=== PATIENT | female | born 1985 | race Caucasian/White ===

== ENCOUNTER 2017-12-03 18:58 | Emergency (ER) | payer OTHER, MEDICAID, SELFPAY ==
[2017-12-03 19:18] VITALS: BP 177/106; PULSE 113; RESP 22; TEMP 37.4; O2SAT 98
[2017-12-03] MEDS: SODIUM CHLORIDE 0.9% 1,000 ML 1000 ML IV (20:10)
--- NOTE | 2017-12-03 20:37 | ED.FEMALEGU ---
HPI - Female Genitourinary General Chief complaint: Urogenital-Female Stated complaint: SAYS SEVERE UTI Time Seen by Provider: 12/03/17 20:10 Source: patient Mode of arrival: ambulatory Limitations: no limitations History of Present Illness HPI Narrative: Patient is a 32-year-old female here for evaluation of which she thinks is a urinary tract infection with lower back pain. Patient states that it started over the past several days. This morning she developed some nausea vomiting. She states this feels like prior urinary tract infection. She states she has been on Bactrim in the past which has helped her symptoms. She states that her infections get bad quick that is why she came to the emergency department. Has not tried anything at home for this. Related Data Home Medications Medication Instructions Recorded Confirmed gabapentin [Neurontin] 600 mg PO TID #0 07/19/17 hydromorphone [Dilaudid] 2 mg PO Q4HP PRN #0 07/19/17 methocarbamol 500 mg PO QIDP PRN #0 07/19/17 ondansetron 4 mg PO TID #0 07/19/17 Previous Rx's Medication Instructions Recorded methylprednisolone [Medrol (Vishal)] 4 mg PO SEE INSTRUCTIONS #21 07/19/17 docusate sodium 100 mg PO BID #60 cap 07/21/17 hydroxyzine pamoate 25 mg PO Q6HP PRN #30 cap 07/21/17 methylprednisolone [Medrol (Vishal)] 4 mg PO DIRECTED #1 packet 07/21/17 ondansetron 4 mg PO Q4HP PRN #20 tab 07/21/17 ondansetron 4 mg PO BID-TID PRN #10 tab 12/03/17 sulfamethoxazole-trimethoprim 1 tab PO BID 3 Days #6 tab 12/03/17 Allergies Allergy/AdvReac Type Severity Reaction Status Date / Time EDD Inhibitors AdvReac Mild PERSISTANT Unverified 08/21/17 11:52 [EDD INHIBITORS] COUGH oxycodone [OXYCODONE] AdvReac Mild NAUSEA, Unverified 08/21/17 11:52 DIZZYNESS Review of Systems Constitutional Denies fatigue and Reports fever(s) Cardiovascular Denies chest pain and Denies dyspnea Respiratory Denies dyspnea Gastrointestinal Gastrointestinal: Denies abdominal pain, Denies diarrhea, Reports nausea and Reports vomiting Genitourinary Denies abnormal vaginal bleeding, Reports dysuria and Reports urinary urgency Musculoskeletal Denies myalgias and Denies arthralgias Integumentary/Breasts Denies lesions and Denies rash Endocrine Denies fatigue Hematologic/Lymphatic Denies easy bleeding and Denies easy bruising [facility] Surgical History History of tonsillectomy Status post delivery (04/03/11) Status post delivery (01/01/14) Exam Initial Vital Signs Initial Vital Signs: Vital Signs Temperature 99.3 F 12/03/17 19:18 Pulse Rate 113 H 12/03/17 19:18 Respiratory Rate 22 12/03/17 19:18 Blood Pressure 177/106 H 12/03/17 19:18 Pulse Oximetry 98 12/03/17 19:18 Const General: cooperative, healthy appearing, comfortable, well developed, well groomed and No acute distress Orientation: alert, awake and oriented x3 Resp Effort & Inspection: normal respiratory effort Auscultation: clear to auscultation bilaterally Cardio Rate: tachycardic Rhythm: regular rhythm Pulses: radial pulses present GI Inspection: non-distended Palpation: soft, No firm, No guarding and No tender Back/Spine/Pelvis Back: No CVA tenderness Skin Lesions: no lesions Rashes: no rashes Neuro General: alert, awake and oriented x3 Cognition: normal cognition Speech: speech normal Gait: normal gait Motor: muscle tone normal throughout Sensory Exam: no sensory deficits noted Extrem General: normal to inspection and capillary refill normal Psych Appearance: grossly normal, well kempt and disheveled Course Orders Ordered: ED Orders 12/03/17 20:05 Test Serum,Qual Stat 12/03/17 20:10 Urine Culture Stat Urine Microscopic Stat Discontinued Medications Acetaminophen (Tylenol) 650 mg PO NOW ONE Stop: 12/03/17 22:42 Last Admin: 12/03/17 22:50 Dose: 650 mg Sodium Chloride (Normal Saline 0.9%) 1,000 mls @ 1,000 mls/hr IV BOLUS ONE Stop: 12/03/17 21:09 Last Infusion: 12/03/17 22:50 Dose: 0 mls/hr Admin: 12/03/17 20:10 Dose: 1,000 mls/hr Ondansetron HCl (Zofran) 4 mg IV NOW ONE Stop: 12/03/17 20:11 Last Admin: 12/03/17 21:34 Dose: 4 mg Trimethoprim/Sulfamethoxazole (Bactrim Ds) 1 tab PO NOW ONE Stop: 12/03/17 20:39 Last Admin: 12/03/17 22:00 Dose: 1 tab Vital Signs - 8 hr 12/03/17 20:41 12/03/17 22:16 12/03/17 22:50 Temperature 101.8 F H Pulse Rate 98 H 100 H Respiratory Rate 22 18 Blood Pressure Blood Pressure [Left Wrist] 152/88 H 148/76 H Pulse Oximetry 98 100 12/03/17 22:52 Temperature 101.8 F H Pulse Rate 97 H Respiratory Rate 15 Blood Pressure 167/109 H Blood Pressure [Left Wrist] Pulse Oximetry 97 MDM - Female Genitourinary Lab Data Attestation: I reviewed the patient's lab results. Lab Results 12/03/17 12/03/17 Range/Units 20:05 20:10 Serum , Qual Negative (Negative) Urine RBC 0-1/hpf (0-5/HPF) Urine WBC 5-10/hpf H (0-5/HPF) Ur Squamous Epith Cells 1-5 /hpf Urine Bacteria Moderate (10-30) H (None) Ur Culture Indicated? Specimen cultured Micro UA Comment Not Reportable MDM Narrative Medical decision making narrative: Patient with a history that is consistent with the urinary tract infection. Her urinalysis does have white blood cells and a few bacteria which support this history. Physical exam is relatively benign she does not have any CVA tenderness. Was tachycardic upon arrival but this did improve with fluids. She was given oral antibiotics here in the emergency department which she tolerated without vomiting. Her test was negative. Will send home with a prescription for antibiotics. She states that Bactrim has which she has taken in the past and it has helped her symptoms so that is what I will start her on today and is what she was given here in the emergency department. She was given return precautions with regard to pyelonephritis. Patient expressed understanding and agreement with plan. Discharge Plan Departure Patient Disposition: Home, Self-Care Clinical Impression: Urinary tract infection Discharge Date/Time: 12/03/17 22:35 Interventions: ED Discharge Assessment Last Done: 12/03/17 22:52 Instructions: DI for Urinary Tract Infection (UTI) Activity Restrictions/Additional Instructions: recommend you take all of the medications as directed starting tomorrow. You did receive Your 1st dose of antibiotics here in the emergency department. you can take Tylenol/ acetaminophen and/or Motrin /ibuprofen for any body aches. Return to the emergency department for any new symptoms, worsening symptoms, inability to take her antibiotics or any other concerning symptoms. Prescriptions: New sulfamethoxazole-trimethoprim 800-160 mg tablet 1 tab PO BID 3 Days Qty: 6 RF: 0 ondansetron 4 mg tablet,disintegrating 4 mg PO BID-TID PRN (Reason: nausea and vomiting) Qty: 10 RF: 0 No Action hydromorphone [Dilaudid] 2 MG tablet 2 mg PO Q4HP PRNQty: 0 RF: 0 gabapentin [Neurontin] 300 MG capsule 600 mg PO TID Qty: 0 RF: 0 methocarbamol 500 MG tablet 500 mg PO QIDP PRNQty: 0 RF: 0 ondansetron 4 MG tablet,disintegrating 4 mg PO TID Qty: 0 RF: 0 methylprednisolone [Medrol (Vishal)] 4 MG tablets,dose pack 4 mg PO SEE INSTRUCTIONS Qty: 21 RF: 0 docusate sodium 100 MG capsule 100 mg PO BID Qty: 60 RF: 1 hydroxyzine pamoate 25 MG capsule 25 mg PO Q6HP PRNQty: 30 RF: 1 ondansetron 4 MG tablet,disintegrating 4 mg PO Q4HP PRNQty: 20 RF: 1 methylprednisolone [Medrol (Vishal)] 4 MG tablets,dose pack 4 mg PO DIRECTED Qty: 1 RF: 0
[2017-12-03 20:39] LABS: Bacteria Urine Moderate (10-30); Culture Indicated Urine Specimen Cultured; RBC Urine 0-1/HPF (0-5/HPF); Squamous Epithelial Cell Urine 1-5 /HPF; WBC Urine 5-10/HPF (0-5/HPF)
[2017-12-03 20:41] VITALS: BP 152/88; PULSE 98; RESP 22; O2SAT 98
[2017-12-03] MEDS: ONDANSETRON 4 MG/2 ML INJ IV (21:34)
[2017-12-03 21:52] LABS: Pregnancy Test Serum,Qual Negative (Negative)
[2017-12-03] MEDS: SULFA/TRIMETH 800/160 (DS) TABLET 1 TAB PO (22:00)
[2017-12-03 22:16] VITALS: BP 148/76; PULSE 100; RESP 18; O2SAT 100
[2017-12-03 22:50] VITALS: TEMP 38.8
[2017-12-03] MEDS: ACETAMINOPHEN 325 MG TABLET 650 MG PO (22:50)
[2017-12-03 22:52] VITALS: BP 167/109; PULSE 97; RESP 15; TEMP 38.8; O2SAT 97
== END 2017-12-03 22:35 | disposition home or self-care (01) ==
PROVIDERS: Emergency Provider Emergency Medicine; PCP Family Medicine
DX: N39.0 Urinary tract infection, site not specified (principal)
CPT/HCPCS: 36591; 81003; 81015; 81025; 84703; 87077; 87086; 87186; 96361; 96374; 99283; 99284; J2405

== ENCOUNTER → 2018-01-19 11:10 | Outpatient (CLI) | payer OTHER, MEDICAID, SELFPAY ==
--- NOTE | 2018-01-19 11:12 | DI.RAD.S_ITS ---
PROCEDURE: XR LUMBAR SPINE 2-3V INDICATIONS: low back strain TECHNIQUE: 3 views of the lumbar spine were acquired. COMPARISON: [facility], CR, L-SPINE 2-3 VIEWS, 03/17/2012, 14:54. [facility], CR, L-SPINE 2-3 VIEWS, 05/31/2008, 11:00. FINDINGS: Bones: 5 [id number] vertebrae are present. There is normal bony alignment. No vertebral body compression fractures. No suspicious bony lesions. Soft tissues: Overlying bowel gas pattern is normal. No suspicious soft tissue calcifications. IMPRESSION: Mild degenerative disc disease again noted along the lower third of the lumbosacral spine but no fracture or traumatic subluxation is associated. Dictated by: Nabil Daniel M.D. on 01/19/2018 at 11:23 Approved by: Nabil Daniel M.D. on 01/19/2018 at 11:50
== END ==
PROVIDERS: PCP Family Medicine; Visit Provider Physician Assistant
DX: S39.012A Strain of muscle, fascia and tendon of lower back, initial encounter (principal); M51.37 Other intervertebral disc degeneration, lumbosacral region
CPT/HCPCS: 72100

== ENCOUNTER 2018-07-04 10:46 | Emergency (ER) | payer OTHER, MEDICAID, SELFPAY ==
[2018-07-04 10:50] VITALS: BP 163/99; PULSE 89; RESP 20; TEMP 36.7; O2SAT 100
--- NOTE | 2018-07-04 11:07 | DI.RAD.S_ITS ---
PROCEDURE: XR SACRUM COCCYX MIN 2V INDICATIONS: fall TECHNIQUE: 3 views of the sacrum and coccyx acquired. COMPARISON: [facility], CR, XR LUMBAR SPINE 2-3V, 07/04/2018, 11:20. [facility], CR, XR LUMBAR SPINE 2-3V, 01/19/2018, 10:48. FINDINGS: Bones: No fractures or dislocations. No suspicious bony lesions. Soft tissues: Visualized bowel gas pattern is normal. No suspicious soft tissue densities. IMPRESSION: No fracture. No osseous lesion. If symptoms and/or clinical suspicion for pathology persists, further assessment with repeat radiographs (7-10 days) or advanced imaging (e.g. CT, MRI or bone scan) may be helpful. Dictated by: Ciara Katz MD, PhD on 07/04/2018 at 11:39 Approved by: Ciara Katz MD, PhD on 07/04/2018 at 11:39
--- NOTE | 2018-07-04 11:07 | DI.RAD.S_ITS ---
PROCEDURE: XR LUMBAR SPINE 2-3V INDICATIONS: fall TECHNIQUE: 3 views of the lumbar spine were acquired. COMPARISON: [facility], CR, XR LUMBAR SPINE 2-3V, 01/19/2018, 10:48. FINDINGS: Bones: 5 [id number] vertebrae are present. There is normal bony alignment. No vertebral body compression fractures. No suspicious bony lesions. Mild multilevel degenerative changes. Soft tissues: Overlying bowel gas pattern is normal. No suspicious soft tissue calcifications. IMPRESSION: No fracture. No acute osseous lesion. If symptoms and/or clinical suspicion for pathology persists, evaluation with MRI may be helpful for further assessment. Dictated by: Ciara Katz MD, PhD on 07/04/2018 at 11:38 Approved by: Ciara Katz MD, PhD on 07/04/2018 at 11:39
--- NOTE | 2018-07-04 12:05 | ED.BACK ---
HPI - Back Pain/Injury <Erma Costello PA-C - Last Filed: 07/04/18 15:33> General Chief Complaint: Back Pain/Injury Stated Complaint: SLIPPED ON ICE,BACK SURG 10 MO AGO Time Seen by Provider: 07/04/18 12:05 Source: patient Mode of arrival: ambulatory Limitations: no limitations History of Present Illness HPI Narrative: this 32-year-old female have who has a history of spinal stenosis and lumbar laminectomy comes in due to low back and tailbone pain after slip and fall a couple of hours ago. She states that she slipped on a large Tupperware lid under the snow and both feet went out from under her. She fell onto her bottom and low back. She denies any other contusions or injury, no head contusion or LOC, no neck pain. She states that she was able to get up with help and slowly walk to the car but very painful. She states pain is localized most in the very low back and tailbone area, increases with any movement, bending, twisting, walking. Better lying on her side. She thinks that she bumped the right side of her back more than the left. She denies any new weakness or paresthesia in the extremities, no numbness in the groin, no bowel or bladder changes since she fell. Related Data Home Medications Medication Instructions Recorded Confirmed losartan-hydrochlorothiazide 1 tab PO DAILY 07/04/18 07/04/18 norethindrone (contraceptive) 1 tab PO DAILY 07/04/18 07/04/18 [Sharobel] Previous Rx's Medication Instructions Recorded hydrocodone-acetaminophen 1 tab PO Q6H PRN #8 tab 07/04/18 meloxicam 15 mg PO DAILY #14 tab 07/04/18 methocarbamol 750 mg PO Q6H PRN #20 tab 07/04/18 Allergies Allergy/AdvReac Type Severity Reaction Status Date / Time EDD Inhibitors AdvReac Mild PERSISTANT Verified 03/02/18 11:35 [EDD INHIBITORS] COUGH oxycodone [OXYCODONE] AdvReac Mild NAUSEA, Verified 03/02/18 11:35 DIZZYNESS Review of Systems <Erma Costello PA-C - Last Filed: 07/04/18 15:33> Review of Systems ROS Unobtainable: All systems reviewed & are unremarkable except as noted in HPI and below PFSH <Erma Costello PA-C - Last Filed: 07/04/18 15:33> Medical History Status post laminectomy (Chronic) Essential hypertension (02/23/14) Morbid obesity (04/20/14) Spinal stenosis (Chronic) Surgical History History of tonsillectomy Status post delivery (04/03/11) Status post delivery (01/01/14) Social History Smoking Status: Former smoker substance use type: marijuana (Daily for back pain) Social History Smoking Status: Former smoker substance use type: marijuana (Daily for back pain) Exam <Erma Costello PA-C - Last Filed: 07/04/18 15:33> Narrative Exam Narrative: GENERAL APPEARANCE: Patient Resting on her right side, in NAD PULMONARY: Lungs clear to auscultation bilaterally CV: Regular rhythm regular without murmur, normal S1 and S2, no S3 or S4 MUSCULOSKELETAL: No point tenderness over the lumbar spine. tender over the distal sacrum and coccyx as well as moderate tenderness over the right SI joint. No tenderness over the right hip. Lower extremity strength 5/5 bilateral hip flexors, knee extensors, foot plantar flexion. Negative modified straight leg raise NEUROLOGIC: sensation is grossly intact over the lower extremities VASCULAR: Extremities are warm and pink Initial Vital Signs Initial Vital Signs: Vital Signs Temperature 98.0 F 07/04/18 10:50 Pulse Rate 89 07/04/18 10:50 Respiratory Rate 20 07/04/18 10:50 Blood Pressure 163/99 H 07/04/18 10:50 Pulse Oximetry 100 07/04/18 10:50 <Aelthea Govea DO - Last Filed: 07/05/18 07:47> Initial Vital Signs Initial Vital Signs: Vital Signs Temperature 98.0 F 07/04/18 10:50 Pulse Rate 89 07/04/18 10:50 Respiratory Rate 20 07/04/18 10:50 Blood Pressure 163/99 H 07/04/18 10:50 Pulse Oximetry 100 07/04/18 10:50 Course <Erma Costello PA-C - Last Filed: 07/04/18 15:33> Orders Ordered: Discontinued Medications Methocarbamol (Robaxin) 750 mg PO NOW ONE Stop: 07/04/18 12:19 Last Admin: 07/04/18 12:38 Dose: 750 mg Vital Signs - 8 hr 07/04/18 10:50 07/04/18 13:04 Temperature 98.0 F Pulse Rate 89 86 Respiratory Rate 20 20 Blood Pressure 163/99 H 171/99 H Pulse Oximetry 100 100 <Alethea Govea DO - Last Filed: 07/05/18 07:47> Orders Ordered: Discontinued Medications Methocarbamol (Robaxin) 750 mg PO NOW ONE Stop: 07/04/18 12:19 Last Admin: 07/04/18 12:38 Dose: 750 mg Vital Signs - 8 hr 07/04/18 10:50 07/04/18 13:04 Temperature 98.0 F Pulse Rate 89 86 Respiratory Rate 20 20 Blood Pressure 163/99 H 171/99 H Pulse Oximetry 100 100 MDM - Back Pain/Injury <Erma Costello PA-C - Last Filed: 07/04/18 15:33> Imaging Data L/S, coccyx: Radiologist's impression: María Castaneda 32 F 1985 [place] [address] XRay Report Signed Patient: María Castaneda [facility]#: [id number] : 1985Acct:[id number] Age/Sex: 32 / FDate of Service: 07/04/18 Loc: ED Accession Number: [id number] Procedure: XR sacrum coccyx min 2V Ordering Provider: Alethea Govea D.O. PROCEDURE: XR SACRUM COCCYX MIN 2V INDICATIONS: fall TECHNIQUE: 3 views of the sacrum and coccyx acquired. COMPARISON: [facility], CR, XR LUMBAR SPINE 2-3V, 07/04/2018, 11:20. [facility], CR, XR LUMBAR SPINE 2-3V, 01/19/2018, 10:48. FINDINGS: Bones: No fractures or dislocations. No suspicious bony lesions. Soft tissues: Visualized bowel gas pattern is normal. No suspicious soft tissue densities. IMPRESSION: No fracture. No osseous lesion. If symptoms and/or clinical suspicion for pathology persists, further assessment with repeat radiographs (7-10 days) or advanced imaging (e.g. CT, MRI or bone scan) may be helpful. Dictated by: Ciara Katz MD, PhD on 07/04/2018 at 11:39 Approved by: Ciara Katz MD, PhD on 07/04/2018 at 11:39 Chart Viewer Diagnostics DATE TYPE STATUS AUTHOR Hx 07/04/18 11:07 Ciara Katz 07/04/18 11:07 Ciara Katz 01/19/18 11:12 Nabil Daniel 09/18/17 00:00 FredyNabil María Castaneda 32, F0 1985 [facility], ED.LOC - Main ED: R11 122.47kg Back Pain/Injury Search Chart PERSISTANT COUGH NAUSEA, DIZZYNESS ONSET 02/23/14 04/20/14 Today 10:50 María Castaneda 32 F [address] [address] XRay Report Signed Patient: María Castaneda [facility]#: [id number] : 1985Acct:[id number] Age/Sex: 32 / FDate of Service: 07/04/18 Loc: ED Accession Number: [id number] Procedure: XR lumbar spine 2-3V Ordering Provider: Alethea Govea D.O. PROCEDURE: XR LUMBAR SPINE 2-3V INDICATIONS: fall TECHNIQUE: 3 views of the lumbar spine were acquired. COMPARISON: [facility], CR, XR LUMBAR SPINE 2-3V, 01/19/2018, 10:48. FINDINGS: Bones: 5 [id number] vertebrae are present. There is normal bony alignment. No vertebral body compression fractures. No suspicious bony lesions. Mild multilevel degenerative changes. Soft tissues: Overlying bowel gas pattern is normal. No suspicious soft tissue calcifications. IMPRESSION: No fracture. No acute osseous lesion. If symptoms and/or clinical suspicion for pathology persists, evaluation with MRI may be helpful for further assessment. Dictated by: Ciara Katz MD, PhD on 07/04/2018 at 11:38 Approved by: Ciara Katz MD, PhD on 07/04/2018 at 11:39 Discharge Plan Departure Patient Disposition: Home Clinical Impression: Lumbar back pain Contusion of coccyx Qualifiers: Encounter type: initial encounter Qualified Code(s): S30.0XXA - Contusion of lower back and pelvis, initial encounter Discharge Date/Time: 07/04/18 13:06 Interventions: ED Discharge Assessment Last Done: 07/04/18 13:04 Instructions: DI for Low Back Pain, Coccydynia Activity Restrictions/Additional Instructions: I think you have contused the tailbone area and strain your low back when you fell. there was no visible broken bone on your x-rays. Please treat this much as you have your low back pain in the past. Rest at home but gentle walking on even surfaces is okay (avoid sitting, twisting, and bending ). Apply ice today and then ice and heat as needed. You can use [id number] topical medicines or lidocaine patches as needed. I have sent prescriptions for meloxicam and methocarbamol into your pharmacy for you to restart at least for the next few days. I have also printed a prescription for a few hydrocodone /acetaminophen if you need them over the weekend in addition to those. Please follow-up with your PCP 1st thing next week to assess your progress and determine whether you might need more treatment. Return as we talked about if you have any acutely worsening symptoms or new symptoms such as difficulty urinating or numbness in Your groin or extremities or weakness in your extremities. Prescriptions: New hydrocodone-acetaminophen 5-325 mg tablet 1 tab PO Q6H PRN (Reason: acute back injury) Qty: 8 RF: 0 meloxicam 15 mg tablet 15 mg PO DAILY Qty: 14 RF: 0 methocarbamol 750 mg tablet 750 mg PO Q6H PRN (Reason: back/muscle pain) Qty: 20 RF: 0 No Action losartan-hydrochlorothiazide 100-25 mg tablet 1 tab PO DAILY RF: 0 norethindrone (contraceptive) [Sharobel] 0.35 mg tablet 1 tab PO DAILY RF: 0 Referrals: Silvano Sandoval MD [Primary Care Provider] - Stand Alone Forms: Work Release Note <Alethea Govea DO - Last Filed: 07/05/18 07:47> Cosign ED Attending Aurora[place] Attestation: I was immediately available in the department for consultation. Documentation has been reviewed. I agree with assessment and plan.
--- NOTE | 2018-07-04 12:08 | ED_ITS ---
HPI - Back Pain/Injury <Erma Costello PA-C - Last Filed: 07/04/18 15:33> General Chief Complaint: Back Pain/Injury Stated Complaint: SLIPPED ON ICE,BACK SURG 10 MO AGO Time Seen by Provider: 07/04/18 12:05 Source: patient Mode of arrival: ambulatory Limitations: no limitations History of Present Illness HPI Narrative: this 32-year-old female have who has a history of spinal stenosis and lumbar laminectomy comes in due to low back and tailbone pain after slip and fall a couple of hours ago. She states that she slipped on a large Tupperware lid under the snow and both feet went out from under her. She fell onto her bottom and low back. She denies any other contusions or injury, no head contusion or LOC, no neck pain. She states that she was able to get up with help and slowly walk to the car but very painful. She states pain is localized most in the very low back and tailbone area, increases with any movement, bending, twisting, walking. Better lying on her side. She thinks that she bumped the right side of her back more than the left. She denies any new weakness or paresthesia in the extremities, no numbness in the groin, no bowel or bladder changes since she fell. Related Data Home Medications Medication Instructions Recorded Confirmed losartan-hydrochlorothiazide 1 tab PO DAILY 07/04/18 07/04/18 norethindrone (contraceptive) 1 tab PO DAILY 07/04/18 07/04/18 [Sharobel] Previous Rx's Medication Instructions Recorded hydrocodone-acetaminophen 1 tab PO Q6H PRN #8 tab 07/04/18 meloxicam 15 mg PO DAILY #14 tab 07/04/18 methocarbamol 750 mg PO Q6H PRN #20 tab 07/04/18 Allergies Allergy/AdvReac Type Severity Reaction Status Date / Time EDD Inhibitors AdvReac Mild PERSISTANT Verified 03/02/18 11:35 [EDD INHIBITORS] COUGH oxycodone [OXYCODONE] AdvReac Mild NAUSEA, Verified 03/02/18 11:35 DIZZYNESS Review of Systems <Erma Costello PA-C - Last Filed: 07/04/18 15:33> Review of Systems ROS Unobtainable: All systems reviewed & are unremarkable except as noted in HPI and below PFSH <Erma Costello PA-C - Last Filed: 07/04/18 15:33> Medical History Status post laminectomy (Chronic) Essential hypertension (02/23/14) Morbid obesity (04/20/14) Spinal stenosis (Chronic) Surgical History History of tonsillectomy Status post delivery (04/03/11) Status post delivery (01/01/14) Social History Smoking Status: Former smoker substance use type: marijuana (Daily for back pain) Social History Smoking Status: Former smoker substance use type: marijuana (Daily for back pain) Exam <Erma Costello PA-C - Last Filed: 07/04/18 15:33> Narrative Exam Narrative: GENERAL APPEARANCE: Patient Resting on her right side, in NAD PULMONARY: Lungs clear to auscultation bilaterally CV: Regular rhythm regular without murmur, normal S1 and S2, no S3 or S4 MUSCULOSKELETAL: No point tenderness over the lumbar spine. tender over the distal sacrum and coccyx as well as moderate tenderness over the right SI joint. No tenderness over the right hip. Lower extremity strength 5/5 bilateral hip flexors, knee extensors, foot plantar flexion. Negative modified straight leg r aise NEUROLOGIC: sensation is grossly intact over the lower extremities VASCULAR: Extremities are warm and pink Initial Vital Signs Initial Vital Signs: Vital Signs Temperature 98.0 F 07/04/18 10:50 Pulse Rate 89 07/04/18 10:50 Respiratory Rate 20 07/04/18 10:50 Blood Pressure 163/99 H 07/04/18 10:50 Pulse Oximetry 100 07/04/18 10:50 <Alethea Govea DO - Last Filed: 07/05/18 07:47> Initial Vital Signs Initial Vital Signs: Vital Signs Temperature 98.0 F 07/04/18 10:50 Pulse Rate 89 07/04/18 10:50 Respiratory Rate 20 07/04/18 10:50 Blood Pressure 163/99 H 07/04/18 10:50 Pulse Oximetry 100 07/04/18 10:50 Course <Erma Costello PA-C - Last Filed: 07/04/18 15:33> Orders Ordered: Discontinued Medications Methocarbamol (Robaxin) 750 mg PO NOW ONE Stop: 07/04/18 12:19 Last Admin: 07/04/18 12:38 Dose: 750 mg Vital Signs - 8 hr 07/04/18 10:50 07/04/18 13:04 Temperature 98.0 F Pulse Rate 89 86 Respiratory Rate 20 20 Blood Pressure 163/99 H 171/99 H Pulse Oximetry 100 100 <Alethea Govea DO - Last Filed: 07/05/18 07:47> Orders Ordered: Discontinued Medications Methocarbamol (Robaxin) 750 mg PO NOW ONE Stop: 07/04/18 12:19 Last Admin: 07/04/18 12:38 Dose: 750 mg Vital Signs - 8 hr 07/04/18 10:50 07/04/18 13:04 Temperature 98.0 F Pulse Rate 89 86 Respiratory Rate 20 20 Blood Pressure 163/99 H 171/99 H Pulse Oximetry 100 100 MDM - Back Pain/Injury <Erma Costello PA-C - Last Filed: 07/04/18 15:33> Imaging Data L/S, coccyx: Radiologist's impression: María Castaneda 32 F 1985 [place] [address] XRay Report Signed Patient: María Castaneda [facility]#: [id number] : 1985Acct:[id number] Age/Sex: 32 / FDate of Service: 07/04/18 Loc: ED Accession Number: [id number] Procedure: XR sacrum coccyx min 2V Ordering Provider: Alethea Govea D.O. PROCEDURE: XR SACRUM COCCYX MIN 2V INDICATIONS: fall TECHNIQUE: 3 views of the sacrum and coccyx acquired. COMPARISON: [facility], CAT, XR LUMBAR SPINE 2-3V, 07/04/2018, 11:20. [facility], CR, XR LUMBAR SPINE 2-3V, 01/19/2018, 10:48. FINDINGS: Bones: No fractures or dislocations. No suspicious bony lesions. Soft tissues: Visualized bowel gas pattern is normal. No suspicious soft tissue densities. IMPRESSION: No fracture. No osseous lesion. If symptoms and/or clinical suspicion for pathology persists, further assessment with repeat radiographs (7-10 days) or advanced imaging (e.g. CT, MRI or bone scan) may be helpful. Dictated by: Ciara Katz MD, PhD on 07/04/2018 at 11:39 Approved by: Ciara Katz MD, PhD on 07/04/2018 at 11:39 Chart [facility]er Diagn[facility] DATE TYPE STATUS AUTHOR Hx 07/04/18 11:07 Ciara Katz 07/04/18 11:07 Ciara Katz 01/19/18 11:12 Nabil Daniel 09/18/17 00:00 FredyNabil María Castaneda, F0 1985 [facility], ED.LOC - Main ED: R11 122.47kg Back Pain/Injury Search Chart PERSISTANT COUGH NAUSEA, DIZZYNESS ONSET 02/23/14 04/20/14 Today 10:50 María Castaneda F [address] [address] XRay Report Signed Patient: María Castaneda [facility]#: [id number] : 1985Acct:[id number] Age/Sex: 32 / FDate of Service: 07/04/18 Loc: ED Accession Number: [id number] Procedure: XR lumbar spine 2-3V Ordering Provider: Alethea Govea D.O. PROCEDURE: XR LUMBAR SPINE 2-3V INDICATIONS: fall TECHNIQUE: 3 views of the lumbar spine were acquired. COMPARISON: [facility], , XR LUMBAR SPINE 2-3V, 01/19/2018, 10:48. FINDINGS: Bones: 5 [id number] vertebrae are present. There is normal bony alignment. No vertebral body compression fractures. No suspicious bony lesions. Mild multilevel degenerative changes. Soft tissues: Overlying bowel gas pattern is normal. No suspicious soft tissue calcifications. IMPRESSION: No fracture. No acute osseous lesion. If symptoms and/or clinical suspicion for pathology persists, evaluation with MRI may be helpful for further assessment. Dictated by: Ciara Katz MD, PhD on 07/04/2018 at 11:38 Approved by: Ciara Katz MD, PhD on 07/04/2018 at 11:39 Discharge Plan Departure Patient Disposition: Home Clinical Impression: Lumbar back pain Contusion of coccyx Qualifiers: Encounter type: initial encounter Qualified Code(s): S30.0XXA - Contusion of lower back and pelvis, initial encounter Discharge Date/Time: 07/04/18 13:06 Interventions: ED Discharge Assessment Last Done: 07/04/18 13:04 Instructions: DI for Low Back Pain, Coccydynia Activity Restrictions/Additional Instructions: I think you have contused the tailbone area and strain your low back when you fell. there was no visible broken bone on your x-rays. Please treat this much as you have your low back pain in the past. Rest at home but gentle walking on even surfaces is okay (avoid sitting, twisting, and bending ). Apply ice today and then ice and heat as needed. You can use [id number] topical medicines or lidocaine patches as needed. I have sent prescriptions for meloxicam and methocarbamol into your pharmacy for you to restart at least for the next few days. I have also printed a prescription for a few hydrocodone /acetaminophen if you need them over the weekend in addition to those. Please follow-up with your PCP 1st thing next week to assess your progress and determine whether you might need more treatment. Return as we talked about if you have any acutely worsening symptoms or new symptoms such as difficulty urinating or numbness in Your groin or extremities or weakness in your extremities. Prescriptions: New hydrocodone-acetaminophen 5-325 mg tablet 1 tab PO Q6H PRN (Reason: acute back injury) Qty: 8 RF: 0 meloxicam 15 mg tablet 15 mg PO DAILY Qty: 14 RF: 0 methocarbamol 750 mg tablet 750 mg PO Q6H PRN (Reason: back/muscle pain) Qty: 20 RF: 0 No Action losartan-hydrochlorothiazide 100-25 mg tablet 1 tab PO DAILY RF: 0 norethindrone (contraceptive) [Sharobel] 0.35 mg tablet 1 tab PO DAILY RF: 0 Referrals: Silvano Sandoval MD [Primary Care Provider] - Stand Alone Forms: Work Release Note <Alethea Govea DO - Last Filed: 07/05/18 07:47> Cosign ED Attending Aurora[facility] Attestation: I was immediately available in the department for consultation. Documentation has been reviewed. I agree with assessment and plan.
[2018-07-04] MEDS: METHOCARBAMOL 500 MG TABLET 750 MG PO (12:38)
[2018-07-04 13:04] VITALS: BP 171/99; PULSE 86; RESP 20; O2SAT 100
== END 2018-07-04 13:06 | disposition home or self-care (01) ==
PROVIDERS: Emergency Provider Internal Medicine; PCP Family Medicine
DX: S30.0XXA Contusion of lower back and pelvis, initial encounter (principal); W01.0XXA Fall on same level from slipping, tripping and stumbling without subsequent striking against object, initial encounter
CPT/HCPCS: 72100; 72220; 99282; 99283

== ENCOUNTER 2018-11-05 22:31 | Emergency (ER) | payer OTHER, MEDICAID, SELFPAY ==
[2018-11-05 22:36] VITALS: BP 188/114; PULSE 77; RESP 18; TEMP 36.6; O2SAT 100; BMI 49.8
--- NOTE | 2018-11-05 22:52 | DI.RAD.S_ITS ---
PROCEDURE: XR CHEST 1V INDICATIONS: headache, nauseated, shortness of breath TECHNIQUE: One view of the chest was acquired. COMPARISON: None. FINDINGS: Surgical changes and devices: None. Lungs and pleura: Lungs are clear. No pleural effusions or pneumothorax. Mediastinum: Mediastinal contours appear normal. Heart size is normal. Bones and chest wall: No suspicious bony lesions. Overlying soft tissues appear unremarkable. IMPRESSION: No acute cardiopulmonary disease process. Dictated by: Ciara Katz MD, PhD on 11/06/2018 at 7:42 Approved by: Ciara Katz MD, PhD on 11/06/2018 at 7:43
[2018-11-05] MEDS: ACETAMINOPHEN 325 MG TABLET 975 MG PO (22:54)
[2018-11-05] MEDS: ONDANSETRON 4 MG/2 ML INJ IV (22:54)
[2018-11-05] MEDS: SODIUM CHLORIDE 0.9% 1,000 ML 1000 ML IV (22:56)
--- NOTE | 2018-11-05 22:58 | ED_ITS ---
HPI - Headache General Chief Complaint: Headache Stated Complaint: N/V, thinks she has heat stroke. Time Seen by Provider: 11/05/18 22:32 Source: patient and family Mode of arrival: ambulatory Limitations: no limitations History of Present Illness HPI Narrative: 33-year-old female comes in with concern for heat stroke. Patient states she was out working in the [employer] earlier today. She thinks she did drink enough fluids. She states she has headache, she feels nauseated. She vomited once just prior to coming into the ER. She states she has not had any chest pain or pressure, she felt a little short of breath earlier. She denies any abdominal pain, she denies any back pain. She denies any diarrhea, constipa tion or urinary symptoms she has not noted that her urine was darker that she has had decreased output. She states she does have a history of migraines she has not had 1 for several years but this feels similar. She states she has had heat stroke once before she was seen in the emergency department and discharged home from the ER. She does take combination medication for her blood pressure, losartan/hydrochlorothiazide daily. She states she missed a couple doses earlier in the week but did take it this morning. She states she has had back as well . She states she does smoke marijuana. Former smoker denies tobacco currently. Denies any cardiac, pulmonary or folic history with family. Related Data Home Medications Medication Instructions Recorded Confirmed losartan-hydrochlorothiazide 1 tab PO DAILY 07/04/18 11/05/18 norethindrone (contraceptive) 1 tab PO DAILY 07/04/18 11/05/18 [Sharobel] Previous Rx's Medication Instructions Recorded meloxicam 15 mg PO DAILY #14 tab 07/04/18 Allergies Allergy/AdvReac Type Severity Reaction Status Date / Time EDD Inhibitors AdvReac Mild PERSISTANT Verified 07/16/18 12:09 [EDD INHIBITORS] COUGH oxycodone [OXYCODONE] AdvReac Mild NAUSEA, Verified 07/16/18 12:09 DIZZYNESS Review of Systems Review of Systems ROS Unobtainable: All systems reviewed & are unremarkable except as noted in HPI and below Constitutional Denies chills, Denies fatigue, Denies fever(s), Reports headache(s), Denies lethargy and Denies weakness Eyes Reports blurry vision (mildly per patient) ENT Ears, Nose, Mouth, and Throat: Denies dizziness and Reports headache(s) Cardiovascular Denies chest pain, Denies diaphoresis, Denies syncope, Denies rapid heart rate, Denies irregular heart rhythm, Denies leg edema, Denies lightheadedness, Denies palpitations, Denies dyspnea (now, felt a little earlier) and Denies orthopnea Respiratory Denies chest congestion, Denies cough, Denies dyspnea (now, felt a little earlier) and Denies wheezing Gastrointestinal Gastrointestinal: Denies abdominal pain, Denies change in bowel habits, Denies diarrhea, Reports nausea and Reports vomiting (x1) Genitourinary Denies hematuria, Denies urinary frequency, Denies dysuria, Denies flank pain, Denies urinary incontinence and Denies urinary urgency Musculoskeletal Denies back pain Integumentary/Breasts Reports erythema (face is red, states it often gets red when bp high) and Denies rash Neurologic Denies confusion, Denies dizziness, Denies syncope, Reports headache(s), Denies focal weakness, Denies sensory deficit and Denies weakness Psychiatric Denies confusion Endocrine Denies fatigue and Denies palpitations Allergic/Immunologic Denies wheezing [facility] Medical History Status post laminectomy (Chronic) Essential hypertension (02/23/14) Morbid obesity (04/20/14) Spinal stenosis (Chronic) Surgical History History of tonsillectomy Status post delivery (04/03/11) Status post delivery (01/01/14) Social History Smoking Status: Former smoker substance use type: marijuana (Daily for back pain) Social History Smoking Status: Former smoker substance use type: marijuana (Daily for back pain) Exam Narrative Exam Narrative: GEN: obese, well appearing, female alert and oriented x 3, patient appears to be in mild distress. Patient's face and chest are little bit erythematous, they are not warm to touch. HEENT: Atraumatic, pupils are equal round reactive to light, extraocular movements are intact, nares are clear, TMs are clear with no fluid, there is no conjunctival pallor. Throat is clear without any exudates, erythema, tonsillar enlargement or uvular deviation HEART: Regular rate and rhythm without murmur, clicks, rubs. LUNGS:Lungs clear to auscultation, no wheezes, rales, crackles, chest moves symmetrically. No tachypnea, no accessory muscle use. ABD:bowel sounds normal, soft, non-tender, no guarding, rebound, rigidity, no masses noted, no hepatosplenomegaly :No CVA tenderness MSCL: Non-tender, no muscle atrophy, full range of motion NEURO:CN 2-12 intact, sensation normal Initial Vital Signs Initial Vital Signs: Vital Signs Temperature 97.9 F 11/05/18 22:36 Pulse Rate 77 11/05/18 22:36 Respiratory Rate 18 11/05/18 22:36 Blood Pressure 188/114 H 11/05/18 22:36 Pulse Oximetry 100 11/05/18 22:36 Scores GCS Sundeep coma scale eye opening: Spontaneous Freedom coma scale verbal response: Orientated Sundeep coma scale motor response: Obey commands Freedom coma scale total score: 15 HEART Score Heart Score history: Slightly Suspicious Heart Score EKG: Non-Specific repolarization disturbance Heart Score Age: < 45 years old Heart Score risk factors: 1-2 risk factors Heart Score troponin: < or = to normal limit Heart Score Total: 2 Course Orders Ordered: ED Orders 11/05/18 22:52 XR chest 1V Stat 11/05/18 23:08 Complete Blood Count AUTO DIFF Stat Comprehensive Metabolic Panel Stat Lipase Stat Troponin & CK Cardiac Panel Stat 11/05/18 23:11 EKG-12 Lead Stat 11/06/18 01:12 Troponin & CK Cardiac Panel Stat Discontinued Medications Acetaminophen (Tylenol) 975 mg PO NOW ONE Stop: 11/05/18 22:52 Last Admin: 11/05/18 22:54 Dose: 975 mg Sodium Chloride (Normal Saline 0.9%) 1,000 mls @ 1,000 mls/hr IV BOLUS ONE Stop: 11/05/18 23:50 Last Infusion: 11/05/18 23:55 Dose: 0 mls/hr Admin: 11/05/18 22:56 Dose: 1,000 mls/hr Sodium Chloride (Normal Saline 0.9%) 1,000 mls @ 1,000 mls/hr IV BOLUS ONE Stop: 11/06/18 01:09 Last Infusion: 11/06/18 01:15 Dose: 1,000 mls/hr Admin: 11/06/18 00:10 Dose: 1,000 mls/hr Ondansetron HCl (Zofran) 4 mg IV NOW ONE Stop: 11/05/18 22:54 Last Admin: 11/05/18 22:54 Dose: 4 mg Vital Signs - 8 hr 11/05/18 22:36 11/05/18 23:09 11/05/18 23:44 Temperature 97.9 F Pulse Rate 77 71 71 Respiratory Rate 18 11 L 14 Blood Pressure 188/114 H Blood Pressure [Left Arm] 165/103 H 149/81 H Pulse Oximetry 100 93 92 11/06/18 01:16 Temperature Pulse Rate 85 Respiratory Rate Blood Pressure Blood Pressure [Left Arm] 138/97 H Pulse Oximetry 99 MDM - Headache Lab Data Attestation: I reviewed the patient's lab results. Result diagrams: 11/05/18 23:08 11/05/18 23:08 Lab Results 11/05/18 11/05/18 11/05/18 Range/Units 23:08 23:08 23:08 WBC 12.5 H (4.5-11.0) X10^3/uL RBC 5.62 H (4.0-5.2) X10^6/uL Hgb 12.8 (12.0-16.0) g/dL Hct 39.4 (36-46) % MCV 70.1 L (80-100) fL MCH 22.7 L (26-34) PG MCHC 32.4 (30-36) % RDW 17.1 H (11.6-14.8) % Plt Count 368 (150-400) X10^3/uL Neut % (Auto) 72.8 (50-75) % Lymph % (Auto) 20.1 L (25-40) % [place] % (Auto) 5.1 (3-14) % Eos % (Auto) 1.2 L (2-4) % Baso % (Auto) 0.8 (0-2) % Neut # (Auto) 9100 H (0904-4280) /uL Lymph # (Auto) 2500 (0946-3974) /uL [place] # (Auto) 600 (0-900) /uL Eos # (Auto) 100 (0-450) /uL Baso # (Auto) 100 (0-100) /uL Sodium 141 (137-145) mmol/L Potassium 3.6 (3.4-5.1) mmol/L Chloride 106 (98-107) mmol/L Carbon Dioxide 27 (22-32) mmol/L BUN 15 (7-17) mg/dL Creatinine 0.80 (0.52-1.04) mg/dL Estimated GFR > 60.0 (>60) mL/min BUN/Creatinine Ratio 18.8 (6-22) Glucose 102 H (70-100) mg/dL Calcium 8.8 (8.4-10.2) mg/dL Total Bilirubin 0.4 (0.2-1.3) mg/dL AST 26 (14-36) IU/L ALT 31 (9-52) IU/L Alkaline Phosphatase 91 (38-126) U/L Total Creatine Kinase 384 H (30-135) U/L CK-MB (CK-2) 6.00 H (<2.37) ng/mL CK-MB (CK-2) Rel Index 1.6 (1.5-5.0) % Troponin I < 0.012 (0.01-0.034) ng/mL Total Protein 7.4 (6.3-8.2) g/dL Albumin 4.0 (3.5-5.0) g/dL Globulin 3.4 (1.7-4.1) g/dL Albumin/Globulin Ratio 1.2 (1.0-2.8) Lipase 47 (23-300) U/L 11/06/18 Range/Units 01:12 WBC (4.5-11.0) X10^3/uL RBC (4.0-5.2) X10^6/uL Hgb (12.0-16.0) g/dL Hct (36-46) % MCV (80-100) fL MCH (26-34) PG MCHC (30-36) % RDW (11.6-14.8) % Plt Count (150-400) X10^3/uL Neut % (Auto) (50-75) % Lymph % (Auto) (25-40) % [place] % (Auto) (3-14) % Eos % (Auto) (2-4) % Baso % (Auto) (0-2) % Neut # (Auto) (6794-4953) /uL Lymph # (Auto) (8055-1543) /uL [place] # (Auto) (0-900) /uL Eos # (Auto) (0-450) /uL Baso # (Auto) (0-100) /uL Sodium (137-145) mmol/L Potassium (3.4-5.1) mmol/L Chloride (98-107) mmol/L Carbon Dioxide (22-32) mmol/L BUN (7-17) mg/dL Creatinine (0.52-1.04) mg/dL Estimated GFR (>60) mL/min BUN/Creatinine Ratio (6-22) Glucose (70-100) mg/dL Calcium (8.4-10.2) mg/dL Total Bilirubin (0.2-1.3) mg/dL AST (14-36) IU/L ALT (9-52) IU/L Alkaline Phosphatase (38-126) U/L Total Creatine Kinase 330 H (30-135) U/L CK-MB (CK-2) 5.16 H (<2.37) ng/mL CK-MB (CK-2) Rel Index 1.6 (1.5-5.0) % Troponin I < 0.012 (0.01-0.034) ng/mL Total Protein (6.3-8.2) g/dL Albumin (3.5-5.0) g/dL Globulin (1.7-4.1) g/dL Albumin/Globulin Ratio (1.0-2.8) Lipase (23-300) U/L Imaging Data Chest x-ray: Attestation: I personally reviewed and interpreted this imaging study as follows: My impression: nap, no pneumothorax, no free air, no pna. ECG Data Attestation: I personally reviewed and interpreted this ECG as follows: Prior ECG tracings: available for review Interpretation: Sinus rhythm rate of 72 P are 199 QRS of 102 and QTC of 442. No ST elevation or depression. Some criteria for LVH. Patient has prior EKG from 11/02/2013 which appears similar. MDM Narrative Medical decision making narrative: Lab work shows a slightly elevated white count, patient has what appears to be a chronic microcytosis, she is not anemic today she is a little bit of left shift. Labs show an elevated total CK with a CK-MB of 6 and a troponin that is negative. Patient has not given a urine. Chest x-ray does not show any acute processes and EKG today appears similar to prior. Patient states she felt sort of overheated like maybe she was little bit dehydrated. Labs do not show dehydration but does show her total CK and CK-MB are elevated she described a little bit of shortness of breath earlier but no chest pain or pressure. As well as a migraine and nausea with 1 episode of vomiting. Patient came in quite hypertensive but has been improving over time. Patient received Tylenol Zofran and fluids. On recheck, she is feeling better. We discussed her findings and I would like to repeat 2 hour troponin and CK to make sure that her numbers are improving. Patient is comfortable with this plan. Patient I did discuss that she did take Imitrex earlier today was not very helpful. She was in the she could not figure out how get the car unlocked and herself out and she panicked and that is when she felt short of breath. Patient was doing quite a bit of strenuous exercise and work on their home as they now have 4 acres recently. Repeat labs show slightly decreased CK, CK-MB and negative troponin x 2. Discussed findings with patient and plan for d/c home. She is feeling better, states headaches is improving. BP has also been improving while in the department. Patient encouraged to continue hydration. Discharge Plan Departure Patient Disposition: Home Clinical Impression: Migraine, Elevated creatine kinase Discharge Date/Time: 11/06/18 01:55 Interventions: ED Discharge Assessment Last Done: 11/06/18 01:55 Instructions: Creatine Kinase Activity Restrictions/Additional Instructions: Follow-up with your primary care physician in the next 2-3 days for recheck. Call for an appointment. Continue medications as prescribed. Return to the emergency department for fevers greater than 100.4 F, new chest pain, shortness of breath, lightheadedness or passing-out, persistent vomiting, altered mental status, weakness, numbness or other new or concerning symptoms. Prescriptions: No Action losartan-hydrochlorothiazide 100-25 mg tablet 1 tab PO DAILY RF: 0 norethindrone (contraceptive) [Sharobel] 0.35 mg tablet 1 tab PO DAILY RF: 0 meloxicam 15 mg tablet 15 mg PO DAILY Qty: 14 RF: 0 Referrals: Silvano Sandoval MD [Primary Care Provider] -
[2018-11-05 23:09] VITALS: BP 165/103; PULSE 71; RESP 11; O2SAT 93
[2018-11-05 23:24] LABS: Add Manual Diff / Slide Review NO; Basophils Absolute Auto 100 /uL (0-100); Basophils Percent Auto 0.8 % (0-2); Eosinophils Absolute Auto 100 /uL (0-450); Eosinophils Percent Auto 1.2 % (2-4); Hematocrit 39.4 % (36-46); Hemoglobin 12.8 g/dL (12.0-16.0); Lymphocytes Absolute Auto 2500 /uL (1100-4500); Lymphocytes Percent Auto 20.1 % (25-40); Mean Corpuscular HGB Conc 32.4 % (30-36); Mean Corpuscular Hemoglobin 22.7 PG (26-34); Mean Corpuscular Volume 70.1 fL (80-100); Monocytes Absolute Auto 600 /uL (0-900); Monocytes Percent Auto 5.1 % (3-14); Neutrophils Absolute Auto 9100 /uL (1500-7000); Neutrophils Percent Auto 72.8 % (50-75); Platelet Count 368 X10^3/uL (150-400); Red Blood Cell Count 5.62 X10^6/uL (4.0-5.2); Red Cell Distribution Width 17.1 % (11.6-14.8); White Blood Cell Count 12.5 X10^3/uL (4.5-11.0)
[2018-11-05 23:29] LABS: Alanine Aminotransferase 31 IU/L (9-52); Albumin Globulin Ratio 1.2 (1.0-2.8); Alkaline Phosphatase 91 U/L (38-126); Aspartate Aminotransferase 26 IU/L (14-36); BUN Creatinine Ratio 18.8 (6-22); Bilirubin Total 0.4 mg/dL (0.2-1.3); Blood Urea Nitrogen 15 mg/dL (7-17); Calcium 8.8 mg/dL (8.4-10.2); Carbon Dioxide 27 mmol/L (22-32); Chloride 106 mmol/L (98-107); Creatine Kinase 384 U/L (30-135); Estimated Glomerular Filt Rate > 60.0 mL/min (>60); Globulin 3.4 g/dL (1.7-4.1); Glucose 102 mg/dL (70-100); HEMOLYSIS < 15 (0-50); Lipase 47 U/L (23-300); Potassium 3.6 mmol/L (3.4-5.1); Sodium 141 mmol/L (137-145); Total Protein 7.4 g/dL (6.3-8.2)
[2018-11-05 23:40] LABS: Troponin I < 0.012 ng/mL (0.01-0.034)
[2018-11-05 23:44] VITALS: BP 149/81; PULSE 71; RESP 14; O2SAT 92
[2018-11-05 23:44] LABS: CKMB % Relative Index 1.6 % (1.5-5.0)
[2018-11-06] MEDS: SODIUM CHLORIDE 0.9% 1,000 ML 1000 ML IV (00:10)
[2018-11-06 01:16] VITALS: BP 138/97; PULSE 85; O2SAT 99
[2018-11-06 01:29] LABS: Creatine Kinase 330 U/L (30-135)
[2018-11-06 01:42] LABS: Troponin I < 0.012 ng/mL (0.01-0.034)
[2018-11-06 01:45] LABS: CKMB % Relative Index 1.6 % (1.5-5.0); Creatine Kinase MB 5.16 ng/mL (<2.37)
== END 2018-11-06 01:55 | disposition home or self-care (01) ==
PROVIDERS: Emergency Provider Emergency Medicine; Family Provider Family Medicine; PCP Family Medicine
DX: G43.909 Migraine, unspecified, not intractable, without status migrainosus (principal); R74.8 Abnormal levels of other serum enzymes; R06.02 Shortness of breath; R11.2 Nausea with vomiting, unspecified
CPT/HCPCS: 36415; 71045; 80053; 82550; 82553; 83690; 84484; 85025; 93005; 93010; 96361; 96374; 99284; 99285; J2405

== ENCOUNTER → 2019-02-25 13:20 | Outpatient (CLI) | payer OTHER, MEDICAID, SELFPAY ==
--- NOTE | 2019-02-25 | DI.US.S_ITS ---
LIMITED ULTRASOUND OF RIGHT BREAST: 02/25/2019 CLINICAL: Bilateral milky nipple discharge x 5 years, without recent change. Comparison is made to exams dated: 02/25/2019 mammogram and 02/25/2019 [facility]. Color flow and real-time ultrasound of the right breast nipple and retroareolar region were performed. Gomez scale images of the real-time examination were reviewed. Targeted ultrasound of the right nipple and retroareolar region demonstrates no abnormality or mass. There is no focal duct dilitation. There is no ultrasound correlate for the grouped round calcifications in the right breast retroareolar depth central to the nipple seen on comparison diagnostic mammogram of 02/25/19 performed immediately prior to this ultrasound exam. IMPRESSION: PROBABLY BENIGN 1) No sonographic abnormality of the right nipple/retroareolar region to explain patient's reported nipple discharge. Recommend clinical follow-up with the patient's referring provider for further evaluation and management. A breast MRI can be considered if there is continued clinical concern. 2) There is no ultrasound correlate for the grouped round calcifications in the right breast retroareolar depth central to the nipple seen on comparison diagnostic mammogram of 02/25/19 performed immediately prior to this ultrasound exam. A followup diagnostic mammogram in 6 months is recommended to demonstrate stability. The patient is advised to monitor her breasts and to return sooner for re-evaluation should anything grow or change. This exam was interpreted at Station ID: [id number]. Electronically Signed By: Fabio Simon M.D. ecl/:02/25/2019 15:34:43 letter sent: Followup Recommended Ultrasound BI-RADS: 3 Probably benign
--- NOTE | 2019-02-25 | DI.US.S_ITS ---
LIMITED ULTRASOUND OF LEFT BREAST: 02/25/2019 CLINICAL: Left breast pain described by patient as being deep in the breast under the nipple region. Bilateral milky nipple discharge x 5 years, without recent change. Comparison is made to exams dated: 02/25/2019 mammogram and 02/25/2019 [facility]. Color flow and real-time ultrasound of the left breast 12 o'clock, and nipple/retroareolar regions were performed. Gomez scale images of the real-time examination were reviewed. Targeted ultrasound of the left nipple and retroareolar region demonstrates no abnormality or mass. There is no focal duct dilitation. There is no ultrasound correlate for the grouped round calcifications in the superior left breast retroareolar depth near 12 o'clock position seen on comparison diagnostic mammogram of 02/25/19 performed immediately prior to this ultrasound exam. Targeted ultrasound was performed in the region of the patient's reported focal pain in the left breast under the nipple region/central to the nipple. No underlying breast mass or abnormality is identified. IMPRESSION: PROBABLY BENIGN 1) No sonographic abnormality of the left nipple/retroareolar region to explain patient's reported nipple discharge. Recommend clinical follow-up with the patient's referring provider for further evaluation and management. A breast MRI can be considered if there is continued clinical concern. 2) There is no ultrasound correlate for the grouped round calcifications in the superior left breast retroareolar depth near 12 o'clock position seen on comparison diagnostic mammogram of 02/25/19 performed immediately prior to this ultrasound exam. A followup diagnostic mammogram in 6 months is recommended to demonstrate stability. The patient is advised to monitor her breasts and to return sooner for re-evaluation should anything grow or change. 3) No ultrasound findings to explain patient's reported focal pain in the left breast under the nipple region/central to the nipple. Recommend clinical follow-up for further evaluation and management of the patient's reported symptoms. This exam was interpreted at Station ID: [id number]. Electronically Signed By: Fabio Simon M.D. ecl/:02/25/2019 15:39:39 letter sent: Followup Recommended Ultrasound BI-RADS: 3 Probably benign
--- NOTE | 2019-02-25 | DI.MG.S_ITS ---
BILATERAL DIGITAL DIAGNOSTIC MAMMOGRAM 3D/2D: 02/25/2019 CLINICAL: Baseline exam. Left breast pain described by patient as being deep in the breast under the nipple region. Bilateral milky nipple discharge x 5 years, without recent change. No prior exams were available for comparison. The tissue of both breasts is predominantly fatty. There are grouped round calcifications in the superior left breast retroareolar depth near 12 o'clock position. There is no other underlying mammographic abnormality to correlate with the patient's reported deep left breast pain under the nipple region or left nipple discharge. There are grouped round calcifications in the right breast retroareolar depth central to the nipple. There is no other underlying mammographic abnormality to correlate with the patient's reported right nipple discharge. No other significant masses, calcifications, or other findings are seen in either breast. IMPRESSION: INCOMPLETE: NEEDS ADDITIONAL IMAGING EVALUATION 1) There are grouped round calcifications in the superior left breast retroareolar depth near 12 o'clock position. There is no other underlying mammographic abnormality in the left breast to correlate with the patient's reported deep left breast pain under the nipple region or left nipple discharge. Targeted diagnostic ultrasound recommended for further evaluation, which will be performed immediately following this exam. 2) There are grouped round calcifications in the right breast retroareolar depth central to the nipple. There is no other underlying mammographic abnormality to correlate with the patient's reported right nipple discharge. Targeted diagnostic ultrasound recommended for further evaluation, which will be performed immediately following this exam. This exam was interpreted at Station ID: [id number]. NOTE: For mammograms, a report in lay terms will be sent to the patient. Approximately 15% of breast malignancies will not be visualized mammographically. In the management of a palpable breast mass, a negative mammogram must not discourage biopsy of a clinically suspicious lesion. Electronically Signed By: Fabio Simon M.D. ecl/:02/25/2019 14:49:02 ACR BI-RADS Category 0: Incomplete [id number]
== END ==
PROVIDERS: PCP Student in an Organized Health Care Education/Training Program; Visit Provider Student in an Organized Health Care Education/Training Program
DX: R92.8 Other abnormal and inconclusive findings on diagnostic imaging of breast (principal); R92.1 Mammographic calcification found on diagnostic imaging of breast; N64.4 Mastodynia; N64.52 Nipple discharge
CPT/HCPCS: 76642; 77066; G0279

== ENCOUNTER 2019-03-04 12:17 | Emergency (ER) | payer OTHER, MEDICAID, SELFPAY ==
[2019-03-04] VITALS (8 sets, daily range): BP systolic 139–190; BP diastolic 83–127; PULSE 80–115; RESP 24; TEMP 36.9; O2SAT 98–100
--- NOTE | 2019-03-04 12:35 | DI.RAD.S_ITS ---
PROCEDURE: XR CHEST 1V INDICATIONS: chest pain TECHNIQUE: One view of the chest was acquired. COMPARISON: [facility], CR, XR CHEST 1V, 11/05/2018, 23:00. FINDINGS: Surgical changes and devices: None. Lungs and pleura: Lungs are clear. No pleural effusions or pneumothorax. Mediastinum: Mediastinal contours appear normal. Heart size is normal. Bones and chest wall: No suspicious bony lesions. Overlying soft tissues appear unremarkable. IMPRESSION: Stable cardiopulmonary examination. No acute process identified. Dictated by: Oscar Suarez M.D. on 03/04/2019 at 12:57 Approved by: Oscar Suarez M.D. on 03/04/2019 at 12:58
--- NOTE | 2019-03-04 13:22 | ED_ITS ---
HPI - Chest Pain General Chief Complaint: Chest Pain Stated Complaint: Chest pains Time Seen by Provider: 03/04/19 12:20 Source: family Mode of arrival: Wheelchair Limitations: no limitations History of Present Illness HPI narrative: 33-year-old female former smoker with history of hypertension presents with a chief complaint of a sudden onset anterior chest pain. She denies any provocation or palliation. She states it has been there off and on for many weeks and she has been in the process of seeing her primary care provider about it. She has had a mammogram as well as medication changes to attempt to evaluate. It came on very suddenly today and made her quite anxious. She denies any injury, recent travel. She denies any cough nor fever or chills. MD complaint: chest pain Onset (ago): minute(s) Duration: constant Onset: during rest Pain location: substernal Severity: severe Quality: sharp Pain radiation: none Relieving factors: nothing Exacerbating factors: nothing Context: recent illness Treatments prior to arrival chest pain: none Related Data On Oral Contraceptives: Yes Home Medications Medication Instructions Recorded Confirmed norethindrone (contraceptive) 1 tab PO DAILY 07/04/18 03/04/19 [Sharobel] carvedilol 6.25 mg PO BID 03/04/19 03/04/19 losartan 100 mg PO DAILY 03/04/19 03/04/19 meloxicam 15 mg PO DAILY PRN 03/04/19 03/04/19 Allergies Allergy/AdvReac Type Severity Reaction Status Date / Time EDD Inhibitors AdvReac Mild PERSISTANT Verified 03/04/19 12:27 [EDD INHIBITORS] COUGH oxycodone [OXYCODONE] AdvReac Mild NAUSEA, Verified 03/04/19 12:27 DIZZYNESS Review of Systems Constitutional Constitutional: Denies chills, Denies fatigue, Denies fever(s), Denies frequent falls, Denies lethargy and Denies weakness Eyes Eyes: Denies change in vision, Denies eye discharge, Denies irritation and Denies loss of vision ENT Ears, Nose, Mouth, and Throat: Denies change in voice, Denies dizziness, Denies neck pain, Denies sore throat and Denies throat swelling Cardiovascular Cardiovascular: Reports chest pain, Denies irregular heart rhythm, Denies lightheadedness, Denies palpitations, Denies dyspnea, Denies dyspnea on exertion and Denies orthopnea Respiratory Respiratory: Denies cough, Denies dyspnea, Denies dyspnea on exertion and Denies wheezing Gastrointestinal Gastrointestinal: Denies abdominal pain, Denies change in bowel habits, Denies diarrhea, Denies nausea and Denies vomiting Genitourinary Genitourinary: Denies hematuria, Denies flank pain, Denies urinary incontinence and Denies urinary urgency Musculoskeletal Musculoskeletal: Denies back pain, Denies muscle weakness, Denies neck pain, Denies numbness and Denies tingling Integumentary/Breasts Skin/Breast: Denies pruritus, Denies erythema, Denies rash and Denies wounds Neurologic Neurologic: Denies behavioral changes, Denies confusion, Denies dizziness, Denies frequent falls, Denies loss of vision, Denies numbness, Denies tingling and Denies weakness Psychiatric Psychiatric: Denies anxiety, Denies behavioral changes, Denies confusion, Denies depression, Denies homicidal ideation and Denies suicidal ideation Endocrine Endocrine: Denies fatigue, Denies flushing and Denies palpitations Hematologic/Lymphatic Hematologic/Lymphatic: Denies easy bruising Allergic/Immunologic Allergic/Immunologic: Denies urticaria, Denies throat swelling and Denies wheezing Patient History Medical History Essential hypertension (02/23/14) Morbid obesity (04/20/14) Spinal stenosis (Chronic) Status post laminectomy (Chronic) Surgical History History of tonsillectomy Status post delivery (04/03/11) Status post delivery (01/01/14) Social History Smoking Status: Former smoker substance use type: marijuana (Daily for back pain) alcohol intake frequency: other Substance Use Type: marijuana Exam Narrative Exam Narrative: GENERAL: [33] year old patient appears stated age. Morbid obesity, quite anxious, tearful, refusing to answer questions or participating questioning. HEAD: Atraumatic. Normocephalic. EYES: Pupils equal round and reactive. Extraocular motions intact. No scleral ic terus. No injection or drainage. ENT: Nose without bleeding, purulent drainage. Throat without erythema, tonsillar hypertrophy or exudate. Airway patent. NECK: Trachea midline. Non tender CARDIOVASCULAR: Tachycardic but regular rhythm without murmurs, gallops, or rubs. RESPIRATORY: Clear to auscultation. Breath sounds equal bilaterally. No wheezes, rales, or rhonchi. GASTROINTESTINAL: Abdomen soft, non-tender, nondistended. EXTREMITIES: No edema or joint tenderness. BACK: Nontender without deformity or crepitance. No flank tenderness. NEURO: AOx3. SKIN: No rash or erythema of visible areas Initial Vital Signs Initial Vital Signs: Vital Signs Temperature 98.4 F 03/04/19 12:27 Pulse Rate 115 H 03/04/19 12:27 Respiratory Rate 24 03/04/19 12:27 Blood Pressure 190/127 H 03/04/19 12:27 Pulse Oximetry 100 03/04/19 12:27 Course Orders Ordered: ED Orders 03/04/19 12:27 EKG-12 Lead Routine 03/04/19 12:35 XR chest 1V Stat 03/04/19 14:39 Complete Blood Count AUTO DIFF Stat Comprehensive Metabolic Panel Stat D Dimer Stat Lipase Stat Troponin & CK Cardiac Panel Stat 03/04/19 15:58 CT angio chest PE protocol Stat 03/04/19 16:10 Urine Microscopic Stat Discontinued Medications Sodium Chloride (Normal Saline 0.9%) 1,000 mls @ 150 mls/hr IV CONT BENITO Last Infusion: 03/04/19 17:01 Dose: 0 mls/hr Documented by: Admin: 03/04/19 16:24 Dose: 150 mls/hr Documented by: AUGIE Reevaluation(s) Reevaluation #1: Patient calm, relaxed, breathing control. Time: 13:24 Vital Signs Vital signs: Vital Signs - 8 hr 03/04/19 12:27 03/04/19 13:00 03/04/19 13:30 Temperature 98.4 F Pulse Rate 115 H 84 81 Respiratory Rate 24 Blood Pressure 190/127 H Blood Pressure [Right Arm] 160/104 H 157/108 H Pulse Oximetry 100 99 98 03/04/19 14:00 03/04/19 14:30 03/04/19 15:00 Temperature Pulse Rate 80 84 89 Respiratory Rate Blood Pressure Blood Pressure [Right Arm] 171/106 H 139/87 149/83 H Pulse Oximetry 100 03/04/19 15:30 03/04/19 16:30 Temperature Pulse Rate 92 H 87 Respiratory Rate Blood Pressure Blood Pressure [Right Arm] 151/91 H 171/92 H Pulse Oximetry MDM - Chest Pain Lab Data Result diagrams: 03/04/19 14:39 03/04/19 14:39 Labs: Lab Results 03/04/19 03/04/19 03/04/19 Range/Units 14:39 14:39 14:39 WBC 12.9 H (4.5-11.0) X10^3/uL RBC 5.77 H (4.0-5.2) X10^6/uL Hgb 13.1 (12.0-16.0) g/dL Hct 41.0 (36-46) % MCV 71.1 L (80-100) fL MCH 22.7 L (26-34) PG MCHC 31.9 (30-36) % RDW 17.4 H (11.6-14.8) % Plt Count 331 (150-400) X10^3/uL Neut % (Auto) 67.3 (50-75) % Lymph % (Auto) 25.7 (25-40) % [place] % (Auto) 4.7 (3-14) % Eos % (Auto) 1.7 L (2-4) % Baso % (Auto) 0.6 (0-2) % Neut # (Auto) 8700 H (3307-5718) /uL Lymph # (Auto) 3300 (4004-0442) /uL [place] # (Auto) 600 (0-900) /uL Eos # (Auto) 200 (0-450) /uL Baso # (Auto) 100 (0-100) /uL D-Dimer 292 H (<230) ng/mL Sodium 140 (137-145) mmol/L Potassium 3.8 (3.4-5.1) mmol/L Chloride 103 (98-107) mmol/L Carbon Dioxide 26 (22-32) mmol/L BUN 17 (7-17) mg/dL Creatinine 0.80 (0.52-1.04) mg/dL Estimated GFR > 60.0 (>60) mL/min BUN/Creatinine Ratio 21.3 (6-22) Glucose 88 (70-100) mg/dL Calcium 8.5 (8.4-10.2) mg/dL Total Bilirubin 0.5 (0.2-1.3) mg/dL AST 32 (14-36) IU/L ALT 42 (9-52) IU/L Alkaline Phosphatase 102 (38-126) U/L Total Creatine Kinase 482 H (30-135) U/L CK-MB (CK-2) 5.91 H (<2.37) ng/mL CK-MB (CK-2) Rel Index 1.2 L (1.5-5.0) % Troponin I < 0.012 (0.01-0.034) ng/mL Total Protein 7.9 (6.3-8.2) g/dL Albumin 4.2 (3.5-5.0) g/dL Globulin 3.7 (1.7-4.1) g/dL Albumin/Globulin Ratio 1.1 (1.0-2.8) Lipase 54 (23-300) U/L Urine RBC (0-5/HPF) Urine WBC (0-5/HPF) Urine Bacteria (None) Ur Culture Indicated? Micro UA Comment 03/04/19 Range/Units 16:10 WBC (4.5-11.0) X10^3/uL RBC (4.0-5.2) X10^6/uL Hgb (12.0-16.0) g/dL Hct (36-46) % MCV (80-100) fL MCH (26-34) PG MCHC (30-36) % RDW (11.6-14.8) % Plt Count (150-400) X10^3/uL Neut % (Auto) (50-75) % Lymph % (Auto) (25-40) % [place] % (Auto) (3-14) % Eos % (Auto) (2-4) % Baso % (Auto) (0-2) % Neut # (Auto) (8741-2124) /uL Lymph # (Auto) (9441-9484) /uL [place] # (Auto) (0-900) /uL Eos # (Auto) (0-450) /uL Baso # (Auto) (0-100) /uL D-Dimer (<230) ng/mL Sodium (137-145) mmol/L Potassium (3.4-5.1) mmol/L Chloride (98-107) mmol/L Carbon Dioxide (22-32) mmol/L BUN (7-17) mg/dL Creatinine (0.52-1.04) mg/dL Estimated GFR (>60) mL/min BUN/Creatinine Ratio (6-22) Glucose (70-100) mg/dL Calcium (8.4-10.2) mg/dL Total Bilirubin (0.2-1.3) mg/dL AST (14-36) IU/L ALT (9-52) IU/L Alkaline Phosphatase (38-126) U/L Total Creatine Kinase (30-135) U/L CK-MB (CK-2) (<2.37) ng/mL CK-MB (CK-2) Rel Index (1.5-5.0) % Troponin I (0.01-0.034) ng/mL Total Protein (6.3-8.2) g/dL Albumin (3.5-5.0) g/dL Globulin (1.7-4.1) g/dL Albumin/Globulin Ratio (1.0-2.8) Lipase (23-300) U/L Urine RBC None seen (0-5/HPF) Urine WBC None seen (0-5/HPF) Urine Bacteria None seen (None) Ur Culture Indicated? Cult not indicated Micro UA Comment Microscopic normal Urine Dip Bedside Urine Glucose Negative Bedside Urine Bilirubin - Negative Bedside Urine Ketone + 15 Urine Specific Peetz 1.015 Bedside Urine Occult Blood - Negative Bedside Urine pH 6.0 Bedside Urine Protein +/- 15 Bedside Urine Urobilinogen - Negative Bedside Urine Nitrite - Negative Bedside Urine Leukocytes - Negative Esterase Imaging Data CT scan - chest: Radiologist's impression: [address] [id number] [address] Scan Report Signed Patient: María Castaneda [facility]#: [id number] : 1985Acct:[id number] Age/Sex: 33 / FDate of Service: 03/04/19 Loc: ED Accession Number: [id number] Procedure: CT angio chest PE protocol Ordering Provider: Casey Macias D.O. PROCEDURE: CT ANGIO CHEST PE PROTOCOL INDICATIONS: CP, SOB, elevated DDimer TECHNIQUE: After the administration of intravenous contrast, 2 mm thick sections acquired from the pulmonary apices to the posterior costophrenic angles. 3-dimensional maximum intensity projection (MIP) coronal and sagittal reformats were then acquired through the thorax. For radiation dose reduction, the following was used: automated exposure control, adjustment of mA and/or kV according to patient size. COMPARISON: None. FINDINGS: Image quality: Excellent. Pulmonary arteries: Pulmonary arteries are normal in size, and demonstrate no intraluminal filling defects to suggest central pulmonary embolism. Lungs and pleura: Patchy areas of ground glass attenuation is identified throughout the lungs bilaterally without a large area of pulmonary consolidation. No effusion or pneumothorax is appreciated. There is no definite lung mass or pulmonary nodule. No significant bronchial wall thickening is appreciated. Mediastinum: Heart size is normal, without pericardial effusion. No me diastinal or hilar adenopathy. Thoracic aorta is normal in caliber and enhancement. Esophagus is normal in caliber, without hiatal hernia. Bones and chest wall: No suspicious bony lesions. Ribs and thoracic spine appear intact throughout. Irregularity involving one of the posterior lateral right ribs probably is related to previous injury. Thyroid gland is not enlarged for adequately evaluated. No axillary or supraclavicular adenopathy. Abdomen: The included portions of the upper abdomen demonstrate the liver to be hypodense when compared to the spleen. The liver and spleen are borderline prominent in size, but not completely included on this exam. Splenules within the splenic hilum are present. IMPRESSION: 1. No evidence of pulmonary embolic. 2. Patchy groundglass attenuation within the lungs probably is related to expiratory technique. However, pulmonary edema, atypical infection, or hypersensitivity pneumonitis could potentially have this appearance. There is no definable pneumonia. 3. Hepatic steatosis. There may be hepatosplenomegaly. Dictated by: Felipe Varghese M.D. on 03/04/2019 at 15:38 Approved by: Felipe Varghese M.D. on 03/04/2019 at 15:46 Discharge Plan Departure Patient Disposition: Home Clinical Impression: Atypical chest pain Discharge Date/Time: 03/04/19 17:07 Instructions: DI for Atypical Chest Pain Activity Restrictions/Additional Instructions: *You have been diagnosed with [atypical chest pain] *What to do: *Take medications as directed *Follow up with your primary care provider in 2-3 days, call for an appointment. Let them know you were seen in the Emergency Department and that we ask that you be seen in follow up *Return to ER if you should have any new, worsening or concerning symptoms Prescriptions: No Action norethindrone (contraceptive) [Sharobel] 0.35 mg tablet 1 tab PO DAILY RF: 0 carvedilol 12.5 mg tablet 6.25 mg PO BID RF: 0 losartan 100 mg tablet 100 mg PO DAILY RF: 0 meloxicam 15 mg tablet 15 mg PO DAILY PRN (Reason: Back Pain) RF: 0 Referrals: Alisa Nicholas MD [Primary Care Provider] -
[2019-03-04 14:57] LABS: Add Manual Diff / Slide Review NO; Basophils Absolute Auto 100 /uL (0-100); Basophils Percent Auto 0.6 % (0-2); Eosinophils Absolute Auto 200 /uL (0-450); Eosinophils Percent Auto 1.7 % (2-4); Hemoglobin 13.1 g/dL (12.0-16.0); Lymphocytes Absolute Auto 3300 /uL (1100-4500); Lymphocytes Percent Auto 25.7 % (25-40); Mean Corpuscular HGB Conc 31.9 % (30-36); Mean Corpuscular Hemoglobin 22.7 PG (26-34); Mean Corpuscular Volume 71.1 fL (80-100); Monocytes Absolute Auto 600 /uL (0-900); Monocytes Percent Auto 4.7 % (3-14); Neutrophils Absolute Auto 8700 /uL (1500-7000); Neutrophils Percent Auto 67.3 % (50-75); Platelet Count 331 X10^3/uL (150-400); Red Blood Cell Count 5.77 X10^6/uL (4.0-5.2); Red Cell Distribution Width 17.4 % (11.6-14.8); White Blood Cell Count 12.9 X10^3/uL (4.5-11.0)
[2019-03-04 15:24] LABS: Alanine Aminotransferase 42 IU/L (9-52); Albumin 4.2 g/dL (3.5-5.0); Albumin Globulin Ratio 1.1 (1.0-2.8); Alkaline Phosphatase 102 U/L (38-126); Aspartate Aminotransferase 32 IU/L (14-36); BUN Creatinine Ratio 21.3 (6-22); Bilirubin Total 0.5 mg/dL (0.2-1.3); Blood Urea Nitrogen 17 mg/dL (7-17); Calcium 8.5 mg/dL (8.4-10.2); Carbon Dioxide 26 mmol/L (22-32); Chloride 103 mmol/L (98-107); Creatine Kinase 482 U/L (30-135); D Dimer 292 ng/mL (<230); Estimated Glomerular Filt Rate > 60.0 mL/min (>60); Globulin 3.7 g/dL (1.7-4.1); Glucose 88 mg/dL (70-100); HEMOLYSIS < 15 (0-50); Lipase 54 U/L (23-300); Potassium 3.8 mmol/L (3.4-5.1); Sodium 140 mmol/L (137-145); Total Protein 7.9 g/dL (6.3-8.2)
[2019-03-04 15:36] LABS: Troponin I < 0.012 ng/mL (0.01-0.034)
[2019-03-04 15:40] LABS: CKMB % Relative Index 1.2 % (1.5-5.0); Creatine Kinase MB 5.91 ng/mL (<2.37)
--- NOTE | 2019-03-04 15:58 | DI.CT.S_ITS ---
PROCEDURE: CT ANGIO CHEST PE PROTOCOL INDICATIONS: CP, SOB, elevated DDimer TECHNIQUE: After the administration of intravenous contrast, 2 mm thick sections acquired from the pulmonary apices to the posterior costophrenic angles. 3-dimensional maximum intensity projection (MIP) coronal and sagittal reformats were then acquired through the thorax. For radiation dose reduction, the following was used: automated exposure control, adjustment of mA and/or kV according to patient size. COMPARISON: None. FINDINGS: Image quality: Excellent. Pulmonary arteries: Pulmonary arteries are normal in size, and demonstrate no intraluminal filling defects to suggest central pulmonary embolism. Lungs and pleura: Patchy areas of ground glass attenuation is identified throughout the lungs bilaterally without a large area of pulmonary consolidation. No effusion or pneumothorax is appreciated. There is no definite lung mass or pulmonary nodule. No significant bronchial wall thickening is appreciated. Mediastinum: Heart size is normal, without pericardial effusion. No mediastinal or hilar adenopathy. Thoracic aorta is normal in caliber and enhancement. Esophagus is normal in caliber, without hiatal hernia. Bones and chest wall: No suspicious bony lesions. Ribs and thoracic spine appear intact throughout. Irregularity involving one of the posterior lateral right ribs probably is related to previous injury. Thyroid gland is not enlarged for adequately evaluated. No axillary or supraclavicular adenopathy. Abdomen: The included portions of the upper abdomen demonstrate the liver to be hypodense when compared to the spleen. The liver and spleen are borderline prominent in size, but not completely included on this exam. Splenules within the splenic hilum are present. IMPRESSION: 1. No evidence of pulmonary embolic. 2. Patchy groundglass attenuation within the lungs probably is related to expiratory technique. However, pulmonary edema, atypical infection, or hypersensitivity pneumonitis could potentially have this appearance. There is no definable pneumonia. 3. Hepatic steatosis. There may be hepatosplenomegaly. Dictated by: Felipe Varghese M.D. on 03/04/2019 at 15:38 Approved by: Felipe Varghese M.D. on 03/04/2019 at 15:46
[2019-03-04] MEDS: SODIUM CHLORIDE 0.9% 1,000 ML 150 ML IV (16:24)
[2019-03-04 16:25] LABS: Bacteria Urine None Seen; RBC Urine None Seen (0-5/HPF); WBC Urine None Seen (0-5/HPF)
[2019-03-04 16:34] LABS: Culture Indicated Urine Cult Not Indicated; Urine Comments Microscopic Normal
== END 2019-03-04 17:07 | disposition home or self-care (01) ==
PROVIDERS: Emergency Provider Emergency Medicine; PCP Student in an Organized Health Care Education/Training Program
DX: R07.89 Other chest pain (principal); R06.02 Shortness of breath; R79.89 Other specified abnormal findings of blood chemistry
CPT/HCPCS: 36415; 71045; 71275; 80053; 81003; 81015; 82550; 82553; 83690; 84484; 85025; 85379; 93005; 96360; 99284; 99285

== ENCOUNTER 2019-04-27 09:55 | Emergency (ER) | payer OTHER, MEDICAID, SELFPAY ==
[2019-04-27 10:09] VITALS: BP 210/115; PULSE 80; RESP 20; TEMP 36.4; O2SAT 100; BMI 50.8
[2019-04-27 10:45] LABS: Hemoglobin 13.3 g/dL (12.0-16.0)
[2019-04-27 11:00] VITALS: BP 179/119; PULSE 90; RESP 18; O2SAT 100
[2019-04-27] MEDS: carvediloL 12.5 MG TABLET PO (11:04)
[2019-04-27] MEDS: LOSARTAN 50 MG TABLET 100 MG PO (11:04)
--- NOTE | 2019-04-27 11:08 | ED_ITS ---
HPI - Female Genitourinary General Chief complaint: Vaginal Bleeding Stated complaint: Bleeding terribly t-1 Time Seen by Provider: 04/27/19 10:27 Source: patient Mode of arrival: Ambulatory History of Present Illness HPI Narrative: 33-year-old woman with a history of polycystic ovarian disease and heavy vaginal bleeding presents with severe bleeding. She had been on controls for a number of months and was bleeding through these. Two months ago all hormonal therapy stopped. Last month was very heavy period. She began bleeding again on the , was noting moderate to heavy bleeding. Yesterday, at approximately 3 in the afternoon, she developed heavier bleeding to the point where she was over bleeding pads had to sleep with a Chux pad under her this is last night and continues to bleed heavily. She is not hypotensive nor tachycardic. She is hypertensive and has not taken her usual morning medications. No fevers no chills, she is not , no chest pain no shortness of breath no significant abdominal pain or cramping, no flank pain, no rashes. Related Data Home Medications Medication Instructions Recorded Confirmed carvedilol 6.25 mg PO BID 03/04/19 04/27/19 losartan 100 mg PO DAILY 03/04/19 04/27/19 Previous Rx's Medication Instructions Recorded medroxyprogesterone 10 mg PO DAILY #10 tab 04/27/19 Allergies Allergy/AdvReac Type Severity Reaction Status Date / Time EDD Inhibitors AdvReac Mild PERSISTANT Verified 04/27/19 10:13 [EDD INHIBITORS] COUGH oxycodone [OXYCODONE] AdvReac Mild NAUSEA, Verified 04/27/19 10:13 DIZZYNESS Review of Systems Review of Systems ROS Unobtainable: All systems reviewed & are unremarkable except as noted in HPI and below Patient History Medical History Essential hypertension (02/23/14) Morbid obesity (04/20/14) Spinal stenosis (Chronic) Status post laminectomy (Chronic) Surgical History History of tonsillectomy Status post delivery (04/03/11) Status post delivery (01/01/14) alcohol intake frequency: other Substance Use Type: marijuana Exam Narrative Exam Narrative: General: Healthy appearing, in no acute distress. Able to give a complete and coherent history. Well-nourished well-developed HEENT: Moist mucous membranes, normal sclera with reactive pupils, Neck: No JVD, supple Respiratory: Lungs are clear to auscultation, no wheezing no rales no rhonchi. Full and symmetrical air movement Cardiac: Regular rate and rhythm no murmurs no bruits Abdomen: Soft, obese, nontender good bowel tones, no flank pain Skin: Warm and dry, no rashes Neurologic: Grossly neurologically intact with no obvious asymmetries or abnormalities Extremities: No trauma, well perfused Psych: Cooperative, appropriate insight and affect : Heavy vaginal bleeding with moderate clots. Pelvic exam is deferred today Initial Vital Signs Initial Vital Signs: Vital Signs Temperature 97.6 F 04/27/19 10:09 Pulse Rate 80 04/27/19 10:09 Respiratory Rate 20 04/27/19 10:09 Blood Pressure 210/115 H 04/27/19 10:09 Pulse Oximetry 100 04/27/19 10:09 Course Orders Ordered: ED Orders 04/27/19 10:28 Hemoglobin and Hematocrit Stat 04/27/19 11:35 Urine Culture Stat Urine Microscopic Stat Discontinued Medications Carvedilol (Coreg) 12.5 mg PO NOW ONE Stop: 04/27/19 10:28 Last Admin: 04/27/19 11:04 Dose: 12.5 mg Documented by: GURINDER Losartan Potassium (Cozaar) 100 mg PO NOW ONE Stop: 04/27/19 10:28 Last Admin: 04/27/19 11:04 Dose: 100 mg Documented by: GURINDER Medroxyprogesterone Acetate (Medroxyprogesterone) 10 mg PO NOW ONE Stop: 04/27/19 12:06 Last Admin: 04/27/19 12:59 Dose: 10 mg Documented by: GURINDER Vital Signs Vital signs: Vital Signs - 8 hr 04/27/19 10:09 04/27/19 11:00 04/27/19 11:15 Temperature 97.6 F Pulse Rate 80 90 101 H Respiratory Rate 20 18 19 Blood Pressure 210/115 H Blood Pressure [Right Wrist] 179/119 H 174/110 H Pulse Oximetry 100 100 97 04/27/19 11:35 04/27/19 12:00 04/27/19 13:03 Temperature Pulse Rate 84 85 88 Respiratory Rate 18 18 18 Blood Pressure 152/94 H Blood Pressure [Right Wrist] 167/101 H 161/96 H Pulse Oximetry 100 99 100 MDM - Female Genitourinary Medical Records Attestation: I reviewed the patient's medical records. Lab Data Attestation: I reviewed the patient's lab results. Result diagrams: 04/27/19 10:28 Labs: Lab Results 04/27/19 04/27/19 Range/Units 10:28 11:35 Hgb 13.3 (12.0-16.0) g/dL Hct 41.0 (36-46) % Urine RBC >100/hpf H (0-5/HPF) Urine WBC 5-10/hpf H (0-5/HPF) Urine Bacteria Many (>30) H (None) Ur Culture Indicated? Specimen cultured Point of Care Testing Test Results Negative Urine Dip Bedside Urine Glucose Negative Bedside Urine Bilirubin - Negative Bedside Urine Ketone - Negative Urine Specific [place] 1.015 Bedside Urine Occult Blood +++ Bedside Urine pH 7.0 Bedside Urine Protein + 30 Bedside Urine Urobilinogen - Negative Bedside Urine Nitrite - Negative Bedside Urine Leukocytes + 70 Esterase MDM Narrative Medical decision making narrative: Have reviewed patient's presentation and findings with her primary care physician. Dr. Nicholas has suggested 10 mg of progesterone daily for the next 2 weeks with a follow-up appointment scheduled at that time. Despite the heavy bleeding the patient's H&H is stable and she is hemodynamically stable as well. This safe for her to be discharged home. Discharge Plan Departure Patient Disposition: Home Clinical Impression: Menometrorrhagia Discharge Date/Time: 04/27/19 13:03 Instructions: DI for Menorrhagia Activity Restrictions/Additional Instructions: I've spoken with Dr. Nicholas. Her recommendation was to begin 10 mg of progesterone daily to try to stabilize the endometrial lining and decrease her bleeding. Her recommendation was to continue this for 10 days. She would like to see you at the end of 10 days so please call to schedule an appointment. The prescription for medroxyprogesterone was electronically sent to [facility] today I'm happy to let you know that despite the heavy bleeding that you are having your blood count is reassuringly normal. Prescriptions: New medroxyprogesterone 10 mg tablet 10 mg PO DAILY Qty: 10 RF: 0 No Action carvedilol 12.5 mg tablet 6.25 mg PO BID RF: 0 losartan 100 mg tablet 100 mg PO DAILY RF: 0 Referrals: Alisa Nicholas MD [Primary Care Provider] - Stand Alone Forms: Work Release Note
[2019-04-27 11:15] VITALS: BP 174/110; PULSE 101; RESP 19; O2SAT 97
[2019-04-27 11:35] VITALS: BP 167/101; PULSE 84; RESP 18; O2SAT 100
[2019-04-27 12:00] VITALS: BP 161/96; PULSE 85; RESP 18; O2SAT 99
[2019-04-27 12:14] LABS: Bacteria Urine Many (>30); Culture Indicated Urine Specimen Cultured; RBC Urine >100/HPF (0-5/HPF); WBC Urine 5-10/HPF (0-5/HPF)
[2019-04-27] MEDS: MEDROXYPROGESTERONE ACETATE 10 MG TABLET PO (12:59)
[2019-04-27 13:03] VITALS: BP 152/94; PULSE 88; RESP 18; O2SAT 100
== END 2019-04-27 13:03 | disposition home or self-care (01) ==
PROVIDERS: Emergency Provider Emergency Medicine; PCP Student in an Organized Health Care Education/Training Program
DX: N92.1 Excessive and frequent menstruation with irregular cycle (principal)
CPT/HCPCS: 36415; 81003; 81015; 81025; 85014; 85018; 87077; 87086; 87186; 99282; 99283

== ENCOUNTER → 2019-05-07 13:05 | Outpatient (CLI) | payer OTHER, MEDICAID, SELFPAY ==
--- NOTE | 2019-05-07 | DI.US.S_ITS ---
PROCEDURE: US PELVIC COMPLETE INDICATIONS: EXCESSIVE AND FREQUENT MENSES W/ REGULAR CYCLES TECHNIQUE: Real-time scanning was performed of the pelvic organs, with image documentation. Additional endovaginal scanning was necessary due to incomplete visualization of the adnexal and endometrial structures by transabdominal scanning. COMPARISON: [facility], , US PELVIC COMPLETE, 09/18/2017, 16:01. FINDINGS: Transabdominal scanning: Limited scanning through the kidneys shows no hydronephrosis. No pathologic free abdominal or pelvic fluid. Endovaginal scanning: Uterus: Uterus is normal in size at 8.9 x 3.6 x 4.6 cm. The endometrium measures 4.6 mm in combined thickness. Small nabothian cysts are present at the cervix. Ovaries: The right ovary measures 3.8 x 2.6 x 2.1 cm and has a normal echotexture. The left ovary measures 3.1 x 2.5 x 3.1 cm and has a normal echotexture. IMPRESSION: 1. Unremarkable pelvic ultrasound. Dictated by: Jacqueline Hancock M.D. on 05/07/2019 at 13:06 Approved by: Jacqueline Hancock M.D. on 05/07/2019 at 13:08
== END ==
PROVIDERS: PCP Student in an Organized Health Care Education/Training Program; Visit Provider Student in an Organized Health Care Education/Training Program
DX: N92.0 Excessive and frequent menstruation with regular cycle (principal)
CPT/HCPCS: 76830; 76856

== ENCOUNTER 2019-07-28 15:25 | Emergency (ER) | payer OTHER, MEDICAID, SELFPAY ==
[2019-07-28 15:32] VITALS: BP 155/81; PULSE 90; RESP 22; TEMP 36.4; O2SAT 99
--- NOTE | 2019-07-28 15:36 | ED_ITS ---
HPI - Chest Pain General Chief Complaint: Chest Pain Stated Complaint: chest pain Time Seen by Provider: 07/28/19 15:29 Source: patient Mode of arrival: Ambulatory Limitations: no limitations History of Present Illness HPI narrative: 33F former smoker with history of morbid obesity and ovarian cysts presents with her significant other the and chief complaint of fever, cough, and increasing shortness of breath. 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 Additionally over the past few days she has developed some left anterior chest pain which is worse with a deep breath and motion. She is not dizzy nor weak or lightheaded. Her symptoms have been present, and worsening for 2 weeks. She's had no N/V/D MD complaint: chest pain Onset (ago): week(s) Duration: intermittent Severity: mild Relieving factors: nothing Treatments prior to arrival chest pain: none Related Data Home Medications Medication Instructions Recorded Confirmed carvedilol 6.25 mg PO BID 03/04/19 06/17/19 losartan 100 mg PO DAILY 03/04/19 06/17/19 Previous Rx's Medication Instructions Recorded CMP Boric Acid Vaginal 1 each VAGINAL .weekly #24 each 06/26/19 Suppositories 600mg medroxyprogesterone 10 mg tablet 20 mg PO .COMPLEX #100 tab 06/26/19 Allergies Allergy/AdvReac Type Severity Reaction Status Date / Time EDD Inhibitors AdvReac Mild PERSISTANT Verified 06/17/19 09:10 [EDD INHIBITORS] COUGH oxycodone [OXYCODONE] AdvReac Mild NAUSEA, Verified 06/17/19 09:10 DIZZYNESS Review of Systems Constitutional Constitutional: Reports chills, Denies fatigue, Reports fever(s), Denies frequent falls, Denies lethargy and Denies weakness Eyes Eyes: Denies change in vision, Denies eye discharge, Denies irritation and Denies loss of vision ENT Ears, Nose, Mouth, and Throat: Denies change in voice, Denies dizziness, Denies neck pain, Denies sore throat and Denies throat swelling Cardiovascular Cardiovascular: Reports chest pain, Denies irregular heart rhythm, Denies lightheadedness, Denies palpitations, Reports dyspnea, Denies dyspnea on exertion and Denies orthopnea Respiratory Respiratory: Reports cough, Reports dyspnea, Denies dyspnea on exertion and Denies wheezing Gastrointestinal Gastrointestinal: Denies abdominal pain, Denies change in bowel habits, Denies diarrhea, Denies nausea and Denies vomiting Genitourinary Genitourinary: Denies hematuria, Denies flank pain, Denies urinary incontinence and Denies urinary urgency Musculoskeletal Musculoskeletal: Denies back pain, Denies muscle weakness, Denies neck pain, Denies numbness and Denies tingling Integumentary/Breasts Skin/Breast: Denies pruritus, Denies erythema, Denies rash and Denies wounds Neurologic Neurologic: Denies behavioral changes, Denies confusion, Denies dizziness, Denies frequent falls, Denies loss of vision, Denies numbness, Denies tingling and Denies weakness Psychiatric Psychiatric: Denies anxiety, Denies behavioral changes, Denies confusion, Denies depression, Denies homicidal ideation and Denies suicidal ideation Endocrine Endocrine: Denies fatigue, Denies flushing and Denies palpitations Hematologic/Lymphatic Hematologic/Lymphatic: Denies easy bruising Allergic/Immunologic Allergic/Immunologic: Denies urticaria, Denies throat swelling and Denies wheezing Patient History Medical History Anxiety (Chronic) Depression (Chronic) Essential hypertension (02/23/14) Heavy menstrual period (Chronic) Irregular menstrual cycle (Chronic) Morbid obesity (04/20/14) Painful menstrual periods (Chronic) Psoriasis (Chronic) Sleep apnea (Chronic) Spinal stenosis (Chronic) Vitiligo (Chronic) Surgical History Anesthesia (Resolved) History of tonsillectomy (~2007) Status post delivery (04/03/11) Status post delivery (01/01/14) Status post laminectomy (Resolved ~07/22/16) Family History Father Hyperlipidemia Hypoglycemia Mother Diabetes mellitus Sister Spina bifida Grandfather Cancer History of heart disease Grandmother Diabetes mellitus Grandfather Cancer Grandmother Diabetes mellitus History of heart disease Hyperlipidemia Hypertension Mental health problem Stroke Social History Smoking Status: Former smoker substance use type: marijuana (Daily for back pain) Smoking Status: Former smoker alcohol intake frequency: other Substance Use Type: marijuana Exam Narrative Exam Narrative: GENERAL: [33] year old patient appears stated age. Well-nour ished, well-developed patient, in mild distress. HEAD: Atraumatic. Normocephalic. EYES: Pupils equal round and reactive. Extraocular motions intact. No scleral icterus. No injection or drainage. ENT: Nose without bleeding, purulent drainage. Throat without erythema, tonsillar hypertrophy or exudate. Airway patent. NECK: Trachea midline. Non tender CARDIOVASCULAR: Regular rate and rhythm without murmurs, gallops, or rubs. RESPIRATORY: Clear to auscultation. Breath sounds equal bilaterally. No wheezes, rales, or rhonchi. Dry cough noted GASTROINTESTINAL: Abdomen soft, non-tender, nondistended. EXTREMITIES: No edema or joint tenderness. BACK: Nontender without deformity or crepitance. No flank tenderness. NEURO: AOx3. SKIN: No rash or erythema of visible areas Initial Vital Signs Initial Vital Signs: Vital Signs Temperature 97.5 F L 07/28/19 15:32 Pulse Rate 90 07/28/19 15:32 Respiratory Rate 22 07/28/19 15:32 Blood Pressure 155/81 H 07/28/19 15:32 Pulse Oximetry 99 07/28/19 15:32 Course Orders Ordered: ED Orders 07/28/19 15:37 XR chest 2V Stat 07/28/19 15:40 Influenza A & B (PCR) Stat 07/28/19 15:58 Basic Metabolic Panel Stat C-Reactive Protein Quant Stat Complete Blood Count AUTO DIFF Stat Procalcitonin Stat Troponin & CK Cardiac Panel Stat Vital Signs Vital signs: Vital Signs - 8 hr 07/28/19 15:32 07/28/19 16:08 Temperature 97.5 F L Pulse Rate 90 85 Respiratory Rate 22 14 Blood Pressure 155/81 H Blood Pressure [Right Arm] 129/65 Pulse Oximetry 99 98 MDM - Chest Pain Lab Data Result diagrams: 07/28/19 15:58 07/28/19 15:58 Labs: Lab Results 07/28/19 07/28/19 07/28/19 Range/Units 15:40 15:58 15:58 WBC 12.9 H (4.5-11.0) X10^3/uL RBC 5.32 H (4.0-5.2) X10^6/uL Hgb 12.3 (12.0-16.0) g/dL Hct 38.6 (36-46) % MCV 72.6 L (80-100) fL MCH 23.1 L (26-34) PG MCHC 31.9 (30-36) % RDW 17.4 H (11.6-14.8) % Plt Count 342 (150-400) X10^3/uL Neut % (Auto) 71.5 (50-75) % Lymph % (Auto) 20.6 L (25-40) % Cache % (Auto) 4.6 (3-14) % Eos % (Auto) 2.6 (2-4) % Baso % (Auto) 0.7 (0-2) % Neut # (Auto) 9300 H (1035-5849) /uL Lymph # (Auto) 2700 (4126-9865) /uL Cache # (Auto) 600 (0-900) /uL Eos # (Auto) 300 (0-450) /uL Baso # (Auto) 100 (0-100) /uL Sodium (137-145) mmol/L Potassium (3.4-5.1) mmol/L Chloride (98-107) mmol/L Carbon Dioxide (22-32) mmol/L BUN (7-17) mg/dL Creatinine (0.52-1.04) mg/dL Estimated GFR (>60) mL/min BUN/Creatinine Ratio (6-22) Glucose (70-100) mg/dL Calcium (8.4-10.2) mg/dL Total Creatine Kinase (30-135) U/L CK-MB (CK-2) (<2.37) ng/mL CK-MB (CK-2) Rel Index (1.5-5.0) % Troponin I (0.01-0.034) ng/mL C-Reactive Protein (<1.0) mg/dL Procalcitonin < 0.05 (<0.5) ng/mL Influenza A (RT-PCR) Flu a negative (NEGATIVE) Influenza B (RT-PCR) Flu b negative (NEGATIVE) 07/28/19 07/28/19 Range/Units 15:58 15:58 WBC (4.5-11.0) X10^3/uL RBC (4.0-5.2) X10^6/uL Hgb (12.0-16.0) g/dL Hct (36-46) % MCV (80-100) fL MCH (26-34) PG MCHC (30-36) % RDW (11.6-14.8) % Plt Count (150-400) X10^3/uL Neut % (Auto) (50-75) % Lymph % (Auto) (25-40) % Cache % (Auto) (3-14) % Eos % (Auto) (2-4) % Baso % (Auto) (0-2) % Neut # (Auto) (6753-3214) /uL Lymph # (Auto) (8233-9260) /uL Cache # (Auto) (0-900) /uL Eos # (Auto) (0-450) /uL Baso # (Auto) (0-100) /uL Sodium 140 (137-145) mmol/L Potassium 4.4 (3.4-5.1) mmol/L Chloride 106 (98-107) mmol/L Carbon Dioxide 29 (22-32) mmol/L BUN 17 (7-17) mg/dL Creatinine 0.97 (0.52-1.04) mg/dL Estimated GFR > 60.0 (>60) mL/min BUN/Creatinine Ratio 17.5 (6-22) Glucose 131 H (70-100) mg/dL Calcium 8.8 (8.4-10.2) mg/dL Total Creatine Kinase 315 H (30-135) U/L CK-MB (CK-2) 7.02 H (<2.37) ng/mL CK-MB (CK-2) Rel Index 2.2 (1.5-5.0) % Troponin I < 0.012 (0.01-0.034) ng/mL C-Reactive Protein 4.0 H (<1.0) mg/dL Procalcitonin (<0.5) ng/mL Influenza A (RT-PCR) (NEGATIVE) Influenza B (RT-PCR) (NEGATIVE) Imaging Data Chest x-ray: Radiologist's Impression: Chart Viewer Diagnostics DATE TYPE STATUS AUTHOR Hx 07/28/19 15:37 Pino Diggs 05/07/19 00:00 Jacqueline Hancock 03/04/19 15:58 Felipe Varghese 03/04/19 12:35 Oscar Suarez 02/25/19 00:00 Simon,Edward 02/25/19 00:00 Simon,Edward 02/25/19 00:00 Simon,Edward 11/05/18 22:52 Gianna,Ciara 07/04/18 11:07 Gianna,Ciara 07/04/18 11:07 Gianna,Ciara 01/19/18 11:12 Nabil Daniel 09/18/17 00:00 Nabil Daniel María Castaneda 33, F0 1985 [facility] R08 147.418kg Chest Pain Search Chart Patient Discharged from Clinic NF - Not included in interaction checking PERSISTANT COUGH NAUSEA, DIZZYNESS ONSET ~07/22/16 02/23/14 04/20/14 Today 16:08 María Castaneda F [address] [address] XRay Report Signed Patient: María Castaneda [facility]#: [id number] : 1985Acct:[id number] Age/Sex: te of Service: 07/28/19 Loc: ED Accession Number: [id number] Procedure: XR chest 2V Ordering Provider: Casey Macias D.O. PROCEDURE: XR CHEST 2V INDICATIONS: SOB, cough, fever TECHNIQUE: 2 views of the chest were acquired. COMPARISON: [facility], CT, CT ANGIO CHEST PE PROTOCOL, 03/04/2019, 16:17. [facility], CR, XR CHEST 1V, 03/04/2019, 12:43. FINDINGS: Surgical changes and devices: None. Lungs and pleura: Lungs are clear. No pleural effusions or pneumothorax. Mediastinum: Mediastinal contours are normal. Heart size is normal. Bones and chest wall: No suspicious bony abnormalities. Soft tissues appear unremarkable. IMPRESSION: No acute cardiopulmonary disease. Dictated by: Felipe Diggs M.D. on 07/28/2019 at 16:35 Approved by: Felipe Diggs M.D. 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 Her respiratory symptoms have been worsening over the per past 2 weeks. Her flu was negative, chest x- ray was clear, CRP is elevated and CBC notes lymphopenia. 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 She has been given return precautions and understands and agrees with the plan. She has had questions answered to her apparent satisfaction Discharge Plan Departure Patient Disposition: Home Clinical Impression: Viral URI with cough, Acute chest wall pain Instructions: DI for Viral Upper Respiratory Infection -- Adult, DI for Atypical Chest Pain Activity Restrictions/Additional Instructions: *You have been diagnosed with [ viral upper respiratory infection. Due to worsening symptoms over the past two weeks, your work as a healthcare employee, and no other obvious source we are testing you for Novel Coronavirus (COVID-19). There is no specific treatment at this time. You need to stay home and avoid contact with others while we wait for test results which are currently taking 4 days. We will call with your result when we receive it. *What to do: *Take medications as directed: Tylenol or Motrin for fever. *Return to ER if you should have any new, worsening or concerning symptoms Prescriptions: No Action CMP Boric Acid Vaginal Suppositories 600mg 1 each vaginal .weekly Qty: 24 RF: 3 medroxyprogesterone 10 mg tablet 20 mg PO .COMPLEX Qty: 100 RF: 0 carvedilol 12.5 mg tablet 6.25 mg PO BID RF: 0 losartan 100 mg tablet 100 mg PO DAILY RF: 0 Referrals: Alisa Nicholas MD [Primary Care Provider] -
[2019-07-28 16:07] LABS: Add Manual Diff / Slide Review NO; Basophils Absolute Auto 100 /uL (0-100); Basophils Percent Auto 0.7 % (0-2); Eosinophils Absolute Auto 300 /uL (0-450); Eosinophils Percent Auto 2.6 % (2-4); Hematocrit 38.6 % (36-46); Hemoglobin 12.3 g/dL (12.0-16.0); Lymphocytes Absolute Auto 2700 /uL (1100-4500); Lymphocytes Percent Auto 20.6 % (25-40); Mean Corpuscular HGB Conc 31.9 % (30-36); Mean Corpuscular Hemoglobin 23.1 PG (26-34); Mean Corpuscular Volume 72.6 fL (80-100); Monocytes Absolute Auto 600 /uL (0-900); Monocytes Percent Auto 4.6 % (3-14); Neutrophils Absolute Auto 9300 /uL (1500-7000); Neutrophils Percent Auto 71.5 % (50-75); Platelet Count 342 X10^3/uL (150-400); Red Blood Cell Count 5.32 X10^6/uL (4.0-5.2); Red Cell Distribution Width 17.4 % (11.6-14.8); White Blood Cell Count 12.9 X10^3/uL (4.5-11.0)
[2019-07-28 16:08] VITALS: BP 129/65; PULSE 85; RESP 14; O2SAT 98
[2019-07-28 16:18] LABS: BUN Creatinine Ratio 17.5 (6-22); Blood Urea Nitrogen 17 mg/dL (7-17); Calcium 8.8 mg/dL (8.4-10.2); Carbon Dioxide 29 mmol/L (22-32); Chloride 106 mmol/L (98-107); Creatine Kinase 315 U/L (30-135); Estimated Glomerular Filt Rate > 60.0 mL/min (>60); Glucose 131 mg/dL (70-100); Potassium 4.4 mmol/L (3.4-5.1); Sodium 140 mmol/L (137-145)
[2019-07-28 16:20] LABS: Influenza A - CEPHEID Flu A NEGATIVE (NEGATIVE); Influenza B - CEPHEID Flu B NEGATIVE (NEGATIVE)
[2019-07-28 16:30] LABS: Troponin I < 0.012 ng/mL (0.01-0.034)
[2019-07-28 16:31] LABS: HEMOLYSIS 17 (0-50)
[2019-07-28 16:34] LABS: CKMB % Relative Index 2.2 % (1.5-5.0); Creatine Kinase MB 7.02 ng/mL (<2.37)
[2019-07-28 16:41] LABS: Procalcitonin < 0.05 ng/mL (<0.5)
[2019-07-28 18:33] VITALS: BP 150/83; PULSE 86; RESP 20; TEMP 36.7; O2SAT 98
[2019-08-04 12:11] LABS: COVID19 Sendout Not Detected (Not Detected)
== END 2019-07-28 18:34 | disposition home or self-care (01) ==
PROVIDERS: Emergency Provider Emergency Medicine; PCP Student in an Organized Health Care Education/Training Program
DX: J06.9 Acute upper respiratory infection, unspecified (principal); R05 Cough; R07.89 Other chest pain; E66.01 Morbid (severe) obesity due to excess calories; N83.209 Unspecified ovarian cyst, unspecified side
CPT/HCPCS: 36415; 71046; 80048; 82550; 82553; 84145; 84484; 85025; 86140; 87502; 87635; 93005; 99283; 99284

== ENCOUNTER → 2019-08-21 06:49 | Outpatient (CLI) | payer OTHER, SELFPAY ==
--- NOTE | 2019-08-21 | DI.RAD.S_ITS ---
PROCEDURE: XR LUMBAR SPINE 2-3V INDICATIONS: Lumbar pain, history of discectomy 2 years ago TECHNIQUE: 3 views of the lumbar spine were acquired. COMPARISON: [facility], CR, XR LUMBAR SPINE 2-3V, 01/19/2018, 10:48. [facility], CR, XR LUMBAR SPINE 2-3V, 07/04/2018, 11:20. FINDINGS: Bones: 5 [id number] vertebrae are present. There is normal bony alignment. No vertebral body compression fractures. No suspicious bony lesions. There is mild-to moderate degenerative disc disease. Soft tissues: Overlying bowel gas pattern is normal. No suspicious soft tissue calcifications. IMPRESSION: [id number] degenerative disc disease. Dictated by: Felipe Diggs M.D. on 08/21/2019 at 9:35 Approved by: Felipe Diggs M.D. on 08/21/2019 at 9:43
== END ==
PROVIDERS: PCP Student in an Organized Health Care Education/Training Program; Referring Provider Student in an Organized Health Care Education/Training Program; Visit Provider Student in an Organized Health Care Education/Training Program
DX: M54.5 Low back pain (principal); M47.816 Spondylosis without myelopathy or radiculopathy, lumbar region
CPT/HCPCS: 72100

== ENCOUNTER → 2019-12-01 07:47 | Outpatient (CLI) | payer OTHER, SELFPAY ==
--- NOTE | 2019-12-01 | DI.MRI.S_ITS ---
PROCEDURE: MR LUMBAR SPINE WO CON INDICATIONS: Sprain of ligaments of lumbar spine TECHNIQUE: Noncontrast sagittal T1 spin echo and T2 fast echo, sagittal STIR, axial T1 and T2 fast spin echo through the lumbar spine. In cases with scoliosis, additional coronal T2 fast spin echo may be performed. COMPARISON: [facility], MR, L-SPINE W&WO CONTRAST, 07/19/2017, 14:09. [facility], MR, L-SPINE WITHOUT CONTRAST, 06/04/2016, 8:05. [facility], CR, XR LUMBAR SPINE 2-3V, 08/21/2019, 6:53. FINDINGS: Image quality: Partially degraded by motion artifact. Alignment and Curvature: 5 lumbar type vertebral bodies are present by plain film. There is mild, grade 1 retrolisthesis of L2 on L3, L3 on L4, and L4 on L5, as before. Bone Marrow: Marrow is of normal overall signal. No acute vertebral body compression fractures. Mild reactive signal within the endplates adjacent to the L2-L3, L3-L4, L4-L5, and L5-S1 intervertebral discs. Right L4-L5 hemilaminotomy. Spinal Cord: Conus medullaris terminates at the lower L1 level. Visualized cord demonstrates normal signal and size. Paraspinous Soft Tissues: No paravertebral masses. T12-L1: Mild disc height loss and desiccation. Mild diffuse disc bulge with superimposed central and left paracentral protrusion. Mild facet and ligamentum flavum hypertrophy. Mild epidural lipomatosis. There is increased, moderate canal stenosis. No foraminal stenosis, as before. L1-L2: Mild facet and ligamentum flavum hypertrophy. No significant canal, or foraminal stenosis. No change. L2-L3: Moderate disc desiccation. Mild diffuse disc bulge with superimposed broad-based central protrusion. Mild facet and ligamentum flavum hypertrophy. Mild epidural lipomatosis. Severe canal stenosis. No foraminal stenosis. No change. L3-L4: Mild disc height loss and desiccation. Mild diffuse disc bulge with superimposed small central protrusion. Mild facet and ligamentum flavum hypertrophy. Mild epidural lipomatosis. Severe canal stenosis. Mild bilateral foraminal stenosis. No change. L4-L5: Mild disc height loss and desiccation. Moderate diffuse disc bulge. Mild bilateral facet hypertrophy. There is decreased, moderate canal stenosis. There is no change in moderate right greater than left subarticular foraminal stenosis. L5-S1: Moderate disc height loss and desiccation. Moderate diffuse disc bulge. Moderate facet hypertrophy bilaterally. Mild canal stenosis. Moderate subarticular foraminal stenosis bilaterally. No change. IMPRESSION: 1. Multilevel degenerative disc and facet disease, as well as ligamentum flavum hypertrophy and epidural lipomatosis. 2. Postsurgical sequelae at L4-L5. 3. Decreased, moderate canal stenosis at L4-L5. 4. No significant change in severe canal stenosis at L2-L3 and L3-L4. 4. No change in multilevel foraminal stenosis, worst at L4-L5 and L5-S1 where there are moderate foraminal stenoses as described above. Dictated by: Wong Carr M.D. on 12/01/2019 at 9:03 Approved by: Wong Carr M.D. on 12/01/2019 at 9:10
== END ==
PROVIDERS: PCP Student in an Organized Health Care Education/Training Program; Referring Provider Student in an Organized Health Care Education/Training Program; Visit Provider Student in an Organized Health Care Education/Training Program
DX: S33.5XXA Sprain of ligaments of lumbar spine, initial encounter (principal); M48.061 Spinal stenosis, lumbar region without neurogenic claudication; M48.07 Spinal stenosis, lumbosacral region; E88.2 Lipomatosis, not elsewhere classified
CPT/HCPCS: 72148

== ENCOUNTER 2019-12-25 06:48 | Emergency (ER) | payer OTHER, MEDICAID, SELFPAY ==
[2019-12-25] VITALS (15 sets, daily range): BP systolic 162–247; BP diastolic 92–115; PULSE 80–103; RESP 14–16; TEMP 36.7–37.2; O2SAT 95–99; BMI 51.5
[2019-12-25 07:13] LABS: Add Manual Diff / Slide Review NO; Basophils Absolute Auto 100 /uL (0-100); Basophils Percent Auto 0.6 % (0-2); Eosinophils Absolute Auto 200 /uL (0-450); Eosinophils Percent Auto 1.3 % (2-4); Hematocrit 39.7 % (36-46); Hemoglobin 12.9 g/dL (12.0-16.0); Lymphocytes Absolute Auto 2600 /uL (1100-4500); Lymphocytes Percent Auto 14.7 % (25-40); Mean Corpuscular HGB Conc 32.6 % (30-36); Mean Corpuscular Hemoglobin 23.1 PG (26-34); Monocytes Absolute Auto 700 /uL (0-900); Monocytes Percent Auto 4.1 % (3-14); Neutrophils Absolute Auto 13900 /uL (1500-7000); Neutrophils Percent Auto 79.3 % (50-75); Platelet Count 380 X10^3/uL (150-400); Red Blood Cell Count 5.59 X10^6/uL (4.0-5.2); Red Cell Distribution Width 17.9 % (11.6-14.8); White Blood Cell Count 17.5 X10^3/uL (4.5-11.0)
[2019-12-25 07:24] LABS: Alanine Aminotransferase 37 IU/L (<35); Albumin 4.3 g/dL (3.5-5.0); Alkaline Phosphatase 108 U/L (38-126); Aspartate Aminotransferase 28 IU/L (14-36); BUN Creatinine Ratio 13.9 (6-22); Blood Urea Nitrogen 14 mg/dL (7-17); Calcium 8.8 mg/dL (8.4-10.2); Carbon Dioxide 26 mmol/L (22-32); Chloride 102 mmol/L (98-107); Estimated Glomerular Filt Rate > 60.0 mL/min (>60); Globulin 4.5 g/dL (1.7-4.1); Glucose 128 mg/dL (70-100); HEMOLYSIS < 15 (0-50); Potassium 3.7 mmol/L (3.4-5.1); Sodium 137 mmol/L (137-145); Total Protein 8.8 g/dL (6.3-8.2)
--- NOTE | 2019-12-25 07:24 | ED.ABDPAIN ---
HPI - Abdominal Pain General Chief Complaint: Abdominal Pain Stated Complaint: abdominal cramping Time Seen by Provider: 12/25/19 06:50 Source: patient Mode of arrival: Ambulatory Limitations: no limitations History of Present Illness HPI narrative: The patient complains of abdominal pain that started yesterday morning. She complains of generalized pain, perhaps more intense on lower abdomen. She ate a small amount of food yesterday, she has decreased appetite with nausea. She has no vomiting. She had 1 normal bowel movement yesterday, no BM today. She has chronic GI problems. She is status post x2, no other abdominal or pelvis surgeries. She does have back pain, but describes chronic back pain. There is no acute back pain associated with her current discomfort. She denies URI symptoms, no cough or dyspnea. She has no fever chills. She has no history of kidney stones. She has no dysuria or hematuria. Related Data Home Medications Medication Instructions Recorded Confirmed carvedilol 6.25 mg PO BID 03/04/19 08/14/19 losartan 100 mg PO DAILY 03/04/19 08/14/19 Previous Rx's Medication Instructions Recorded CMP Boric Acid Vaginal 1 each VAGINAL .weekly #24 each 06/26/19 Suppositories 600mg cyclobenzaprine 10 mg tablet 10 mg PO BEDTIME #30 tab 08/14/19 medroxyprogesterone 10 mg tablet 20 mg PO .COMPLEX #100 tab 10/30/19 ondansetron 4 mg PO Q4H PRN #14 tab 12/25/19 Allergies Allergy/AdvReac Type Severity Reaction Status Date / Time EDD Inhibitors AdvReac Mild PERSISTANT Verified 12/25/19 12:26 [EDD INHIBITORS] COUGH oxycodone [OXYCODONE] AdvReac Mild NAUSEA, Verified 12/25/19 12:26 DIZZYNESS Review of Systems Constitutional Constitutional: Denies chills, Denies fever(s), Denies lethargy and Denies weakness Eyes Comments: No complaints ENT Comments: No ENT complaints. Cardiovascular Cardiovascular: Denies chest pain, Denies irregular heart rhythm, Denies lightheadedness, Denies palpitations, Denies dyspnea and Denies orthopnea Respiratory Respiratory: Denies cough, Denies dyspnea and Denies wheezing Gastrointestinal Gastrointestinal: Reports nausea and Denies vomiting Comments: Abdominal pain. See HPI. Neurologic Neurologic: Denies weakness Endocrine Endocrine: Denies palpitations Allergic/Immunologic Allergic/Immunologic: Denies wheezing Patient History Medical History (Updated 12/25/19 @ 12:46 by Osman Alicia MD) Anxiety (Chronic) Depression (Chronic) Essential hypertension (02/23/14) Heavy menstrual period (Chronic) Irregular menstrual cycle (Chronic) Morbid obesity (04/20/14) Painful menstrual periods (Chronic) Psoriasis (Chronic) Sleep apnea (Chronic) Spinal stenosis (Chronic) Vitiligo (Chronic) Surgical History Anesthesia (Resolved) History of tonsillectomy (~2007) Status post delivery (04/03/11) Status post delivery (01/01/14) Status post laminectomy (Resolved ~07/22/16) Family History Father Hyperlipidemia Hypoglycemia Mother Diabetes mellitus Sister Spina bifida Grandfather Cancer History of heart disease Grandmother Diabetes mellitus Grandfather Cancer Grandmother Diabetes mellitus History of heart disease Hyperlipidemia Hypertension Mental health problem Stroke Social History Smoking Status: Former smoker substance use type: marijuana (Daily for back pain) Smoking Status: Former smoker alcohol intake frequency: other Substance Use Type: marijuana Exam Initial Vital Signs Initial Vital Signs: Vital Signs Temperature 99 F 12/25/19 06:50 Pulse Rate 103 H 12/25/19 06:50 Respiratory Rate 16 12/25/19 06:50 Blood Pressure 247/113 H 12/25/19 06:50 Pulse Oximetry 99 12/25/19 06:50 Course Course Course Narrative: The patient's evaluation for abdominal pain turned out well. She has an elevated to the BC count, but no fever. Lab evaluation CT were otherwise benign. Of note she was hypertensive on arrival, she had missed her morning meds. Coreg and losartan given as well as losartan 10 mg IV . Her blood pressure still remained in the 170-180 range. I discussed the situation with her PCM, Dr. Nicholas. We agreed to increase the Coreg to 12.5 mg b.i.d., I gave an additional 6.25 prior to departure. She should remain on losartan [address] Nicholas's office will contact her for a follow-up. Orders Ordered: ED Orders 12/25/19 07:03 Complete Blood Count AUTO DIFF Stat Comprehensive Metabolic Panel Stat 12/25/19 07:43 CT abdomen pelvis w con Stat 12/25/19 08:40 Urine Culture Stat Urine Microscopic Stat Discontinued Medications Carvedilol (Coreg) 6.25 mg PO NOW ONE Stop: 12/25/19 10:00 Last Admin: 12/25/19 10:25 Dose: 6.25 mg Documented by: BENNIE Hydromorphone HCl (Dilaudid) 1 mg IV NOW ONE Stop: 12/25/19 07:58 Last Admin: 12/25/19 09:09 Dose: 1 mg Documented by: ELMIRA Sodium Chloride (Normal Saline 0.9%) 1,000 mls @ 1,000 mls/hr IV BOLUS ONE Stop: 12/25/19 07:59 Last Infusion: 12/25/19 11:16 Dose: 0 mls/hr Documented by: Admin: 12/25/19 09:09 Dose: 1,000 mls/hr Documented by: ELMIRA Sodium Chloride (Normal Saline 0.9%) 1,000 mls @ 1,000 mls/hr IV BOLUS ONE Stop: 12/25/19 08:56 Last Infusion: 12/25/19 11:17 Dose: 0 mls/hr Documented by: Admin: 12/25/19 09:10 Dose: 1,000 mls/hr Documented by: ELMIRA Ketorolac Tromethamine (Toradol) 30 mg IV NOW ONE Stop: 12/25/19 09:28 Last Admin: 12/25/19 09:41 Dose: 30 mg Documented by: ELMIRA Labetalol HCl (Trandate) 10 mg IV NOW ONE Stop: 12/25/19 11:57 Last Admin: 12/25/19 12:08 Dose: 10 mg Documented by: ELIZABETH Losartan Potassium (Cozaar) 100 mg PO NOW ONE Stop: 12/25/19 10:00 Last Admin: 12/25/19 10:25 Dose: 100 mg Documented by: BENNIE Ondansetron HCl (Zofran) 4 mg IV NOW ONE Stop: 12/25/19 07:58 Last Admin: 12/25/19 09:09 Dose: 4 mg Documented by: ELMIRA Vital Signs Vital signs: Vital Signs - 8 hr 12/25/19 06:50 12/25/19 08:54 12/25/19 09:00 Temperature 99 F Pulse Rate 103 H 100 H 98 H Respiratory Rate 16 Blood Pressure 247/113 H 176/94 H Pulse Oximetry 99 98 98 12/25/19 09:30 12/25/19 10:25 12/25/19 11:00 Temperature Pulse Rate 96 H 90 88 Respiratory Rate Blood Pressure 177/92 H 178/99 H 171/97 H Pulse Oximetry 95 97 12/25/19 11:30 12/25/19 11:49 12/25/19 12:00 Temperature Pulse Rate 91 H 89 80 Respiratory Rate Blood Pressure 176/100 H 191/113 H 167/96 H Pulse Oximetry 99 99 98 12/25/19 12:08 12/25/19 12:20 12/25/19 12:32 Temperature Pulse Rate 85 81 85 Respiratory Rate Blood Pressure 162/97 H 175/115 H 176/101 H Pulse Oximetry 98 MDM - Abdominal Pain Lab Data Result diagrams: 12/25/19 07:03 12/25/19 07:03 Labs: Lab Results 12/25/19 12/25/19 12/25/19 Range/Units 07:03 07:03 08:40 WBC 17.5 H (4.5-11.0) X10^3/uL RBC 5.59 H (4.0-5.2) X10^6/uL Hgb 12.9 (12.0-16.0) g/dL Hct 39.7 (36-46) % MCV 71.0 L (80-100) fL MCH 23.1 L (26-34) PG MCHC 32.6 (30-36) % RDW 17.9 H (11.6-14.8) % Plt Count 380 (150-400) X10^3/uL Neut % (Auto) 79.3 H (50-75) % Lymph % (Auto) 14.7 L (25-40) % Humphreys % (Auto) 4.1 (3-14) % Eos % (Auto) 1.3 L (2-4) % Baso % (Auto) 0.6 (0-2) % Neut # (Auto) 32552 H (8034-3124) /uL Lymph # (Auto) 2600 (8714-5851) /uL Humphreys # (Auto) 700 (0-900) /uL Eos # (Auto) 200 (0-450) /uL Baso # (Auto) 100 (0-100) /uL Sodium 137 (137-145) mmol/L Potassium 3.7 (3.4-5.1) mmol/L Chloride 102 (98-107) mmol/L Carbon Dioxide 26 (22-32) mmol/L BUN 14 (7-17) mg/dL Creatinine 1.01 (0.52-1.04) mg/dL Estimated GFR > 60.0 (>60) mL/min BUN/Creatinine Ratio 13.9 (6-22) Glucose 128 H (70-100) mg/dL Calcium 8.8 (8.4-10.2) mg/dL Total Bilirubin 1.0 (0.2-1.3) mg/dL AST 28 (14-36) IU/L ALT 37 H (<35) IU/L Alkaline Phosphatase 108 (38-126) U/L Total Protein 8.8 H (6.3-8.2) g/dL Albumin 4.3 (3.5-5.0) g/dL Globulin 4.5 H (1.7-4.1) g/dL Albumin/Globulin Ratio 1.0 (1.0-2.8) Urine RBC >100/hpf H (0-5/HPF) Urine WBC 5-10/hpf H (0-5/HPF) Ur Squamous Epith Cells 1-5 /hpf (0-5/HPF) Urine Bacteria Moderate (10-30) H (None) Ur Culture Indicated? Specimen cultured Point of care testing: Point of Care Testing Test Results Negative Urine Dip Bedside Urine Glucose Negative Bedside Urine Bilirubin - Negative Bedside Urine Ketone ++ 40 Urine Specific [place] 1.015 Bedside Urine Occult Blood +++ Bedside Urine pH 6.0 Bedside Urine Protein + 30 Bedside Urine Urobilinogen - Negative Bedside Urine Nitrite - Negative Bedside Urine Leukocytes +/- [address] scan - abdomen/pelvis: Radiologist's Impression: 25 Osman Alicia MD Find Patient Imaging - María Castaneda 34 F 1985 ACTIVITY DATE EXAM STATUS AUTHOR 12/25/19 07:[address] [address] [address] Scan Report Signed Patient: María Castaneda [facility]#: [id number] : 1985Acct:[id number] Age/Sex: 34 / FDate of Service: 12/25/19 Loc: ED Accession Number: [id number] Procedure: CT abdomen pelvis w con Ordering Provider: Osman Alicia MD PROCEDURE: CT ABDOMEN PELVIS W CON INDICATIONS: left lower quad pain TECHNIQUE: After the administration of intravenous contrast, 5 mm thick sections acquired from the diaphragm to the symphysis. 5 mm coronal and sagittal reformats were acquired. For radiation dose reduction, the following was used: automated exposure control, adjustment of mA and/or kV according to patient size. COMPARISON: [facility], , PELVIC COMPLETE, 01/23/2016, 11:08. [facility], , LUMBAR SPINE WO CON, 12/01/2019, 8:16. [facility], , PELVIC COMPLETE, 09/18/2017, 16:01. FINDINGS: Image quality: Excellent. ABDOMEN: Lung bases: Lung bases are clear. Heart size is normal. Solid organs: Moderate to severe hepatic steatosis. No focal hepatic mass lesion demonstrated. Gallbladder unremarkable. Spleen normal in size. No adrenal gland mass. Pancreas within normal limits. No hydronephrosis or perinephric fat stranding. Kidneys otherwise unremarkable. Normal course and caliber of the ureters. Peritoneum and bowel: No abnormally dilated or thickened loop of bowel. No pericolonic or mesenteric fat stranding. Nodes and vessels: No retroperitoneal or mesenteric adenopathy by size criteria. Aorta and inferior vena cava are normal in size. Miscellaneous: Small umbilical hernia. PELVIS: Genitourinary: Bladder wall thickness is normal. The ovaries and uterus are unremarkable. Miscellaneous: No threshold enlarged pelvic or inguinal lymph node. Bones: No suspicious bony lesions. No vertebral body compression fractures. IMPRESSION: No acute finding to explain symptoms. Dictated by: Jong William M.D. on 12/25/2019 at 8:59 Approved by: Jong William M.D. on 12/25/2019 at 9:05 ECG Data Attestation: I personally reviewed and interpreted this ECG as follows: (Normal sinus rhythm rate 97 beats per minute. LVH. QTC 382, QTC 485. No acute ST-T wave changes. ) Discharge Plan Departure Patient Disposition: Home Clinical Impression: Left lower quadrant abdominal pain Hypertension Qualifiers: Hypertension type: essential hypertension Qualified Code(s): I10 - Essential (primary) hypertension Instructions: Essential Hypertension, DI for Abdominal Pain-Adult Activity Restrictions/Additional Instructions: For abdominal pain, Tylenol 2 tablets every 4 hours for pain. Zofran every 4 hours as needed for nausea. Be sure you are drinking plenty of fluids. The Zofran prescription has been forwarded to [facility] in [place]. For your high blood pressure, increase carvedilol to 12.5 mg 2 times daily. Continue taking losartan 100 mg daily. If you have increasing abdominal pain or fever return the ER. Regarding the blood pressure, if you develop chest pain, problems breathing, headache or vision changes you should return the ER. I contacted her doctor about her blood pressure. Expect a call for follow-up with her physician in the next few days. Prescriptions: New ondansetron 4 mg tablet,disintegrating 4 mg PO Q4H PRN (Reason: nausea and vomiting) Qty: 14 RF: 0 No Action cyclobenzaprine 10 mg tablet 10 mg PO BEDTIME Qty: 30 RF: 1 CMP Boric Acid Vaginal Suppositories 600mg 1 each vaginal .weekly Qty: 24 RF: 3 medroxyprogesterone 10 mg tablet 20 mg PO .COMPLEX Qty: 100 RF: 0 carvedilol 12.5 mg tablet 6.25 mg PO BID RF: 0 losartan 100 mg tablet 100 mg PO DAILY RF: 0 Referrals: Alisa Nicholas MD [Primary Care Provider] -
--- NOTE | 2019-12-25 07:43 | DI.CT.S_ITS ---
PROCEDURE: CT ABDOMEN PELVIS W CON INDICATIONS: left lower quad pain TECHNIQUE: After the administration of intravenous contrast, 5 mm thick sections acquired from the diaphragm to the symphysis. 5 mm coronal and sagittal reformats were acquired. For radiation dose reduction, the following was used: automated exposure control, adjustment of mA and/or kV according to patient size. COMPARISON: [facility], [place], PELVIC COMPLETE, 01/23/2016, 11:08. [facility], [place], MR LUMBAR SPINE WO CON, 12/01/2019, 8:16. [facility], [place], [place] PELVIC COMPLETE, 09/18/2017, 16:01. FINDINGS: Image quality: Excellent. ABDOMEN: Lung bases: Lung bases are clear. Heart size is normal. Solid organs: Moderate to severe hepatic steatosis. No focal hepatic mass lesion demonstrated. Gallbladder unremarkable. Spleen normal in size. No adrenal gland mass. Pancreas within normal limits. No hydronephrosis or perinephric fat stranding. Kidneys otherwise unremarkable. Normal course and caliber of the ureters. Peritoneum and bowel: No abnormally dilated or thickened loop of bowel. No pericolonic or mesenteric fat stranding. Nodes and vessels: No retroperitoneal or mesenteric adenopathy by size criteria. Aorta and inferior vena cava are normal in size. Miscellaneous: Small umbilical hernia. PELVIS: Genitourinary: Bladder wall thickness is normal. The ovaries and uterus are unremarkable. Miscellaneous: No threshold enlarged pelvic or inguinal lymph node. Bones: No suspicious bony lesions. No vertebral body compression fractures. IMPRESSION: No acute finding to explain symptoms. Dictated by: Jong William M.D. on 12/25/2019 at 8:59 Approved by: Jong William M.D. on 12/25/2019 at 9:05
[2019-12-25] MEDS: SODIUM CHLORIDE 0.9% 1,000 ML 1000 ML IV ×2 (09:09→09:10)
[2019-12-25] MEDS: HYDROMORPHONE 1 MG INJ IV (09:09)
[2019-12-25] MEDS: ONDANSETRON 4 MG/2 ML INJ IV (09:09)
[2019-12-25] MEDS: KETOROLAC 60 MG/2 ML VIAL 30 MG IV (09:41)
[2019-12-25 09:57] LABS: RBC Urine >100/HPF (0-5/HPF)
[2019-12-25 09:58] LABS: Bacteria Urine Moderate (10-30); Culture Indicated Urine Specimen Cultured; Squamous Epithelial Cell Urine 1-5 /HPF (0-5/HPF); WBC Urine 5-10/HPF (0-5/HPF)
[2019-12-25] MEDS: LOSARTAN 50 MG TABLET 100 MG PO (10:25)
[2019-12-25] MEDS: carvediloL 6.25 MG TABLET PO ×2 (10:25→12:54)
[2019-12-25] MEDS: LABETALOL 20 MG/4 ML SYRINGE 10 MG IV (12:08)
== END 2019-12-25 13:09 | disposition home or self-care (01) ==
PROVIDERS: Emergency Medicine; Emergency Provider Emergency Medicine; PCP Student in an Organized Health Care Education/Training Program
DX: R10.32 Left lower quadrant pain (principal); I10 Essential (primary) hypertension; E66.01 Morbid (severe) obesity due to excess calories; R00.0 Tachycardia, unspecified; R11.0 Nausea
CPT/HCPCS: 36415; 74177; 80053; 81003; 81015; 81025; 85025; 87077; 87086; 87186; 93005; 96361; 96374; 96375; 99284; J1170; J1885; J2405; Q9967

== ENCOUNTER → 2020-01-19 10:08 | Outpatient (CLI) | payer OTHER, MEDICAID, SELFPAY ==
--- NOTE | 2020-01-19 10:13 | DIET.PN ---
Dietary Progress Note Assessment: 34y F initiating care for pre-bariatric counseling for RYGB surgery planned in July 2020 at . Mom has had RYGB surgery 3y ago, has DM2 in both sides of family, has HTN, spinal stenosis c a few back surgeries (6 and 8) is going to be homeschooling because of coronavirus. Feels like she gained weight for covid, has [address] [place] goal: 298# (-15# to qualify for surgery) Started binge eating as teen when alone, continues pattern now, usually once per week when alone. Pt no longer has sweets in house so has been overeating things like pb and carrots. Was always overweight and cried in appt because it affected her emotionally as a kid. 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 @ [employer] sip water c pills, upsets stomach if eating right when waking break 9am tries to eat yogurt (new habit change)- Steffi raspberry but likes comanche too, with water lunch 1230: sometimes eats but usually doesn't, usually sits in car and relaxes 2:30 leaves work and has protein shake (premier protein and slim fast) goes home, working on school with them and making dinner, eats as family, one daughter is picky eater Dinner: steak (round tip or leaner cuts), pasta or rice dish c vegetable (green beans, broccoli) sometimes has small sweet thing but depending on mood sometimes can continue eating in binging pattern is a sweets eater but is being kind about keeping out of home. EBT $450: some barriers for shopping because of pandemic- tries to get to but most often [employer] in [place]. HT: 5'4 WT: 313# BMI: 53.7 Interventions: 1. Got general food hx, explained process, and scheduled out 12 biweekly nutrition visits. Monitoring/Evaluations: f/u in 2w to start diet diary. Recc pt see psychologist concurrently during this process to help c healthy coping secondary to binge eating patters.
== END ==
PROVIDERS: PCP Student in an Organized Health Care Education/Training Program; Referring Provider Student in an Organized Health Care Education/Training Program; Visit Provider Student in an Organized Health Care Education/Training Program
DX: E66.9 Obesity, unspecified (principal); I10 Essential (primary) hypertension; M48.00 Spinal stenosis, site unspecified; Z71.3 Dietary counseling and surveillance; Z68.43 Body mass index [BMI] 50.0-59.9, adult
CPT/HCPCS: 97802

== ENCOUNTER → 2020-02-02 10:07 | Outpatient (CLI) | payer OTHER, MEDICAID, SELFPAY ==
--- NOTE | 2020-02-02 10:11 | DIET.PN ---
Dietary Progress Note 34y F here for pre-bariatric 06/24. Pt has been diligent on no sweets, cut back on carbs, using 1 slice bread instead of 2. Pt talked to mom about healthy eating during holidays, both agree to prepare good, healthy foods rather than indulging. Pts mom seems to be good ally in this process as she is s/p RYGB and has kept the weight off. Pt has been experiencing stress because of online school c kids and tends to stress eat. 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 WT: 309# (-4#) UBW: 313# Interventions: 1. Educated pt on Healthy Plate Model for eating. Used food models to show typical eating pattern and problem solved several meals to find balance. Goal is for pt to work on balancing family meals for next 2w and to follow this pattern 80% of the time. 2. Introduced pt to logging diet diary including time, food/beverage content, and emotion associated c the meal. Goal is to do detailed food log for next 2 weeks and bring to next appointment. Pt has great insight and is motivated to make lasting changes and to qualify for her surgery. Monitoring/Evaluations: f/u in 2w for pre-bariatric 07/22, look at food log and discuss soluble fiber foods.
== END ==
PROVIDERS: PCP Student in an Organized Health Care Education/Training Program; Referring Provider Student in an Organized Health Care Education/Training Program; Visit Provider Student in an Organized Health Care Education/Training Program
DX: E66.9 Obesity, unspecified (principal); Z71.3 Dietary counseling and surveillance
CPT/HCPCS: 97803

== ENCOUNTER → 2020-03-29 09:53 | Outpatient (CLI) | payer OTHER, MEDICAID, SELFPAY ==
--- NOTE | 2020-03-29 09:56 | DIET.PN ---
Dietary Progress Note Assessment: 34y F here for third pre-bariatric surgery nutrition visit. Pt reports while she ate a lot of candy on [place], she got rid of it after the so there was nothing to tempt her. Pt has been planning small Thanksgiving c her immediate family and mom (who is post bypass herself) and they are working on high protein, low carb menu items. Pt has been enjoying substituting a Premier Protein caramel drink for breakfast every day. Pt lost 4# over past month with total weight loss of 8#. WT: 305# (-4# c total -8#) Discussed transitioning to telehealth visits if necessary during coronavirus. Monitoring/Evaluations: f/u in 2w to weight in and problem solve barriers.
== END ==
PROVIDERS: PCP Student in an Organized Health Care Education/Training Program; Referring Provider Student in an Organized Health Care Education/Training Program; Visit Provider Student in an Organized Health Care Education/Training Program
DX: E66.9 Obesity, unspecified (principal); Z71.3 Dietary counseling and surveillance
CPT/HCPCS: 97803

== ENCOUNTER → 2020-04-12 10:02 | Outpatient (CLI) | payer OTHER, MEDICAID, SELFPAY ==
--- NOTE | 2020-04-12 10:06 | DIET.PN ---
Dietary Progress Note Assessment: 34y F here for 4th of 12 nutrition visits prior to bariatric surgery. Pt reports getting more stressed as her surgery date is getting closer. She is worried she won't meet her goal, covid will affect her surgery date, or her stress will cause her to binge eat. Pt reported doing well over , she did take home some leftovers, but only had one small piece of pumpkin pie and cheese cake. Pt checked in c insurance and can do nutrition appts after 06/09 but needs to meet weight goal by that date. WT: 305# pt is holding steady from the holidays weight goal is 298# to qualify for surgery (total -8#) Usual Day: B: Does Premier Protein shake in morning for breakfast Sn: string cheese and fruit Lunch: salad c ham and chicken or turkey or hard boiled egg- light ranch Dinner: chicken or beef, uses 1/2c instant potatoes for lower carb/calories, large portion Interventions: 1. Pt goal is to lose one pound per week for the next four weeks. Monitoring/Evaluations: f/u in 2w to assess progress
== END ==
PROVIDERS: PCP Student in an Organized Health Care Education/Training Program; Referring Provider Student in an Organized Health Care Education/Training Program; Visit Provider Student in an Organized Health Care Education/Training Program
DX: E66.9 Obesity, unspecified (principal); Z71.3 Dietary counseling and surveillance
CPT/HCPCS: 97803

== ENCOUNTER 2020-09-07 13:08 | Emergency (ER) | payer OTHER, MEDICAID, SELFPAY ==
[2020-09-07 13:13] VITALS: BP 223/105; PULSE 102; RESP 24; TEMP 37.1; O2SAT 100
[2020-09-07] MEDS: KETOROLAC 60 MG/2 ML VIAL 30 MG IM (13:41)
--- NOTE | 2020-09-07 13:50 | ED.BACK ---
HPI - Back Pain/Injury General Chief Complaint: Back Pain/Injury Stated Complaint: lower back pain Time Seen by Provider: 09/07/20 13:38 Source: patient Mode of arrival: Ambulatory Limitations: no limitations History of Present Illness HPI Narrative: Patient is a 34-year-old female. She states she is on L and I for lower back pain. Reports that she was trying to get out of her vehicle when she had a sudden onset of left-sided lower back discomfort. She states she is unable to stand without assistance. No fevers. She did not fall. Has not tried anything for symptoms prior to arrive Related Data Home Medications Medication Instructions Recorded Confirmed carvedilol 6.25 mg PO BID 03/04/19 08/14/19 losartan 100 mg PO DAILY 03/04/19 08/14/19 Previous Rx's Medication Instructions Recorded CMP Boric Acid Vaginal 1 each VAGINAL .weekly #24 each 06/26/19 Suppositories 600mg cyclobenzaprine 10 mg tablet 10 mg PO BEDTIME #30 tab 08/14/19 medroxyprogesterone 10 mg tablet 20 mg PO .COMPLEX #100 tab 10/30/19 ondansetron 4 mg PO Q4H PRN #14 tab 12/25/19 Allergies Allergy/AdvReac Type Severity Reaction Status Date / Time EDD Inhibitors AdvReac Mild PERSISTANT Verified 09/07/20 13:11 [EDD INHIBITORS] COUGH oxycodone [OXYCODONE] AdvReac Mild NAUSEA, Verified 09/07/20 13:11 DIZZYNESS Review of Systems Constitutional Constitutional: Denies fever(s) and Denies headache(s) Eyes Eyes: Denies change in vision ENT Ears, Nose, Mouth, and Throat: Denies headache(s) Cardiovascular Cardiovascular: Denies chest pain and Denies dyspnea Respiratory Respiratory: Denies dyspnea Gastrointestinal Gastrointestinal: Denies abdominal pain Genitourinary Genitourinary: Denies urinary incontinence Genitourinary: Denies urinary incontinence Musculoskeletal Musculoskeletal: Reports back pain Integumentary/Breasts Skin/Breast: Denies rash Neurologic Neurologic: Denies behavioral changes and Denies headache(s) Psychiatric Psychiatric: Denies behavioral changes Hematologic/Lymphatic On Anticoagulants: No Allergic/Immunologic Allergic/Immunologic: Denies urticaria Patient History Medical History Anxiety Depression Essential hypertension (02/23/14) Heavy menstrual period Irregular menstrual cycle Morbid obesity (04/20/14) Painful menstrual periods Psoriasis Sleep apnea Spinal stenosis Vitiligo Surgical History Anesthesia History of tonsillectomy (~2007) Status post delivery (04/03/11) Status post delivery (01/01/14) Status post laminectomy (~07/22/16) Family History Father Hyperlipidemia Hypoglycemia Mother Diabetes mellitus Sister Spina bifida Grandfather Cancer History of heart disease Grandmother Diabetes mellitus Grandfather Cancer Grandmother Diabetes mellitus History of heart disease Hyperlipidemia Hypertension Mental health problem Stroke Social History Smoking Status: Former smoker substance use type: marijuana (Daily for back pain) Smoking Status: Former smoker alcohol intake frequency: other Substance Use Type: marijuana Exam Initial Vital Signs Initial Vital Signs: Vital Signs Temperature 98.8 F 09/07/20 13:13 Pulse Rate 102 H 09/07/20 13:13 Respiratory Rate 24 09/07/20 13:13 Blood Pressure 223/105 H 09/07/20 13:13 Pulse Oximetry 100 09/07/20 13:13 Const General: cooperative Limitations: mental status not altered HENMT Head: normal to inspection and normocephalic Resp Effort & Inspection: normal respiratory effort Cardio Rate: regular rate Back/Spine/Pelvis Cervical Spine: No cervical spinal tenderness Thoracic/Lumbar Spine: paraspinal tenderness (Left lumbar) and No thoracic spinal tenderness Skin Lesions: no lesions Rashes: no rashes Neuro General: patient alert and patient awake Cognition: normal cognition Speech: speech normal Extrem General: normal to inspection and capillary refill normal Psych Appearance: grossly normal and well kempt Course Orders Ordered: Discontinued Medications Hydromorphone HCl (Hydromorphone 1 Mg Inj) 1 mg IM NOW ONE Stop: 09/07/20 13:59 Last Admin: 09/07/20 14:15 Dose: 1 mg Documented by: NAIN Ketorolac Tromethamine (Ketorolac 60 Mg/2 Ml Vial) 30 mg IM NOW ONE Stop: 09/07/20 13:37 Last Admin: 09/07/20 13:41 Dose: 30 mg Documented by: BTONER Vital Signs Vital signs: Vital Signs - 8 hr 09/07/20 13:13 09/07/20 14:29 Temperature 98.8 F Pulse Rate 102 H 84 Respiratory Rate 24 Blood Pressure 223/105 H 182/99 H Pulse Oximetry 100 99 MDM - Back Pain/Injury MDM Narrative Medical decision making narrative: Patient has chronic low back pain. The aggravation of her chronic symptoms after trying to get out of her car earlier today. Low suspicion for cauda equina. No trauma. Feel we can hold on radiologic studies. She has medications at home to include muscle relaxers and pain medication. She is given return precautions follow up instructions. She expressed understanding agreement. Discharge Plan Departure Patient Disposition: Home Clinical Impression: Lumbar back pain Instructions: DI for Low Back Pain Activity Restrictions/Additional Instructions: Recommend you continue all of your medications as directed. Keep all of your scheduled medical appointments. Contact your primary provider for follow-up. Prescriptions: No Action cyclobenzaprine 10 mg tablet 10 mg PO BEDTIME Qty: 30 RF: 1 CMP Boric Acid Vaginal Suppositories 600mg 1 each vaginal .weekly Qty: 24 RF: 3 medroxyprogesterone 10 mg tablet 20 mg PO .COMPLEX Qty: 100 RF: 0 carvedilol 12.5 mg tablet 6.25 mg PO BID RF: 0 losartan 100 mg tablet 100 mg PO DAILY RF: 0 ondansetron 4 mg tablet,disintegrating 4 mg PO Q4H PRN (Reason: nausea and vomiting) Qty: 14 RF: 0 Referrals: Alisa Nicholas MD [Primary Care Provider] -
[2020-09-07] MEDS: HYDROMORPHONE 1 MG INJ IM (14:15)
[2020-09-07 14:29] VITALS: BP 182/99; PULSE 84; O2SAT 99
== END 2020-09-07 14:34 | disposition home or self-care (01) ==
PROVIDERS: Emergency Provider Emergency Medicine; PCP Student in an Organized Health Care Education/Training Program
DX: M54.5 Low back pain (principal); Y99.0 Civilian activity done for income or pay
CPT/HCPCS: 96372; 99283; J1170; J1885

== ENCOUNTER → 2020-11-18 08:32 | Outpatient (CLI) | payer OTHER, MEDICAID, SELFPAY ==
[2020-11-18 09:45] LABS: Hemoglobin A1C% w Est Avg Glu 5.5 % (4.0-6.0)
[2020-11-18 09:47] LABS: Add Manual Diff / Slide Review NO; Basophils Absolute Auto 100 /uL (0-100); Basophils Percent Auto 0.5 % (0-2); Eosinophils Absolute Auto 300 /uL (0-450); Eosinophils Percent Auto 2.5 % (2-4); Hematocrit 41.1 % (36-46); Hemoglobin 13.2 g/dL (12.0-16.0); Lymphocytes Absolute Auto 2800 /uL (1100-4500); Mean Corpuscular HGB Conc 32.1 % (30-36); Mean Corpuscular Hemoglobin 22.5 PG (26-34); Mean Corpuscular Volume 70.1 fL (80-100); Monocytes Absolute Auto 600 /uL (0-900); Monocytes Percent Auto 4.6 % (3-14); Neutrophils Absolute Auto 9100 /uL (1500-7000); Neutrophils Percent Auto 70.4 % (50-75); Platelet Count 349 X10^3/uL (150-400); Red Blood Cell Count 5.87 X10^6/uL (4.0-5.2); Red Cell Distribution Width 17.9 % (11.6-14.8); White Blood Cell Count 12.9 X10^3/uL (4.5-11.0)
[2020-11-18 09:50] LABS: Alanine Aminotransferase 47 IU/L (<35); Albumin 3.9 g/dL (3.5-5.0); Alkaline Phosphatase 108 U/L (38-126); Aspartate Aminotransferase 42 IU/L (14-36); BUN Creatinine Ratio 17.8 (6-22); Bilirubin Total 0.4 mg/dL (0.2-1.3); Blood Urea Nitrogen 18 mg/dL (7-17); Calcium 8.9 mg/dL (8.4-10.2); Carbon Dioxide 30 mmol/L (22-32); Chloride 104 mmol/L (98-107); Cholesterol 175 mg/dL (140-199); Estimated Glomerular Filt Rate > 60.0 mL/min (>60); Globulin 3.8 g/dL (1.7-4.1); Glucose 112 mg/dL (70-100); HDL Cholesterol 34 mg/dL (40-60); HEMOLYSIS < 15 (0-50); LDL Cholesterol Calculated 101 mg/dL (<100); Potassium 4.5 mmol/L (3.4-5.1); Sodium 140 mmol/L (137-145); Total Protein 7.7 g/dL (6.3-8.2); Triglycerides 199 mg/dL (35-150)
[2020-11-18 11:05] LABS: TSH w/ Reflex to FT4 2.44 uIU/mL (0.47-4.68)
== END ==
PROVIDERS: PCP Student in an Organized Health Care Education/Training Program; Referring Provider Registered Nurse Diabetes Educator; Visit Provider Registered Nurse Diabetes Educator
DX: E78.5 Hyperlipidemia, unspecified (principal); I10 Essential (primary) hypertension; R73.9 Hyperglycemia, unspecified
CPT/HCPCS: 36415; 80053; 80061; 83036; 84443; 85025

== ENCOUNTER → 2020-11-28 14:48 | Outpatient (CLI) | payer OTHER, MEDICAID, SELFPAY ==
[2020-11-28 16:25] LABS: COVID19 -Nasal RAPID Negative (Negative)
== END ==
PROVIDERS: PCP Student in an Organized Health Care Education/Training Program; Visit Provider Student in an Organized Health Care Education/Training Program
DX: Z01.812 Encounter for preprocedural laboratory examination (principal); Z20.822 Contact with and (suspected) exposure to COVID-19
CPT/HCPCS: 87635

== ENCOUNTER 2020-12-05 20:40 | Emergency (ER) | payer OTHER, MEDICAID, SELFPAY ==
[2020-12-05] VITALS (10 sets, daily range): BP systolic 154–228; BP diastolic 88–111; PULSE 86–104; RESP 17–33; TEMP 37.2; O2SAT 96–100; BMI 55.0
--- NOTE | 2020-12-05 21:06 | DI.RAD.S_ITS ---
PROCEDURE: XR CHEST 1V INDICATIONS: chest pain TECHNIQUE: One view of the chest was acquired. COMPARISON: [facility], CT, CT ANGIO CHEST PE PROTOCOL, 03/04/2019, 16:17. [facility], CR, XR CHEST 2V, 07/28/2019, 16:02. FINDINGS: Surgical changes and devices: None. Lungs and pleura: Lungs are clear. No pleural effusions or pneumothorax. Mediastinum: Mediastinal contours appear normal. Heart size is accentuated by portable AP technique. Bones and chest wall: No suspicious bony lesions. Overlying soft tissues appear unremarkable. IMPRESSION: No acute cardiopulmonary abnormality. Dictated by: Moustapha Martines M.D. on 12/05/2020 at 21:34 Approved by: Moustapha Martines M.D. on 12/05/2020 at 21:35
[2020-12-05 21:11] LABS: Add Manual Diff / Slide Review NO; Basophils Absolute Auto 100 /uL (0-100); Basophils Percent Auto 0.9 % (0-2); Eosinophils Absolute Auto 300 /uL (0-450); Eosinophils Percent Auto 2.7 % (2-4); Hemoglobin 12.4 g/dL (12.0-16.0); Lymphocytes Absolute Auto 3500 /uL (1100-4500); Lymphocytes Percent Auto 29.4 % (25-40); Mean Corpuscular HGB Conc 31.9 % (30-36); Mean Corpuscular Hemoglobin 22.2 PG (26-34); Mean Corpuscular Volume 69.7 fL (80-100); Monocytes Absolute Auto 600 /uL (0-900); Monocytes Percent Auto 4.7 % (3-14); Neutrophils Absolute Auto 7400 /uL (1500-7000); Neutrophils Percent Auto 62.3 % (50-75); Platelet Count 327 X10^3/uL (150-400); Red Cell Distribution Width 18.6 % (11.6-14.8); White Blood Cell Count 11.8 X10^3/uL (4.5-11.0)
--- NOTE | 2020-12-05 21:11 | ED.GENADULT ---
HPI - General Adult General Chief complaint: Hypertension Stated complaint: EVERYTHING HURTS RIGHT ARM PAIN HIGH BLOOD PRESSUR Time Seen by Provider: 12/05/20 20:53 Source: patient Mode of arrival: Family Vehicle Limitations: no limitations History of Present Illness HPI narrative: Patient is a 35-year-old female with a history of hypertension who is here for evaluation of high blood pressure, feeling like everything is hurting, chest discomfort, right arm pain, she states that she woke up from a nap feeling this way. Her took her blood pressure at home and it was elevated. She stated that she does wanted to go back to sleep but her made her come in to the emergency department. Has not tried anything for symptoms prior to arrival. Has taken all of her blood pressure medications as directed. Related Data Home Medications Medication Instructions Recorded Confirmed medroxyprogesterone 10 mg tablet 20 mg PO .COMPLEX PRN tab 09/13/20 09/13/20 pregabalin 75 mg capsule (Lyrica) 75 mg PO BID 09/13/20 09/13/20 Previous Rx's Medication Instructions Recorded carvedilol 12.5 mg tablet 6.25 mg PO BID #60 tab 09/13/20 losartan 100 1 tab PO DAILY #30 tab 09/13/20 mg-hydrochlorothiazide 25 mg tablet Allergies Allergy/AdvReac Type Severity Reaction Status Date / Time EDD Inhibitors AdvReac Mild PERSISTANT Verified 12/05/20 20:58 [EDD INHIBITORS] COUGH oxycodone [OXYCODONE] AdvReac Mild NAUSEA, Verified 12/05/20 20:58 DIZZYNESS Review of Systems Constitutional Constitutional: Reports system reviewed and no additional complaints, except as documented Cardiovascular Cardiovascular: Reports as per HPI Respiratory Respiratory: Reports as per HPI Gastrointestinal Gastrointestinal: Reports system reviewed and no additional complaints, except as documented Musculoskeletal Comments: ?everything hurts ? Integumentary/Breasts Skin/Breast: Reports system reviewed and no additional complaints, except as documented Neurologic Neurologic: Reports system reviewed and no additional complaints, except as documented Psychiatric Psychiatric: Reports system reviewed and no additional complaints, except as documented Hematologic/Lymphatic On Anticoagulants: No Allergic/Immunologic Allergic/Immunologic: Reports system reviewed and no additional complaints, except as documented Patient History Medical History Anxiety Body mass index (BMI) greater than 50 Depression Dyslipidemia Essential hypertension (02/23/14) Heavy menstrual period Hyperglycemia Irregular menstrual cycle Morbid obesity (04/20/14) Painful menstrual periods Psoriasis Sleep apnea Spinal stenosis Vitiligo Surgical History Anesthesia History of tonsillectomy (~2007) Status post delivery (04/03/11) Status post delivery (01/01/14) Status post laminectomy (~07/22/16) Family History Father Hyperlipidemia Hypoglycemia Mother Diabetes mellitus Sister Spina bifida Grandfather Cancer History of heart disease Grandmother Diabetes mellitus Grandfather Cancer Grandmother Diabetes mellitus History of heart disease Hyperlipidemia Hypertension Mental health problem Stroke Social History Smoking Status: Former smoker substance use type: marijuana (Daily for back pain) Smoking Status: Former smoker tobacco type: cigarettes alcohol intake frequency: holidays/special occasions only Substance Use Type: marijuana Exam Initial Vital Signs Initial Vital Signs: Vital Signs Blood Pressure 228/110 H 12/05/20 20:51 Const General: cooperative HENMT Head: normal to inspection and normocephalic Eyes General: appearance normal, both eyes and all related structures Resp Effort & Inspection: normal respiratory effort Auscultation: clear to auscultation bilaterally Cardio Rate: regular rate Rhythm: regular rhythm GI Palpation: soft Skin General: no rashes or lesions noted Neuro General: patient alert, patient awake and moves all extremities Extrem General: normal to inspection and capillary refill normal Psych Appearance: grossly normal and well kempt Scores HEART Score Heart Score history: Slightly Suspicious Heart Score EKG: Normal Heart Score Age: < 45 years old Heart Score risk factors: 1-2 risk factors Heart Score troponin: < or = to normal limit Heart Score Total: 1 Course Orders Ordered: ED Orders 12/05/20 20:55 Complete Blood Count AUTO DIFF Stat Comprehensive Metabolic Panel Stat Lipase Stat Troponin & CK Cardiac Panel Stat 12/05/20 21:06 XR chest 1V Stat 12/05/20 22:59 Troponin & CK Cardiac Panel Stat Vital Signs Vital signs: Vital Signs - 8 hr 12/05/20 20:51 12/05/20 20:52 12/05/20 20:54 Temperature 98.9 F Pulse Rate 97 H 104 H Respiratory Rate 28 H 20 Blood Pressure 228/110 H 228/110 H Pulse Oximetry 100 99 12/05/20 21:00 12/05/20 21:30 12/05/20 21:31 Temperature Pulse Rate 94 H 93 H 95 H Respiratory Rate 33 H 19 20 Blood Pressure 210/111 H 154/110 H Pulse Oximetry 97 99 99 12/05/20 22:00 12/05/20 22:30 12/05/20 23:00 Temperature Pulse Rate 89 86 92 H Respiratory Rate 24 18 17 Blood Pressure 166/93 H 174/100 H 176/88 H Pulse Oximetry 97 97 97 12/05/20 23:30 Temperature Pulse Rate 88 Respiratory Rate 17 Blood Pressure 167/108 H Pulse Oximetry 96 Medical Decision Making Lab Data Lab results reviewed: Yes I reviewed the patient's lab results. Result diagrams: 12/05/20 20:55 12/05/20 20:55 Labs: Lab Results 12/05/20 12/05/20 12/05/20 Range/Units 20:55 20:55 22:59 WBC 11.8 H (4.5-11.0) X10^3/uL RBC 5.60 H (4.0-5.2) X10^6/uL Hgb 12.4 (12.0-16.0) g/dL Hct 39.0 (36-46) % MCV 69.7 L (80-100) fL MCH 22.2 L (26-34) PG MCHC 31.9 (30-36) % RDW 18.6 H (11.6-14.8) % Plt Count 327 (150-400) X10^3/uL Neut % (Auto) 62.3 (50-75) % Lymph % (Auto) 29.4 (25-40) % [place] % (Auto) 4.7 (3-14) % Eos % (Auto) 2.7 (2-4) % Baso % (Auto) 0.9 (0-2) % Neut # (Auto) 7400 H (0454-3983) /uL Lymph # (Auto) 3500 (8819-0745) /uL [place] # (Auto) 600 (0-900) /uL Eos # (Auto) 300 (0-450) /uL Baso # (Auto) 100 (0-100) /uL RBC Morphology See below Anisocytosis 1+ H Microcytosis 1+ H Sodium 141 (137-145) mmol/L Potassium 3.7 (3.4-5.1) mmol/L Chloride 104 (98-107) mmol/L Carbon Dioxide 30 (22-32) mmol/L BUN 15 (7-17) mg/dL Creatinine 0.94 (0.52-1.04) mg/dL Estimated GFR > 60.0 (>60) mL/min BUN/Creatinine Ratio 16.0 (6-22) Glucose 115 H (70-100) mg/dL Calcium 9.0 (8.4-10.2) mg/dL Total Bilirubin 0.2 (0.2-1.3) mg/dL AST 44 H (14-36) IU/L ALT 52 H (<35) IU/L Alkaline Phosphatase 109 (38-126) U/L Total Creatine Kinase 582 H 475 H (30-135) U/L CK-MB (CK-2) 8.31 H 6.90 H (<2.37) ng/mL CK-MB (CK-2) Rel Index 1.4 L 1.5 (1.5-5.0) % Troponin I < 0.012 < 0.012 (0.01-0.034) ng/mL Total Protein 7.0 (6.3-8.2) g/dL Albumin 3.6 (3.5-5.0) g/dL Globulin 3.4 (1.7-4.1) g/dL Albumin/Globulin Ratio 1.1 (1.0-2.8) Lipase 104 (23-300) U/L Imaging Data Chest x-ray: Radiologist's Impression: [address] [id number] ReportSigned Patient: María Castaneda AMR#: [id number]: 1985Acct:[id number]/Sex: 35 / FDate of Service: 12/05/20Loc: EDAccession Number: [id number] Procedure: XR chest 1V Ordering Provider: Aljeo Pratt D.O. PROCEDURE: XR CHEST 1V INDICATIONS: chest pain TECHNIQUE: One view of the chest was acquired. COMPARISON: [facility], CT, CT ANGIO CHEST PE PROTOCOL, 03/04/2019, 16:17. [facility], CR, XR CHEST 2V, 07/28/2019, 16:02. FINDINGS: Surgical changes and devices: None. Lungs and pleura: Lungs are clear. No pleural effusions or pneumothorax. Mediastinum: Mediastinal contours appear normal. Heart size is accentuated by portable AP technique. Bones and chest wall: No suspicious bony lesions. Overlying soft tissues appear unremarkable. IMPRESSION: No acute cardiopulmonary abnormality. Dictated by: Moustapha Martines M.D. on 12/05/2020 at 21:34 Approved by: Moustapha Martines M.D. on 12/05/2020 at 21:35 ECG Data Attestation: I personally reviewed and interpreted this ECG as follows: Interpretation: Sinus rhythm Ventricular rate 95 First degree AV block care of to 1 6 milliseconds LVH Normal axis Normal QRS Normal QTC No ST T wave changes MDM Narrative Medical decision making narrative: Blood pressure improved with time, EKG is unremarkable, as a low risk heart score, has 2- troponins, low suspicion for ACS. I do suspect that the elevation in her blood pressure is related to the discomfort that she was having in the anxiety that she was having upon arrival. Feel that we can hold on further workup for now. She was given return precautions and follow-up instructions. She expressed understanding and agreement. Discharge Plan Departure Patient Disposition: Home Clinical Impression: High blood pressure Instructions: DI for High Blood Pressure Activity Restrictions/Additional Instructions: Recommend that you continue to take all of your medications as directed and keep your scheduled medical appointment with your primary doctor at the beginning of next month. Return to the emergency department for any new or worsening symptoms Prescriptions: No Action medroxyprogesterone 10 mg tablet 20 mg PO .COMPLEX PRNRF: 0 pregabalin [Lyrica] 75 mg capsule 75 mg PO BID RF: 0 losartan-hydrochlorothiazide 100-25 mg tablet 1 tab PO DAILY Qty: 30 RF: 2 carvedilol 12.5 mg tablet 6.25 mg PO BID Qty: 60 RF: 2 Referrals: Alisa Nicholas MD [Primary Care Provider] -
[2020-12-05 21:23] LABS: Alanine Aminotransferase 52 IU/L (<35); Albumin 3.6 g/dL (3.5-5.0); Albumin Globulin Ratio 1.1 (1.0-2.8); Alkaline Phosphatase 109 U/L (38-126); Aspartate Aminotransferase 44 IU/L (14-36); Bilirubin Total 0.2 mg/dL (0.2-1.3); Blood Urea Nitrogen 15 mg/dL (7-17); Carbon Dioxide 30 mmol/L (22-32); Chloride 104 mmol/L (98-107); Creatine Kinase 582 U/L (30-135); Estimated Glomerular Filt Rate > 60.0 mL/min (>60); Globulin 3.4 g/dL (1.7-4.1); Glucose 115 mg/dL (70-100); HEMOLYSIS < 15 (0-50); Lipase 104 U/L (23-300); Potassium 3.7 mmol/L (3.4-5.1); Sodium 141 mmol/L (137-145)
[2020-12-05 21:34] LABS: Troponin I < 0.012 ng/mL (0.01-0.034)
[2020-12-05 21:38] LABS: CKMB % Relative Index 1.4 % (1.5-5.0); Creatine Kinase MB 8.31 ng/mL (<2.37)
[2020-12-05 21:45] LABS: Anisocytosis 1+; Microcytosis 1+
[2020-12-05 23:12] LABS: Creatine Kinase 475 U/L (30-135)
[2020-12-05 23:25] LABS: Troponin I < 0.012 ng/mL (0.01-0.034)
[2020-12-05 23:28] LABS: CKMB % Relative Index 1.5 % (1.5-5.0)
== END 2020-12-05 23:50 | disposition home or self-care (01) ==
PROVIDERS: Emergency Provider Emergency Medicine; PCP Student in an Organized Health Care Education/Training Program
DX: I10 Essential (primary) hypertension (principal); R07.9 Chest pain, unspecified
CPT/HCPCS: 36415; 71045; 80053; 82550; 82553; 83690; 84484; 85025; 93005; 99284

== ENCOUNTER 2020-12-09 08:49 | Emergency (ER) | payer OTHER, MEDICAID, SELFPAY ==
[2020-12-09] VITALS (11 sets, daily range): BP systolic 181–270; BP diastolic 105–141; PULSE 84–100; RESP 15–25; TEMP 37; O2SAT 98–99; BMI 38.3
--- NOTE | 2020-12-09 09:09 | ED_ITS ---
HPI - Chest Pain General Chief Complaint: Hypertension Stated Complaint: blood pressure elevated/meds not working Time Seen by Provider: 12/09/20 08:56 History of Present Illness HPI narrative: 35F former smoker with history of HTN presents with the chief complaint of elevated blood pressure in the absence of symptoms. She states that she has been taking her meds as directed and despite this her pressures have been in the 230s. She denies headache or blurred vision. She has no chest pain or shortness breath. She denies N/V/D. Related Data Home Medications Medication Instructions Recorded Confirmed medroxyprogesterone 10 mg tablet 20 mg PO .COMPLEX PRN tab 09/13/20 09/13/20 pregabalin 75 mg capsule (Lyrica) 75 mg PO BID 09/13/20 09/13/20 Previous Rx's Medication Instructions Recorded carvedilol 12.5 mg tablet 6.25 mg PO BID #60 tab 09/13/20 losartan 100 1 tab PO DAILY #30 tab 09/13/20 mg-hydrochlorothiazide 25 mg tablet Allergies Allergy/AdvReac Type Severity Reaction Status Date / Time EDD Inhibitors AdvReac Mild PERSISTANT Verified 12/05/20 20:58 [EDD INHIBITORS] COUGH oxycodone [OXYCODONE] AdvReac Mild NAUSEA, Verified 12/05/20 20:58 DIZZYNESS Review of Systems Review of Systems Narrative: GENERAL: Denies chills, fatigue, malaise, fever, sweats. HEENT: Denies sinus pain, ear pain, sore throat, difficulty swallowing, dizziness. RESPIRATORY: Denies dyspnea, cough, wheezing, hemoptysis, sputum. CARDIOVASCULAR: Denies chest pain, palpitations, orthopnea, edema, GASTROINTESTINAL: Denies nausea, vomiting, abdominal pain, diarrhea, constipation, melena. : Denies dysuria, frequency, incontinence, hematuria, urinary retention. MUSCULOSKELETAL: denies weakness, joint pain, or bony pain SKIN: Denies rash, skin lesions, or other NEUROLOGIC: Denies weakness, headache, numbness, change in speech, confusion, seizures, incoordination. PSYCHIATRIC: No concerning psychosocial issues. 12 point review of systems is negative except for those stated above Patient History Medical History Anxiety Body mass index (BMI) greater than 50 Depression Dyslipidemia Essential hypertension (02/23/14) Heavy menstrual period Hyperglycemia Irregular menstrual cycle Morbid obesity (04/20/14) Painful menstrual periods Psoriasis Sleep apnea Spinal stenosis Vitiligo Surgical History Anesthesia History of tonsillectomy (~2007) Status post delivery (04/03/11) Status post delivery (01/01/14) Status post laminectomy (~07/22/16) Family History Father Hyperlipidemia Hypoglycemia Mother Diabetes mellitus Sister Spina bifida Grandfather Cancer History of heart disease Grandmother Diabetes mellitus Grandfather Cancer Grandmother Diabetes mellitus History of heart disease Hyperlipidemia Hypertension Mental health problem Stroke Social History Smoking Status: Former smoker substance use type: marijuana (Daily for back pain) Smoking Status: Former smoker tobacco type: cigarettes alcohol intake frequency: holidays/special occasions only Substance Use Type: marijuana Exam Narrative Exam Narrative: GENERAL: [35] year old patient appears stated age. Well- developed patient, in mild distress. HEAD: Atraumatic. Normocephalic. EYES: Pupils equal round and reactive. Extraocular motions intact. No scleral icterus. No injection or drainage. ENT: Nose without bleeding, purulent drainage. Throat without erythema, tonsillar hypertrophy or exudate. Airway patent. NECK: Trachea midline. Non tender CARDIOVASCULAR: Regular rate and rhythm without murmurs, gallops, or rubs. RESPIRATORY: Clear to auscultation. Breath sounds equal bilaterally. No wheezes, rales, or rhonchi. GASTROINTESTINAL: Abdomen soft, non-tender, nondistended. EXTREMITIES: No edema or joint tenderness. BACK: Nontender without deformity or crepitance. No flank tenderness. NEURO: AOx3. SKIN: No rash or erythema of visible areas Initial Vital Signs Initial Vital Signs: Vital Signs Temperature 98.6 F 12/09/20 09:08 Pulse Rate 100 H 12/09/20 09:08 Respiratory Rate 20 12/09/20 09:08 Blood Pressure 270/141 H 12/09/20 09:08 Pulse Oximetry 99 12/09/20 09:08 Course Orders Ordered: Discontinued Medications Carvedilol (Carvedilol 12.5 Mg Tablet) 25 mg PO NOW ONE Stop: 12/09/20 10:38 Last Admin: 12/09/20 12:02 Dose: 25 mg Documented by: SHERLEY Sodium Chloride (Normal Saline 0.9%) 1,000 mls @ 150 mls/hr IV CONT BENITO Last Infusion: 12/09/20 12:02 Dose: 0 mls/hr Documented by: Admin: 12/09/20 09:36 Dose: 150 mls/hr Documented by: NEEMA Labetalol HCl (Labetalol 20 Mg/4 Ml Syringe) 20 mg IV NOW ONE Stop: 12/09/20 09:10 Last Admin: 12/09/20 09:28 Dose: 20 mg Documented by: NEEMA Vital Signs Vital signs: Vital Signs - 8 hr 12/09/20 09:08 12/09/20 09:28 12/09/20 09:30 Temperature 98.6 F Pulse Rate 90 89 88 Respiratory Rate 18 Blood Pressure 245/112 H 224/136 H 224/136 H Pulse Oximetry 99 12/09/20 09:46 12/09/20 10:03 12/09/20 10:19 Temperature Pulse Rate 84 85 84 Respiratory Rate 18 24 Blood Pressure 188/105 H 214/138 H Pulse Oximetry 99 98 99 12/09/20 10:20 12/09/20 10:30 Temperature Pulse Rate 84 87 Respiratory Rate 20 Blood Pressure 188/105 H 214/138 H Pulse Oximetry 98 MDM - Chest Pain Lab Data Attestation: I reviewed the patient's lab results. Result diagrams: 12/09/20 09:25 12/09/20 09:25 Labs: Lab Results 12/09/20 12/09/20 12/09/20 Range/Units 09:25 09:25 09:25 WBC 11.9 H (4.5-11.0) X10^3/uL RBC 5.92 H (4.0-5.2) X10^6/uL Hgb 13.4 (12.0-16.0) g/dL Hct 41.4 (36-46) % MCV 70.0 L (80-100) fL MCH 22.6 L (26-34) PG MCHC 32.3 (30-36) % RDW 18.5 H (11.6-14.8) % Plt Count 314 (150-400) X10^3/uL Neut % (Auto) 72.6 (50-75) % Lymph % (Auto) 20.1 L (25-40) % Billings % (Auto) 3.9 (3-14) % Eos % (Auto) 3.0 (2-4) % Baso % (Auto) 0.4 (0-2) % Neut # (Auto) 8600 H (8722-9672) /uL Lymph # (Auto) 2400 (9344-9152) /uL Billings # (Auto) 500 (0-900) /uL Eos # (Auto) 400 (0-450) /uL Baso # (Auto) 0 (0-100) /uL Sodium 139 (137-145) mmol/L Potassium 3.8 (3.4-5.1) mmol/L Chloride 104 (98-107) mmol/L Carbon Dioxide 28 (22-32) mmol/L BUN 16 (7-17) mg/dL Creatinine 0.98 (0.52-1.04) mg/dL Estimated GFR > 60.0 (>60) mL/min BUN/Creatinine Ratio 16.3 (6-22) Glucose 123 H (70-100) mg/dL Calcium 9.1 (8.4-10.2) mg/dL Total Bilirubin 0.5 (0.2-1.3) mg/dL AST 65 H (14-36) IU/L ALT 69 H (<35) IU/L Alkaline Phosphatase 98 (38-126) U/L Total Creatine Kinase 519 H (30-135) U/L CK-MB (CK-2) 6.95 H (<2.37) ng/mL CK-MB (CK-2) Rel Index 1.3 L (1.5-5.0) % Troponin I < 0.012 (0.01-0.034) ng/mL NT-Pro-B Natriuret Pep 107 (<125) pg/mL Total Protein 7.8 (6.3-8.2) g/dL Albumin 4.0 (3.5-5.0) g/dL Globulin 3.8 (1.7-4.1) g/dL Albumin/Globulin Ratio 1.1 (1.0-2.8) Lipase 71 (23-300) U/L MDM Narrative Medical decision making narrative: Patient resting comfortably with elevated blood pressure in the absence of any symptoms. Labs are reassuring. Patient had Coreg dosing double than blood pressure down to the 180s. Patient given return precautions and encouraged to follow up Discharge Plan Departure Patient Disposition: Home Clinical Impression: HTN (hypertension) Qualifiers: Hypertension type: unspecified Qualified Code(s): I10 - Essential (primary) hypertension Instructions: DI for High Blood Pressure Activity Restrictions/Additional Instructions: *You have been diagnosed with [asymptomatic hypertension] *What to do: * as we discussed please increase your dosing of carvedilol from 6.25 mg twice daily to 12.5 mg twice daily. Otherwise, Please continue to take your regular medications as directed. *Please follow up with your primary care provider in 2-3 days, call for an appointment. Let them know you were seen in the Emergency Department and that we ask that you be seen in follow up. We will electronically transmit a record of today's note if your PCP is in our system *If you do not have a primary care provider please contact the [facility] Resource line at [phone]. They will ask some questions about your medical history and help get you set up with a doctor in the community. *Return to Emergency Department if you should have any new, worsening or concerning symptoms, such as [fever greater than 101 F, shaking chills, worsening pain, persistent vomiting or other bothersome symptoms] Prescriptions: No Action medroxyprogesterone 10 mg tablet 20 mg PO .COMPLEX PRNRF: 0 pregabalin [Lyrica] 75 mg capsule 75 mg PO BID RF: 0 losartan-hydrochlorothiazide 100-25 mg tablet 1 tab PO DAILY Qty: 30 RF: 2 carvedilol 12.5 mg tablet 6.25 mg PO BID Qty: 60 RF: 2 Referrals: Ronnie Hull ARNP [Primary Care Provider] -
--- NOTE | 2020-12-09 09:10 | DI.RAD.S_ITS ---
PROCEDURE: XR CHEST 1V INDICATIONS: chest pressure TECHNIQUE: One view of the chest was acquired. COMPARISON: [facility], CT, CT ANGIO CHEST PE PROTOCOL, 03/04/2019, 16:17. [facility], CR, XR CHEST 2V, 07/28/2019, 16:02. [facility], CR, XR CHEST 1V, 12/05/2020, 21:08. FINDINGS: Surgical changes and devices: None. Lungs and pleura: Lungs are clear. No pleural effusions or pneumothorax. Mediastinum: Mediastinal contours appear normal. Heart size is borderline. Bones and chest wall: No suspicious bony lesions. Overlying soft tissues appear unremarkable. IMPRESSION: No acute cardiopulmonary abnormality. Borderline cardiomegaly. Dictated by: Moustapha Martines M.D. on 12/09/2020 at 9:50 Approved by: Moustapha Martines M.D. on 12/09/2020 at 9:52
[2020-12-09] MEDS: LABETALOL 20 MG/4 ML SYRINGE IV (09:28)
[2020-12-09] MEDS: SODIUM CHLORIDE 0.9% 1,000 ML 150 ML IV (09:36)
[2020-12-09 09:59] LABS: Add Manual Diff / Slide Review NO; Basophils Absolute Auto 0 /uL (0-100); Basophils Percent Auto 0.4 % (0-2); Eosinophils Absolute Auto 400 /uL (0-450); Hematocrit 41.4 % (36-46); Hemoglobin 13.4 g/dL (12.0-16.0); Lymphocytes Absolute Auto 2400 /uL (1100-4500); Lymphocytes Percent Auto 20.1 % (25-40); Mean Corpuscular HGB Conc 32.3 % (30-36); Mean Corpuscular Hemoglobin 22.6 PG (26-34); Monocytes Absolute Auto 500 /uL (0-900); Monocytes Percent Auto 3.9 % (3-14); Neutrophils Absolute Auto 8600 /uL (1500-7000); Neutrophils Percent Auto 72.6 % (50-75); Platelet Count 314 X10^3/uL (150-400); Red Blood Cell Count 5.92 X10^6/uL (4.0-5.2); Red Cell Distribution Width 18.5 % (11.6-14.8); White Blood Cell Count 11.9 X10^3/uL (4.5-11.0)
[2020-12-09 10:10] LABS: Alanine Aminotransferase 69 IU/L (<35); Albumin Globulin Ratio 1.1 (1.0-2.8); Alkaline Phosphatase 98 U/L (38-126); Aspartate Aminotransferase 65 IU/L (14-36); BUN Creatinine Ratio 16.3 (6-22); Bilirubin Total 0.5 mg/dL (0.2-1.3); Blood Urea Nitrogen 16 mg/dL (7-17); Calcium 9.1 mg/dL (8.4-10.2); Carbon Dioxide 28 mmol/L (22-32); Chloride 104 mmol/L (98-107); Creatine Kinase 519 U/L (30-135); Estimated Glomerular Filt Rate > 60.0 mL/min (>60); Globulin 3.8 g/dL (1.7-4.1); Glucose 123 mg/dL (70-100); HEMOLYSIS < 15 (0-50); Lipase 71 U/L (23-300); Potassium 3.8 mmol/L (3.4-5.1); Sodium 139 mmol/L (137-145); Total Protein 7.8 g/dL (6.3-8.2)
[2020-12-09 10:19] LABS: NT-proBNP (BNP-Adult 18+) 107 pg/mL (<125)
[2020-12-09 10:21] LABS: Troponin I < 0.012 ng/mL (0.01-0.034)
[2020-12-09 10:26] LABS: CKMB % Relative Index 1.3 % (1.5-5.0); Creatine Kinase MB 6.95 ng/mL (<2.37)
[2020-12-09] MEDS: carvediloL 12.5 MG TABLET 25 MG PO (12:02)
== END 2020-12-09 12:10 | disposition home or self-care (01) ==
PROVIDERS: Emergency Provider Emergency Medicine; PCP Registered Nurse Diabetes Educator
DX: I10 Essential (primary) hypertension (principal); R07.9 Chest pain, unspecified
CPT/HCPCS: 36415; 71045; 80053; 82550; 82553; 83690; 83880; 84484; 85025; 93005; 96361; 96374; 99284

== ENCOUNTER → 2020-12-21 08:02 | Outpatient (CLI) | payer OTHER, MEDICAID, SELFPAY ==
--- NOTE | 2020-12-21 08:02 | DI.US.S_ITS ---
PROCEDURE: US ABDOMEN LIMITED INDICATIONS: ELEVATED LIVER ENZYMES TECHNIQUE: Real-time focused scanning was performed of the abdomen, with image documentation. COMPARISON: None. FINDINGS: Moderately diffusely increased hepatic parenchymal echogenicity. The liver is mildly enlarged measuring 19.5 cm in length. The portal vein is normal caliber at 13.9 cm and is patent. No visible hepatic masses, though imaging of the deep portions of the liver is suboptimal due to parenchymal echogenicity. The gallbladder is normal without stones, sludge, wall thickening, or pericholecystic fluid. The common duct is normal caliber. No intrahepatic biliary dilatation. The pancreas was not well seen. No perihepatic fluid. IMPRESSION: 1. Echogenic hepatic parenchyma suggestive of fatty infiltration or other intrinsic liver disease. 2. Normal gallbladder and no visible biliary dilatation. Dictated by: Lorna Robert M.D. on 12/21/2020 at 11:47 Approved by: Lorna Robert M.D. on 12/21/2020 at 12:37
[2020-12-21 13:36] LABS: HEMOLYSIS < 15 (0-50); Iron 35 ug/dL (37-170)
[2020-12-21 13:46] LABS: Percent Iron Saturation 9 % (15-50); Total Iron Binding Capacity 371 ug/dL (265-497); Transferrin 307 mg/dL (206-381)
[2020-12-21 14:08] LABS: Ferritin 38 ng/mL (6-137)
[2020-12-22 05:29] LABS: Hepatitis B Core AB w/Reflex Negative (Negative)
[2020-12-22 12:10] LABS: Hepatitis B Surface Antigen NEGATIVE s/c (NEGATIVE)
[2020-12-22 13:12] LABS: Hep C Virus Ab w/Reflex Quant NEGATIVE s/c (NEGATIVE)
== END ==
PROVIDERS: PCP Registered Nurse Diabetes Educator; Referring Provider Registered Nurse Diabetes Educator; Visit Provider Registered Nurse Diabetes Educator
DX: R74.8 Abnormal levels of other serum enzymes (principal)
CPT/HCPCS: 36415; 76705; 82728; 83540; 83550; 86704; 86803; 87340

== ENCOUNTER → 2020-12-31 11:56 | Outpatient (CLI) | payer OTHER, MEDICAID, SELFPAY ==
[2020-12-31 14:01] LABS: HCG Quantitative /Beta subunit < 2.4 mIU/mL; Prolactin 10.1 ng/mL (3.0-18.6)
[2020-12-31 14:14] LABS: Thyroid Stimulating Hormone 1.76 uIU/mL (0.47-4.68)
[2021-01-03 13:46] LABS: Testosterone, Free 4.2 pg/mL (0.0-4.2)
[2021-01-08 15:17] LABS: Percent Free Testosterone 3.35 % (0.50-2.80); Testosterone Free 1.45 ng/dL (0.10-0.85); Testosterone Total 43.3 ng/dL (10.0-55.0)
== END ==
PROVIDERS: PCP Registered Nurse Diabetes Educator; Referring Provider Obstetrics & Gynecology; Visit Provider Obstetrics & Gynecology
DX: N93.9 Abnormal uterine and vaginal bleeding, unspecified (principal); L68.0 Hirsutism; Z87.42 Personal history of other diseases of the female genital tract
CPT/HCPCS: 36415; 82627; 83498; 84146; 84402; 84403; 84443; 84702

== ENCOUNTER → 2021-01-02 13:13 | Outpatient (ROUT) | payer OTHER, MEDICAID, SELFPAY ==
[2021-01-08 10:24] LABS: Cortisol Fr ug/24hr urine 46 ug/24 hr (6-42); Cortisol, Free, Urine 29 ug/L (Undefined)
== END ==
PROVIDERS: Visit Provider Obstetrics & Gynecology
DX: Z13.9 Encounter for screening, unspecified (principal)
CPT/HCPCS: 82530

== ENCOUNTER → 2021-01-29 12:22 | Outpatient (CLI) | payer OTHER, MEDICAID, SELFPAY | PROVIDERS: PCP Registered Nurse Diabetes Educator; Visit Provider Nurse Practitioner Family | DX: R30.9 Painful micturition, unspecified (principal) | CPT/HCPCS: 81002; 87086 ==

== ENCOUNTER → 2021-02-01 11:22 | Outpatient (CLI) | payer OTHER, MEDICAID, SELFPAY ==
[2021-02-01 12:25] LABS: Appearance Urine UA CLEAR; Bilirubin Urine UA NEGATIVE (NEGATIVE); Color Urine UA YELLOW; Glucose Urine UA TRACE g/dL (Negative); Ketones Urine UA NEGATIVE (NEGATIVE); Leukocyte Esterase Urine UA NEGATIVE (NEGATIVE); Nitrite Urine UA NEGATIVE (Negative); Occult Blood Urine UA NEGATIVE (Negative); Protein Urine UA NEGATIVE (Negative); Specific Gravity Urine UA 1.015 (1.000-1.035); Urobilinogen Urine UA 0.2 E.U./dL (0.2)
[2021-02-01 12:30] LABS: pH Urine UA 6.5 (4.5-8.0)
[2021-02-01 12:39] LABS: RBC Urine None Seen (0-5/HPF); Squamous Epithelial Cell Urine 5-10 /HPF (0-5/HPF); WBC Urine 5-10/HPF (0-5/HPF)
[2021-02-01 12:40] LABS: Bacteria Urine None Seen; Culture Indicated Urine Cult Not Indicated
[2021-02-01 18:15] LABS: Creatinine Urine Random 153.3 mg/dL
[2021-02-01 18:19] LABS: Microalbumi Creatinin Ratio Ur 26.7 ug/mg CR (<30); Microalbumin Urine Random 4.1 mg/dL (0-1.6)
[2021-02-02 08:12] LABS: Calcium 9.1 mg/dL (8.7-10.2); Parathyroid Hormone, Intact 18 pg/mL (15-65)
[2021-02-04 15:46] LABS: Metanephrine,Plasma 13.1 pg/mL (0.0-88.0)
[2021-02-07 21:32] LABS: Aldosterone/Renin Activity Rat 1.6 (0.0-30.0); Plama Renin, LC/MS/MS 3.652 ng/mL/hr (0.167-5.380)
== END ==
PROVIDERS: PCP Registered Nurse Diabetes Educator; Referring Provider Registered Nurse Diabetes Educator; Visit Provider Registered Nurse Diabetes Educator
DX: I10 Essential (primary) hypertension (principal)
CPT/HCPCS: 36415; 81001; 82043; 82088; 82310; 82570; 83835; 83970; 84244

== ENCOUNTER → 2021-02-03 11:17 | Outpatient (CLI) | payer OTHER, MEDICAID, SELFPAY ==
[2021-02-03 14:07] LABS: COVID19 -Nasal RAPID Negative (Negative)
== END ==
PROVIDERS: PCP Registered Nurse Diabetes Educator; Visit Provider Nurse Practitioner
DX: Z20.822 Contact with and (suspected) exposure to COVID-19 (principal)
CPT/HCPCS: 87635; C9803

== ENCOUNTER → 2021-02-04 11:35 | Outpatient (CLI) | payer OTHER, MEDICAID, SELFPAY ==
[2021-02-04 12:12] LABS: Collection Time Urine 24 Hours; Sodium 24 Hour Urine 196 mmol/day (40-220); Sodium Urine Random 87 mmol/L (30-90); Total Volume Urine 2250 mL
[2021-02-09 17:15] LABS: Creatinine, 24 Urine 2367 mg/24 hr (800-1800); Creatinine,Urine 105.2 mg/dL (Not Estab.)
== END ==
PROVIDERS: PCP Registered Nurse Diabetes Educator; Referring Provider Registered Nurse Diabetes Educator; Visit Provider Registered Nurse Diabetes Educator
DX: I10 Essential (primary) hypertension (principal)
CPT/HCPCS: 82088; 82570; 84300

== ENCOUNTER → 2021-05-10 13:34 | Outpatient (CLI) | payer OTHER, SELFPAY ==
--- NOTE | 2021-05-10 13:36 | DI.CT.S_ITS ---
PROCEDURE: CT LUMBAR SPINE WO CON INDICATIONS: Spinal stenosis, lumbar region with neurogenic cla TECHNIQUE: Noncontrast 3 mm thick sections acquired from the T12 level to the sacrum. Sagittal and coronal reformats were constructed. For radiation dose reduction, the following was used: automated exposure control. COMPARISON: [facility], CT, CT ABDOMEN PELVIS W CON, 12/25/2019, 8:40. [facility], MR, MR LUMBAR SPINE WO CON, 12/01/2019, 8:16. [facility], CR, XR LUMBAR SPINE 2-3V, 08/21/2019, 6:53. FINDINGS: Image quality: This examination is somewhat limited by quantum mottle artifact. Bones: There is normal bony alignment. No acute vertebral body compression fractures. No suspicious lytic or blastic bony lesions. No pars defects. T12-L1: Mild loss of disc height is seen. Mild endplate irregularity and sclerosis can be seen. Mild posteriorly projected endplate osteophytes are seen. Mild disc bulge is seen, with a central disc protrusion. There is moderate left-sided and mild right-sided neural foraminal narrowing seen. Moderate central canal narrowing is seen. L1-L2: The disc height is relatively well preserved. Mild to moderate disc bulge is seen. Mild to moderate facet hypertrophy is seen. Mild to moderate bilateral neural foraminal narrowing can be seen. Mild central canal narrowing is seen. L2-L3: Moderate loss of disc height is seen. Moderate disc bulge is seen, with a central disc protrusion, with associated posteriorly projected endplate osteophytes. This is best seen on series 3, image 46 and on series 5, image 37. There is associated severe central canal narrowing. There is [id number] left-sided and moderate right-sided neural foraminal narrowing seen. L3-L4: The disc height is well preserved. Moderate disc bulge is seen, with a central disc protrusion. There is moderate to severe left-sided and at least moderate right-sided neural foraminal narrowing seen. Moderate central canal narrowing is seen. L4-L5: Mild loss of disc height is seen. Moderate disc bulge is seen, with a relatively prominent central disc protrusion, as seen on series 3, image 69. Moderate facet joint hypertrophy is seen. There is moderate to severe bilateral neural foraminal narrowing seen. At least moderate central canal narrowing can be seen at this level. Prior right left hemilaminotomy change can be seen. L5-S1: At least moderate loss of disc height can be seen. Vacuum disc phenomenon is seen at this level. Mild to moderate facet hypertrophy is seen at this level. There is mild disc bulge seen, with a mild central disc protrusion. Moderate to severe bilateral neural foraminal narrowing is seen. Minimal central canal narrowing is seen. Soft tissues: No retroperitoneal masses or hematomas. Visualized aorta is normal in caliber. IMPRESSION: Multiple levels of lumbar spine degenerative change are seen, including severe central canal narrowing at L2-L3, with at least moderate central canal narrowing at L4-L5. Several sites of significant neural foraminal narrowing can be seen. Prior right hemilaminotomy change at L4-L5. Dictated by: Sudheer Mendez M.D. on 05/10/2021 at 12:56 Approved by: Sudheer Mendez M.D. on 05/10/2021 at 13:03
== END ==
PROVIDERS: PCP Registered Nurse Diabetes Educator; Referring Provider Physician Assistant; Visit Provider Physician Assistant
DX: M48.062 Spinal stenosis, lumbar region with neurogenic claudication (principal); M48.07 Spinal stenosis, lumbosacral region; M47.816 Spondylosis without myelopathy or radiculopathy, lumbar region; M47.817 Spondylosis without myelopathy or radiculopathy, lumbosacral region
CPT/HCPCS: 72131

== ENCOUNTER 2021-09-02 12:42 | Observation (INO) | payer OTHER, MEDICAID, SELFPAY ==
[2021-09-02] VITALS (85 sets, daily range): BP systolic 119–258; BP diastolic 58–135; PULSE 78–120; RESP 10–33; TEMP 36.5–36.8; O2SAT 92–100; BMI 56.6; BMI 55.4
--- NOTE | 2021-09-02 12:52 | DI.RAD.S_ITS ---
PROCEDURE: XR CHEST 1V INDICATIONS: chest pain TECHNIQUE: One view of the chest was acquired. COMPARISON: [facility], CR, XR CHEST 1V, 12/09/2020, 9:21. FINDINGS: Surgical changes and devices: None. Lungs and pleura: Lungs are clear. No pleural effusions or pneumothorax. Mediastinum: Mediastinal contours appear normal. Heart size is normal. Bones and chest wall: No suspicious bony lesions. Overlying soft tissues appear unremarkable. IMPRESSION: No acute cardiopulmonary findings Approved by: Barry Ching M.D. on 09/02/2021 at 12:45
--- NOTE | 2021-09-02 13:00 | DI.CT.S_ITS ---
PROCEDURE: CT ANGIO CHEST ABDOMEN PELVIS, with and without contrast INDICATIONS: chest pain, severe HTN, ? dissection TECHNIQUE: Helical axial CT of the chest abdomen and pelvis was obtained before and after intravenous contrast injection utilizing an angiographic technique and reformatted in multiple planes. Radiation dose reduction was achieved utilizing automated exposure control and/or parameter adjustment according to patient's size. COMPARISON: None. FINDINGS: Chest: Cardiovascular: Heart size is normal. No evidence of pulmonary embolism, aortic aneurysm or dissection. Lungs and pleural spaces: The lung mcnamara are clear without nodule, infiltrate or interstitial prominence. Pleural spaces show no effusion or pneumothorax. Lymph nodes: No mediastinal, hilar or axillary adenopathy. Mediastinum: Unremarkable. No hiatal hernia. Thyroid within normal limits. Chest Wall and Bones: Unremarkable. No acute fracture. Abdomen and Pelvis: Liver: The liver is diffusely decreased in attenuation without focal mass lesion. Liver is enlarged at 27 cm Biliary system: No calcified cholelithiasis or pericholecystic inflammation. No intra or extrahepatic bile duct dilatation. Pancreas: Unremarkable without mass or inflammation evident. Spleen: The spleen is enlarged at 15.7 cm . No intrinsic mass lesion. Adrenals: Normal morphology and density. Reproductive system: Intrauterine device is partially extruded through the cervix Urinary system: Normal renal size and attenuation. No renal calculi, hydronephrosis, or solid mass present. Urinary bladder unremarkable. Gastrointestinal system: The bowel is unremarkable with no evidence of bowel obstruction or inflammation. The stomach appears unremarkable. No findings to suggest acute appendicitis. Lymph nodes: No mesenteric or retroperitoneal adenopathy. Peritoneal spaces: No free air. No free fluid. Vasculature: The IVC, aorta and iliac vasculature are unremarkable. Abdominal wall: Small periumbilical hernia contains fat without bowel involvement Musculoskeletal: Normal bone mineralization. Degenerative disc disease and arthropathy noted in lower lumbar spine. Severe central stenosis at L2-3 No acute fractures. IMPRESSION: 1. Unremarkable CT angiogram without pulmonary embolism, aortic dissection or aneurysm in the chest abdomen and pelvis. 2. Hepatosplenomegaly associated with hepatic steatosis. 3. Multilevel degenerative disc disease and arthropathy results in severe central stenosis at L2-3 Approved by: Barry Ching M.D. on 09/02/2021 at 13:18
[2021-09-02] MEDS: NITROGLYCERIN 0.4 MG SL TAB SL ×3 (13:03→13:20)
[2021-09-02] MEDS: ASPIRIN 81 MG CHEW TAB 324 MG PO (13:03)
[2021-09-02] MEDS: NITROGLYCERIN 50 MG/250 ML INFUS..BTL IV (13:27)
[2021-09-02 13:31] LABS: Add Manual Diff / Slide Review NO; Basophils Absolute Auto 100 /uL (0-100); Basophils Percent Auto 0.6 % (0-2); Eosinophils Absolute Auto 300 /uL (0-450); Eosinophils Percent Auto 2.2 % (2-4); Hematocrit 38.5 % (36-46); Hemoglobin 12.9 g/dL (12.0-16.0); Lymphocytes Absolute Auto 2900 /uL (1100-4500); Lymphocytes Percent Auto 21.5 % (25-40); Mean Corpuscular HGB Conc 33.5 % (30-36); Mean Corpuscular Hemoglobin 23.5 PG (26-34); Mean Corpuscular Volume 70.1 fL (80-100); Monocytes Absolute Auto 600 /uL (0-900); Monocytes Percent Auto 4.5 % (3-14); Neutrophils Absolute Auto 9700 /uL (1500-7000); Neutrophils Percent Auto 71.2 % (50-75); Platelet Count 311 X10^3/uL (150-400); Red Blood Cell Count 5.49 X10^6/uL (4.0-5.2); Red Cell Distribution Width 18.3 % (11.6-14.8); White Blood Cell Count 13.6 X10^3/uL (4.5-11.0)
[2021-09-02] MEDS: METOPROLOL TARTRATE 5 MG/5 ML INJ IV ×3 (13:45→14:17)
[2021-09-02 13:48] LABS: INR 1.2 (0.9-1.3); Prothrombin Time 13.4 SECONDS (10.1-12.7)
[2021-09-02 13:51] LABS: PTT Partial Thromboplastin Tim 33 SECONDS (26.4-36.2)
[2021-09-02 13:55] LABS: NT-proBNP (BNP-Adult 18+) 156 pg/mL (<125)
--- NOTE | 2021-09-02 13:55 | PC.NURSE ---
18 ga placed by another nurse
[2021-09-02 13:56] LABS: Pregnancy Test Serum,Qual Negative (Negative)
[2021-09-02 13:57] LABS: Alanine Aminotransferase 47 IU/L (<35); Albumin 3.7 g/dL (3.5-5.0); Albumin Globulin Ratio 1.2 (1.0-2.8); Alkaline Phosphatase 96 U/L (38-126); Aspartate Aminotransferase 44 IU/L (14-36); BUN Creatinine Ratio 17.2 (6-22); Bilirubin Total 0.5 mg/dL (0.2-1.3); Blood Urea Nitrogen 16 mg/dL (7-17); Calcium 8.4 mg/dL (8.4-10.2); Carbon Dioxide 28 mmol/L (22-32); Chloride 105 mmol/L (98-107); Creatine Kinase 664 U/L (30-135); Estimated Glomerular Filt Rate > 60 mL/min (>60); Globulin 3.2 g/dL (1.7-4.1); Glucose 103 mg/dL (70-100); HEMOLYSIS < 15 (0-50); Lipase 102 U/L (23-300); Magnesium 1.9 mg/dL (1.6-2.3); Sodium 139 mmol/L (137-145); Total Protein 6.9 g/dL (6.3-8.2)
[2021-09-02 13:57] LABS: COVID19 -Nasal RAPID Negative (Negative)
--- NOTE | 2021-09-02 13:57 | PC.NURSE ---
patient woke up this morning at 7 am with no pain. went back to bed and 6/10 chest pain woke her up at 9:30am She wanted to wait until her came home to take the girls but pain did not change so she came in.
[2021-09-02 14:00] LABS: D Dimer < 200 ng/mL (<230)
[2021-09-02 14:09] LABS: Troponin I < 0.012 ng/mL (0.01-0.034)
--- NOTE | 2021-09-02 14:14 | ED_ITS ---
HPI - Chest Pain General Chief Complaint: Chest Pain Stated Complaint: Chest pain, SOB Time Seen by Provider: 09/02/21 12:45 Source: patient Mode of arrival: Ambulatory Limitations: no limitations History of Present Illness HPI narrative: 35-year-old woman with morbid obesity, iron deficiency anemia, hypertension p resents with acute onset severe central chest pain associated with diaphoresis and tachypnea describes as a significant pressure radiating through to her back starting at 9:30 a.m. this morning when she awoke. She describes no recent fevers, cough, chills, palpitations, chest pain, exertional dyspnea, orthopnea, lower extremity edema, neurologic complaints or headache Related Data Home Medications Medication Instructions Recorded Confirmed pregabalin 75 mg capsule (Lyrica) 75 mg PO BID 09/13/20 03/13/21 Previous Rx's Medication Instructions Recorded losartan 100 1 tab PO DAILY #90 tab 12/15/20 mg-hydrochlorothiazide 25 mg tablet amlodipine 10 mg tablet 10 mg PO DAILY #90 tab 01/11/21 ferrous sulfate 325 mg (65 mg 325 mg PO DAILY #90 tab 01/11/21 iron) tablet metoprolol succinate 100 mg 100 mg PO DAILY #90 tab 03/01/21 tablet,extended release 24 hr Allergies Allergy/AdvReac Type Severity Reaction Status Date / Time EDD Inhibitors AdvReac Mild PERSISTANT Verified 09/02/21 12:51 [EDD INHIBITORS] COUGH oxycodone [OXYCODONE] AdvReac Mild NAUSEA, Verified 09/02/21 12:51 DIZZYNESS Review of Systems Review of Systems Narrative: Remainder of complete review of systems is otherwise unremarkable except for that included in the HPI. Patient History Medical History Anxiety Body mass index (BMI) greater than 50 Depression Dyslipidemia Essential hypertension (02/23/14) Facial skin lesion Heavy menstrual period Hyperglycemia Impaired fasting blood sugar Irregular menstrual cycle Metabolic syndrome Morbid obesity (04/20/14) Painful menstrual periods Psoriasis Resistant hypertension Sleep apnea Spinal stenosis Vitiligo Surgical History Anesthesia History of tonsillectomy (~2007) Status post delivery (04/03/11) Status post delivery (01/01/14) Status post laminectomy (~07/22/16) Family History Father Hyperlipidemia Hypoglycemia Mother Diabetes mellitus Sister Spina bifida Grandfather Cancer History of heart disease Grandmother Diabetes mellitus Grandfather Cancer Grandmother Diabetes mellitus History of heart disease Hyperlipidemia Hypertension Mental health problem Stroke Social History Smoking Status: Former smoker substance use type: marijuana Smoking Status: Former smoker tobacco type: cigarettes alcohol intake frequency: holidays/special occasions only Substance Use Type: marijuana Exam Initial Vital Signs Initial Vital Signs: Vital Signs Temperature 98.3 F 09/02/21 12:48 Pulse Rate 110 H 09/02/21 12:48 Respiratory Rate 26 H 09/02/21 12:48 Blood Pressure 257/135 H 09/02/21 12:48 Pulse Oximetry 100 09/02/21 12:48 General: Obese, flushed in obvious distress clutching her chest but Able to give a complete and coherent history. Tachypneic but she is able to speak in full sentences HEENT: Moist mucous membranes, normal sclera with reactive pupils, Neck: No JVD, supple Respiratory: Lungs are clear to auscultation, no wheezing no rales no rhonchi. Full and symmetrical air movement Cardiac: Regular rate and rhythm no murmurs no bruits Abdomen: Soft, nontender, good bowel tones, no flank pain Skin: Flushed, Warm and dry, no rashes Neurologic: Grossly neurologically intact with no obvious asymmetries or abnormalities Extremities: No trauma, well perfused, no significant edema Psych: Cooperative, appropriate insight and affect Course Orders Ordered: ED Orders 09/02/21 12:52 XR chest 1V Stat EKG-12 Lead Stat 09/02/21 13:00 CT angio chest abdomen pelvis Stat 09/02/21 13:05 COVID19 -Nasal RAPID/Pre-Proc Stat 09/02/21 13:20 BNP [NT-proBNP (BNP-Adult 18+)] Stat Complete Blood Count AUTO DIFF Stat Comprehensive Metabolic Panel Stat D Dimer Stat Lipase Stat Magnesium Stat Partial Thromboplastin Time Stat Test Serum,Qual Stat Prothrombin Time INR Stat Troponin & CK Cardiac Panel Stat 09/02/21 14:18 EKG-12 Lead Stat 09/02/21 15:41 Trop I [Troponin I] Stat 09/02/21 20:45 Partial Thromboplastin Time Q6H 09/03/21 02:45 Partial Thromboplastin Time Q6H 09/03/21 08:45 Partial Thromboplastin Time Q6H Nitroglycerin (Nitroglycerin) 50 mg in 250 mls @ 1.5 mls/hr IV TITRATE BENITO; Protocol Last Titration: 09/02/21 16:03 Dose: 10 mcg/min, 3 mls/hr Documented by: Titration: 09/02/21 14:11 Dose: 15 mcg/min, 4.5 mls/hr Documented by: Titration: 09/02/21 14:07 Dose: 10 mcg/min, 3 mls/hr Documented by: Admin: 09/02/21 13:27 Dose: 5 mcg/min, 1.5 mls/hr Documented by: HEVER Nicardipine HCl 25 mg/ Sodium (Chloride) 250 mls @ 50 mls/hr IV TITRATE BENITO; Protocol Last Titration: 09/02/21 16:04 Dose: 2 mg/hr, 20 mls/hr Documented by: Admin: 09/02/21 15:36 Dose: 5 mg/hr, 50 mls/hr Documented by: HEVER Heparin Sodium/Dextrose (Heparin Drip) 25,000 unit in 500 mls @ 20 mls/hr IV CONT BENITO; Protocol Last Admin: 09/02/21 15:11 Dose: 1,000 units/hr, 20 mls/hr Documented by: HEVER Morphine Sulfate (Morphine 2 Mg/Ml Inj) 2 mg IV Q15MIN PRN PRN Reason: Pain, Moderate (4-6) Last Admin: 09/02/21 14:17 Dose: 2 mg Documented by: HEVER Discontinued Medications Aspirin (Aspirin 81 Mg Chew Tab) 324 mg PO NOW ONE Stop: 09/02/21 12:53 Last Admin: 09/02/21 13:03 Dose: 324 mg Documented by: MIMI Heparin Sodium (Porcine) (Heparin 5,000 Unit/Ml Vial) 5,000 unit IV NOW ONE Stop: 09/02/21 14:38 Last Admin: 09/02/21 15:12 Dose: 5,000 unit Documented by: ZGELEYN Metoprolol Tartrate (Metoprolol Tartrate 5 Mg/5 Ml Inj) 5 mg IV Q5M BENITO Stop: 09/02/21 13:11 Last Admin: 09/02/21 14:17 Dose: 5 mg Documented by: Admin: 09/02/21 14:00 Dose: 5 mg Documented by: Admin: 09/02/21 13:45 Dose: 5 mg Documented by: HEVER Nitroglycerin (Nitroglycerin 0.4 Mg Sl Tab) 0.4 mg SL [id number] PRN PRN Reason: Chest Pain Last Admin: 09/02/21 13:20 Dose: 0.4 mg Documented by: Admin: 09/02/21 13:16 Dose: 0.4 mg Documented by: Admin: 09/02/21 13:03 Dose: 0.4 mg Documented by: MIMI Vital Signs Vital signs: Vital Signs - 8 hr 09/02/21 12:48 09/02/21 12:56 09/02/21 12:57 Temperature 98.3 F Pulse Rate 110 H 118 H 116 H Respiratory Rate 26 H 25 H 20 Blood Pressure 257/135 H 243/125 H Pulse Oximetry 100 99 98 09/02/21 13:00 09/02/21 13:03 09/02/21 13:11 Temperature Pulse Rate 110 H 120 H 111 H Respiratory Rate 23 29 H Blood Pressure 247/119 H 258/110 H 183/114 H Pulse Oximetry 99 98 09/02/21 13:14 09/02/21 13:15 09/02/21 13:16 Temperature Pulse Rate 107 H 107 H 107 H Respiratory Rate 30 H 26 H 23 Blood Pressure 171/103 H 183/107 H 204/108 H Pulse Oximetry 99 99 98 09/02/21 13:20 09/02/21 13:21 09/02/21 13:27 Temperature Pulse Rate 109 H 109 H 110 H Respiratory Rate 25 H Blood Pressure 207/98 H 207/98 H 208/106 H Pulse Oximetry 99 09/02/21 13:30 09/02/21 13:35 09/02/21 13:40 Temperature Pulse Rate 110 H 120 H 104 H Respiratory Rate 29 H 33 H 30 H Blood Pressure 180/106 H 238/133 H 184/88 H Pulse Oximetry 98 98 99 09/02/21 13:44 09/02/21 13:45 09/02/21 13:50 Temperature Pulse Rate 102 H 104 H 93 H Respiratory Rate 29 H 28 H 21 Blood Pressure 183/93 H 190/91 H 168/96 H Pulse Oximetry 99 99 100 09/02/21 13:55 09/02/21 14:00 09/02/21 14:04 Temperature Pulse Rate 90 90 88 Respiratory Rate 24 22 27 H Blood Pressure 186/106 H 194/103 H 207/119 H Pulse Oximetry 99 99 100 09/02/21 14:15 09/02/21 14:16 09/02/21 14:21 Temperature Pulse Rate 88 87 88 Respiratory Rate 28 H 22 22 Blood Pressure 141/83 H 167/95 H Pulse Oximetry 97 98 98 09/02/21 14:25 09/02/21 14:30 09/02/21 14:31 Temperature Pulse Rate 84 85 85 Respiratory Rate 19 17 18 Blood Pressure 181/96 H 164/78 H Pulse Oximetry 98 97 98 09/02/21 14:35 09/02/21 14:40 09/02/21 14:45 Temperature Pulse Rate 84 83 85 Respiratory Rate 17 23 13 Blood Pressure 150/75 H 150/87 H 148/82 H Pulse Oximetry 98 99 98 09/02/21 14:50 09/02/21 14:55 09/02/21 15:00 Temperature Pulse Rate 86 86 91 H Respiratory Rate 15 17 19 Blood Pressure 159/85 H 163/87 H 165/88 H Pulse Oximetry 97 98 98 09/02/21 15:05 09/02/21 15:10 09/02/21 15:15 Temperature Pulse Rate 90 90 89 Respiratory Rate 13 14 16 Blood Pressure 175/89 H 161/77 H 154/70 H Pulse Oximetry 97 97 97 09/02/21 15:20 09/02/21 15:25 09/02/21 15:30 Temperature Pulse Rate 92 H 88 89 Respiratory Rate 16 13 16 Blood Pressure 153/71 H 163/96 H 167/94 H Pulse Oximetry 96 98 96 09/02/21 15:34 09/02/21 15:35 09/02/21 15:40 Temperature Pulse Rate 88 87 89 Respiratory Rate 16 14 17 Blood Pressure 162/85 H 160/83 H 168/83 H Pulse Oximetry 98 98 97 09/02/21 15:45 09/02/21 15:50 09/02/21 15:55 Temperature Pulse Rate 91 H 91 H 92 H Respiratory Rate 15 16 18 Blood Pressure 135/64 164/87 H 161/77 H Pulse Oximetry 99 99 99 09/02/21 16:00 09/02/21 16:05 09/02/21 16:10 Temperature Pulse Rate 92 H 92 H 95 H Respiratory Rate 16 16 15 Blood Pressure 122/59 L 119/58 L 159/90 H Pulse Oximetry 98 99 98 09/02/21 16:15 09/02/21 16:20 09/02/21 16:25 Temperature Pulse Rate 93 H 93 H 93 H Respiratory Rate 13 18 10 L Blood Pressure 151/81 H 146/79 H 158/78 H Pulse Oximetry 97 97 97 09/02/21 16:30 09/02/21 16:35 09/02/21 16:39 Temperature Pulse Rate 92 H 92 H 92 H Respiratory Rate 13 22 25 H Blood Pressure 158/80 H 155/76 H Pulse Oximetry 98 99 99 09/02/21 16:40 Temperature Pulse Rate Respiratory Rate Blood Pressure 151/73 H Pulse Oximetry MDM - Chest Pain Lab Data Result diagrams: 09/02/21 13:20 09/02/21 13:20 Labs: Lab Results 09/02/21 09/02/21 09/02/21 Range/Units 13:05 13:20 13:20 WBC 13.6 H (4.5-11.0) X10^3/uL RBC 5.49 H (4.0-5.2) X10^6/uL Hgb 12.9 (12.0-16.0) g/dL Hct 38.5 (36-46) % MCV 70.1 L (80-100) fL MCH 23.5 L (26-34) PG MCHC 33.5 (30-36) % RDW 18.3 H (11.6-14.8) % Plt Count 311 (150-400) X10^3/uL Neut % (Auto) 71.2 (50-75) % Lymph % (Auto) 21.5 L (25-40) % [place] % (Auto) 4.5 (3-14) % Eos % (Auto) 2.2 (2-4) % Baso % (Auto) 0.6 (0-2) % Neut # (Auto) 9700 H (0653-2386) /uL Lymph # (Auto) 2900 (7319-3606) /uL [place] # (Auto) 600 (0-900) /uL Eos # (Auto) 300 (0-450) /uL Baso # (Auto) 100 (0-100) /uL PT 13.4 H (10.1-12.7) SECONDS INR 1.2 (0.9-1.3) APTT 33 (26.4-36.2) SECONDS D-Dimer (<230) ng/mL Sodium (137-145) mmol/L Potassium (3.4-5.1) mmol/L Chloride (98-107) mmol/L Carbon Dioxide (22-32) mmol/L BUN (7-17) mg/dL Creatinine (0.52-1.04) mg/dL Estimated GFR (>60) mL/min BUN/Creatinine Ratio (6-22) Glucose (70-100) mg/dL Calcium (8.4-10.2) mg/dL Magnesium (1.6-2.3) mg/dL Total Bilirubin (0.2-1.3) mg/dL AST (14-36) IU/L ALT (<35) IU/L Alkaline Phosphatase (38-126) U/L Total Creatine Kinase (30-135) U/L CK-MB (CK-2) (<2.37) ng/mL CK-MB (CK-2) Rel Index (1.5-5.0) % Troponin I (0.01-0.034) ng/mL NT-Pro-B Natriuret Pep (<125) pg/mL Total Protein (6.3-8.2) g/dL Albumin (3.5-5.0) g/dL Globulin (1.7-4.1) g/dL Albumin/Globulin Ratio (1.0-2.8) Lipase (23-300) U/L Serum , Qual (Negative) SARS-CoV-2 (PCR) Negative (Negative) 09/02/21 09/02/21 09/02/21 Range/Units 13:20 13:20 13:20 WBC (4.5-11.0) X10^3/uL RBC (4.0-5.2) X10^6/uL Hgb (12.0-16.0) g/dL Hct (36-46) % MCV (80-100) fL MCH (26-34) PG MCHC (30-36) % RDW (11.6-14.8) % Plt Count (150-400) X10^3/uL Neut % (Auto) (50-75) % Lymph % (Auto) (25-40) % [place] % (Auto) (3-14) % Eos % (Auto) (2-4) % Baso % (Auto) (0-2) % Neut # (Auto) (6026-6754) /uL Lymph # (Auto) (7474-8215) /uL [place] # (Auto) (0-900) /uL Eos # (Auto) (0-450) /uL Baso # (Auto) (0-100) /uL PT (10.1-12.7) SECONDS INR (0.9-1.3) APTT (26.4-36.2) SECONDS D-Dimer < 200 (<230) ng/mL Sodium 139 (137-145) mmol/L Potassium 4.0 (3.4-5.1) mmol/L Chloride 105 (98-107) mmol/L Carbon Dioxide 28 (22-32) mmol/L BUN 16 (7-17) mg/dL Creatinine 0.93 (0.52-1.04) mg/dL Estimated GFR > 60 (>60) mL/min BUN/Creatinine Ratio 17.2 (6-22) Glucose 103 H (70-100) mg/dL Calcium 8.4 (8.4-10.2) mg/dL Magnesium 1.9 (1.6-2.3) mg/dL Total Bilirubin 0.5 (0.2-1.3) mg/dL AST 44 H (14-36) IU/L ALT 47 H (<35) IU/L Alkaline Phosphatase 96 (38-126) U/L Total Creatine Kinase 664 H (30-135) U/L CK-MB (CK-2) 11.30 H (<2.37) ng/mL CK-MB (CK-2) Rel Index 1.7 (1.5-5.0) % Troponin I < 0.012 (0.01-0.034) ng/mL NT-Pro-B Natriuret Pep 156 H (<125) pg/mL Total Protein 6.9 (6.3-8.2) g/dL Albumin 3.7 (3.5-5.0) g/dL Globulin 3.2 (1.7-4.1) g/dL Albumin/Globulin Ratio 1.2 (1.0-2.8) Lipase 102 (23-300) U/L Serum , Qual (Negative) SARS-CoV-2 (PCR) (Negative) 09/02/21 09/02/21 Range/Units 13:20 15:41 WBC (4.5-11.0) X10^3/uL RBC (4.0-5.2) X10^6/uL Hgb (12.0-16.0) g/dL Hct (36-46) % MCV (80-100) fL MCH (26-34) PG MCHC (30-36) % RDW (11.6-14.8) % Plt Count (150-400) X10^3/uL Neut % (Auto) (50-75) % Lymph % (Auto) (25-40) % [place] % (Auto) (3-14) % Eos % (Auto) (2-4) % Baso % (Auto) (0-2) % Neut # (Auto) (3380-1343) /uL Lymph # (Auto) (4468-9350) /uL [place] # (Auto) (0-900) /uL Eos # (Auto) (0-450) /uL Baso # (Auto) (0-100) /uL PT (10.1-12.7) SECONDS INR (0.9-1.3) APTT (26.4-36.2) SECONDS D-Dimer (<230) ng/mL Sodium (137-145) mmol/L Potassium (3.4-5.1) mmol/L Chloride (98-107) mmol/L Carbon Dioxide (22-32) mmol/L BUN (7-17) mg/dL Creatinine (0.52-1.04) mg/dL Estimated GFR (>60) mL/min BUN/Creatinine Ratio (6-22) Glucose (70-100) mg/dL Calcium (8.4-10.2) mg/dL Magnesium (1.6-2.3) mg/dL Total Bilirubin (0.2-1.3) mg/dL AST (14-36) IU/L ALT (<35) IU/L Alkaline Phosphatase (38-126) U/L Total Creatine Kinase (30-135) U/L CK-MB (CK-2) (<2.37) ng/mL CK-MB (CK-2) Rel Index (1.5-5.0) % Troponin I < 0.012 (0.01-0.034) ng/mL NT-Pro-B Natriuret Pep (<125) pg/mL Total Protein (6.3-8.2) g/dL Albumin (3.5-5.0) g/dL Globulin (1.7-4.1) g/dL Albumin/Globulin Ratio (1.0-2.8) Lipase (23-300) U/L Serum , Qual Negative (Negative) SARS-CoV-2 (PCR) (Negative) Point of Care Testing Glucose POC 104 Imaging Data Chest x-ray: Radiologist's Impression: FINDINGS:? ? Surgical changes and devices:? None.? ? Lungs and pleura:? Lungs are clear.? No pleural effusions or pneumothorax.? ? Mediastinum:? Mediastinal contours appear normal.? Heart size is normal.? ? Bones and chest wall:? No suspicious bony lesions.? Overlying soft tissues appear unremarkable.? ? IMPRESSION:? No acute cardiopulmonary findings ? ? ? Approved by: Barry Ching M.D. on 09/02/2021 at 12:45? CTA chest abd pelvis: Radiologist's Impression: FINDINGS: ? Chest: ? Cardiovascular:? Heart size is normal.? No evidence of pulmonary embolism, aor tic aneurysm or dissection. ? Lungs and pleural spaces:? The lung mcnamara are clear without nodule, infiltrate or interstitial prominence.? Pleural spaces show no effusion or pneumothorax. ? Lymph nodes:? No mediastinal, hilar or axillary adenopathy. ? Mediastinum:? Unremarkable.? No hiatal hernia.? Thyroid within normal limits. ? Chest Wall and Bones:? Unremarkable.? No acute fracture. ? Abdomen and Pelvis: ? Liver: The liver is diffusely decreased in attenuation without focal mass lesion.? Liver is enlarged at 27 cm Biliary system:? No calcified cholelithiasis or pericholecystic inflammation.? No intra or extrahepatic bile duct dilatation. ? Pancreas:? Unremarkable without mass or inflammation evident. ? Spleen:? The spleen is enlarged at 15.7 cm .? No intrinsic mass lesion. ? Adrenals:? Normal morphology and density. ? Reproductive system:? Intrauterine device is partially extruded through the cervix ? Urinary system:? Normal renal size and attenuation. No renal calculi, hydronephrosis, or solid mass present.? Urinary bladder unremarkable. ? Gastrointestinal system:? The bowel is unremarkable with no evidence of bowel obstruction or inflammation. The stomach appears unremarkable.? No findings to suggest acute appendicitis. ? Lymph nodes:? No mesenteric or retroperitoneal adenopathy. ? Peritoneal spaces: ? No free air. No free fluid.? ? Vasculature:? The IVC, aorta and iliac vasculature are unremarkable. ? Abdominal wall:? Small periumbilical hernia contains fat without bowel involvement ? Musculoskeletal:? Normal bone mineralization.? Degenerative disc disease and arthropathy noted in lower lumbar spine.? Severe central stenosis at L2-3? No acute fractures.? ? IMPRESSION: ? 1. Unremarkable CT angiogram without pulmonary embolism, aortic dissection or aneurysm in the chest abdomen and pelvis. ? 2. Hepatosplenomegaly associated with hepatic steatosis. ? 3. Multilevel degenerative disc disease and arthropathy results in severe central stenosis at L2-3? ? ? Approved by: Barry Ching M.D. on 09/02/2021 at 13:18? ECG Data Interpretation: Sinus tach at a rate of [address] changes or acute ST-elevation (pain 7/10 at time ) #2 MDM Narrative Medical decision making narrative: On arrival in acute distress with significant tachypnea, flushed, clutching her chest complaining of 7/10 pain with pressure, diaphoretic and dramatically hypertensive. Initial EKG does not show a STEMI. After 1st nitro her pain is down to a 4 and after the 2nd is down to 2. She is given aspirin, nitro drip this started initial workup including CTA with concern for dissection Is ordered. 215pm labs are reviewed beginning to return. At rest, patient complains that her pain is now back up to a 7. Nitro is increased to 15 mics, the 3rd dose of IV metoprolol is added, morphine will be given will reassess and if blood pressure continues to be elevated will add in nicardipine. EKG number to is concerning for dynamic changes with ST J-point elevation anteriorly concurrent with increasing chest pain despite nitroglycerin drip. 230 pm Call to Cardiology, Dr Bear 235 CT returns, no dissection, pulmonary embolism, pericardial effusion, enlarged cardiac silhouette, or pneumothorax. Labs are returning with a CK elevated at 660 for and a CK-MB elevated at 11.3 with a normal relative index. Troponin is normal at 0.012. No evidence of congestive heart failure, significant bacterial infection or renal failure. [address] Bear. Agrees with continued treatment for blood pressure, need for admit, unless trop turns positve, can stay at [place] with echo anticipated tomorrow. 5pm chest pain is resolved, blood pressure sound 151/73. Care is reviewed with hospitalist, Dr. Mcgee. Patient will be admitted to the ICU with continued nicardipine and nitroglycerin drips. Because this does not appear to be in acute coronary syndrome or STEMI the heparin will be discontinued. Critical Care Time Critical Care Time Critical Care Time: Yes Total Critical Care Time: 36 Attestation: Critical care time is separate from other billable procedures. There is a high probability of a significant, sudden or life-threatening deterioration that requires my full and direct attention, intervention and personal management. This critical care time includes consultation with family and other consulting doctors, review of records, and interpretation of data from labs, EKGs and imaging as well as managements of acute hypertensive crisis, chest pain with IV medications for blood pressure and pain control Discharge Plan Departure Patient Disposition: [facility] Clinical Impression: Hypertensive emergency without congestive heart failure Admit Provider: Alpesh Jacinto
[2021-09-02] MEDS: MORPHINE 2 MG/ML INJ IV ×2 (14:17→18:19)
[2021-09-02 14:34] LABS: CKMB % Relative Index 1.7 % (1.5-5.0)
[2021-09-02] MEDS: HEPARIN DRIP 25,000 UNIT/500 ML IV.SOLN 20 UNIT IV (15:11)
[2021-09-02] MEDS: HEPARIN 5,000 UNIT/ML VIAL 5000 UNIT IV (15:12)
[2021-09-02] MEDS: NICARDIPINE 25 MG in SODIUM CHLORIDE 0.9% 240 ML 50 ML IV (15:36)
[2021-09-02 16:17] LABS: Troponin I < 0.012 ng/mL (0.01-0.034)
--- NOTE | 2021-09-02 18:13 | PC.NURSE ---
1810: Pt admitted to room 228 from ED via stretcher. Alert/oriented and pleasantly conversive. Explained ICU unit procedures and oriented to room. Pt had sudden onset vomiting clear liquid. Nitro drip on standby for SBP <160 and pt complaints of severe headache and nausea/vomiting. Cardene continues to infuse at 2 mg/hr, will attempt to wean as BP allows. Dr Jacinto updated, orders being entered. Call light in reach and bed in low/locked position.
--- NOTE | 2021-09-02 18:38 | PM.HP.1 ---
History of Present Illness History of Present Illness Date Patient Seen: 09/02/21 Time Patient Seen: 18:38 Chief complaint: Chest pain, SOB Narrative: This is a 35-year-old female with a past medical history of anxiety, depression, hypertension (on for classes of antihypertensives), obesity, and spinal stenosis who presented to the emergency room with chest pain starting at 9:30 a.m. this morning. The patient states that she initially woke up at 7:00 a.m. this morning with no symptoms, and went back to sleep as her kids remained asleep at that time as well. When she woke up again at 9:30 a.m., she had a severe pressure-like chest pain. This worsened even further with inspiration and felt like a stabbing sensation. She denies any radiation of the pain, including into her neck or arm. The pain did seem to worsen when she would stand up, and tyesha with rest. She initially got up out of bed and laid down on the couch, but whenever she stood up again the chest pain would intensify again. She denies any numbness or tingling. She denies any nausea or vomiting at the time and denies chest pain or palpitations. She felt like she could take a big breath and did feel short of breath. She denies any vision changes, recent rashes, abdominal pain, fever, chills. She has chronic lower extremity edema which is unchanged. She drove herself to the emergency room. In the emergency room, the patient was markedly hypertensive with a systolic blood pressure noted to be greater than 250. She was also tachycardic in the 120s. She was given nitroglycerin with some improvement in her symptoms from a 10 out of 10 down to a 4. It is currently at a 1 but the patient is on a Cardene infusion as well as a nitroglycerin infusion. CT angiogram was also performed in the emergency room without evidence of dissection or focal abnormality. Patient complained of a severe headache and nitroglycerin infusion was stopped upon arrival to the ICU. She now has blood pressures with a systolic near 160. Patient History Medical History Anxiety Body mass index (BMI) greater than 50 Depression Dyslipidemia Essential hypertension (02/23/14) Facial skin lesion Heavy menstrual period Hyperglycemia Impaired fasting blood sugar Irregular menstrual cycle Metabolic syndrome Morbid obesity (04/20/14) Painful menstrual periods Psoriasis Resistant hypertension Sleep apnea Spinal stenosis Vitiligo Surgical History Anesthesia History of tonsillectomy (~2007) Status post delivery (04/03/11) Status post delivery (01/01/14) Status post laminectomy (~07/22/16) Family & Social History Family History Father Hyperlipidemia Hypoglycemia Mother Diabetes mellitus Sister Spina bifida Grandfather Cancer History of heart disease Grandmother Diabetes mellitus Grandfather Cancer Grandmother Diabetes mellitus History of heart disease Hyperlipidemia Hypertension Mental health problem Stroke Safety & Behavioral: Feels Safe in Current Yes Environment Been Physically Hurt or No Threatened By a Person Tobacco & Substance use: Smoking Status Former smoker alcohol intake frequency holiday/special occasion Substance Use Type marijuana Meds Home Medications and Allergies Home Medications Medication Instructions Recorded Confirmed Type losartan 100 1 tab PO DAILY #90 tab 12/15/20 09/02/21 Rx mg-hydrochlorothiazide 25 mg tablet metoprolol succinate 100 mg 100 mg PO DAILY #90 tab 03/01/21 09/02/21 Rx tablet,extended release 24 hr amlodipine 10 mg tablet 10 mg PO QAM 09/02/21 09/02/21 History Allergies Allergy/AdvReac Type Severity Reaction Status Date / Time EDD Inhibitors AdvReac Mild PERSISTANT Verified 09/02/21 12:51 [EDD INHIBITORS] COUGH oxycodone [OXYCODONE] AdvReac Mild NAUSEA, Verified 09/02/21 12:51 DIZZYNESS Review of Systems Review of Systems Narrative: All other systems reviewed with the patient and are negative unless otherwise stated. Exam Vital Signs (past 8 hours): - 09/02/21 12:48 09/02/21 12:56 09/02/21 12:57 Temperature 98.3 F Pulse Rate 110 H 118 H 116 H Respiratory Rate 26 H 25 H 20 Blood Pressure 257/135 H 243/125 H Pulse Oximetry 100 99 98 09/02/21 13:00 09/02/21 13:03 09/02/21 13:11 Temperature Pulse Rate 110 H 120 H 111 H Respiratory Rate 23 29 H Blood Pressure 247/119 H 258/110 H 183/114 H Pulse Oximetry 99 98 09/02/21 13:14 09/02/21 13:15 09/02/21 13:16 Temperature Pulse Rate 107 H 107 H 107 H Respiratory Rate 30 H 26 H 23 Blood Pressure 171/103 H 183/107 H 204/108 H Pulse Oximetry 99 99 98 09/02/21 13:20 09/02/21 13:21 09/02/21 13:27 Temperature Pulse Rate 109 H 109 H 110 H Respiratory Rate 25 H Blood Pressure 207/98 H 207/98 H 208/106 H Pulse Oximetry 99 09/02/21 13:30 09/02/21 13:35 09/02/21 13:40 Temperature Pulse Rate 110 H 120 H 104 H Respiratory Rate 29 H 33 H 30 H Blood Pressure 180/106 H 238/133 H 184/88 H Pulse Oximetry 98 98 99 09/02/21 13:44 09/02/21 13:45 09/02/21 13:50 Temperature Pulse Rate 102 H 104 H 93 H Respiratory Rate 29 H 28 H 21 Blood Pressure 183/93 H 190/91 H 168/96 H Pulse Oximetry 99 99 100 09/02/21 13:55 09/02/21 14:00 09/02/21 14:04 Temperature Pulse Rate 90 90 88 Respiratory Rate 24 22 27 H Blood Pressure 186/106 H 194/103 H 207/119 H Pulse Oximetry 99 99 100 09/02/21 14:15 09/02/21 14:16 09/02/21 14:21 Temperature Pulse Rate 88 87 88 Respiratory Rate 28 H 22 22 Blood Pressure 141/83 H 167/95 H Pulse Oximetry 97 98 98 09/02/21 14:25 09/02/21 14:30 09/02/21 14:31 Temperature Pulse Rate 84 85 85 Respiratory Rate 19 17 18 Blood Pressure 181/96 H 164/78 H Pulse Oximetry 98 97 98 09/02/21 14:35 09/02/21 14:40 09/02/21 14:45 Temperature Pulse Rate 84 83 85 Respiratory Rate 17 23 13 Blood Pressure 150/75 H 150/87 H 148/82 H Pulse Oximetry 98 99 98 09/02/21 14:50 09/02/21 14:55 09/02/21 15:00 Temperature Pulse Rate 86 86 91 H Respiratory Rate 15 17 19 Blood Pressure 159/85 H 163/87 H 165/88 H Pulse Oximetry 97 98 98 09/02/21 15:05 09/02/21 15:10 09/02/21 15:15 Temperature Pulse Rate 90 90 89 Respiratory Rate 13 14 16 Blood Pressure 175/89 H 161/77 H 154/70 H Pulse Oximetry 97 97 97 09/02/21 15:20 09/02/21 15:25 09/02/21 15:30 Temperature Pulse Rate 92 H 88 89 Respiratory Rate 16 13 16 Blood Pressure 153/71 H 163/96 H 167/94 H Pulse Oximetry 96 98 96 09/02/21 15:34 09/02/21 15:35 09/02/21 15:40 Temperature Pulse Rate 88 87 89 Respiratory Rate 16 14 17 Blood Pressure 162/85 H 160/83 H 168/83 H Pulse Oximetry 98 98 97 09/02/21 15:45 09/02/21 15:50 09/02/21 15:55 Temperature Pulse Rate 91 H 91 H 92 H Respiratory Rate 15 16 18 Blood Pressure 135/64 164/87 H 161/77 H Pulse Oximetry 99 99 99 09/02/21 16:00 09/02/21 16:05 09/02/21 16:10 Temperature Pulse Rate 92 H 92 H 95 H Respiratory Rate 16 16 15 Blood Pressure 122/59 L 119/58 L 159/90 H Pulse Oximetry 98 99 98 09/02/21 16:15 09/02/21 16:20 09/02/21 16:25 Temperature Pulse Rate 93 H 93 H 93 H Respiratory Rate 13 18 10 L Blood Pressure 151/81 H 146/79 H 158/78 H Pulse Oximetry 97 97 97 09/02/21 16:30 09/02/21 16:35 09/02/21 16:39 Temperature Pulse Rate 92 H 92 H 92 H Respiratory Rate 13 22 25 H Blood Pressure 158/80 H 155/76 H Pulse Oximetry 98 99 99 09/02/21 16:40 09/02/21 16:45 09/02/21 16:50 Temperature Pulse Rate 93 H 91 H 96 H Respiratory Rate 15 13 19 Blood Pressure 151/73 H 138/71 137/71 Pulse Oximetry 99 100 98 09/02/21 16:55 09/02/21 17:00 09/02/21 17:05 Temperature Pulse Rate 92 H 91 H 91 H Respiratory Rate 22 17 24 Blood Pressure 124/66 141/73 H 138/74 Pulse Oximetry 98 99 99 09/02/21 17:10 09/02/21 17:15 09/02/21 17:20 Temperature Pulse Rate 90 90 89 Respiratory Rate 15 15 17 Blood Pressure 139/70 147/73 H 168/91 H Pulse Oximetry 98 97 95 09/02/21 17:24 09/02/21 17:25 09/02/21 17:50 Temperature 97.7 F Pulse Rate 94 H 85 Respiratory Rate 25 H 24 Blood Pressure 153/79 H 160/96 H Pulse Oximetry 98 98 Oxygen Delivery Method Room Air Oxygen Flow Rate 0 Narrative Exam Narrative: General:? Patient is well developed and well nourished, morbidly obese female with BMI 55, in no distress at this time. HEENT:? Normocephalic, atraumatic, extraocular muscles intact, oral pharynx is clear and mucous membranes are moist. Neck: supple and symmetric, trachea is midline, no cervical adenopathy. Negative for JVD Chest:? Normal AP diameter and contour without kyphoscoliosis, no tachypnea, equal chest rise bilaterally. Lungs:? CTA b/l no wheezing rhonchi or rales. Cardio:?RRR no m/r/g. Abdomen: S NT ND. No CVA tenderness. Musculoskeletal:? Muscle strength and tone are equal within normal limits, no deformity. Extremities: No edema or joint effusions. No cyanosis or clubbing. Skin:? Pale,? Warm to touch,dry and intact without rashes, ulcerations or petechiae.? Neuro:? Alert and orientated x3,? sensation to touch intact in all extremities, no gross deficits noted of cranial nerves. Psych:? Patient has a well-kept appearance, appropriate affect, mental status attitude thought context and judgment are appropriate for age. Objective Labs Result Diagrams: 09/02/21 13:20 09/02/21 13:20 Labs: Laboratory Results - last 24 hr 09/02/21 09/02/21 09/02/21 13:05 13:20 13:20 WBC 13.6 H RBC 5.49 H Hgb 12.9 Hct 38.5 MCV 70.1 L MCH 23.5 L MCHC 33.5 RDW 18.3 H Plt Count 311 Neut % (Auto) 71.2 Lymph % (Auto) 21.5 L [place] % (Auto) 4.5 Eos % (Auto) 2.2 Baso % (Auto) 0.6 Neut # (Auto) 9700 H Lymph # (Auto) 2900 [place] # (Auto) 600 Eos # (Auto) 300 Baso # (Auto) 100 PT 13.4 H INR 1.2 APTT 33 D-Dimer Sodium Potassium Chloride Carbon Dioxide BUN Creatinine Estimated GFR BUN/Creatinine Ratio Glucose Calcium Magnesium Total Bilirubin AST ALT Alkaline Phosphatase Total Creatine Kinase CK-MB (CK-2) CK-MB (CK-2) Rel Index Troponin I NT-Pro-B Natriuret Pep Total Protein Albumin Globulin Albumin/Globulin Ratio Lipase Serum , Qual SARS-CoV-2 (PCR) Negative 09/02/21 09/02/21 09/02/21 13:20 13:20 13:20 WBC RBC Hgb Hct MCV MCH MCHC RDW Plt Count Neut % (Auto) Lymph % (Auto) [place] % (Auto) Eos % (Auto) Baso % (Auto) Neut # (Auto) Lymph # (Auto) [place] # (Auto) Eos # (Auto) Baso # (Auto) PT INR APTT D-Dimer < 200 Sodium 139 Potassium 4.0 Chloride 105 Carbon Dioxide 28 BUN 16 Creatinine 0.93 Estimated GFR > 60 BUN/Creatinine Ratio 17.2 Glucose 103 H Calcium 8.4 Magnesium 1.9 Total Bilirubin 0.5 AST 44 H ALT 47 H Alkaline Phosphatase 96 Total Creatine Kinase 664 H CK-MB (CK-2) 11.30 H CK-MB (CK-2) Rel Index 1.7 Troponin I < 0.012 NT-Pro-B Natriuret Pep 156 H Total Protein 6.9 Albumin 3.7 Globulin 3.2 Albumin/Globulin Ratio 1.2 Lipase 102 Serum , Qual SARS-CoV-2 (PCR) 09/02/21 09/02/21 13:20 15:41 WBC RBC Hgb Hct MCV MCH MCHC RDW Plt Count Neut % (Auto) Lymph % (Auto) [place] % (Auto) Eos % (Auto) Baso % (Auto) Neut # (Auto) Lymph # (Auto) [place] # (Auto) Eos # (Auto) Baso # (Auto) PT INR APTT D-Dimer Sodium Potassium Chloride Carbon Dioxide BUN Creatinine Estimated GFR BUN/Creatinine Ratio Glucose Calcium Magnesium Total Bilirubin AST ALT Alkaline Phosphatase Total Creatine Kinase CK-MB (CK-2) CK-MB (CK-2) Rel Index Troponin I < 0.012 NT-Pro-B Natriuret Pep Total Protein Albumin Globulin Albumin/Globulin Ratio Lipase Serum , Qual Negative SARS-CoV-2 (PCR) Assessment & Plan Assessment & Plan narrative: This is a 35-year-old female who presented with chest pain and is admitted for hypertensive emergency. 1. Hypertensive emergency - continue cardene infusion at this time, SBP <180 at this time. Continue to try and wean from infusion - consider secondary causes after improvements in BP. - Goal SBP around 180 initially. - head CT recommended by tele-sheet metal supervisor for headache, will obtain given presentation and headache with nausea. - repeat troponin. EKG without evidence of acute ischemia. Initially sinus tachycardia and then NSR without acute ST changes or abnormalities. - TTE ordered - consider stress testing. - heparin initially ordered by ER, however given negative troponin this was discontinued. If troponin rises low threshold to start heparin infusion again. - patient took her home medications this AM, will not order further antihypertensives at this time to avoid precipitous drop. 2. Obesity - contributes to patient's underlying hypertension. - consider dietary consultation. I spent 35 minutes providing critical care management this patient. This excludes time spent in performing separately billed procedures. Dispo: Admit to ICU DVT: Loveandriax Time Spent With Patient Critical Care time: I spent a total of [] minutes of critical care time on this patient's care today; this time is exclusive of procedural time.
--- NOTE | 2021-09-02 19:37 | DI.ECHO.S_ITS ---
[facility]---------+ [facility] +---------+ : : [address] : [place] : : : : [id number] : : : : Phone: [phone]---------+ Echocardiogram Report + + :Name: SANG ALVAREZ Study Date: 09/03/2021 Height: 64 in : :[facility] ReadingLocation: Weight: 322 lb : : Gender: Female BSA: 2.4 m2 : :: 1985 Age: 35 yrs BP: 190/122 mmHg: :Reason For Study: CHEST PAIN : :Ordering Physician: PEGGY, : :IAN BADILLO Performed By: Ramona Jane : :Referring: IAN WOODS : + + Interpretation Summary 1) Mildly increased left ventricular thickness (concentric) with normal size, normal wall motion, and normal systolic function (EF 60-65%). 2) Normal right ventricular size and function. 3) No significant valvular stenosis or regurgitation on doppler assessment. Valves not well visualized due to large body habitus. 4) Hypertension present during the study (BP 190/122mm Hg). 5) No prior Echo available for comparison. Procedure: A two-dimensional transthoracic echocardiogram with color flow and Doppler was performed. The study quality was technically difficult. There is no prior echocardiogram noted for this patient. The patient was in sinus rhythm with heart rates between 82-90 bpm during the exam. Left Ventricle: The left ventricle is normal in size. There is mild concentric left ventricular hypertrophy. The ejection fraction is estimated to be 60-65%. Left ventricular systolic function appears normal without focal wall motion abnormalities. Right Ventricle: The right ventricle is normal in size and function. Atria: The left atrial size is normal. Right atrial size is normal. There is no Doppler evidence for an interatrial shunt. Mitral Valve: The mitral valve is normal in structure and function. There is no mitral regurgitation noted. Aortic Valve: The aortic valve is not well visualized. There is no aortic valve stenosis. No aortic regurgitation is present. Tricuspid Valve: The tricuspid valve is not well visualized, but is grossly normal. There is a trace or physiologic amount of tricuspid regurgitation. Pulmonic Valve: The pulmonic valve is not well visualized. There is no pulmonic valvular regurgitation. Great Vessels: The aortic root is normal size. The ascending aorta is at the upper limits of normal in size. The IVC is of normal diameter and collapses greater than 50% with a sniff. This suggests a low right atrial pressure of 3 mm Hg. Pericardium/ Pleura There is no pericardial effusion. There is no pleural effusion. MMode/2D Measurements & Calculations LVIDd: 5.4 cm LVOT diam: 2.3 cm LVIDs: 3.7 cm Ao root diam: 3.1 cm FS: 32.4 % asc Aorta Diam: 3.8 cm IVSd: 1.2 cm Ao Arch Diam (Prox Trans): 3.4 cm LVPWd: 1.1 cm LV dominguez. diameter/BSA (cm/m^2): 2.3 LV sys. diameter/BSA (cm/m^2): 1.5 LA A2 area: 18.4 cm2 RA long axis: 4.7 cm LA A4 area: 18.6 cm2 RA area: 13.7 cm2 LA length (vol): 5.4 cm RA vol: 34.3 ml LA vol: 53.3 ml RA : 14.3 ml/m2 LA vol index: 22.2 ml/m2 IVC diam: 1.1 cm RVD1 (basal): 3.7 cm RVD2 (mid): 3.1 cm TAPSE: 2.8 cm Doppler Measurements & Calculations Ao V2 max: 170.1 cm/sec LVOT Max Vito: 113.4 cm/sec Ao V2 mean: 117.2 cm/sec LV V1 max P.1 mmHg Ao max P.6 mmHg LV V1 VTI: 21.2 cm Ao mean P.3 mmHg WILLIAM(I,D): 2.7 cm2 Ao V2 VTI: 32.3 cm WILLIAM(V,D): 2.7 cm2 sev ratio: 0.66 WILLIAM indexed to BSA (cm^2/m^2): 1.1 MV E max vito: 85.3 cm/sec PA V2 max: 114.4 cm/sec MV A max vito: 72.0 cm/sec PA V2 mean: 83.4 cm/sec MV E/A: 1.2 PA mean P.0 mmHg Med Peak E' Vito: 5.6 cm/sec PA pr(Accel): 34.5 mmHg E/E' med: 15.2 Lat Peak E' Vito: 6.8 cm/sec E/E' lat: 12.5 E/e' average: 13.8 MV dec time: 0.23 sec SV(LVOT): 87.3 ml Reading Physician:01:16 PM
[2021-09-02] MEDS: ACETAMINOPHEN 325 MG TABLET 650 MG PO (19:51)
[2021-09-02] MEDS: ONDANSETRON 4 MG/2 ML INJ IV (19:51)
--- NOTE | 2021-09-02 20:19 | DI.CT.S_ITS ---
PROCEDURE: CT HEAD/BRAIN WO CON INDICATIONS: hypertensive emergency, headache and nausea TECHNIQUE: Noncontrast 4.5 mm thick angled axial sections acquired from the foramen magnum to the vertex, with coronal and sagittal reformats. For radiation dose reduction, the following was used: automated exposure control, adjustment of mA and/or kV according to patient size. COMPARISON: None. FINDINGS: Image quality: Excellent. CSF spaces: Basal cisterns are patent. No extra-axial fluid collections. Ventricles are normal in size and shape. Brain: No midline shift. No intracranial masses or hemorrhage. Gomez-white matter interface is normal. Skull and face: Calvarium and visualized facial bones are intact, without suspicious lesions. Sinuses: Visualized sinuses and mastoids are clear. IMPRESSION: Normal for age, no evidence of intracranial hemorrhage, stroke or aneurysm. Dictated by: Nabil Daniel M.D. on 09/02/2021 at 21:47 Approved by: Nabil Daniel M.D. on 09/02/2021 at 21:47
[2021-09-02 21:07] LABS: PTT Partial Thromboplastin Tim 34 SECONDS (26.4-36.2)
--- NOTE | 2021-09-02 21:16 | PM.CN.EICU ---
History of Present Illness Consult details Chief complaint: Chest pain, SOB :: This patient was seen via real time interactive two-way audiovisual telecommunication. Narrative: 35 y.o. morbidly obese female (BMI of 53) who presented with chest discomfort that radiated to the back. Pressure was pleuritic in nature. She was found to have an initial BP of 257/135. She was initially treated with IV nitroglycerin but developed a STRANGE; this was chaanged to nicardipine. After ICU arrival, nicardipine infusion was turned off; BP was 158/91 @ this time. [facility] Medical History Anxiety Body mass index (BMI) greater than 50 Depression Dyslipidemia Essential hypertension (02/23/14) Facial skin lesion Heavy menstrual period Hyperglycemia Impaired fasting blood sugar Irregular menstrual cycle Metabolic syndrome Morbid obesity (04/20/14) Painful menstrual periods Psoriasis Resistant hypertension Sleep apnea Spinal stenosis Vitiligo Surgical History Anesthesia History of tonsillectomy (~2007) Status post delivery (04/03/11) Status post delivery (01/01/14) Status post laminectomy (~07/22/16) Family History Father Hyperlipidemia Hypoglycemia Mother Diabetes mellitus Sister Spina bifida Grandfather Cancer History of heart disease Grandmother Diabetes mellitus Grandfather Cancer Grandmother Diabetes mellitus History of heart disease Hyperlipidemia Hypertension Mental health problem Stroke Social History household members: spouse and children Smoking Status: Former smoker alcohol intake: never substance use type: marijuana Current Medications Current Medications Medications: Home Medications losartan 100 mg-hydrochlorothiazide 25 mg tablet 1 tab PO DAILY #90 tab 12/15/20 [Rx Confirmed 09/02/21] metoprolol succinate 100 mg tablet,extended release 24 hr 100 mg PO DAILY #90 tab 03/01/21 [Rx Confirmed 09/02/21] amlodipine 10 mg tablet 10 mg PO QAM 09/02/21 [History Confirmed 09/02/21] Visit Medications (administered) Generic Name Dose Route Start Last Admin Trade Name Freq PRN Reason Stop Dose Admin Acetaminophen 650 mg 09/02/21 18:12 09/02/21 19:51 Acetaminophen 325 Mg Tablet PO 650 mg Q6HR PRN Administration Pain, Mild (1-3) Nitroglycerin 50 mg in 250 mls @ 1.5 mls/hr 09/02/21 13:00 09/02/21 18:19 Nitroglycerin IV 0 mcg/min TITRATE BENITO 0 mls/hr Titration Protocol 5 MCG/MIN Nicardipine HCl 25 mg/ Sodium 250 mls @ 50 mls/hr 09/02/21 14:15 09/02/21 19:09 Chloride IV 0 mg/hr TITRATE BENITO 0 mls/hr Titration Protocol 5 MG/HR Morphine Sulfate 2 mg 09/02/21 13:00 09/02/21 18:19 Morphine 2 Mg/Ml Inj IV 2 mg Q15MIN PRN Administration Pain, Moderate (4-6) Ondansetron HCl 4 mg 09/02/21 18:17 09/02/21 19:51 Ondansetron 4 Mg/2 Ml Inj IV 4 mg Q4HR PRN Administration Nausea And Vomiting Review of Systems Neurologic Comments: +STRANGE Exam Vital Signs (past 8 hours): - 09/02/21 13:20 09/02/21 13:21 09/02/21 13:27 Temperature Pulse Rate 109 H 109 H 110 H Respiratory Rate 25 H Blood Pressure 207/98 H 207/98 H 208/106 H Pulse Oximetry 99 09/02/21 13:30 09/02/21 13:35 09/02/21 13:40 Temperature Pulse Rate 110 H 120 H 104 H Respiratory Rate 29 H 33 H 30 H Blood Pressure 180/106 H 238/133 H 184/88 H Pulse Oximetry 98 98 99 09/02/21 13:44 09/02/21 13:45 09/02/21 13:50 Temperature Pulse Rate 102 H 104 H 93 H Respiratory Rate 29 H 28 H 21 Blood Pressure 183/93 H 190/91 H 168/96 H Pulse Oximetry 99 99 100 09/02/21 13:55 09/02/21 14:00 09/02/21 14:04 Temperature Pulse Rate 90 90 88 Respiratory Rate 24 22 27 H Blood Pressure 186/106 H 194/103 H 207/119 H Pulse Oximetry 99 99 100 09/02/21 14:15 09/02/21 14:16 09/02/21 14:21 Temperature Pulse Rate 88 87 88 Respiratory Rate 28 H 22 22 Blood Pressure 141/83 H 167/95 H Pulse Oximetry 97 98 98 09/02/21 14:25 09/02/21 14:30 09/02/21 14:31 Temperature Pulse Rate 84 85 85 Respiratory Rate 19 17 18 Blood Pressure 181/96 H 164/78 H Pulse Oximetry 98 97 98 09/02/21 14:35 09/02/21 14:40 09/02/21 14:45 Temperature Pulse Rate 84 83 85 Respiratory Rate 17 23 13 Blood Pressure 150/75 H 150/87 H 148/82 H Pulse Oximetry 98 99 98 09/02/21 14:50 09/02/21 14:55 09/02/21 15:00 Temperature Pulse Rate 86 86 91 H Respiratory Rate 15 17 19 Blood Pressure 159/85 H 163/87 H 165/88 H Pulse Oximetry 97 98 98 09/02/21 15:05 09/02/21 15:10 09/02/21 15:15 Temperature Pulse Rate 90 90 89 Respiratory Rate 13 14 16 Blood Pressure 175/89 H 161/77 H 154/70 H Pulse Oximetry 97 97 97 09/02/21 15:20 09/02/21 15:25 09/02/21 15:30 Temperature Pulse Rate 92 H 88 89 Respiratory Rate 16 13 16 Blood Pressure 153/71 H 163/96 H 167/94 H Pulse Oximetry 96 98 96 09/02/21 15:34 09/02/21 15:35 09/02/21 15:40 Temperature Pulse Rate 88 87 89 Respiratory Rate 16 14 17 Blood Pressure 162/85 H 160/83 H 168/83 H Pulse Oximetry 98 98 97 09/02/21 15:45 09/02/21 15:50 09/02/21 15:55 Temperature Pulse Rate 91 H 91 H 92 H Respiratory Rate 15 16 18 Blood Pressure 135/64 164/87 H 161/77 H Pulse Oximetry 99 99 99 09/02/21 16:00 09/02/21 16:05 09/02/21 16:10 Temperature Pulse Rate 92 H 92 H 95 H Respiratory Rate 16 16 15 Blood Pressure 122/59 L 119/58 L 159/90 H Pulse Oximetry 98 99 98 09/02/21 16:15 09/02/21 16:20 09/02/21 16:25 Temperature Pulse Rate 93 H 93 H 93 H Respiratory Rate 13 18 10 L Blood Pressure 151/81 H 146/79 H 158/78 H Pulse Oximetry 97 97 97 09/02/21 16:30 09/02/21 16:35 09/02/21 16:39 Temperature Pulse Rate 92 H 92 H 92 H Respiratory Rate 13 22 25 H Blood Pressure 158/80 H 155/76 H Pulse Oximetry 98 99 99 09/02/21 16:40 09/02/21 16:45 09/02/21 16:50 Temperature Pulse Rate 93 H 91 H 96 H Respiratory Rate 15 13 19 Blood Pressure 151/73 H 138/71 137/71 Pulse Oximetry 99 100 98 09/02/21 16:55 09/02/21 17:00 09/02/21 17:05 Temperature Pulse Rate 92 H 91 H 91 H Respiratory Rate 22 17 24 Blood Pressure 124/66 141/73 H 138/74 Pulse Oximetry 98 99 99 09/02/21 17:10 09/02/21 17:15 09/02/21 17:20 Temperature Pulse Rate 90 90 89 Respiratory Rate 15 15 17 Blood Pressure 139/70 147/73 H 168/91 H Pulse Oximetry 98 97 95 09/02/21 17:24 09/02/21 17:25 09/02/21 17:30 Temperature Pulse Rate 94 H 92 H 91 H Respiratory Rate 25 H 14 15 Blood Pressure 153/79 H 150/78 H Pulse Oximetry 98 98 96 09/02/21 17:35 09/02/21 17:41 09/02/21 17:45 Temperature Pulse Rate 91 H 91 H 90 Respiratory Rate 11 L 12 18 Blood Pressure 155/88 H 133/76 141/74 H Pulse Oximetry 96 98 99 09/02/21 17:50 09/02/21 18:00 09/02/21 18:30 Temperature 97.7 F Pulse Rate 85 86 87 Respiratory Rate 24 23 22 Blood Pressure 160/96 H 160/96 H 156/87 H Pulse Oximetry 98 99 99 09/02/21 19:00 09/02/21 19:22 09/02/21 19:30 Temperature Pulse Rate 83 82 82 Respiratory Rate 14 16 11 L Blood Pressure 134/74 163/90 H 157/82 H Pulse Oximetry 97 99 97 09/02/21 20:00 Temperature 97.7 F Pulse Rate 79 Respiratory Rate 14 Blood Pressure 158/91 H Pulse Oximetry 97 Oxygen Delivery Method Room Air Oxygen Flow Rate 0 Const General: comfortable Nutritional Appearance: obese Neuro General: patient alert, patient awake and patient oriented x3 Objective Labs Result Diagrams: 09/02/21 13:20 09/02/21 13:20 Labs: Laboratory Results - last 24 hr 09/02/21 09/02/21 09/02/21 13:05 13:20 13:20 WBC 13.6 H RBC 5.49 H Hgb 12.9 Hct 38.5 MCV 70.1 L MCH 23.5 L MCHC 33.5 RDW 18.3 H Plt Count 311 Neut % (Auto) 71.2 Lymph % (Auto) 21.5 L Stafford % (Auto) 4.5 Eos % (Auto) 2.2 Baso % (Auto) 0.6 Neut # (Auto) 9700 H Lymph # (Auto) 2900 Stafford # (Auto) 600 Eos # (Auto) 300 Baso # (Auto) 100 PT 13.4 H INR 1.2 APTT 33 D-Dimer Sodium Potassium Chloride Carbon Dioxide BUN Creatinine Estimated GFR BUN/Creatinine Ratio Glucose Calcium Magnesium Total Bilirubin AST ALT Alkaline Phosphatase Total Creatine Kinase CK-MB (CK-2) CK-MB (CK-2) Rel Index Troponin I NT-Pro-B Natriuret Pep Total Protein Albumin Globulin Albumin/Globulin Ratio Lipase Serum , Qual SARS-CoV-2 (PCR) Negative 09/02/21 09/02/21 09/02/21 13:20 13:20 13:20 WBC RBC Hgb Hct MCV MCH MCHC RDW Plt Count Neut % (Auto) Lymph % (Auto) Stafford % (Auto) Eos % (Auto) Baso % (Auto) Neut # (Auto) Lymph # (Auto) Stafford # (Auto) Eos # (Auto) Baso # (Auto) PT INR APTT D-Dimer < 200 Sodium 139 Potassium 4.0 Chloride 105 Carbon Dioxide 28 BUN 16 Creatinine 0.93 Estimated GFR > 60 BUN/Creatinine Ratio 17.2 Glucose 103 H Calcium 8.4 Magnesium 1.9 Total Bilirubin 0.5 AST 44 H ALT 47 H Alkaline Phosphatase 96 Total Creatine Kinase 664 H CK-MB (CK-2) 11.30 H CK-MB (CK-2) Rel Index 1.7 Troponin I < 0.012 NT-Pro-B Natriuret Pep 156 H Total Protein 6.9 Albumin 3.7 Globulin 3.2 Albumin/Globulin Ratio 1.2 Lipase 102 Serum , Qual SARS-CoV-2 (PCR) 09/02/21 09/02/21 09/02/21 13:20 15:41 20:45 WBC RBC Hgb Hct MCV MCH MCHC RDW Plt Count Neut % (Auto) Lymph % (Auto) Stafford % (Auto) Eos % (Auto) Baso % (Auto) Neut # (Auto) Lymph # (Auto) Stafford # (Auto) Eos # (Auto) Baso # (Auto) PT INR APTT 34 D-Dimer Sodium Potassium Chloride Carbon Dioxide BUN Creatinine Estimated GFR BUN/Creatinine Ratio Glucose Calcium Magnesium Total Bilirubin AST ALT Alkaline Phosphatase Total Creatine Kinase CK-MB (CK-2) CK-MB (CK-2) Rel Index Troponin I < 0.012 NT-Pro-B Natriuret Pep Total Protein Albumin Globulin Albumin/Globulin Ratio Lipase Serum , Qual Negative SARS-CoV-2 (PCR) Assessment & Plan Assessment and plan (1) Hypertensive emergency without congestive heart failure: Status: Acute Plan: -Continue RN IV nicardipine to reduce BP by ~ 25% from initial value -Start PO meds in AM -NCHCT given STRANGE (?occult bleed) (2) Morbid obesity: Status: None Plan: -Maximal skin precautions -SCDs for VTE prophylaxis pending NCHCT; start chemoprophylaxis after that (3) Sleep apnea: Qualifiers: Sleep apnea type: other type Qualified Code(s): G47.39 - Other sleep apnea Status: Chronic Plan: -PRN NIPPV
[2021-09-02 22:05] LABS: Troponin I < 0.012 ng/mL (0.01-0.034)
[2021-09-03] VITALS (67 sets, daily range): BP systolic 132–217; BP diastolic 63–122; PULSE 70–93; RESP 8–32; TEMP 36.5–37.1; O2SAT 90–99
[2021-09-03 02:55] LABS: Hematocrit 38.9 % (36-46); Hemoglobin 12.7 g/dL (12.0-16.0); Mean Corpuscular HGB Conc 32.5 % (30-36); Mean Corpuscular Hemoglobin 22.9 PG (26-34); Mean Corpuscular Volume 70.5 fL (80-100); Platelet Count 302 X10^3/uL (150-400); Red Blood Cell Count 5.52 X10^6/uL (4.0-5.2); Red Cell Distribution Width 18.6 % (11.6-14.8); White Blood Cell Count 12.5 X10^3/uL (4.5-11.0)
[2021-09-03 02:56] LABS: Add Manual Diff / Slide Review YES
[2021-09-03 03:11] LABS: Alanine Aminotransferase 47 IU/L (<35); Albumin 3.7 g/dL (3.5-5.0); Alkaline Phosphatase 83 U/L (38-126); Aspartate Aminotransferase 42 IU/L (14-36); BUN Creatinine Ratio 15.8 (6-22); Bilirubin Total 0.6 mg/dL (0.2-1.3); Blood Urea Nitrogen 15 mg/dL (7-17); Calcium 8.3 mg/dL (8.4-10.2); Carbon Dioxide 26 mmol/L (22-32); Chloride 102 mmol/L (98-107); Estimated Glomerular Filt Rate > 60 mL/min (>60); Globulin 3.8 g/dL (1.7-4.1); Glucose 107 mg/dL (70-100); HEMOLYSIS < 15 (0-50); Potassium 3.3 mmol/L (3.4-5.1); Sodium 137 mmol/L (137-145); Total Protein 7.5 g/dL (6.3-8.2)
[2021-09-03 03:12] LABS: PTT Partial Thromboplastin Tim 35 SECONDS (26.4-36.2)
[2021-09-03 03:13] LABS: Hemoglobin A1C% w Est Avg Glu 5.7 % (4.0-6.0)
[2021-09-03 03:47] LABS: TSH w/ Reflex to FT4 4.77 uIU/mL (0.47-4.68)
[2021-09-03 04:14] LABS: Free T4, Direct Thyroxine 1.13 ng/dL (0.78-2.19)
[2021-09-03] MEDS: ACETAMINOPHEN 325 MG TABLET 650 MG PO ×2 (04:17→14:12)
[2021-09-03] MEDS: SODIUM CHLORIDE 0.9% 250 ML 21 ML IV ×2 (04:29→15:25)
[2021-09-03] MEDS: SODIUM CHLORIDE 0.9% FLUSH 10 ML IV (04:29)
--- NOTE | 2021-09-03 04:44 | PC.NURSE ---
Cardene drip restarted for BP 191/94 - started at 1mg/hr. Pt complains of headache, tylenol 650mg po given.
--- NOTE | 2021-09-03 05:41 | PC.NURSE ---
Titrating Cardene to maintain SBP <180. Currently @ 0.5mg/hr. O2 started @2L/min for observed sleep apnea. Pt desats to low 80s during periods of apnea.
[2021-09-03 05:48] LABS: Neutrophils Absolute Manual 8875 /uL (3000-5900); Total Cells Counted 100
[2021-09-03 05:49] LABS: Anisocytosis 1+; Microcytosis 1+
[2021-09-03] MEDS: ENOXAPARIN 40 MG/0.4 ML SYRINGE SUBCUT ×2 (08:45→20:56)
[2021-09-03] MEDS: POTASSIUM CHLORIDE 20 MEQ TAB 40 MEQ PO (09:58)
[2021-09-03] MEDS: AMLODIPINE 5 MG TABLET 10 MG PO (09:59)
[2021-09-03] MEDS: METOPROLOL ER 50 MG TABLET 100 MG PO (09:59)
--- NOTE | 2021-09-03 10:01 | P.TELICUPN_ITS ---
Subjective Subjective :: This patient was seen via real time interactive two-way audiovisual telecommunication. no acute vents since admission chest pain resolved, head ache remains Current Medications Current Medications Medications: Home Medications losartan 100 mg-hydrochlorothiazide 25 mg tablet 1 tab PO DAILY #90 tab 12/15/20 [Rx Confirmed 09/02/21] metoprolol succinate 100 mg tablet,extended release 24 hr 100 mg PO DAILY #90 tab 03/01/21 [Rx Confirmed 09/02/21] amlodipine 10 mg tablet 10 mg PO QAM 09/02/21 [History Confirmed 09/02/21] Visit Medications (administered) Generic Name Dose Route Start Last Admin Trade Name Freq PRN Reason Stop Dose Admin Acetaminophen 650 mg 09/02/21 18:12 09/03/21 04:17 Acetaminophen 325 Mg Tablet PO 650 mg Q6HR PRN Administration Pain, Mild (1-3) Nitroglycerin 50 mg in 250 mls @ 1.5 mls/hr 09/02/21 13:00 09/02/21 18:19 Nitroglycerin IV 0 mcg/min TITRATE BENITO 0 mls/hr Titration Protocol 5 MCG/MIN Nicardipine HCl 25 mg/ Sodium 250 mls @ 50 mls/hr 09/02/21 14:15 09/03/21 08:45 Chloride IV 0.5 mg/hr TITRATE BENITO 5 mls/hr Titration Protocol 5 MG/HR Sodium Chloride 250 mls @ 21 mls/hr 09/03/21 04:25 09/03/21 04:29 Normal Saline 0.9% IV 21 mls/hr Q24H PRN Administration Flush Morphine Sulfate 2 mg 09/02/21 13:00 09/02/21 18:19 Morphine 2 Mg/Ml Inj IV 2 mg Q15MIN PRN Administration Pain, Moderate (4-6) Ondansetron HCl 4 mg 09/02/21 18:17 09/02/21 19:51 Ondansetron 4 Mg/2 Ml Inj IV 4 mg Q4HR PRN Administration Nausea And Vomiting Sodium Chloride 10 ml 09/03/21 04:25 09/03/21 04:29 Sodium Chloride 0.9% Flush IV 10 ml PRN PRN Administration Flush Objective Labs Result Diagrams: 09/03/21 02:40 09/03/21 02:40 Labs: Laboratory Results - last 24 hr 09/02/21 09/02/21 09/02/21 13:05 13:20 13:20 WBC 13.6 H RBC 5.49 H Hgb 12.9 Hct 38.5 MCV 70.1 L MCH 23.5 L MCHC 33.5 RDW 18.3 H Plt Count 311 Neut % (Auto) 71.2 Lymph % (Auto) 21.5 L Colbert % (Auto) 4.5 Eos % (Auto) 2.2 Baso % (Auto) 0.6 Neut # (Auto) 9700 H Lymph # (Auto) 2900 Colbert # (Auto) 600 Eos # (Auto) 300 Baso # (Auto) 100 Total Counted Seg Neutrophils % Lymphocytes % (Manual) Monocytes % (Manual) Neutrophils # (Manual) RBC Morphology Anisocytosis Microcytosis PT 13.4 H INR 1.2 APTT 33 D-Dimer Sodium Potassium Chloride Carbon Dioxide BUN Creatinine Estimated GFR BUN/Creatinine Ratio Glucose Hemoglobin A1c Calcium Magnesium Total Bilirubin AST ALT Alkaline Phosphatase Total Creatine Kinase CK-MB (CK-2) CK-MB (CK-2) Rel Index Troponin I NT-Pro-B Natriuret Pep Total Protein Albumin Globulin Albumin/Globulin Ratio Lipase TSH Free T4 Serum , Qual Nasal Screen MRSA (PCR) SARS-CoV-2 (PCR) Negative 09/02/21 09/02/21 09/02/21 13:20 13:20 13:20 WBC RBC Hgb Hct MCV MCH MCHC RDW Plt Count Neut % (Auto) Lymph % (Auto) Colbert % (Auto) Eos % (Auto) Baso % (Auto) Neut # (Auto) Lymph # (Auto) Colbert # (Auto) Eos # (Auto) Baso # (Auto) Total Counted Seg Neutrophils % Lymphocytes % (Manual) Monocytes % (Manual) Neutrophils # (Manual) RBC Morphology Anisocytosis Microcytosis PT INR APTT D-Dimer < 200 Sodium 139 Potassium 4.0 Chloride 105 Carbon Dioxide 28 BUN 16 Creatinine 0.93 Estimated GFR > 60 BUN/Creatinine Ratio 17.2 Glucose 103 H Hemoglobin A1c Calcium 8.4 Magnesium 1.9 Total Bilirubin 0.5 AST 44 H ALT 47 H Alkaline Phosphatase 96 Total Creatine Kinase 664 H CK-MB (CK-2) 11.30 H CK-MB (CK-2) Rel Index 1.7 Troponin I < 0.012 NT-Pro-B Natriuret Pep 156 H Total Protein 6.9 Albumin 3.7 Globulin 3.2 Albumin/Globulin Ratio 1.2 Lipase 102 TSH Free T4 Serum , Qual Nasal Screen MRSA (PCR) SARS-CoV-2 (PCR) 09/02/21 09/02/21 09/02/21 13:20 15:41 18:05 WBC RBC Hgb Hct MCV MCH MCHC RDW Plt Count Neut % (Auto) Lymph % (Auto) Colbert % (Auto) Eos % (Auto) Baso % (Auto) Neut # (Auto) Lymph # (Auto) Colbert # (Auto) Eos # (Auto) Baso # (Auto) Total Counted Seg Neutrophils % Lymphocytes % (Manual) Monocytes % (Manual) Neutrophils # (Manual) RBC Morphology Anisocytosis Microcytosis PT INR APTT D-Dimer Sodium Potassium Chloride Carbon Dioxide BUN Creatinine Estimated GFR BUN/Creatinine Ratio Glucose Hemoglobin A1c Calcium Magnesium Total Bilirubin AST ALT Alkaline Phosphatase Total Creatine Kinase CK-MB (CK-2) CK-MB (CK-2) Rel Index Troponin I < 0.012 NT-Pro-B Natriuret Pep Total Protein Albumin Globulin Albumin/Globulin Ratio Lipase TSH Free T4 Serum , Qual Negative Nasal Screen MRSA (PCR) Negative for mrsa SARS-CoV-2 (PCR) 09/02/21 09/02/21 09/03/21 20:45 21:30 02:40 WBC RBC Hgb Hct MCV MCH MCHC RDW Plt Count Neut % (Auto) Lymph % (Auto) Colbert % (Auto) Eos % (Auto) Baso % (Auto) Neut # (Auto) Lymph # (Auto) Colbert # (Auto) Eos # (Auto) Baso # (Auto) Total Counted Seg Neutrophils % Lymphocytes % (Manual) Monocytes % (Manual) Neutrophils # (Manual) RBC Morphology Anisocytosis Microcytosis PT INR APTT 34 D-Dimer Sodium Potassium Chloride Carbon Dioxide BUN Creatinine Estimated GFR BUN/Creatinine Ratio Glucose Hemoglobin A1c 5.7 Calcium Magnesium Total Bilirubin AST ALT Alkaline Phosphatase Total Creatine Kinase CK-MB (CK-2) CK-MB (CK-2) Rel Index Troponin I < 0.012 NT-Pro-B Natriuret Pep Total Protein Albumin Globulin Albumin/Globulin Ratio Lipase TSH Free T4 Serum , Qual Nasal Screen MRSA (PCR) SARS-CoV-2 (PCR) 09/03/21 09/03/21 09/03/21 02:40 02:40 02:40 WBC 12.5 H RBC 5.52 H Hgb 12.7 Hct 38.9 MCV 70.5 L MCH 22.9 L MCHC 32.5 RDW 18.6 H Plt Count 302 Neut % (Auto) Not Reportable Lymph % (Auto) Not Reportable Colbert % (Auto) Not Reportable Eos % (Auto) Not Reportable Baso % (Auto) Not Reportable Neut # (Auto) Lymph # (Auto) Not Reportable Colbert # (Auto) Not Reportable Eos # (Auto) Baso # (Auto) Not Reportable Total Counted 100 Seg Neutrophils % 71.0 H Lymphocytes % (Manual) 28.0 Monocytes % (Manual) 1.0 L Neutrophils # (Manual) 8875 H RBC Morphology See below Anisocytosis 1+ H Microcytosis 1+ H PT INR APTT D-Dimer Sodium 137 Potassium 3.3 L Chloride 102 Carbon Dioxide 26 BUN 15 Creatinine 0.95 Estimated GFR > 60 BUN/Creatinine Ratio 15.8 Glucose 107 H Hemoglobin A1c Calcium 8.3 L Magnesium Total Bilirubin 0.6 AST 42 H ALT 47 H Alkaline Phosphatase 83 Total Creatine Kinase CK-MB (CK-2) CK-MB (CK-2) Rel Index Troponin I NT-Pro-B Natriuret Pep Total Protein 7.5 Albumin 3.7 Globulin 3.8 Albumin/Globulin Ratio 1.0 Lipase TSH 4.77 H Free T4 1.13 Serum , Qual Nasal Screen MRSA (PCR) SARS-CoV-2 (PCR) 09/03/21 02:40 WBC RBC Hgb Hct MCV MCH MCHC RDW Plt Count Neut % (Auto) Lymph % (Auto) Colbert % (Auto) Eos % (Auto) Baso % (Auto) Neut # (Auto) Lymph # (Auto) Colbert # (Auto) Eos # (Auto) Baso # (Auto) Total Counted Seg Neutrophils % Lymphocytes % (Manual) Monocytes % (Manual) Neutrophils # (Manual) RBC Morphology Anisocytosis Microcytosis PT INR APTT 35 D-Dimer Sodium Potassium Chloride Carbon Dioxide BUN Creatinine Estimated GFR BUN/Creatinine Ratio Glucose Hemoglobin A1c Calcium Magnesium Total Bilirubin AST ALT Alkaline Phosphatase Total Creatine Kinase CK-MB (CK-2) CK-MB (CK-2) Rel Index Troponin I NT-Pro-B Natriuret Pep Total Protein Albumin Globulin Albumin/Globulin Ratio Lipase TSH Free T4 Serum , Qual Nasal Screen MRSA (PCR) SARS-CoV-2 (PCR) Exam Vital Signs (past 8 hours): - 09/03/21 02:30 09/03/21 03:00 09/03/21 03:30 Temperature Pulse Rate 78 76 79 Respiratory Rate 19 12 14 Blood Pressure 176/95 H 142/72 H 167/79 H Pulse Oximetry 90 L 95 93 09/03/21 04:00 09/03/21 04:01 09/03/21 04:09 Temperature 97.7 F Pulse Rate 81 80 81 Respiratory Rate 14 16 13 Blood Pressure 191/94 H 191/115 H 182/115 H Pulse Oximetry 94 98 95 09/03/21 04:21 09/03/21 04:26 09/03/21 04:30 Temperature Pulse Rate 82 82 82 Respiratory Rate 13 14 14 Blood Pressure 154/91 H 179/100 H 180/93 H Pulse Oximetry 97 95 94 09/03/21 04:40 09/03/21 04:43 09/03/21 04:50 Temperature Pulse Rate 79 81 79 Respiratory Rate 14 14 15 Blood Pressure 163/85 H 163/92 H 153/80 H Pulse Oximetry 95 95 95 09/03/21 05:00 09/03/21 05:10 09/03/21 05:20 Temperature Pulse Rate 79 80 80 Respiratory Rate 14 17 14 Blood Pressure 163/85 H 157/87 H 191/93 H Pulse Oximetry 96 93 93 09/03/21 05:22 09/03/21 05:30 09/03/21 05:40 Temperature Pulse Rate 80 87 79 Respiratory Rate 16 21 16 Blood Pressure 177/83 H 160/80 H 169/81 H Pulse Oximetry 96 94 97 09/03/21 05:50 09/03/21 06:00 09/03/21 07:00 Temperature Pulse Rate 77 79 81 Respiratory Rate 14 18 14 Blood Pressure 174/80 H 162/77 H 170/92 H Pulse Oximetry 94 95 96 09/03/21 08:00 09/03/21 08:15 09/03/21 09:00 Temperature Pulse Rate 80 93 H Respiratory Rate 12 13 Blood Pressure 164/91 H 190/106 H Pulse Oximetry 94 96 95 Oxygen Delivery Method Room Air Oxygen Flow Rate 0 Quality TeleICU VTE Deep Vein Thrombosis/Pulmonary Embolism Present on Admission: No Assessment & Plan Assessment & Plan narrative: patient seen and discussed with bedside procider and RN chart/labs/imaging reviewed currently afebrile, remains hypetensvie on cardene suggest -continue cardene, goal is less than 160s -can start home norvasc/metoprolol -wean cardene as tolerated -check echo -bipap prn for sleep -keep glucose 140-180s -monitor ins outs -replace lytes prn -gi/dvt ppx -please koki eICU prn Time Spent With Patient Critical Care time: I spent a total of [] minutes of critical care time on this patient's care today; this time is exclusive of procedural time.
[2021-09-03] MEDS: MORPHINE 2 MG/ML INJ IV ×2 (10:50→14:35)
--- NOTE | 2021-09-03 13:37 | PM.PN.1 ---
Subjective Subjective Date Patient Seen: 09/03/21 Interval history: 35 year old female admitted with hypertensive emergency. Chest pain now resolved. Does have a headache today. no shortness of breath, abdominal pain, nausea, or vomiting. Exam Vital Signs (past 8 hours): - 09/03/21 05:40 09/03/21 05:50 09/03/21 06:00 Pulse Rate 79 77 79 Respiratory Rate 16 14 18 Blood Pressure 169/81 H 174/80 H 162/77 H Pulse Oximetry 97 94 95 09/03/21 07:00 09/03/21 08:00 09/03/21 08:15 Pulse Rate 81 80 Respiratory Rate 14 12 Blood Pressure 170/92 H 164/91 H Pulse Oximetry 96 94 96 09/03/21 09:00 09/03/21 10:00 09/03/21 10:46 Pulse Rate 93 H 93 H 85 Respiratory Rate 13 26 H 20 Blood Pressure 190/106 H 190/122 H 134/63 Pulse Oximetry 95 95 97 09/03/21 11:00 09/03/21 11:03 09/03/21 11:15 Pulse Rate 87 86 85 Respiratory Rate 25 H 17 21 Blood Pressure 175/116 H 187/111 H Pulse Oximetry 96 98 97 09/03/21 11:30 09/03/21 11:45 09/03/21 12:00 Pulse Rate 80 81 75 Respiratory Rate 15 17 12 Blood Pressure 190/110 H Pulse Oximetry 97 95 93 09/03/21 12:01 09/03/21 12:31 Pulse Rate 74 84 Respiratory Rate 11 L 29 H Blood Pressure 153/76 H 217/106 H Pulse Oximetry 96 97 Oxygen Delivery Method Room Air Oxygen Flow Rate 0 Narrative Exam Narrative: General:? Patient is well developed and well nourished, morbidly obese female with BMI 55, in no distress at this time. HEENT:? Normocephalic, atraumatic, extraocular muscles intact, oral pharynx is clear and mucous membranes are moist. Neck: supple and symmetric, trachea is midline, no cervical adenopathy. Negative for JVD Chest:? Normal AP diameter and contour without kyphoscoliosis, no tachypnea, equal chest rise bilaterally. Lungs:? CTA b/l no wheezing rhonchi or rales. Cardio:?RRR no m/r/g. Abdomen: S NT ND. Musculoskeletal:? Muscle strength and tone are equal within normal limits, no deformity. Extremities: No edema or joint effusions. No cyanosis or clubbing. Skin:? Pale,? Warm to touch,dry and intact without rashes, ulcerations or petechiae.? Neuro:? Alert and orientated x3,? sensation to touch intact in all extremities, no gross deficits noted of cranial nerves. Psych:? Patient has a well-kept appearance, appropriate affect, mental status attitude thought context and judgment are appropriate for age. Objective Labs Result Diagrams: 09/03/21 02:40 09/03/21 02:40 Labs: Laboratory Results - last 24 hr 09/02/21 09/02/21 09/02/21 13:05 13:20 13:20 WBC RBC Hgb Hct MCV MCH MCHC RDW Plt Count Neut % (Auto) Lymph % (Auto) [place] % (Auto) Eos % (Auto) Baso % (Auto) Lymph # (Auto) [place] # (Auto) Baso # (Auto) Total Counted Seg Neutrophils % Lymphocytes % (Manual) Monocytes % (Manual) Neutrophils # (Manual) RBC Morphology Anisocytosis Microcytosis PT 13.4 H INR 1.2 APTT 33 D-Dimer Sodium 139 Potassium 4.0 Chloride 105 Carbon Dioxide 28 BUN 16 Creatinine 0.93 Estimated GFR > 60 BUN/Creatinine Ratio 17.2 Glucose 103 H Hemoglobin A1c Calcium 8.4 Magnesium 1.9 Total Bilirubin 0.5 AST 44 H ALT 47 H Alkaline Phosphatase 96 Total Creatine Kinase 664 H CK-MB (CK-2) 11.30 H CK-MB (CK-2) Rel Index 1.7 Troponin I < 0.012 NT-Pro-B Natriuret Pep Total Protein 6.9 Albumin 3.7 Globulin 3.2 Albumin/Globulin Ratio 1.2 Lipase 102 TSH Free T4 Serum , Qual Nasal Screen MRSA (PCR) SARS-CoV-2 (PCR) Negative 09/02/21 09/02/21 09/02/21 13:20 13:20 13:20 WBC RBC Hgb Hct MCV MCH MCHC RDW Plt Count Neut % (Auto) Lymph % (Auto) [place] % (Auto) Eos % (Auto) Baso % (Auto) Lymph # (Auto) [place] # (Auto) Baso # (Auto) Total Counted Seg Neutrophils % Lymphocytes % (Manual) Monocytes % (Manual) Neutrophils # (Manual) RBC Morphology Anisocytosis Microcytosis PT INR APTT D-Dimer < 200 Sodium Potassium Chloride Carbon Dioxide BUN Creatinine Estimated GFR BUN/Creatinine Ratio Glucose Hemoglobin A1c Calcium Magnesium Total Bilirubin AST ALT Alkaline Phosphatase Total Creatine Kinase CK-MB (CK-2) CK-MB (CK-2) Rel Index Troponin I NT-Pro-B Natriuret Pep 156 H Total Protein Albumin Globulin Albumin/Globulin Ratio Lipase TSH Free T4 Serum , Qual Negative Nasal Screen MRSA (PCR) SARS-CoV-2 (PCR) 09/02/21 09/02/21 09/02/21 15:41 18:05 20:45 WBC RBC Hgb Hct MCV MCH MCHC RDW Plt Count Neut % (Auto) Lymph % (Auto) [place] % (Auto) Eos % (Auto) Baso % (Auto) Lymph # (Auto) [place] # (Auto) Baso # (Auto) Total Counted Seg Neutrophils % Lymphocytes % (Manual) Monocytes % (Manual) Neutrophils # (Manual) RBC Morphology Anisocytosis Microcytosis PT INR APTT 34 D-Dimer Sodium Potassium Chloride Carbon Dioxide BUN Creatinine Estimated GFR BUN/Creatinine Ratio Glucose Hemoglobin A1c Calcium Magnesium Total Bilirubin AST ALT Alkaline Phosphatase Total Creatine Kinase CK-MB (CK-2) CK-MB (CK-2) Rel Index Troponin I < 0.012 NT-Pro-B Natriuret Pep Total Protein Albumin Globulin Albumin/Globulin Ratio Lipase TSH Free T4 Serum , Qual Nasal Screen MRSA (PCR) Negative for mrsa SARS-CoV-2 (PCR) 09/02/21 09/03/21 09/03/21 21:30 02:40 02:40 WBC RBC Hgb Hct MCV MCH MCHC RDW Plt Count Neut % (Auto) Lymph % (Auto) [place] % (Auto) Eos % (Auto) Baso % (Auto) Lymph # (Auto) [place] # (Auto) Baso # (Auto) Total Counted Seg Neutrophils % Lymphocytes % (Manual) Monocytes % (Manual) Neutrophils # (Manual) RBC Morphology Anisocytosis Microcytosis PT INR APTT D-Dimer Sodium Potassium Chloride Carbon Dioxide BUN Creatinine Estimated GFR BUN/Creatinine Ratio Glucose Hemoglobin A1c 5.7 Calcium Magnesium Total Bilirubin AST ALT Alkaline Phosphatase Total Creatine Kinase CK-MB (CK-2) CK-MB (CK-2) Rel Index Troponin I < 0.012 NT-Pro-B Natriuret Pep Total Protein Albumin Globulin Albumin/Globulin Ratio Lipase TSH 4.77 H Free T4 1.13 Serum , Qual Nasal Screen MRSA (PCR) SARS-CoV-2 (PCR) 09/03/21 09/03/21 09/03/21 02:40 02:40 02:40 WBC 12.5 H RBC 5.52 H Hgb 12.7 Hct 38.9 MCV 70.5 L MCH 22.9 L MCHC 32.5 RDW 18.6 H Plt Count 302 Neut % (Auto) Not Reportable Lymph % (Auto) Not Reportable [place] % (Auto) Not Reportable Eos % (Auto) Not Reportable Baso % (Auto) Not Reportable Lymph # (Auto) Not Reportable [place] # (Auto) Not Reportable Baso # (Auto) Not Reportable Total Counted 100 Seg Neutrophils % 71.0 H Lymphocytes % (Manual) 28.0 Monocytes % (Manual) 1.0 L Neutrophils # (Manual) 8875 H RBC Morphology See below Anisocytosis 1+ H Microcytosis 1+ H PT INR APTT 35 D-Dimer Sodium 137 Potassium 3.3 L Chloride 102 Carbon Dioxide 26 BUN 15 Creatinine 0.95 Estimated GFR > 60 BUN/Creatinine Ratio 15.8 Glucose 107 H Hemoglobin A1c Calcium 8.3 L Magnesium Total Bilirubin 0.6 AST 42 H ALT 47 H Alkaline Phosphatase 83 Total Creatine Kinase CK-MB (CK-2) CK-MB (CK-2) Rel Index Troponin I NT-Pro-B Natriuret Pep Total Protein 7.5 Albumin 3.7 Globulin 3.8 Albumin/Globulin Ratio 1.0 Lipase TSH Free T4 Serum , Qual Nasal Screen MRSA (PCR) SARS-CoV-2 (PCR) PFSH Medical History Anxiety Body mass index (BMI) greater than 50 Depression Dyslipidemia Essential hypertension (02/23/14) Facial skin lesion Heavy menstrual period Hyperglycemia Impaired fasting blood sugar Irregular menstrual cycle Metabolic syndrome Morbid obesity (04/20/14) Painful menstrual periods Psoriasis Resistant hypertension Sleep apnea Spinal stenosis Vitiligo Surgical History Anesthesia History of tonsillectomy (~2007) Status post delivery (04/03/11) Status post delivery (01/01/14) Status post laminectomy (~03/12/17) Family History Father Hyperlipidemia Hypoglycemia Mother Diabetes mellitus Sister Spina bifida Grandfather Cancer History of heart disease Grandmother Diabetes mellitus Grandfather Cancer Grandmother Diabetes mellitus History of heart disease Hyperlipidemia Hypertension Mental health problem Stroke Social History household members: spouse and children Smoking Status: Former smoker alcohol intake: never substance use type: marijuana Assessment & Plan Assessment & Plan narrative: This is a 35-year-old female who presented with chest pain and is admitted for hypertensive emergency. 1. Hypertensive emergency ?- continues on cardene infusion at this time, continue to try and wean. - restarted home amlodipine and metoprolol this AM. ?- consider secondary hypertension possible from JOANNE, trial CPAP with Rt ?- head CT negative for hemorrhage. ?- repeat troponin negative. EKG without evidence of acute ischemia. Initially sinus tachycardia and then NSR without acute ST changes or abnormalities. ?- TTE pending ?- HEART score is 2-3 indiciative of low risk for cardiac events. Consider outpatient stress testing with PMD. ?- heparin initially ordered by ER, however given negative troponin this was discontinued. 2. Obesity ?- contributes to patient's underlying hypertension. ?- consider dietary consultation. 3. Probable JOANNE - RT eval, trial CPAP overnight to see if improvement in BP. I spent 35 minutes providing critical care management this patient.? This excludes time spent in performing separately billed procedures. Dispo:?remains ICU until off cardene infusion. DVT: Lovenox Time Spent With Patient Critical Care time: I spent a total of [] minutes of critical care time on this patient's care today; this time is exclusive of procedural time. Quality VTE Deep Vein Thrombosis/Pulmonary Embolism Present on Admission: No
--- NOTE | 2021-09-03 14:19 | PC.NURSE ---
1420: Pt has complained off and on throughout day of headache, medicated with PRNs which are effective. BPs have been running high while pt sleeping, nicardipene gtt titrated accordingly. Pt has observed 3-6 second periods of apnea while sleeping. Dr Jacinto ordered RT eval and PRN CPAP, pt educated on rationale and offers no questions or concerns. Will continue to monitor and adjust gtt as needed.
[2021-09-03] MEDS: NICARDIPINE 25 MG in SODIUM CHLORIDE 0.9% 240 ML 30 ML IV (15:24)
[2021-09-03] MEDS: ONDANSETRON 4 MG/2 ML INJ IV (17:35)
[2021-09-03] MEDS: BUTALB/APAP/CAFFEINE 50/325/40 TABLET 1 EACH PO (19:02)
[2021-09-04] VITALS (8 sets, daily range): BP systolic 119–141; BP diastolic 59–80; PULSE 73–82; RESP 2–24; TEMP 36.3–36.8; O2SAT 95–98
--- NOTE | 2021-09-04 01:32 | PM.ICURNDS ---
- :: This patient was seen via real time interactive two-way audiovisual telecommunication. Note: Patient is off nicardipine. Amlodipine 10 mg and metoprolol ER 100 mg q24H have been started. SBP 120s-130s. No recommendations/changes from tele-ICU. Can be downgraded.
[2021-09-04 04:47] LABS: Add Manual Diff / Slide Review NO; Basophils Absolute Auto 0 /uL (0-100); Basophils Percent Auto 0.4 % (0-2); Eosinophils Absolute Auto 400 /uL (0-450); Eosinophils Percent Auto 3.1 % (2-4); Hematocrit 39.7 % (36-46); Hemoglobin 12.9 g/dL (12.0-16.0); Lymphocytes Absolute Auto 2400 /uL (1100-4500); Lymphocytes Percent Auto 21.4 % (25-40); Mean Corpuscular HGB Conc 32.4 % (30-36); Mean Corpuscular Hemoglobin 23.2 PG (26-34); Mean Corpuscular Volume 71.5 fL (80-100); Monocytes Absolute Auto 700 /uL (0-900); Monocytes Percent Auto 5.9 % (3-14); Neutrophils Absolute Auto 7900 /uL (1500-7000); Neutrophils Percent Auto 69.2 % (50-75); Platelet Count 318 X10^3/uL (150-400); Red Blood Cell Count 5.55 X10^6/uL (4.0-5.2); Red Cell Distribution Width 18.3 % (11.6-14.8); White Blood Cell Count 11.4 X10^3/uL (4.5-11.0)
[2021-09-04 04:57] LABS: Alanine Aminotransferase 58 IU/L (<35); Albumin 3.7 g/dL (3.5-5.0); Albumin Globulin Ratio 0.9 (1.0-2.8); Alkaline Phosphatase 85 U/L (38-126); Aspartate Aminotransferase 49 IU/L (14-36); BUN Creatinine Ratio 13.9 (6-22); Bilirubin Total 0.7 mg/dL (0.2-1.3); Blood Urea Nitrogen 15 mg/dL (7-17); Calcium 8.1 mg/dL (8.4-10.2); Carbon Dioxide 24 mmol/L (22-32); Chloride 105 mmol/L (98-107); Estimated Glomerular Filt Rate > 60 mL/min (>60); Globulin 3.9 g/dL (1.7-4.1); Glucose 106 mg/dL (70-100); HEMOLYSIS < 15 (0-50); Potassium 3.7 mmol/L (3.4-5.1); Sodium 135 mmol/L (137-145); Total Protein 7.6 g/dL (6.3-8.2)
--- NOTE | 2021-09-04 08:17 | P.DS_ITS ---
History of Present Illness History of Present Illness Date Patient Seen: 09/04/21 Time Patient Seen: 08:17 Chief complaint: Chest pain, SOB Narrative: This is a 35-year-old female with a past medical history of anxiety, depression, hypertension (on for classes of antihypertensives), obesity, and spinal stenosis who presented to the emergency room with chest pain starting at 9:30 a.m. this morning. The patient states that she initially woke up at 7:00 a.m. this morning with no symptoms, and went back to sleep as her kids remained asleep at that time as well. When she woke up again at 9:30 a.m., she had a severe pressure-like chest pain. This worsened even further with inspiration and felt like a stabbing sensation. She denies any radiation of the pain, including into her neck or arm. The pain did seem to worsen when she would stand up, and tyesha with rest. She initially got up out of bed and laid down on the couch, but whenever she stood up again the chest pain would intensify again. She denies any numbness or tingling. She denies any nausea or vomiting at the time and denies chest pain or palpitations. She felt like she could take a big breath and did feel short of breath. She denies any vision changes, recent rashes, abdominal pain, fever, chills. She has chronic lower extremity edema which is unchanged. She drove herself to the emergency room. In the emergency room, the patient was markedly hypertensive with a systolic blood pressure noted to be greater than 250. She was also tachycardic in the 120s. She was given nitroglycerin with some improvement in her symptoms from a 10 out of 10 down to a 4. It is currently at a 1 but the patient is on a Cardene infusion as well as a nitroglycerin infusion. CT angiogram was also performed in the emergency room without evidence of dissection or focal abnormality. Patient complained of a severe headache and nitroglycerin infusion was stopped upon arrival to the ICU. She now has blood pressures with a systolic near 160. Discharge Providers Provider Date of admission: 09/02/21 17:07 Discharge Date: 09/04/21 Primary care physician: LOWELL Sharma Consults: 09/02/21 18:12 Consult to Tele-photocomposing machine operator Routine Comment: Consulting Provider: [employer] Reason for consultation: Dental Hygienist services 09/02/21 18:40 Consult to [facility] [place] - Comb Setter Routine Comment: 09/03/21 21:32 Consult to Tele-photocomposing machine operator Routine Comment: Consulting Provider: [facility] [employer] Reason for consultation: Dental Hygienist services Discharge provider: Alpesh Jacinto DO Summary Hospital Course Discharge Diagnosis: 1. Hypertensive emergency 2. Obesity 3. JOANNE 4. pre-diabetes 5. subclinical hypthyroidism Hospital Course: This is a 35 year old female admitted to the hospital after an episode of chest pain and a systolic BP of >250 in the ER. Patient was already on 4 classes of BP medications prior to admission. She was started on nitro and cardene infusions in the ER with improvement in her BP and chest pain. She had negative troponins and an unremarkable echocardiogram. Her home BP medications were slowly restarted and IV medications were weaned. She did complain of headaches, CT head was negative and was likely due to caffeine withdrawal or medications. HEART score is 2-3, indicative of low risk for cardiac events and it is recommended to consider further outpatient stress testing depending on continued symptoms. Heparin was initially started but quickly discontinued given no EKG evidence of ischemia and negative troponins. Her BP was much improved after intiating CPAP therapy while sleeping. She has no obvious electrolyte abnormalities indicative of other metabolic causes of secondary hypertension. She does appear to have had prior evaluation for secondary hypertension which appears unremarkable however patient denies prior sleep study. A1c was 5.7%, TSH was mildly elevated with a normal free t4. Recommend sleep study testing as an outpatient for her JOANNE. No changes were made to her home BP medications at the time of discharge. Exam Vital Signs (past 8 hours): - 09/04/21 01:00 09/04/21 02:00 09/04/21 03:00 Temperature Pulse Rate 75 78 73 Respiratory Rate 10 L 15 11 L Blood Pressure 141/74 H 141/79 H 139/80 Pulse Oximetry 95 96 97 09/04/21 04:00 09/04/21 05:00 09/04/21 06:00 Temperature 98.2 F Pulse Rate 75 75 77 Respiratory Rate 15 10 L 12 Blood Pressure 127/59 L 119/72 139/76 Pulse Oximetry 98 96 97 Oxygen Delivery Method Room Air,CPAP Oxygen Flow Rate 0 Narrative Exam Narrative: General:? Patient is well developed and well nourished, morbidly obese female with BMI 55, in no distress at this time. Chest:? Normal AP diameter and contour without kyphoscoliosis, no tachypnea, equal chest rise bilaterally. Lungs:? CTA b/l no wheezing rhonchi or rales. Cardio:?RRR no m/r/g. Musculoskeletal:? Muscle strength and tone are equal within normal limits, no deformity. Extremities: No edema or joint effusions. No cyanosis or clubbing. Objective Labs Result Diagrams: 09/04/21 04:05 09/04/21 04:05 Labs: Laboratory Results - last 24 hr 09/04/21 09/04/21 04:05 04:05 WBC 11.4 H RBC 5.55 H Hgb 12.9 Hct 39.7 MCV 71.5 L MCH 23.2 L MCHC 32.4 RDW 18.3 H Plt Count 318 Neut % (Auto) 69.2 Lymph % (Auto) 21.4 L [place] % (Auto) 5.9 Eos % (Auto) 3.1 Baso % (Auto) 0.4 Neut # (Auto) 7900 H Lymph # (Auto) 2400 [place] # (Auto) 700 Eos # (Auto) 400 Baso # (Auto) 0 Sodium 135 L Potassium 3.7 Chloride 105 Carbon Dioxide 24 BUN 15 Creatinine 1.08 H Estimated GFR > 60 BUN/Creatinine Ratio 13.9 Glucose 106 H Calcium 8.1 L Total Bilirubin 0.7 AST 49 H ALT 58 H Alkaline Phosphatase 85 Total Protein 7.6 Albumin 3.7 Globulin 3.9 Albumin/Globulin Ratio 0.9 L [facility] Medical History Anxiety Body mass index (BMI) greater than 50 Depression Dyslipidemia Essential hypertension (02/23/14) Facial skin lesion Heavy menstrual period Hyperglycemia Impaired fasting blood sugar Irregular menstrual cycle Metabolic syndrome Morbid obesity (04/20/14) Painful menstrual periods Psoriasis Resistant hypertension Sleep apnea Spinal stenosis Vitiligo Surgical History Anesthesia History of tonsillectomy (~2007) Status post delivery (04/03/11) Status post delivery (01/01/14) Status post laminectomy (~07/22/16) Family History Father Hyperlipidemia Hypoglycemia Mother Diabetes mellitus Sister Spina bifida Grandfather Cancer History of heart disease Grandmother Diabetes mellitus Grandfather Cancer Grandmother Diabetes mellitus History of heart disease Hyperlipidemia Hypertension Mental health problem Stroke Social History household members: spouse and children Smoking Status: Former smoker alcohol intake: never substance use type: marijuana Discharge Plan Discharge Plan Patient Disposition: Home Provider Discharge Comment: You were admitted to the hospital with chest pain and very high blood pressures. You were started on a medicine to rapidly lower your blood pressure. The most helpful thing appeared to be using a CPAP machine. Please follow-up with her primary care provider as soon as possible for sleep study referral. No changes were made to your home medications at the time of discharge, although I do recommend switching her losartan HCTZ medication to nighttime. Discharge orders & Medications Prescriptions: Continued losartan-hydrochlorothiazide 100-25 mg tablet 1 tab PO DAILY Qty: 90 3RF metoprolol succinate 100 mg tablet extended release 24 hr 100 mg PO DAILY Qty: 90 3RF amlodipine 10 mg tablet 10 mg PO QAM 0RF Follow up/Referrals: Ronnie Hull ARNP [Primary Care Provider] - (*Appt on September @10:00 with Ronnie ETIENNE [phone].) Diet/Activity/Treatments Diet: Diet as Tolerated and Low-sodium Activity: As tolerated Visit Report/Discharge Packet Instructions: The DASH Diet, Sleep Apnea, DI for High Blood Pressure Discharge Data Primary Care Provider: Ronnie Hull Attending Provider: Alpesh Jacinto VTE Deep Vein Thrombosis/Pulmonary Embolism Present on Admission: No
[2021-09-04] MEDS: METOPROLOL ER 50 MG TABLET 100 MG PO (09:08)
[2021-09-04] MEDS: hydroCHLOROthiazide 25 MG TABLET 12.5 MG PO (09:09)
[2021-09-04] MEDS: AMLODIPINE 5 MG TABLET 10 MG PO (09:09)
[2021-09-04] MEDS: ACETAMINOPHEN 325 MG TABLET 650 MG PO (09:17)
--- NOTE | 2021-09-04 09:24 | CM.DPC ---
09/03/21 17:13 - CM Disch. [id number] : 11/10/1930 Patient Age: 89 DCP/Assessment: Reviewed chart. Patient is a 35yr old female admitted to [facility] with chest pain. PCP is Ronnie Hull. Primary payor is 1)[employer] 2)Medicaid. Met with patient this afternoon explained CM/SW role. Patient alert and oriented resting in bed at time of visit. Patient reports that she resides with family in [place]. Patient is to [place] and has 2 minor aged children in the residence. Patient currently unemployed due to back injury approximately 1yr ago while she was working at [employer]. Patient reports that she needs second back surgery in November 2021. Patient has walker and uses it on an as needed basis. Patient denies any d/c planning or social needs. Per RN, it was noted that patient's spouse was very upset last evening when he had to hop picker the kids from the ER because he had to wear a mask. Patient denies any type of domestic violence or issues in the residence. Patient was hoping to wait to come to the ED until her spouse got home but her chest pain got too bad. Therefore, she had to bring her children and spouse had to pick them up. At this time d/c date is unknown. Anticipate home when stable. Encouraged patient to follow up with her PCP for possible CPAP at night? Patient reports having difficulty when sleeping. Patient currently obese. Plan: Anticipate d/c when medically stable. MICH Discharge Planning/Care Management Advanced directive, confirm from FAMILY Start: 09/03/21 11:59 Freq: Q24H Status: Active Protocol: Document 09/03/21 11:59 BR (Rec: 09/03/21 13:51 BR [id number]) Advance Directive, confirm on record Time 13:51 Person contacted Family Copy received No CM Discharge Assessment Start: 09/03/21 17:10 Freq: Status: Active Protocol: Document 09/03/21 17:10 SHAWANDA (Rec: 09/03/21 17:13 MICH [id number]) Discharge Planning Assessment Assigned Search Engine Marketing Manager NOREEN Esquivel Advance Directives? Yes Advance Directives on File No History Provided By Patient,Medical Record Prior Living Arrangements House Household Members family Type of transporation used prior to Drives own vehicle admit Independent with ADL's Yes Is patient alert and oriented? Yes Caregiver for Another Yes: 7 and 10yr old childern at home. DME Already Rented / Owned FWW / Walker Barriers to Discharge No Transportation Arrangement Family to provide transport. Additional Comment CM team continueing to follow. Whiteboard Updated in Patient Room with Yes name and ext. # of Search Engine Marketing Manager Review Status In Process Next Review Type Continued Stay Review Initialized on 09/03/21 17:13 - END OF NOTE Discharge Planning/Care Management CM Discharge Assessment Start: 09/04/21 09:22 Freq: Status: Active Protocol: Document 09/04/21 09:22 KJS (Rec: 09/04/21 09:24 KJS [id number]) Discharge Planning Assessment Assigned Search Engine Marketing Manager NOREEN Esquivel Contact Information [place] Castaneda # [phone] Advance Directives? No History Provided By Patient Prior Living Arrangements House Household Members spouse,children Type of transporation used prior to Drives own vehicle admit Independent with ADL's Yes Is patient alert and oriented? Yes Caregiver for Another Yes DME Already Rented / Owned FWW / Walker Barriers to Discharge No Transportation Arrangement Family Whiteboard Updated in Patient Room with Yes name and ext. # of Search Engine Marketing Manager Review Status In Process Next Review Type Continued Stay Review
--- NOTE | 2021-09-04 13:01 | PC.NURSE ---
0730-Pt with much improved BP with overnight CPAP use. Currently 144/86 AM meds given and DC orders obtained. Follow up appt with PCP scheduled and Pt reports readiness to dc home. BP remains stable at dc. Tele and IVs removed. Pt assisted with dressing and w/c to own vehicle. Pt expresses gratitude for care and willingness to complete follow up recommendations.
== END 2021-09-04 14:19 | disposition home or self-care (01) ==
LOC: ED 14:37 → ICU 09-03 10:28 → AC 09-03 16:01 → ICU 09-03 16:01
PROVIDERS: Admitting Provider Internal Medicine; Emergency Provider Emergency Medicine; PCP Registered Nurse Diabetes Educator; Referring Provider Emergency Medicine; Visit Provider Internal Medicine
DX: I16.1 Hypertensive emergency (principal); E66.01 Morbid (severe) obesity due to excess calories; Z68.43 Body mass index [BMI] 50.0-59.9, adult; Z20.822 Contact with and (suspected) exposure to COVID-19
CPT/HCPCS: 36415; 70450; 71045; 71275; 74174; 80053; 82550; 82553; 82962; 83036; 83690; 83735; 83880; 84439; 84443; 84484; 84703; 85007; 85025; 85379; 85610; 85730; 87635; 87797; 93005; 93306; 94660; 94762; 96365; 96366; 96367; 96368; 96372; 96375; 96376; 99284; 99291; 99292; C9803; G0378; J1644; J1650; J2270; J2405; Q9967

== ENCOUNTER → 2021-10-13 13:50 | Outpatient (CLI) | payer OTHER, MEDICAID, SELFPAY ==
[2021-09-02 17:15] VITALS: BMI 55.4
[2021-10-13 14:51] LABS: COVID19 -Nasal RAPID Negative (Negative)
--- NOTE | 2021-10-16 09:19 | P.PCN_ITS ---
Cardiac Stress Test Report Referral & Results Date Patient Seen: 10/16/21 Time Patient Seen: 09:00 Requesting provider: Ronnie Hull Indication: Heart function screening Rest ECG: Normal sinus rhythm Procedure Note: After both written and verbal informed consent, the patient had an IV started by the diagnostic imaging RN and then was hooked up to the treadmill monitoring system. The patient walked on the treadmill at 1 mile per hour with no elevation and was then injected with the Lexiscan material. The Cardiolite was then immediately administered. The patient spent an additional 2-3 minutes on the treadmill before being returned to the [facility] in the supine position. The patient had a normal response to all infused materials. Impression: Successful Radha protocol. No EKG changes. No signs or symptoms of angina. Perfusion imaging pending. Please note: Actual ECG tracings can be found in the PACS system.
--- NOTE | 2021-10-16 20:17 | DI.NM.S_ITS ---
DATE OF SERVICE: 10/13/2021 PROCEDURE PERFORMED: Pharmacologic vasodilator cardiac stress and rest myocardial perfusion imaging with gating to assess ejection fraction and regional wall motion. ORDERING PROVIDER: LOWELL Sharma. INDICATIONS: The patient is a 36-year-old morbidly obese, hypertensive female with an abnormal ECG. She is unable to walk because of back pain. CARDIAC STRESS: Per protocol, 0.4 mg of regadenoson was infused with low-level walking. With this, she had a normal hemodynamic response, achieving a maximum heart rate of 140 BPM (75% of her predicted maximum). She had no chest discomfort or anginal symptoms. Her resting ECG shows sinus rhythm with some nonspecific ST abnormalities in the inferolateral leads, which remained essentially unchanged with stress. There were no arrhythmias. Per protocol, 24.6 millicuries of technetium-99m Myoview was injected and she was imaged 20 minutes later using a gated SPECT acquisition protocol. Three days prior while at rest, she had been injected with 25.1 millicuries of technetium-99m Myoview was imaged 20 minutes later, again using a gated SPECT acquisition protocol. FINDINGS: 1. Raw data: There is fairly poor myocardial tracer uptake with fairly marked attenuation artifact due to her body habitus. The lung/heart ratio appears normal 0.20 with a normal TID ratio of 0.84. 2. Quantitated gated SPECT: Post-stress ejection fraction is estimated at 75% without any focal wall motion abnormality and specifically the anterior wall appears to have normal, brisk contractility. The resting ejection fraction is estimated at 68% with a mildly increased end-diastolic volume of 150 mL. 3. Myocardial perfusion imaging: Post-stress supine images shows a moderate perfusion defect in the proximal to mid anterior wall in a pattern that would be consistent with breast attenuation artifact, supported by its complete resolution on the prone images. There are no other significant perfusion defects. The resting images show a similar perfusion pattern without any clear areas of improvement. IMPRESSION: 1. Probable normal myocardial perfusion study. 2. Moderate, fixed proximal to mid anterior defect that resolves on prone imaging, most consistent with breast attenuation artifact. The absence of any regional wall motion abnormality in this area would mitigate against a previous nontransmural infarction. There is no evidence for any myocardial ischemia. 3. Normal left ventricular systolic function with mildly increased left ventricular volumes. 4. No angina or significant ECG evidence for ischemia with pharmacologic vasodilator stress. María Castaneda NURA/lefty/yanira doc#: [id number]/job#: [id number] dd: 10/16/2021 16:19:00 dt: 10/16/2021 18:39:00 DICTATING MD/COPIES TO: Osman Bhakta MD; Ronnie Hull, KAVITA COPIES MNE: YO;
== END ==
PROVIDERS: PCP Registered Nurse Diabetes Educator; Referring Provider Registered Nurse Diabetes Educator; Visit Provider Registered Nurse Diabetes Educator
DX: I16.1 Hypertensive emergency (principal); R07.89 Other chest pain; R94.31 Abnormal electrocardiogram [ECG] [EKG]; E78.5 Hyperlipidemia, unspecified; E66.01 Morbid (severe) obesity due to excess calories
CPT/HCPCS: 78452; 87635; 93016; 93017; 93018; A9502; J2785

== ENCOUNTER 2021-12-19 05:55 | Emergency (ER) | payer OTHER, MEDICAID, SELFPAY ==
[2021-09-02 17:15] VITALS: BMI 55.4
[2021-12-19 06:15] VITALS: BP 175/101; PULSE 116; RESP 20; TEMP 37.1; O2SAT 99; BMI 54.9
[2021-12-19 06:46] LABS: Add Manual Diff / Slide Review NO; Basophils Absolute Auto 0 /uL (0-100); Basophils Percent Auto 0.5 % (0-2); Eosinophils Absolute Auto 200 /uL (0-450); Eosinophils Percent Auto 1.8 % (2-4); Hematocrit 36.9 % (36-46); Hemoglobin 12.5 g/dL (12.0-16.0); Lymphocytes Absolute Auto 400 /uL (1100-4500); Lymphocytes Percent Auto 4.1 % (25-40); Mean Corpuscular HGB Conc 33.9 % (30-36); Mean Corpuscular Hemoglobin 24.3 PG (26-34); Mean Corpuscular Volume 71.5 fL (80-100); Monocytes Absolute Auto 600 /uL (0-900); Neutrophils Absolute Auto 8000 /uL (1500-7000); Neutrophils Percent Auto 87.6 % (50-75); Platelet Count 263 X10^3/uL (150-400); Red Blood Cell Count 5.17 X10^6/uL (4.0-5.2); Red Cell Distribution Width 17.7 % (11.6-14.8); White Blood Cell Count 9.1 X10^3/uL (4.5-11.0)
[2021-12-19 06:52] LABS: Alanine Aminotransferase 70 IU/L (<35); Albumin 3.9 g/dL (3.5-5.0); Albumin Globulin Ratio 1.1 (1.0-2.8); Alkaline Phosphatase 87 U/L (38-126); Aspartate Aminotransferase 76 IU/L (14-36); BUN Creatinine Ratio 13.4 (6-22); Bilirubin Total 0.5 mg/dL (0.2-1.3); Blood Urea Nitrogen 15 mg/dL (7-17); Calcium 8.1 mg/dL (8.4-10.2); Carbon Dioxide 27 mmol/L (22-32); Chloride 102 mmol/L (98-107); Estimated Glomerular Filt Rate > 60 mL/min (>60); Globulin 3.7 g/dL (1.7-4.1); Glucose 136 mg/dL (70-100); HEMOLYSIS < 15 (0-50); Lipase 53 U/L (23-300); Potassium 3.8 mmol/L (3.4-5.1); Sodium 136 mmol/L (137-145); Total Protein 7.6 g/dL (6.3-8.2)
--- NOTE | 2021-12-19 07:41 | ED_ITS ---
HPI - Back Pain/Injury General Chief Complaint: Back Pain/Injury Stated Complaint: Kidney hurts and headaches Time Seen by Provider: 12/19/21 07:41 Source: patient Mode of arrival: Ambulatory Limitations: no limitations History of Present Illness HPI Narrative: This is a 36-year-old female with history of hypertension on several medications for blood pressure, migraines, PCOS, prior microdiskectomy at L4-L5 and C- section. Patient states last night around midnight she had fairly sudden onset of bilateral flank pain, she states that she was also having urinary frequency but denies dysuria, she did note some hematuria. Patient states she is felt feverish and chilled subjectively. She is developed a headache and states she does get migraines and this feels similar. She denies any chest pain or pressure, no shortness of breath. She is had nausea but no active vomiting. She states the nausea occurs when her pain is most intense. Patient denies pain radiating to her anterior abdomen. She states it feels like when she is had kidney infections in the past. She states it does not feel like when she is had back pain issues in the past. She denies diarrhea or constipation. No black or bloody stools. She states she is been having vaginal bleeding for about a month and states that this is related to her PCOS. Patient states she is had prior microdiskectomy in her lower lumbar spine, x2, denies any other surgical history. States she is allergic to EDD inhibitors and oxycodone the 2n d is too strong for her. Patient states former tobacco, rare alcohol, occasional THC no other illicit. Her primary care is Ronnie Hull. Related Data Home Medications Medication Instructions Recorded Confirmed amlodipine 10 mg tablet 10 mg PO QAM 09/02/21 11/27/21 Previous Rx's Medication Instructions Recorded metoprolol succinate 100 mg 100 mg PO DAILY #90 tabs 03/01/21 tablet,extended release 24 hr hydroxyzine HCl 25 mg tablet 25 mg PO QID PRN anxiety #30 tabs 09/13/21 losartan 100 1 tab PO DAILY #90 tabs 09/13/21 mg-hydrochlorothiazide 25 mg tablet meloxicam 7.5 mg tablet 7.5 mg PO BID PRN pain #10 tabs 12/19/21 Allergies Allergy/AdvReac Type Severity Reaction Status Date / Time EDD Inhibitors AdvReac Mild PERSISTANT Verified 11/27/21 08:46 [EDD INHIBITORS] COUGH oxycodone [OXYCODONE] AdvReac Mild NAUSEA, Verified 11/27/21 08:46 DIZZYNESS Review of Systems Review of Systems ROS Unobtainable: All systems reviewed & are unremarkable except as noted in HPI and below Patient History Medical History Anxiety Body mass index (BMI) greater than 50 Depression Dysfunctional uterine bleeding Dyslipidemia Essential hypertension (02/23/14) Facial skin lesion Heavy menstrual period Hyperglycemia Impaired fasting blood sugar Irregular menstrual cycle Metabolic syndrome Morbid obesity (04/20/14) Painful menstrual periods Psoriasis Resistant hypertension Sleep apnea Spinal stenosis Vitiligo Surgical History Anesthesia History of tonsillectomy (~2007) Status post delivery (04/03/11) Status post delivery (01/01/14) Status post laminectomy (~07/22/16) Family History Father Hyperlipidemia Hypoglycemia Mother Diabetes mellitus Sister Spina bifida Grandfather Cancer History of heart disease Grandmother Diabetes mellitus Grandfather Cancer Grandmother Diabetes mellitus History of heart disease Hyperlipidemia Hypertension Mental health problem Stroke Social History household members: spouse and children Smoking Status: Former smoker alcohol intake: never substance use type: marijuana Smoking Status: Former smoker tobacco type: cigarettes alcohol intake frequency: holidays/special occasions only Substance Use Type: marijuana Exam Narrative Exam Narrative: GENERAL: Alert and oriented x three, obese female in moderate distress. HEENT: Head normocephalic, atraumatic, EOMI, pupils reactive, face symmetric, moist mucous membranes NECK: Supple, full range of motion CARDIOVASCULAR: Regular rate and rhythm without murmurs, rubs or gallops. RESPIRATORY: Breath sounds equal bilaterally, no wheezes rales or rhonchi. ABDOMEN: Soft, nontender. Normoactive bowel sounds all 4 quadrants. No guarding or rebound, rigidity, no mass : Mild bilateral CVA tenderness BACK: No cervical, thoracic or lumbar vertebral point tenderness. Patient has normal range of motion. Muscle strength is 5/5 in lower extremities, cap refill less than 2 seconds bilateral lower extremities. Normal sensation bilaterally. EXTREMITIES: Normal range of motion, no clubbing or edema. Neurovascularly intact NEUROLOGICAL: Cranial nerves II through XII grossly intact. Moving all extremities. Normal gait although patient is quite uncomfortable ambulating. SKIN: Warm, dry, no petechiae, no rashes or lesions. Initial Vital Signs Initial Vital Signs: Vital Signs Temperature 98.7 F 12/19/21 06:15 Pulse Rate 116 H 12/19/21 06:15 Respiratory Rate 20 12/19/21 06:15 Blood Pressure 175/101 H 12/19/21 06:15 Pulse Oximetry 99 12/19/21 06:15 Oxygen Delivery Method 12/19/21 06:15 Course Orders Ordered: Discontinued Medications Acetaminophen (Acetaminophen 325 Mg Tablet) 975 mg PO NOW ONE Stop: 12/19/21 09:47 Last Admin: 12/19/21 10:10 Dose: 975 mg Documented By: MARTINE Ketorolac Tromethamine (Ketorolac 30 Mg/Ml Vial) 15 mg IV NOW ONE Stop: 12/19/21 07:54 Last Admin: 12/19/21 08:00 Dose: 15 mg Documented By: MARTINE(2) Ondansetron HCl (Ondansetron 4 Mg/2 Ml Inj) 4 mg IV NOW ONE Stop: 12/19/21 07:54 Last Admin: 12/19/21 08:00 Dose: 4 mg Documented By: MARTINE(2) Vital Signs Vital signs: Vital Signs - 8 hr 12/19/21 06:15 Temperature 98.7 F Pulse Rate 116 H Respiratory Rate 20 Blood Pressure 175/101 H Pulse Oximetry 99 Oxygen Delivery Method Room Air MDM - Back Pain/Injury Lab Data Result diagrams: 12/19/21 06:30 12/19/21 06:30 Labs: Lab Results 12/19/21 12/19/21 12/19/21 Range/Units 06:30 06:30 08:43 WBC 9.1 (4.5-11.0) X10^3/uL RBC 5.17 (4.0-5.2) X10^6/uL Hgb 12.5 (12.0-16.0) g/dL Hct 36.9 (36-46) % MCV 71.5 L (80-100) fL MCH 24.3 L (26-34) PG MCHC 33.9 (30-36) % RDW 17.7 H (11.6-14.8) % Plt Count 263 (150-400) X10^3/uL Neut % (Auto) 87.6 H (50-75) % Lymph % (Auto) 4.1 L (25-40) % [place] % (Auto) 6.0 (3-14) % Eos % (Auto) 1.8 L (2-4) % Baso % (Auto) 0.5 (0-2) % Neut # (Auto) 8000 H (3953-5911) /uL Lymph # (Auto) 400 L (6309-6866) /uL [place] # (Auto) 600 (0-900) /uL Eos # (Auto) 200 (0-450) /uL Baso # (Auto) 0 (0-100) /uL Sodium 136 L (137-145) mmol/L Potassium 3.8 (3.4-5.1) mmol/L Chloride 102 (98-107) mmol/L Carbon Dioxide 27 (22-32) mmol/L BUN 15 (7-17) mg/dL Creatinine 1.12 H (0.52-1.04) mg/dL Estimated GFR > 60 (>60) mL/min BUN/Creatinine Ratio 13.4 (6-22) Glucose 136 H (70-100) mg/dL Calcium 8.1 L (8.4-10.2) mg/dL Total Bilirubin 0.5 (0.2-1.3) mg/dL AST 76 H (14-36) IU/L ALT 70 H (<35) IU/L Alkaline Phosphatase 87 (38-126) U/L Total Protein 7.6 (6.3-8.2) g/dL Albumin 3.9 (3.5-5.0) g/dL Globulin 3.7 (1.7-4.1) g/dL Albumin/Globulin Ratio 1.1 (1.0-2.8) Lipase 53 (23-300) U/L Urine RBC 30-100/hpf H (0-5/HPF) Urine WBC 1-5/hpf (0-5/HPF) Ur Squamous Epith Cells 1-5 /hpf (0-5/HPF) Urine Bacteria None seen (None) Ur Culture Indicated? Cult not indicated SARS-CoV-2 (PCR) (Negative) 12/19/21 Range/Units 10:11 WBC (4.5-11.0) X10^3/uL RBC (4.0-5.2) X10^6/uL Hgb (12.0-16.0) g/dL Hct (36-46) % MCV (80-100) fL MCH (26-34) PG MCHC (30-36) % RDW (11.6-14.8) % Plt Count (150-400) X10^3/uL Neut % (Auto) (50-75) % Lymph % (Auto) (25-40) % [place] % (Auto) (3-14) % Eos % (Auto) (2-4) % Baso % (Auto) (0-2) % Neut # (Auto) (4441-1552) /uL Lymph # (Auto) (1694-8097) /uL [place] # (Auto) (0-900) /uL Eos # (Auto) (0-450) /uL Baso # (Auto) (0-100) /uL Sodium (137-145) mmol/L Potassium (3.4-5.1) mmol/L Chloride (98-107) mmol/L Carbon Dioxide (22-32) mmol/L BUN (7-17) mg/dL Creatinine (0.52-1.04) mg/dL Estimated GFR (>60) mL/min BUN/Creatinine Ratio (6-22) Glucose (70-100) mg/dL Calcium (8.4-10.2) mg/dL Total Bilirubin (0.2-1.3) mg/dL AST (14-36) IU/L ALT (<35) IU/L Alkaline Phosphatase (38-126) U/L Total Protein (6.3-8.2) g/dL Albumin (3.5-5.0) g/dL Globulin (1.7-4.1) g/dL Albumin/Globulin Ratio (1.0-2.8) Lipase (23-300) U/L Urine RBC (0-5/HPF) Urine WBC (0-5/HPF) Ur Squamous Epith Cells (0-5/HPF) Urine Bacteria (None) Ur Culture Indicated? SARS-CoV-2 (PCR) Positive H (Negative) Point of Care Testing Test Results Negative Urine Dip Bedside Urine Glucose Negative Bedside Urine Bilirubin - Negative Bedside Urine Ketone - Negative Urine Specific [place] 1.015 Bedside Urine Occult Blood +++ Bedside Urine pH 7.0 Bedside Urine Protein +/- 15 Bedside Urine Urobilinogen - Negative Bedside Urine Nitrite - Negative Bedside Urine Leukocytes - Negative Esterase Imaging Data CT scan - abdomen/pelvis: Radiologist's Impression: [address] [address] [address] Scan Report Signed Patient: María Castaneda MR#: [id number] : 1985 Acct:[id number] Age/Sex: 36 / F Date of Service: 12/19/21 Loc: ED Accession Number: [id number] ?? Procedure: CT abdomen pelvis w con Ordering Provider: Deb Dubois D.O. PROCEDURE:? CT ABDOMEN PELVIS W CON ? INDICATIONS:? b/l flank pain, urinary frequency ? TECHNIQUE:? After the administration of IV contrast, axial sections were acquired from the lung bases to the pubic symphysis.? Coronal and sagittal reformats were performed.? For radiation dose reduction, the following was used:? automated exposure control, adjustment of mA and/or kV according to patient size. ? COMPARISON:? [facility], CT, CT ANGIO CHEST ABDOMEN PELVIS, 09/02/2021, 13:13.? [facility], CT, CT ABDOMEN PELVIS W CON, 12/25/2019, 8:40. ? FINDINGS:? Image quality:? Excellent.? ? Lung bases:? Unremarkable.? ? ? ABDOMEN: Liver:? Hepatic steatosis.? ? Gallbladder:? Not distended. Biliary ducts:? Unremarkable.? ? Pancreas:? No peripancreatic fluid collection. Spleen:? Small splenule.? ? Adrenal Glands:? Unremarkable.? ? Kidneys and Ureters:? No hydronephrosis.? ? ? Stomach and Bowel:? Stomach, small bowel loops, and colon are unremarkable.? A few colonic diverticuli.? The appendix is not distended. Peritoneum:? No abnormal intraperitoneal fluid.? No free air.? ? Ventral Wall: ? Tiny umbilical hernia.? Abdominal Nodes:? No retroperitoneal or mesenteric adenopathy by size criteria.? Vessels:? Aorta and inferior vena cava are normal in size.? ? PELVIS: Pelvic Organs:? Anteverted uterus.? IUD has been removed.? No free fluid.? Suspect right paraovarian cyst measuring 2.4 cm, (), previously 2.1 cm Bladder:? Not distended.? ? Pelvic Nodes:? Prominent left pelvic sidewall lymph node, (), unchanged since 2019.? Miscellaneous: No inguinal hernias are seen. ? ? ? Bones:? No suspicious lesion.? Multilevel DDD with multilevel osteophytes. ? ? IMPRESSION:? 1. No acute abnormality identified.? No free fluid. ? 2. A few colonic diverticuli. ? 3. Hepatic steatosis. ? 4. Suspect small right paraovarian cyst. ? 5. Multilevel DDD. ? ? Dictated by: Gagan Rodriguez M.D. on 12/19/2021 at 8:45 ? ? Approved by: Gagan Rodriguez M.D. on 12/19/2021 at 8:55?? MDM Narrative Medical decision making narrative: This is a 36-year-old female with fairly sudden onset bilateral flank pain and headache. Patient has had some subjective fevers and chills she is had urinary symptoms making me suspect that she has pyelonephritis. Initial labs show a very mild bump in her renal function, CBC has a left shift, electrolytes show very minimal change, patient has mildly elevated AST ALT very close to comparison to priors, normal lipase no change in bilirubin. Patient's urine shows blood but no other clear signs of infection, patient states she is having active menses at this time. CT abdomen pelvis shows right paraovarian cyst that is 2.4 cm seen prior on 2.1 cm. Unchanged left pelvic sidewall lymph node, hepatic steatosis and multilevel degenerative disc disease. Patient had received Toradol and Zofran she was sleeping when I checked on her. Discussed with patient pelvic exam to evaluate for PID or other similar cause. Patient was agreeable but COVID swab came back positive. After discussion she defers at this point. COVID infection is likely cause of her abdominal and Flank pain and rest of her symptoms. Discharge Plan Departure Patient Disposition: Home Clinical Impression: Para-ovarian cyst, Flank pain, COVID-19 virus infection Instructions: DI for COVID-19 (Suspected or Confirmed ) Activity Restrictions/Additional Instructions: You have been found have coronavirus infection today. This is likely the cause of her symptoms including your muscle aches, likely kicking off her migraine. You can take Tylenol up to a 1000 mg every 8 hours and/or ibuprofen up to 600 mg every 6 hours. You can take Zofran 1 tablet every 6 hours as needed for nausea. Prescription sent to [facility] in [place]. Please return for rapidly worsening symptoms, passing out, new chest pain, shortness of breath, persistent vomiting, black or bloody stools or other new or concerning symptoms. Prescriptions: New meloxicam 7.5 mg tablet 7.5 mg PO BID PRN (Reason: pain) Qty: 10 0RF No Action metoprolol succinate 100 mg tablet extended release 24 hr 100 mg PO DAILY Qty: 90 3RF hydroxyzine HCl 25 mg tablet 25 mg PO QID PRN (Reason: anxiety) Qty: 30 2RF losartan-hydrochlorothiazide 100-25 mg tablet 1 tab PO DAILY Qty: 90 1RF amlodipine 10 mg tablet 10 mg PO QAM Referrals: Ronnie Hull ARNP [Primary Care Provider] - Visit Report Forms: Patient Portal/API
--- NOTE | 2021-12-19 07:53 | DI.CT.S_ITS ---
PROCEDURE: CT ABDOMEN PELVIS W CON INDICATIONS: b/l flank pain, urinary frequency TECHNIQUE: After the administration of IV contrast, axial sections were acquired from the lung bases to the pubic symphysis. Coronal and sagittal reformats were performed. For radiation dose reduction, the following was used: automated exposure control, adjustment of mA and/or kV according to patient size. COMPARISON: [facility], CT, CT ANGIO CHEST ABDOMEN PELVIS, 09/02/2021, 13:13. [facility], CT, CT ABDOMEN PELVIS W CON, 12/25/2019, 8:40. FINDINGS: Image quality: Excellent. Lung bases: Unremarkable. ABDOMEN: Liver: Hepatic steatosis. Gallbladder: Not distended. Biliary ducts: Unremarkable. Pancreas: No peripancreatic fluid collection. Spleen: Small splenule. Adrenal Glands: Unremarkable. Kidneys and Ureters: No hydronephrosis. Stomach and Bowel: Stomach, small bowel loops, and colon are unremarkable. A few colonic diverticuli. The appendix is not distended. Peritoneum: No abnormal intraperitoneal fluid. No free air. Ventral Wall: Tiny umbilical hernia. Abdominal Nodes: No retroperitoneal or mesenteric adenopathy by size criteria. Vessels: Aorta and inferior vena cava are normal in size. PELVIS: Pelvic Organs: Anteverted uterus. IUD has been removed. No free fluid. Suspect right paraovarian cyst measuring 2.4 cm, (75), previously 2.1 cm Bladder: Not distended. Pelvic Nodes: Prominent left pelvic sidewall lymph node, (2/92), unchanged since 2019. Miscellaneous: No inguinal hernias are seen. Bones: No suspicious lesion. Multilevel DDD with multilevel osteophytes. IMPRESSION: 1. No acute abnormality identified. No free fluid. 2. A few colonic diverticuli. 3. Hepatic steatosis. 4. Suspect small right paraovarian cyst. 5. Multilevel DDD. Dictated by: Gagan Rodriguez M.D. on 12/19/2021 at 8:45 Approved by: Gagan Rodriguez M.D. on 12/19/2021 at 8:55
[2021-12-19] MEDS: ONDANSETRON 4 MG/2 ML INJ IV (08:00)
[2021-12-19] MEDS: KETOROLAC 30 MG/ML VIAL 15 MG IV (08:00)
--- NOTE | 2021-12-19 08:05 | PC.NURSE ---
started by Venkat MALHOTRA
--- NOTE | 2021-12-19 08:18 | PC.NURSE ---
Pt having severe lower back pain. Denies urinary sx. Pt having nausea without vomiting.
[2021-12-19 08:54] LABS: Bacteria Urine None Seen; RBC Urine 30-100/HPF (0-5/HPF); Squamous Epithelial Cell Urine 1-5 /HPF (0-5/HPF); WBC Urine 1-5/HPF (0-5/HPF)
[2021-12-19 08:55] LABS: Culture Indicated Urine Cult Not Indicated
[2021-12-19] MEDS: ACETAMINOPHEN 325 MG TABLET 975 MG PO (10:10)
[2021-12-19 10:45] LABS: COVID19 -Nasal RAPID POSITIVE (Negative)
[2021-12-19 11:07] VITALS: BP 156/89; PULSE 99; RESP 18; O2SAT 95
== END 2021-12-19 11:16 | disposition home or self-care (01) ==
PROVIDERS: Emergency Medicine; Emergency Provider Emergency Medicine; PCP Registered Nurse Diabetes Educator
DX: U07.1 COVID-19 (principal); Q50.5 Embryonic cyst of broad ligament; R10.9 Unspecified abdominal pain; R31.9 Hematuria, unspecified; R11.0 Nausea
CPT/HCPCS: 36415; 74177; 80053; 81003; 81015; 81025; 83690; 85025; 87635; 96374; 96375; 99284; 99285; C9803; J1885; J2405

== ENCOUNTER 2022-02-12 11:31 | Emergency (ER) | payer OTHER, MEDICAID, SELFPAY ==
[2021-09-02 17:15] VITALS: BMI 55.4
[2022-02-12] VITALS (15 sets, daily range): BP systolic 138–197; BP diastolic 68–117; PULSE 85–99; RESP 17; TEMP 36.6–36.8; O2SAT 96–100; BMI 54.9
[2022-02-12 12:12] LABS: Add Manual Diff / Slide Review NO; Basophils Absolute Auto 100 /uL (0-100); Basophils Percent Auto 0.6 % (0-2); Eosinophils Absolute Auto 100 /uL (0-450); Eosinophils Percent Auto 0.5 % (2-4); Hematocrit 38.6 % (36-46); Hemoglobin 12.9 g/dL (12.0-16.0); Lymphocytes Absolute Auto 2700 /uL (1100-4500); Lymphocytes Percent Auto 16.7 % (25-40); Mean Corpuscular HGB Conc 33.4 % (30-36); Mean Corpuscular Hemoglobin 24.6 PG (26-34); Mean Corpuscular Volume 73.6 fL (80-100); Monocytes Absolute Auto 700 /uL (0-900); Monocytes Percent Auto 4.4 % (3-14); Neutrophils Absolute Auto 12500 /uL (1500-7000); Neutrophils Percent Auto 77.8 % (50-75); Platelet Count 336 X10^3/uL (150-400); Red Blood Cell Count 5.25 X10^6/uL (4.0-5.2); Red Cell Distribution Width 18.3 % (11.6-14.8); White Blood Cell Count 16.1 X10^3/uL (4.5-11.0)
[2022-02-12 12:25] LABS: Alanine Aminotransferase 50 IU/L (<35); Albumin 4.1 g/dL (3.5-5.0); Alkaline Phosphatase 91 U/L (38-126); Aspartate Aminotransferase 35 IU/L (14-36); BUN Creatinine Ratio 13.1 (6-22); Blood Urea Nitrogen 14 mg/dL (7-17); Calcium 8.3 mg/dL (8.4-10.2); Carbon Dioxide 28 mmol/L (22-32); Chloride 102 mmol/L (98-107); Estimated Glomerular Filt Rate > 60 mL/min (>60); Globulin 4.3 g/dL (1.7-4.1); Glucose 109 mg/dL (70-100); HEMOLYSIS 17 (0-50); Lipase 36 U/L (23-300); Potassium 3.5 mmol/L (3.4-5.1); Sodium 139 mmol/L (137-145); Total Protein 8.4 g/dL (6.3-8.2)
--- NOTE | 2022-02-12 13:52 | PC.NURSE ---
Patient states that they had an episode of vomiting when the event occurred but none since the episode. Patient states that they had nausea this morning which is normal but no nausea at this time.
--- NOTE | 2022-02-12 14:13 | ED_ITS ---
HPI - General Adult General Chief complaint: Abdominal Pain Stated complaint: Severe abdominal pain,cramping Time Seen by Provider: 02/12/22 13:19 Source: patient Mode of arrival: Ambulatory History of Present Illness HPI narrative: 36-year-old woman with history of hypertension, polycystic ovary disease, morbid obesity who presents with acute onset of severe abdominal pain. Last night at 6:00 p.m. she describes a very sharp and dramatic pelvic pain that felt like a pop that was so significant that she had some involuntary urinary incontinence, fell to her knees, ended up vomiting. In the past she has had ovarian cysts rupture with similar findings and she is soon that was the issue and did not feel that it was appropriate to come to the emergency department as typically resolve within 6 hours. Unfortunately over the course of the evening her pain is actually increased and by today she is having pain throughout her entire a bdomen with continued nausea. She denies significant dysuria. She notes she is currently on her menstrual cycle. She has not had fevers or chills but did notice some diaphoresis with this severe episode of pain initially last night. No chest pain or shortness of breath and no headache. Related Data Home Medications Medication Instructions Recorded Confirmed amlodipine 10 mg tablet 10 mg PO QAM 09/02/21 11/27/21 Previous Rx's Medication Instructions Recorded metoprolol succinate 100 mg 100 mg PO DAILY #90 tabs 03/01/21 tablet,extended release 24 hr hydroxyzine HCl 25 mg tablet 25 mg PO QID PRN anxiety #30 tabs 09/13/21 losartan 100 1 tab PO DAILY #90 tabs 09/13/21 mg-hydrochlorothiazide 25 mg tablet meloxicam 7.5 mg tablet 7.5 mg PO BID PRN pain #10 tabs 12/19/21 hydrocodone 5 mg-acetaminophen 325 1 tab PO Q8H PRN pain #14 tabs 02/12/22 mg tablet Allergies Allergy/AdvReac Type Severity Reaction Status Date / Time EDD Inhibitors AdvReac Mild PERSISTANT Verified 11/27/21 08:46 [EDD INHIBITORS] COUGH oxycodone [OXYCODONE] AdvReac Mild NAUSEA, Verified 11/27/21 08:46 DIZZYNESS Review of Systems Review of Systems Narrative: Remainder of complete review of systems is otherwise unremarkable except for that included in the HPI. Patient History Medical History Anxiety Body mass index (BMI) greater than 50 Depression Dysfunctional uterine bleeding Dyslipidemia Essential hypertension (02/23/14) Facial skin lesion Heavy menstrual period Hyperglycemia Impaired fasting blood sugar Irregular menstrual cycle Metabolic syndrome Morbid obesity (04/20/14) Painful menstrual periods Psoriasis Resistant hypertension Sleep apnea Spinal stenosis Vitiligo Surgical History Anesthesia History of tonsillectomy (~2007) Status post delivery (04/03/11) Status post delivery (01/01/14) Status post laminectomy (~07/22/16) Family History Father Hyperlipidemia Hypoglycemia Mother Diabetes mellitus Sister Spina bifida Grandfather Cancer History of heart disease Grandmother Diabetes mellitus Grandfather Cancer Grandmother Diabetes mellitus History of heart disease Hyperlipidemia Hypertension Mental health problem Stroke Social History household members: spouse and children Smoking Status: Former smoker alcohol intake: never substance use type: marijuana Smoking Status: Former smoker tobacco type: cigarettes alcohol intake frequency: holidays/special occasions only Substance Use Type: marijuana Exam Initial Vital Signs Initial Vital Signs: Vital Signs Temperature 98 F 02/12/22 11:51 Pulse Rate 99 H 02/12/22 11:51 Respiratory Rate 17 02/12/22 11:51 Blood Pressure 197/117 H 02/12/22 11:51 Pulse Oximetry 98 02/12/22 11:51 Oxygen Delivery Method 02/12/22 11:51 General: Healthy appearing, in moderate distress. Able to give a complete and coherent history. Well-nourished well-developed HEENT: Moist mucous membranes, normal sclera with reactive pupils, Neck: supple without meningismus signs Respiratory: Lungs are clear to auscultation, no wheezing no rales no rhonchi. Full and symmetrical air movement Cardiac: Regular rate and rhythm no murmurs no bruits Abdomen: Obese, mild distention, diffuse moderate pain in all mcnamara. No rebound or guarding. Skin: Warm and dry, no rashes Neurologic: Grossly neurologically intact with no obvious asymmetries or abnormalities Extremities: No trauma, well perfused Psych: Cooperative, appropriate insight and affect Course Orders Ordered: ED Orders 02/12/22 12:05 Complete Blood Count AUTO DIFF Stat Comprehensive Metabolic Panel Stat Lipase Stat 02/12/22 12:09 Lactate (Lactic Acid) Stat 02/12/22 14:31 CT abdomen pelvis w con Stat 02/12/22 14:35 Test Urine Stat Urinalysis and Microscopic Stat Hydromorphone HCl (Hydromorphone 0.5 Mg Inj) 0.5 mg IV Q15MIN PRN PRN Reason: Pain, Last Admin: 02/12/22 14:52 Dose: 0.5 mg Documented By: WHIT Discontinued Medications Sodium Chloride (Normal Saline 0.9%) 1,000 mls @ 1,000 mls/hr IV BOLUS ONE Stop: 02/12/22 15:30 Last Admin: 02/12/22 14:52 Dose: 1,000 mls/hr Documented By: WHIT Ondansetron HCl (Ondansetron 4 Mg/2 Ml Inj) 4 mg IV NOW ONE Stop: 02/12/22 14:32 Last Admin: 02/12/22 14:52 Dose: 4 mg Documented By: WHIT Vital Signs Vital signs: Vital Signs - 8 hr 02/12/22 11:51 02/12/22 13:42 02/12/22 13:43 Temperature 98 F Pulse Rate 99 H 96 H Respiratory Rate 17 Blood Pressure 197/117 H 187/110 H Pulse Oximetry 98 100 Oxygen Delivery Method Room Air 02/12/22 13:43 02/12/22 13:45 02/12/22 13:45 Temperature Pulse Rate 97 H 93 H Respiratory Rate Blood Pressure 187/111 H Pulse Oximetry 99 99 Oxygen Delivery Method 02/12/22 14:00 02/12/22 14:01 02/12/22 14:01 Temperature Pulse Rate 91 H 92 H Respiratory Rate Blood Pressure 138/68 Pulse Oximetry 98 97 Oxygen Delivery Method 02/12/22 14:15 02/12/22 14:15 02/12/22 14:46 Temperature Pulse Rate 95 H 91 H Respiratory Rate Blood Pressure 166/97 H Pulse Oximetry 99 97 Oxygen Delivery Method 02/12/22 14:56 02/12/22 14:56 02/12/22 15:00 Temperature Pulse Rate 92 H Respiratory Rate Blood Pressure 192/100 H 167/82 H Pulse Oximetry 97 Oxygen Delivery Method 02/12/22 15:00 02/12/22 15:30 02/12/22 15:15 Temperature 98.2 F Pulse Rate 87 90 Respiratory Rate Blood Pressure Pulse Oximetry 98 96 Oxygen Delivery Method 02/12/22 15:30 02/12/22 15:30 Temperature Pulse Rate 85 Respiratory Rate Blood Pressure 142/78 H Pulse Oximetry 97 Oxygen Delivery Method Medical Decision Making Lab Data Result diagrams: 02/12/22 12:05 02/12/22 12:05 Labs: Lab Results 02/12/22 02/12/22 02/12/22 Range/Units 12:05 12:05 12:09 WBC 16.1 H (4.5-11.0) X10^3/uL RBC 5.25 H (4.0-5.2) X10^6/uL Hgb 12.9 (12.0-16.0) g/dL Hct 38.6 (36-46) % MCV 73.6 L (80-100) fL MCH 24.6 L (26-34) PG MCHC 33.4 (30-36) % RDW 18.3 H (11.6-14.8) % Plt Count 336 (150-400) X10^3/uL Neut % (Auto) 77.8 H (50-75) % Lymph % (Auto) 16.7 L (25-40) % [place] % (Auto) 4.4 (3-14) % Eos % (Auto) 0.5 L (2-4) % Baso % (Auto) 0.6 (0-2) % Neut # (Auto) 70855 H (3269-2372) /uL Lymph # (Auto) 2700 (9999-7830) /uL [place] # (Auto) 700 (0-900) /uL Eos # (Auto) 100 (0-450) /uL Baso # (Auto) 100 (0-100) /uL Sodium 139 (137-145) mmol/L Potassium 3.5 (3.4-5.1) mmol/L Chloride 102 (98-107) mmol/L Carbon Dioxide 28 (22-32) mmol/L BUN 14 (7-17) mg/dL Creatinine 1.07 H (0.52-1.04) mg/dL Estimated GFR > 60 (>60) mL/min BUN/Creatinine Ratio 13.1 (6-22) Glucose 109 H (70-100) mg/dL Lactate 1.0 (0.7-2.1) mmol/L Calcium 8.3 L (8.4-10.2) mg/dL Total Bilirubin 1.0 (0.2-1.3) mg/dL AST 35 (14-36) IU/L ALT 50 H (<35) IU/L Alkaline Phosphatase 91 (38-126) U/L Total Protein 8.4 H (6.3-8.2) g/dL Albumin 4.1 (3.5-5.0) g/dL Globulin 4.3 H (1.7-4.1) g/dL Albumin/Globulin Ratio 1.0 (1.0-2.8) Lipase 36 (23-300) U/L Urine Color Urine Appearance Urine pH (4.5-8.0) Ur Specific [place] (1.000-1.035) Urine Protein (Negative) Urine Glucose (UA) (Negative) g/dL Urine Ketones (NEGATIVE) Urine Occult Blood (Negative) Urine Nitrate (Negative) Urine Bilirubin (NEGATIVE) Urine Urobilinogen (0.2) E.U./dL Ur Leukocyte Esterase (NEGATIVE) Urine RBC (0-5/HPF) Urine WBC (0-5/HPF) Ur Squamous Epith Cells (0-5/HPF) Urine Bacteria (None) Ur Culture Indicated? Urine Test (Negative) 02/12/22 02/12/22 Range/Units 14:35 14:35 WBC (4.5-11.0) X10^3/uL RBC (4.0-5.2) X10^6/uL Hgb (12.0-16.0) g/dL Hct (36-46) % MCV (80-100) fL MCH (26-34) PG MCHC (30-36) % RDW (11.6-14.8) % Plt Count (150-400) X10^3/uL Neut % (Auto) (50-75) % Lymph % (Auto) (25-40) % [place] % (Auto) (3-14) % Eos % (Auto) (2-4) % Baso % (Auto) (0-2) % Neut # (Auto) (4757-1827) /uL Lymph # (Auto) (7245-0458) /uL [place] # (Auto) (0-900) /uL Eos # (Auto) (0-450) /uL Baso # (Auto) (0-100) /uL Sodium (137-145) mmol/L Potassium (3.4-5.1) mmol/L Chloride (98-107) mmol/L Carbon Dioxide (22-32) mmol/L BUN (7-17) mg/dL Creatinine (0.52-1.04) mg/dL Estimated GFR (>60) mL/min BUN/Creatinine Ratio (6-22) Glucose (70-100) mg/dL Lactate (0.7-2.1) mmol/L Calcium (8.4-10.2) mg/dL Total Bilirubin (0.2-1.3) mg/dL AST (14-36) IU/L ALT (<35) IU/L Alkaline Phosphatase (38-126) U/L Total Protein (6.3-8.2) g/dL Albumin (3.5-5.0) g/dL Globulin (1.7-4.1) g/dL Albumin/Globulin Ratio (1.0-2.8) Lipase (23-300) U/L Urine Color Yellow Urine Appearance Clear Urine pH 5.5 (4.5-8.0) Ur Specific [place] 1.020 (1.000-1.035) Urine Protein 2+ H (Negative) Urine Glucose (UA) Negative (Negative) g/dL Urine Ketones Negative (NEGATIVE) Urine Occult Blood 3+ H (Negative) Urine Nitrate Negative (Negative) Urine Bilirubin Negative (NEGATIVE) Urine Urobilinogen 0.2 (0.2) E.U./dL Ur Leukocyte Esterase Negative (NEGATIVE) Urine RBC >100/hpf H (0-5/HPF) Urine WBC 1-5/hpf (0-5/HPF) Ur Squamous Epith Cells 1-5 /hpf (0-5/HPF) Urine Bacteria None seen (None) Ur Culture Indicated? Cult not indicated Urine Test Negative (Negative) Imaging Data CT scan - abdomen/pelvis: Radiologist's Impression: FINDINGS:? Image quality:? Excellent.? ? Lung bases:? Clear. Heart:? Normal size heart. ? ABDOMEN: Liver:? Mild hepatomegaly.? Moderate hepatic steatosis with relative sparing in the gallbladder fossa. Gallbladder:? Normal. Biliary ducts:? Nondilated. Pancreas:? Normal. Spleen:? Normal size.? Splenule in the hilum. Adrenal Glands:? No nodules. Kidneys and Ureters: Symmetric enhancement.? No nephrolithiasis or hydronephr osis.? No hydroureter. ? Stomach and Bowel:? Stomach, small bowel, and colon are normal.? There is a minimally enlarged appendix measuring up to 8 mm without appendicoliths or significant periappendiceal inflammation. Peritoneum:? No abnormal intraperitoneal fluid.? No free air.? ? Ventral Wall:? Small fat containing umbilical hernia. Abdominal Nodes:? No retroperitoneal or mesenteric adenopathy by size criteria.? Vessels:? Aorta and inferior vena cava are normal in size.? ? PELVIS: Pelvic Organs:? The uterus and ovaries are normal. Bladder:? Decompressed. Pelvic Nodes: No enlarged lymph nodes.? Miscellaneous: No hernias are seen. ? ? ? Bones:? Degenerative spurring posteriorly at L2-3 causing severe central canal stenosis.? Degenerative disc and endplate change throughout the lower lumbar spine with disc height loss L5-S1. ? ? IMPRESSION:? ? 1. Minimally enlarged, but otherwise normal appendix.? Clinical correlation recommended. ? 2. Hepatomegaly and moderate hepatic steatosis. ? 3. Degenerative endplate spurs in the lumbar spine causing a severe spinal stenosis at L2-3.? ? ? Dictated by: Lorna Robert M.D. on 02/12/2022 at 14:59 ? ? MDM Narrative Medical decision making narrative: 36-year-old woman with almost 24 hours of significant abdominal pain that she initially assumed was a ovarian cyst that has ruptured but has continued to worsen. She has a leukocytosis and CT scan of the abdomen is entirely benign. In looking hard for an infectious etiology she does not have meningitis, pneumonia, pneumothorax, pancreatitis, cholecystitis, appendicitis although there is a comment that her gallbladder is noninflamed and slightly enlarged without evidence of acute appendicitis. There is no diverticulitis, no significant free fluid pelvis no evidence of bowel obstruction or severe constipation. At this point I do not have explanation for the pain that she is experiencing however I think that it is safe for her to go home knowing that there is no acute surgical emergency or severe infection/sepsis, I do not suspect mesenteric ischemia. I did review all of these findings with her. She was aware of the L2-3 stenosis that was incidentally noted on the CT scan. She is given a small course of hydrocodone to use for severe pain control with instructions to follow-up with her primary care doctor and have a very low threshold for returning to the emergency department should symptoms worsen. Questions are answered and she is safe for home discharge Discharge Plan Departure Patient Disposition: Home Clinical Impression: Abdominal pain Qualifiers: Abdominal location: generalized Qualified Code(s): R10.84 - Generalized abdominal pain Spinal stenosis Qualifiers: Spinal region: lumbar Neurogenic claudication status: without neurogenic claudication Qualified Code(s): M48.061 - Spinal stenosis, lumbar region without neurogenic claudication Instructions: DI for Abdominal Pain-Adult Activity Restrictions/Additional Instructions: Thank you for coming in today Your workup today was actually quite reassuring. I did not find any life- threatening abnormalities or infections. You are not constipated and there are no surgical abnormalities appreciated on the CT scan. Your white blood cell count was slightly elevated and your exam does seem like much more pain than I would typically expect with an ovarian cyst rupture. At this point with no obvious findings and the reassuring CT scan I do believe it is safer to go home. It is okay to use pain medication to cover up the pain for the next 24-36 hours. Using 400 mg of ibuprofen (2 [id number] pills) and 1 Tylenol every 6 hours can be very helpful in controlling pain. The severe pain using 400 mg of ibuprofen and 1 hydrocodone can be helpful. If you do choose to use the hydrocodone please make sure that your drinking extra water and adding fiber as narcotics can cause constipation Please have a very low threshold for returning to the emergency department if your symptoms are not improving or you develop new findings. Prescriptions: New hydrocodone-acetaminophen 5-325 mg tablet 1 tab PO Q8H PRN (Reason: pain) Qty: 14 0RF No Action metoprolol succinate 100 mg tablet extended release 24 hr 100 mg PO DAILY Qty: 90 3RF hydroxyzine HCl 25 mg tablet 25 mg PO QID PRN (Reason: anxiety) Qty: 30 2RF losartan-hydrochlorothiazide 100-25 mg tablet 1 tab PO DAILY Qty: 90 1RF amlodipine 10 mg tablet 10 mg PO QAM meloxicam 7.5 mg tablet 7.5 mg PO BID PRN (Reason: pain) Qty: 10 0RF Referrals: Ronnie Hull ARNP [Primary Care Provider] -
--- NOTE | 2022-02-12 14:31 | DI.CT.S_ITS ---
PROCEDURE: CT ABDOMEN PELVIS W CON INDICATIONS: increasing diffuse abdominal pain since 6pm TECHNIQUE: After the administration of intravenous contrast, axial sections acquired from the lung bases to the pubic symphysis. Coronal and sagittal reformats were performed. For radiation dose reduction, the following was used: automated exposure control, adjustment of mA and/or kV according to patient size. COMPARISON: [facility], CT, CT ABDOMEN PELVIS W CON, 12/19/2021, 8:09. FINDINGS: Image quality: Excellent. Lung bases: Clear. Heart: Normal size heart. ABDOMEN: Liver: Mild hepatomegaly. Moderate hepatic steatosis with relative sparing in the gallbladder fossa. Gallbladder: Normal. Biliary ducts: Nondilated. Pancreas: Normal. Spleen: Normal size. Splenule in the hilum. Adrenal Glands: No nodules. Kidneys and Ureters: Symmetric enhancement. No nephrolithiasis or hydronephrosis. No hydroureter. Stomach and Bowel: Stomach, small bowel, and colon are normal. There is a minimally enlarged appendix measuring up to 8 mm without appendicoliths or significant periappendiceal inflammation. Peritoneum: No abnormal intraperitoneal fluid. No free air. Ventral Wall: Small fat containing umbilical hernia. Abdominal Nodes: No retroperitoneal or mesenteric adenopathy by size criteria. Vessels: Aorta and inferior vena cava are normal in size. PELVIS: Pelvic Organs: The uterus and ovaries are normal. Bladder: Decompressed. Pelvic Nodes: No enlarged lymph nodes. Miscellaneous: No hernias are seen. Bones: Degenerative spurring posteriorly at L2-3 causing severe central canal stenosis. Degenerative disc and endplate change throughout the lower lumbar spine with disc height loss L5-S1. IMPRESSION: 1. Minimally enlarged, but otherwise normal appendix. Clinical correlation recommended. 2. Hepatomegaly and moderate hepatic steatosis. 3. Degenerative endplate spurs in the lumbar spine causing a severe spinal stenosis at L2-3. Dictated by: Lorna Robert M.D. on 02/12/2022 at 14:59 Approved by: Lorna Robert M.D. on 02/12/2022 at 15:05
[2022-02-12] MEDS: SODIUM CHLORIDE 0.9% 1,000 ML 1000 ML IV (14:52)
[2022-02-12] MEDS: ONDANSETRON 4 MG/2 ML INJ IV (14:52)
[2022-02-12] MEDS: HYDROMORPHONE 0.5 MG INJ IV (14:52)
[2022-02-12 15:08] LABS: Pregnancy Test Urine Negative (Negative)
[2022-02-12 15:12] LABS: Appearance Urine UA CLEAR; Bilirubin Urine UA NEGATIVE (NEGATIVE); Color Urine UA YELLOW; Glucose Urine UA NEGATIVE (Negative); Ketones Urine UA NEGATIVE (NEGATIVE); Leukocyte Esterase Urine UA NEGATIVE (NEGATIVE); Nitrite Urine UA NEGATIVE (Negative); Occult Blood Urine UA 3+ (Negative); Protein Urine UA 2+ (Negative); Urobilinogen Urine UA 0.2 E.U./dL (0.2)
[2022-02-12 15:20] LABS: pH Urine UA 5.5 (4.5-8.0)
[2022-02-12 15:40] LABS: Bacteria Urine None Seen; Culture Indicated Urine Cult Not Indicated; RBC Urine >100/HPF (0-5/HPF); Squamous Epithelial Cell Urine 1-5 /HPF (0-5/HPF); WBC Urine 1-5/HPF (0-5/HPF)
== END 2022-02-12 16:26 | disposition home or self-care (01) ==
PROVIDERS: Student in an Organized Health Care Education/Training Program; Emergency Provider Emergency Medicine; PCP Registered Nurse Diabetes Educator
DX: R10.84 Generalized abdominal pain (principal); M48.061 Spinal stenosis, lumbar region without neurogenic claudication
CPT/HCPCS: 74177; 80053; 81001; 81025; 83605; 83690; 85025; 96361; 96374; 96375; 99284; J1170; J2405; Q9967

== ENCOUNTER → 2022-02-16 09:02 | Outpatient (CLI) | payer OTHER, MEDICAID, SELFPAY ==
[2021-09-02 17:15] VITALS: BMI 55.4
[2022-02-16 10:28] LABS: Add Manual Diff / Slide Review NO; Basophils Absolute Auto 100 /uL (0-100); Basophils Percent Auto 0.5 % (0-2); Eosinophils Absolute Auto 400 /uL (0-450); Eosinophils Percent Auto 3.4 % (2-4); Hematocrit 39.2 % (36-46); Hemoglobin 12.9 g/dL (12.0-16.0); Lymphocytes Absolute Auto 2600 /uL (1100-4500); Lymphocytes Percent Auto 20.2 % (25-40); Mean Corpuscular HGB Conc 32.8 % (30-36); Mean Corpuscular Hemoglobin 24.2 PG (26-34); Mean Corpuscular Volume 73.8 fL (80-100); Monocytes Absolute Auto 600 /uL (0-900); Monocytes Percent Auto 4.5 % (3-14); Neutrophils Absolute Auto 9100 /uL (1500-7000); Neutrophils Percent Auto 71.4 % (50-75); Platelet Count 402 X10^3/uL (150-400); Red Blood Cell Count 5.32 X10^6/uL (4.0-5.2); Red Cell Distribution Width 17.7 % (11.6-14.8); White Blood Cell Count 12.8 X10^3/uL (4.5-11.0)
[2022-02-16 15:42] LABS: Appearance Urine UA CLOUDY; Bilirubin Urine UA 1+ (NEGATIVE); Color Urine UA BROWN; Glucose Urine UA NEGATIVE (Negative); Ketones Urine UA NEGATIVE (NEGATIVE); Leukocyte Esterase Urine UA TRACE (NEGATIVE); Nitrite Urine UA POSITIVE (Negative); Occult Blood Urine UA 3+ (Negative); Protein Urine UA 2+ (Negative); Urobilinogen Urine UA 0.2 E.U./dL (0.2)
[2022-02-16 15:56] LABS: pH Urine UA 6.5 (4.5-8.0)
[2022-02-16 15:57] LABS: Bacteria Urine None Seen; Culture Indicated Urine Specimen Cultured; Ictotest Urine Negative (Negative); RBC Urine >100/HPF (0-5/HPF); Squamous Epithelial Cell Urine 1-5 /HPF (0-5/HPF); WBC Urine 1-5/HPF (0-5/HPF)
== END ==
PROVIDERS: PCP Registered Nurse Diabetes Educator; Referring Provider Family Medicine; Visit Provider Family Medicine
DX: D72.829 Elevated white blood cell count, unspecified (principal); R10.84 Generalized abdominal pain; R82.90 Unspecified abnormal findings in urine
CPT/HCPCS: 36415; 81001; 85025; 87086

== ENCOUNTER → 2022-03-07 08:46 | Outpatient (CLI) | payer OTHER, MEDICAID, SELFPAY ==
[2021-09-02 17:15] VITALS: BMI 55.4
[2022-03-07 09:42] LABS: Add Manual Diff / Slide Review NO; Basophils Absolute Auto 0 /uL (0-100); Basophils Percent Auto 0.4 % (0-2); Eosinophils Absolute Auto 400 /uL (0-450); Eosinophils Percent Auto 3.7 % (2-4); Hematocrit 36.4 % (36-46); Hemoglobin 12.3 g/dL (12.0-16.0); Lymphocytes Absolute Auto 2500 /uL (1100-4500); Lymphocytes Percent Auto 24.9 % (25-40); Mean Corpuscular HGB Conc 33.7 % (30-36); Mean Corpuscular Hemoglobin 24.7 PG (26-34); Mean Corpuscular Volume 73.4 fL (80-100); Monocytes Absolute Auto 400 /uL (0-900); Monocytes Percent Auto 4.3 % (3-14); Neutrophils Absolute Auto 6600 /uL (1500-7000); Neutrophils Percent Auto 66.7 % (50-75); Platelet Count 329 X10^3/uL (150-400); Red Blood Cell Count 4.97 X10^6/uL (4.0-5.2); Red Cell Distribution Width 17.8 % (11.6-14.8); White Blood Cell Count 9.9 X10^3/uL (4.5-11.0)
[2022-03-07 09:47] LABS: Hemoglobin A1C% w Est Avg Glu 5.4 % (4.0-6.0)
[2022-03-07 10:31] LABS: Appearance Urine UA CLEAR; Bilirubin Urine UA NEGATIVE (NEGATIVE); Color Urine UA YELLOW; Glucose Urine UA NEGATIVE (Negative); Ketones Urine UA NEGATIVE (NEGATIVE); Leukocyte Esterase Urine UA TRACE (NEGATIVE); Nitrite Urine UA NEGATIVE (Negative); Occult Blood Urine UA TRACE-LYSED (Negative); Protein Urine UA NEGATIVE (Negative); Urobilinogen Urine UA 0.2 E.U./dL (0.2)
[2022-03-07 10:39] LABS: pH Urine UA 6.5 (4.5-8.0)
[2022-03-07 10:45] LABS: Bacteria Urine Few (2-10); Culture Indicated Urine Specimen Cultured; RBC Urine 0-1/HPF (0-5/HPF); Squamous Epithelial Cell Urine 1-5 /HPF (0-5/HPF); WBC Urine 0-1/HPF (0-5/HPF)
[2022-03-07 10:47] LABS: Alanine Aminotransferase 58 IU/L (<35); Albumin 3.8 g/dL (3.5-5.0); Albumin Globulin Ratio 1.1 (1.0-2.8); Alkaline Phosphatase 106 U/L (38-126); Aspartate Aminotransferase 44 IU/L (14-36); BUN Creatinine Ratio 13.5 (6-22); Bilirubin Total 0.4 mg/dL (0.2-1.3); Blood Urea Nitrogen 13 mg/dL (7-17); Calcium 8.3 mg/dL (8.4-10.2); Carbon Dioxide 26 mmol/L (22-32); Chloride 104 mmol/L (98-107); Cholesterol 169 mg/dL (140-199); Estimated Glomerular Filt Rate > 60 mL/min (>60); Globulin 3.6 g/dL (1.7-4.1); Glucose 111 mg/dL (70-100); HDL Cholesterol 39 mg/dL (40-60); HEMOLYSIS < 15 (0-50); LDL Cholesterol Calculated 102 mg/dL (<100); Potassium 4.2 mmol/L (3.4-5.1); Sodium 138 mmol/L (137-145); Total Protein 7.4 g/dL (6.3-8.2); Triglycerides 142 mg/dL (35-150)
[2022-03-07 10:54] LABS: Creatinine Urine Random 75.1 mg/dL
[2022-03-07 10:58] LABS: Microalbumi Creatinin Ratio Ur 53.2 ug/mg CR (<30)
[2022-03-07 11:15] LABS: TSH w/ Reflex to FT4 2.24 uIU/mL (0.47-4.68)
== END ==
PROVIDERS: PCP Registered Nurse Diabetes Educator; Referring Provider Registered Nurse Diabetes Educator; Visit Provider Registered Nurse Diabetes Educator
DX: E88.81 Metabolic syndrome and other insulin resistance (principal); I10 Essential (primary) hypertension
CPT/HCPCS: 36415; 80053; 80061; 81001; 82043; 82570; 83036; 84443; 85025; 87086

== ENCOUNTER → 2022-03-23 06:55 | Outpatient (CLI) | payer OTHER, MEDICAID, SELFPAY ==
[2021-09-02 17:15] VITALS: BMI 55.4
--- NOTE | 2022-03-23 | DI.US.S_ITS ---
PROCEDURE: US PELVIC COMPLETE INDICATIONS: Abnormal uterine and vaginal bleeding, unspecified TECHNIQUE: Real-time scanning was performed of the pelvic organs, with image documentation. Additional endovaginal scanning was necessary due to incomplete visualization of the adnexal and endometrial structures by transabdominal scanning. COMPARISON: [facility], US, US PELVIC COMPLETE, 05/07/2019, 13:19. FINDINGS: Uterus: Uterus is anteverted and measures 9.6 x 5.1 x 4.4 cm. The myometrium is heterogeneous, no discrete uterine fibroids. The endometrium measures 5.4 mm combined thickness. No endometrial mass or fluid. Nabothian cysts are seen in cervical canal. Trace amount of anechoic fluid is also noted within cervical canal. Ovaries: Bilateral ovaries are not visualized. No gross adnexal mass is seen. Other: Small amount of fluid is seen in posterior cul-de-sac. IMPRESSION: 1. Enlarged uterus with thickened endometrium for patient's age. No gross endometrial mass or fluid is seen. Gas Line [employer]r correlation is no recommended. 2. Small nabothian cysts and trace amount of simple fluid is seen in endocervical canal. 3. Bilateral ovaries are not visualized. No gross adnexal mass is seen. 4. Small amount of pelvic free fluid. We strive to produce accurate, complete, and clear reports of imaging services. To assist us in improving patient care, this report was composed using standard report templates and voice recognition software. Therefore, it may contain abnormal punctuation, insertions and/or omissions. Occasional wrong-word or sound-alike substitutions may occur. Though we review the report and make efforts to correct it, we do recommend that the report be read carefully in proper context to recognize any text inaccuracies. Dictated by: Luis Bradford M.D. on 03/23/2022 at 10:34 Approved by: Luis Bradford M.D. on 03/23/2022 at 10:36
== END ==
PROVIDERS: PCP Registered Nurse Diabetes Educator; Referring Provider Student in an Organized Health Care Education/Training Program; Visit Provider Student in an Organized Health Care Education/Training Program
DX: N93.9 Abnormal uterine and vaginal bleeding, unspecified (principal); N85.2 Hypertrophy of uterus; R93.89 Abnormal findings on diagnostic imaging of other specified body structures; N88.8 Other specified noninflammatory disorders of cervix uteri
CPT/HCPCS: 76830; 76856

== ENCOUNTER 2022-08-24 06:28 | Day surgery (SDC) | payer OTHER, MEDICAID, SELFPAY ==
[2021-09-02 17:15] VITALS: BMI 55.4
[2022-08-24 07:26] VITALS: BMI 54.9
[2022-08-24 07:43] VITALS: BP 174/96; PULSE 82; RESP 22; TEMP 36.7; O2SAT 97
[2022-08-24] MEDS: CEFAZOLIN VIAL 3 GM in SODIUM CHLORIDE 0.9% 100 ML IV (07:46)
--- NOTE | 2022-08-24 07:52 | PM.PREOP ---
Pre-operative Note COVID-19 COVID-19 status: Negative Interval Note History & Physical reviewed/Exam performed by Physician: Yes Changes to H&P: No H&P completed within 30 days and has changed as indicated here:: Rate and rhythm, lungs clear to auscultation
--- NOTE | 2022-08-24 08:07 | SUR.OPER ---
Supine on padded OR bed, foam ramp under chest to raise head on pillow,left arm secured on padded arm boardat <90 degrees abduction,right arm draped free on black arm table legs uncrossed, safety belt at thigh, tape over blanket over lower legs.
[2022-08-24] MEDS: BUPIVACAINE 0.25% (PF) 30 ML, EPINEPHrine 0.15 MG INJ (08:14)
--- NOTE | 2022-08-24 08:31 | PM.OP.1 ---
Operative Date/Time/Diagnoses Date of procedure: 08/24/22 Time of procedure: 08:00 Pre-op diagnosis: Ganglion cyst right M67.431 Body mass index 54.4 Post-op diagnosis: same Procedure & Clinicians Procedure: Excision ganglion right wrist CPT code 32844 Same procedure as scheduled: Yes Indications: The patient is a 36-year-old female that is right-hand dominant. She presents with a dorsal radial wrist cyst started in January and is fluctuated size but now getting larger and endorses aching pain sometimes warmth and numbness in the area. Uses Tylenol for pain relief. Counseled on aspiration versus excision. Requests excision for reduce recurrence risk. The risks and benefits of the procedure have been discussed with the patient and given the opportunity to ask questions. The risks of surgery include but are not limited to infection, reoccurrence persistence of pain, damage to nerves and blood vessels, posttraumatic arthritis, DVT, PE, coardiopulmonary complications and . The patient expressed a thorough understanding of the risks and benefits of surgery and has elected to proceed. Consent was signed. Surgeon: Imelda Yeboah Click Yes if Unassisted: Yes Anesthesia Type: MAC +/- and Local Operative Notes Findings: Right dorsal radial ganglion cyst over the radial carpus. Cyst ruptured on incision. Capsule was debrided using the rongeur. This was traced down to the stalk. Appearance of normal tissues. Consistent with ganglion cyst. Closure Type: primary Specimen(s): none sent Estimated Blood Loss (mL): 2 Blood products transfused: none Tourniquet time (min): 9 Procedure in detail: Patient was seen in the preoperative area the site of surgery marked informed consent confirmed. She was brought back to the operating room by the anesthesia team positioned supine on operative table. All bony prominences well padded. A arm table was placed on the right side. A forearm tourniquet was placed. Mac anesthesia was administered. The right hand was prepped and draped in standard sterile fashion The formal time-out procedure was performed confirming the patient's side and site of surgery administration of preoperative antibiotic weight based dosage. Attention was turned to the right wrist Esmarch was used for exsanguination informed tourniquet elevated to 250 mmHg next 10 cc of 0.25% Marcaine with epinephrine were injected for local anesthetic. A 3 cm longitudinal incision was taken directly over the palpable dorsal radial wrist mass. Incision was then made through the skin. Capsule was then. The cyst did rupture on incision through the deep tissues. The area was opened and dissected with the blunt dissection. Then cyst capsule was debrided using the rongeur. This was a standard ganglion cyst appearance. This was traced down to the stalk. Once appropriate debridement and decompression was completed the wound was irrigated. Bipolar cautery was used for hemostasis tourniquet was released hemostasis achieved and the wound was irrigated and closed with 4-0 Monocryl suture and Dermabond in the skin. A dressing was placed. Drapes removed patient was woken from anesthesia taken to recovery room in good condition there were no immediate complications for this procedure. All counts were correct. Complications: none Post-operative Condition: stable Disposition: PACU Plan for aftercare: Weightbear as tolerated activity as tolerated. May shower but no soaking of incision. Patient has dissolvable sutures and skin glue. Discussed do not pick with skin glue. Follow up in 2 weeks for wound check. May take Tylenol and ibuprofen as needed
[2022-08-24 08:33] VITALS: BP 162/92; PULSE 76; RESP 22; TEMP 36.3; O2SAT 97
[2022-08-24 08:38] VITALS: BP 159/96; PULSE 78; RESP 12; O2SAT 95
[2022-08-24 08:43] VITALS: BP 151/90; PULSE 73; RESP 14; O2SAT 96
[2022-08-24 08:48] VITALS: BP 156/86; PULSE 73; RESP 16; TEMP 37; O2SAT 97
[2022-08-24 09:01] VITALS: BP 165/91; PULSE 75; RESP 17; TEMP 36.9; O2SAT 96
== END 2022-08-24 09:15 | disposition home or self-care (01) ==
PROVIDERS: PCP Registered Nurse Diabetes Educator; Referring Provider Orthopaedic Surgery Foot and Ankle Surgery; Visit Provider Orthopaedic Surgery Foot and Ankle Surgery
PROC: (CPT 25111; principal; 2022-08-24 07:45)
DX: M67.431 Ganglion, right wrist (principal); E66.9 Obesity, unspecified; Z68.43 Body mass index [BMI] 50.0-59.9, adult
CPT/HCPCS: 25111; J0171; J0690; J1885; J2250; J2405; J2704; J3010

== ENCOUNTER 2022-10-04 12:26 | Emergency (ER) | payer OTHER, MEDICAID, SELFPAY ==
[2021-09-02 17:15] VITALS: BMI 55.4
[2022-10-04 12:29] VITALS: BP 162/96; PULSE 78; RESP 16; TEMP 37; O2SAT 99
[2022-10-04 12:45] VITALS: BP 142/91; PULSE 79; RESP 17; O2SAT 99
[2022-10-04] MEDS: DEXAMETHASONE 10 MG/ML VIAL IV (13:17)
[2022-10-04] MEDS: ONDANSETRON 4 MG/2 ML INJ IV (13:17)
[2022-10-04] MEDS: SODIUM CHLORIDE 0.9% 1,000 ML 1000 ML IV (13:17)
[2022-10-04] MEDS: KETOROLAC 30 MG/ML VIAL IV (13:18)
[2022-10-04 13:19] VITALS: BMI 54.9
[2022-10-04 13:19] LABS: Culture Indicated Urine Cult Not Indicated; RBC Urine None Seen (0-5/HPF); Renal Epithelial Cells Urine 0-1/HPF (0-1/HPF); Squamous Epithelial Cell Urine 5-10 /HPF (0-5/HPF); WBC Urine 0-1/HPF (0-5/HPF)
[2022-10-04 13:23] LABS: Bacteria Urine Few (2-10)
--- NOTE | 2022-10-04 13:54 | ED_ITS ---
HPI - Headache <LOWELL Garcia - Last Filed: 10/04/22 16:13> General Chief Complaint: Headache Stated Complaint: Migraine Time Seen by Provider: 10/04/22 12:48 Mode of arrival: Ambulatory History of Present Illness HPI Narrative: This is a 37-year-old female who presents to the emergency department complaining of headache that started yesterday, she states that she had mild fever and chills last night, states that she does not feel well and has a severe headache. Took some Tylenol this morning it did not help, came in for evaluation. She states that she has a migraine history. Denies any vomiting but feels nauseated. States that she had vaginal discharge, she had a total hysterectomy in June 2022. States that she does not normal sensation down there and has not had dysuria or urinary frequency as far she knows. Patient also has a history of metabolic syndrome, elevated blood sugar, PCOS, depression, and she denies any upper respiratory symptoms. Related Data Home Medications Medication Instructions Recorded Confirmed nifedipine 90 mg tablet,extended 90 mg PO DAILY 05/16/22 10/04/22 release metoprolol succinate 100 mg 100 mg PO DAILY 10/04/22 10/04/22 tablet,extended release 24 hr Previous Rx's Medication Instructions Recorded losartan 100 1 tab PO DAILY #90 tabs 03/09/22 mg-hydrochlorothiazide 25 mg tablet cephalexin 500 mg capsule 500 mg PO Q6H urinary 5 days #20 10/04/22 caps ondansetron 4 mg disintegrating 4 mg PO Q8H PRN nausea and 10/04/22 tablet vomiting #10 tabs Allergies Allergy/AdvReac Type Severity Reaction Status Date / Time EDD Inhibitors AdvReac Mild PERSISTANT Verified 10/04/22 13:21 [EDD INHIBITORS] COUGH oxycodone [OXYCODONE] AdvReac Mild NAUSEA, Verified 10/04/22 13:21 DIZZYNESS Review of Systems <LOWELL Garcia - Last Filed: 10/04/22 16:13> Review of Systems ROS Unobtainable: All systems reviewed & are unremarkable except as noted in HPI and below Patient History <LOWELL Garcia - Last Filed: 10/04/22 16:13> Medical History Anxiety Bilateral carpal tunnel syndrome Body mass index (BMI) greater than 50 Depression Dysfunctional uterine bleeding Dyslipidemia Essential hypertension (02/23/14) Facial skin lesion Heavy menstrual period Hyperglycemia Impaired fasting blood sugar Irregular menstrual cycle Leukocytosis Metabolic syndrome Morbid obesity (04/20/14) Painful menstrual periods Psoriasis Resistant hypertension Sleep apnea Spinal stenosis Vitiligo Surgical History Anesthesia History of tonsillectomy (~2007) Status post delivery (04/03/11) Status post delivery (01/01/14) Status post laminectomy (~07/22/16) Family History Father Hyperlipidemia Hypoglycemia Mother Diabetes mellitus Sister Spina bifida Grandfather Cancer History of heart disease Grandmother Diabetes mellitus Grandfather Cancer Grandmother Diabetes mellitus History of heart disease Hyperlipidemia Hypertension Mental health problem Stroke Social History household members: spouse and children Smoking Status: Former smoker alcohol intake: never substance use type: marijuana Smoking Status: Former smoker tobacco type: cigarettes alcohol intake frequency: holidays/special occasions only Substance Use Type: marijuana Exam <LOWELL Garcia - Last Filed: 10/04/22 16:13> Narrative Exam Narrative: Reviewed vitals signs and nursing notes. General: Pleasant, sitting upright, in no acute distress, well groomed, afebrile HEENT: symmetrical facial expressions, moist mucous membranes, neck is supple, no paraspinal muscle tenderness to palpation, no cervical spine tenderness, EOMI, PERRLA CV: regular rate and rhythm, warm extremities Respiratory: normal work of breathing, without tachypnea or hypoxia. GI: abdomen soft, nondistended, without CVA tenderness bilaterally. MSK: moves all extremities, no weakness, normal tone, ambulatory without deficit Skin: brisk capillary refill, without rash or wound Neuro: clear speech and normal cognition, A&O x3, GCS 15, no focal motor or sensation deficits Initial Vital Signs Initial Vital Signs: Vital Signs Temperature 98.6 F 10/04/22 12:29 Pulse Rate 78 10/04/22 12:29 Respiratory Rate 16 10/04/22 12:29 Blood Pressure 162/96 H 10/04/22 12:29 Pulse Oximetry 99 10/04/22 12:29 Oxygen Delivery Method Room Air 10/04/22 12:29 <Casey Macias DO - Last Filed: 10/05/22 10:15> Initial Vital Signs Initial Vital Signs: Vital Signs Temperature 98.6 F 10/04/22 12:29 Pulse Rate 78 10/04/22 12:29 Respiratory Rate 16 10/04/22 12:29 Blood Pressure 162/96 H 10/04/22 12:29 Pulse Oximetry 99 10/04/22 12:29 Oxygen Delivery Method Room Air 10/04/22 12:29 Course <LOWELL Garcia - Last Filed: 10/04/22 16:13> Orders Ordered: Discontinued Medications Acetaminophen (Acetaminophen 325 Mg Tablet) 975 mg PO NOW ONE Stop: 10/04/22 12:49 Last Admin: 10/04/22 13:13 Dose: Not Given Documented By: NAGI Cephalexin HCl (Cephalexin 250 Mg Capsule) 500 mg PO NOW ONE Stop: 10/04/22 14:43 Last Admin: 10/04/22 14:48 Dose: 500 mg Documented By: NAGI Dexamethasone (Dexamethasone 10 Mg/Ml Vial) 10 mg IV NOW ONE Stop: 10/04/22 12:49 Last Admin: 10/04/22 13:17 Dose: 10 mg Documented By: NAGI Sodium Chloride (Normal Saline 0.9%) 1,000 mls @ 1,000 mls/hr IV BOLUS ONE Stop: 10/04/22 13:51 Last Infusion: 10/04/22 13:57 Dose: 0 mls/hr Documented By: Admin: 10/04/22 13:17 Dose: 1,000 mls/hr Documented By: NAGI Ketorolac Tromethamine (Ketorolac 30 Mg/Ml Vial) 30 mg IV NOW ONE Stop: 10/04/22 12:49 Last Admin: 10/04/22 13:18 Dose: 30 mg Documented By: NAGI Ondansetron HCl (Ondansetron 4 Mg/2 Ml Inj) 4 mg IV NOW ONE Stop: 10/04/22 12:49 Last Admin: 10/04/22 13:17 Dose: 4 mg Documented By: NAGI Vital Signs Vital signs: Vital Signs - 8 hr 10/04/22 12:29 10/04/22 12:45 10/04/22 14:57 Temperature 98.6 F Pulse Rate 78 79 79 Respiratory Rate 16 17 16 Blood Pressure 162/96 H 142/91 H 178/98 H Pulse Oximetry 99 99 98 Oxygen Delivery Method Room Air Room Air Room Air <Casey Macias, DO - Last Filed: 10/05/22 10:15> Orders Ordered: Discontinued Medications Acetaminophen (Acetaminophen 325 Mg Tablet) 975 mg PO NOW ONE Stop: 10/04/22 12:49 Last Admin: 10/04/22 13:13 Dose: Not Given Documented By: NAGI Cephalexin HCl (Cephalexin 250 Mg Capsule) 500 mg PO NOW ONE Stop: 10/04/22 14:43 Last Admin: 10/04/22 14:48 Dose: 500 mg Documented By: NAGI Dexamethasone (Dexamethasone 10 Mg/Ml Vial) 10 mg IV NOW ONE Stop: 10/04/22 12:49 Last Admin: 10/04/22 13:17 Dose: 10 mg Documented By: NAGI Sodium Chloride (Normal Saline 0.9%) 1,000 mls @ 1,000 mls/hr IV BOLUS ONE Stop: 10/04/22 13:51 Last Infusion: 10/04/22 13:57 Dose: 0 mls/hr Documented By: Admin: 10/04/22 13:17 Dose: 1,000 mls/hr Documented By: NAGI Ketorolac Tromethamine (Ketorolac 30 Mg/Ml Vial) 30 mg IV NOW ONE Stop: 10/04/22 12:49 Last Admin: 10/04/22 13:18 Dose: 30 mg Documented By: NAGI Ondansetron HCl (Ondansetron 4 Mg/2 Ml Inj) 4 mg IV NOW ONE Stop: 10/04/22 12:49 Last Admin: 10/04/22 13:17 Dose: 4 mg Documented By: NAGI Vital Signs Vital signs: Vital Signs - 8 hr 10/04/22 12:29 10/04/22 12:45 10/04/22 14:57 Temperature 98.6 F Pulse Rate 78 79 79 Respiratory Rate 16 17 16 Blood Pressure 162/96 H 142/91 H 178/98 H Pulse Oximetry 99 99 98 Oxygen Delivery Method Room Air Room Air Room Air MDM - Headache <Susan Edmonds, [facility] - Last Filed: 10/04/22 16:13> Lab Data Labs: Lab Results 10/04/22 Range/Units 12:53 Urine RBC None seen (0-5/HPF) Urine WBC 0-1/hpf (0-5/HPF) Ur Squamous Epith Cells 5-10 /hpf H (0-5/HPF) Ur Renal Epithelial Cell 0-1/hpf (0-1/HPF) Urine Bacteria Few (2-10) H (None) Ur Culture Indicated? Cult not indicated Urine Dip Bedside Urine Glucose Negative Bedside Urine Bilirubin - Negative Bedside Urine Ketone - Negative Urine Specific Chester 1.020 Bedside Urine Occult Blood - Negative Bedside Urine pH 6.0 Bedside Urine Protein - Negative Bedside Urine Urobilinogen - Negative Bedside Urine Nitrite - Negative Bedside Urine Leukocytes - Negative Esterase MDM Narrative Medical decision making narrative: Chief Complaint: Headache/migraine Independent historian: Patient I have independently reviewed the patient's vital signs and nursing notes as well as prior records if available. Headache considerations include subarachnoid hemorrhage, but unlikely as patient denies sudden onset of pain, not worst of life, or neck pain. Meningitis considered, but thought unlikely given lack of neck pain, and without altered mental status or fever. Giant cell arteritis considered, but thought unlikely given lack of unilateral findings, pain in sabianism, or unilateral vision changes. Other diagnosis considered include infectious causes, spontaneous hemorrhage, vascular occlusion, vasculitis, or venous thrombosis. They are without any focal deficits to suggest this. Other serious diagnoses considered unlikely given lack of red flag findings such as sudden onset, increasing frequency, facial weakness, or other sensation change or weakness. They are not immunocompromised, or with active malignancy, anticoagulation, systemic signs of illness (fever, chills, stiff neck, or rash), focal neurologic findings, or recent trauma. This is most likely a migraine, could be opthalmic, tension, hormonal, dehydration, viral illness, or muscle strain. Patient's UA was found to have moderate bacteria, this is most likely triggered by urinary tract infection. She was treated for complicated UTI with cephalexin q.i.d. x7 days. Her symptoms today were treated with dexamethasone, Zofran, Tylenol Toradol, normal saline and she states that she felt much better afterwards. She did not have flank pain to palpation. There was no aura, and patient improved over their course in the ER. They were given strict return precautions for any altered mental status, fever, weakness, paresthesia, incontinence, or pain out of proportion to return to the emergency department for another evaluation. She was ambulatory for discharge given a work note for the next few days off of work. Social considerations that may affect disposition: none Questions are addressed and there is agreement with the plan and for follow-up. I consulted with the ED attending physician Dr. Macias as needed for higher level of care considerations and they were available for discussion and recommendations regarding plan of care and diagnostic testing. Patient is appropriate for outpatient management. <Casey Macias, DO - Last Filed: 10/05/22 10:15> Lab Data Labs: Lab Results 10/04/22 Range/Units 12:53 Urine RBC None seen (0-5/HPF) Urine WBC 0-1/hpf (0-5/HPF) Ur Squamous Epith Cells 5-10 /hpf H (0-5/HPF) Ur Renal Epithelial Cell 0-1/hpf (0-1/HPF) Urine Bacteria Few (2-10) H (None) Ur Culture Indicated? Cult not indicated Urine Dip Bedside Urine Glucose Negative Bedside Urine Bilirubin - Negative Bedside Urine Ketone - Negative Urine Specific Chester 1.020 Bedside Urine Occult Blood - Negative Bedside Urine pH 6.0 Bedside Urine Protein - Negative Bedside Urine Urobilinogen - Negative Bedside Urine Nitrite - Negative Bedside Urine Leukocytes - Negative Esterase Discharge Plan Departure Patient Disposition: Home Clinical Impression: UTI (urinary tract infection) Qualifiers: Urinary tract infection type: acute cystitis Hematuria presence: without meli turia Qualified Code(s): N30.00 - Acute cystitis without hematuria Migraine Qualifiers: Migraine type: unspecified Status migrainosus presence: without status migrainosus Intractability: intractable Qualified Code(s): G43.919 - Migraine, unspecified, intractable, without status migrainosus Instructions: DI for Migraine, DI for Urinary Tract Infection (UTI) Activity Restrictions/Additional Instructions: *You have been diagnosed with a urinary tract infection, it is mild however I think it is causing your symptoms like your migraine today. Please stay hydrated as best as you are able chas Comer. Follow-up with your primary care provider in a week or more for recheck, please come back to the emergency department if your headache gets worse or if you feel worse. Thank you for trusting us with your care, take care. *What to do: *Please continue to take your regular medications as directed. [x ] New medication prescriptions sent to your pharmacy: [facility] ] [ ] New medication written as a paper prescription [ ] No new medications given *Please call and schedule follow up with your primary care provider in 2-3 days, at least for an update. Let them know you were seen in the Emergency Department for the above problem. We will electronically transmit a record of today's note if your PCP or specialist is in our system. *If you do not have a primary care provider please contact [phone] to establish care with one of the [facility] primary care providers. *Return to the Emergency Department for worsening symptoms, inability to keep liquids down, fever greater than 101F, chills, or other concerning symptom. Prescriptions: New ondansetron 4 mg tablet,disintegrating 4 mg PO Q8H PRN (Reason: nausea and vomiting) Qty: 10 0RF cephalexin 500 mg capsule 500 mg PO Q6H 5 Days Qty: 20 0RF No Action losartan-hydrochlorothiazide 100-25 mg tablet 1 tab PO DAILY Qty: 90 1RF nifedipine 90 mg tablet extended release 90 mg PO DAILY metoprolol succinate 100 mg tablet extended release 24 hr 100 mg PO DAILY Referrals: Ronnie Hull ARNP [Primary Care Provider] - Stand Alone Forms: Patient Portal/API <Casey Macias DO - Last Filed: 10/05/22 10:15> [facility] ED Attending Delta Attestation: I was immediately available in the department for consultation. Documentation has been reviewed. I agree with assessment and plan.
[2022-10-04] MEDS: cephALEXin 250 MG CAPSULE 500 MG PO (14:48)
[2022-10-04 14:57] VITALS: BP 178/98; PULSE 79; RESP 16; O2SAT 98
== END 2022-10-04 15:00 | disposition home or self-care (01) ==
PROVIDERS: Emergency Provider Nurse Practitioner Critical Care Medicine; PCP Registered Nurse Diabetes Educator
DX: G43.919 Migraine, unspecified, intractable, without status migrainosus (principal); N30.00 Acute cystitis without hematuria
CPT/HCPCS: 36415; 81003; 81015; 87086; 87210; 96361; 96374; 96375; 99284; J1100; J1885; J2405

== ENCOUNTER → 2023-02-06 08:53 | Outpatient (CLI) | payer OTHER, MEDICAID, SELFPAY ==
[2021-09-02 17:15] VITALS: BMI 55.4
[2023-02-06 09:30] LABS: Hematocrit 40.9 % (36-46); Hemoglobin 13.6 g/dL (12.0-16.0); Mean Corpuscular HGB Conc 33.2 % (30-36); Mean Corpuscular Volume 72.3 fL (80-100); Platelet Count 326 X10^3/uL (150-400); Red Blood Cell Count 5.65 X10^6/uL (4.0-5.2); Red Cell Distribution Width 17.9 % (11.6-14.8); White Blood Cell Count 11.4 X10^3/uL (4.5-11.0)
[2023-02-06 09:49] LABS: Alanine Aminotransferase 48 IU/L (<35); Alkaline Phosphatase 86 U/L (38-126); Aspartate Aminotransferase 37 IU/L (14-36); BUN Creatinine Ratio 21.1 (6-22); Bilirubin Total 0.7 mg/dL (0.2-1.3); Blood Urea Nitrogen 24 mg/dL (7-17); Calcium 8.8 mg/dL (8.4-10.2); Carbon Dioxide 29 mmol/L (22-32); Chloride 102 mmol/L (98-107); Cholesterol 184 mg/dL (140-199); Estimated Glomerular Filt Rate > 60 mL/min (>60); Glucose 112 mg/dL (70-100); HDL Cholesterol 30 mg/dL (40-60); HEMOLYSIS < 15 (0-50); LDL Cholesterol Calculated 112 mg/dL (<100); Magnesium 2.3 mg/dL (1.6-2.3); Potassium 4.2 mmol/L (3.4-5.1); Sodium 138 mmol/L (137-145); Triglycerides 210 mg/dL (35-150)
[2023-02-06 10:13] LABS: TSH w/ Reflex to FT4 2.26 uIU/mL (0.47-4.68)
== END ==
PROVIDERS: PCP Registered Nurse Diabetes Educator; Referring Provider Registered Nurse Diabetes Educator; Visit Provider Registered Nurse Diabetes Educator
DX: G43.009 Migraine without aura, not intractable, without status migrainosus (principal); I10 Essential (primary) hypertension
CPT/HCPCS: 36415; 80053; 80061; 83735; 84443; 85027

== ENCOUNTER → 2023-03-04 10:17 | Outpatient (CLI) | payer OTHER, MEDICAID, SELFPAY ==
[2021-09-02 17:15] VITALS: BMI 55.4
== END ==
PROVIDERS: PCP Registered Nurse Diabetes Educator; Visit Provider Registered Nurse Diabetes Educator
DX: L02.91 Cutaneous abscess, unspecified (principal)
CPT/HCPCS: 87070; 87075; 87205

== ENCOUNTER 2023-03-12 09:22 | Emergency (ER) | payer OTHER, SELFPAY ==
[2021-09-02 17:15] VITALS: BMI 55.4
[2023-03-12 09:31] VITALS: BP 244/134; PULSE 86; RESP 14; TEMP 36.4; O2SAT 99; BMI 54.9
--- NOTE | 2023-03-12 09:47 | ED.BACK ---
HPI - Back Pain/Injury General Chief Complaint: Back Pain/Injury Stated Complaint: back pain Time Seen by Provider: 03/12/23 09:25 Source: patient History of Present Illness HPI Narrative: 37-year-old female with history of hypertension, chronic back issues presents by private vehicle from home for left-sided lumbar back pain that does not radiate. She states that several days ago she was [id number] with her children and thinks that may have aggravated her back pain. Denies bowel or bladder incontinence, denies saddle anesthesia. Patient noted to be extremely hypertensive after walking into triage, she states that she has been working with her PCP on controlling her blood pressure. She is going to start taking felodipine, but the pharmacy has been out of this medication until this morning. Her BPs at home are usually 180-190/100s Related Data Previous Rx's Medication Instructions Recorded handicap placard #1 ea 10/17/22 losartan 100 1 tab PO DAILY #90 tabs 01/29/23 mg-hydrochlorothiazide 25 mg tablet metoprolol succinate 100 mg 100 mg PO DAILY #90 tabs 01/29/23 tablet,extended release 24 hr ondansetron 4 mg disintegrating 4 mg PO Q8H PRN nausea and 01/29/23 tablet vomiting #30 tabs sumatriptan succinate 50 mg tablet See Rx Instructions PO .COMPLEX 01/29/23 (Imitrex) #10 tabs felodipine 2.5 mg tablet,extended 2.5 mg PO DAILY #90 tabs 03/04/23 release 24 hr topiramate 25 mg tablet 75 mg (3 x 25 mg) PO BID #180 tabs 03/04/23 sulfamethoxazole 800 2 tab PO BID 7 days #28 tabs 03/08/23 mg-trimethoprim 160 mg tablet (Bactrim DS) methocarbamol 500 mg tablet 500 mg PO QID #30 tabs 03/12/23 methylprednisolone 4 mg tablets in See Rx Instructions PO .COMPLEX 03/12/23 a dose pack (Medrol (Vishal)) #21 ea Allergies Allergy/AdvReac Type Severity Reaction Status Date / Time EDD Inhibitors AdvReac Mild PERSISTANT Verified 03/12/23 09:35 [EDD INHIBITORS] COUGH oxycodone [OXYCODONE] AdvReac Mild NAUSEA, Verified 03/12/23 09:35 DIZZYNESS Review of Systems Review of Systems Narrative: Negative except as noted above Patient History Medical History Migraine without aura and without status migrainosus, not intractable Bilateral carpal tunnel syndrome Leukocytosis Dysfunctional uterine bleeding Facial skin lesion Resistant hypertension Metabolic syndrome Impaired fasting blood sugar Body mass index (BMI) greater than 50 Dyslipidemia Hyperglycemia Vitiligo Psoriasis Sleep apnea Depression Anxiety Painful menstrual periods Irregular menstrual cycle Heavy menstrual period Spinal stenosis Morbid obesity (04/20/14) Essential hypertension (02/23/14) Surgical History Anesthesia History of tonsillectomy (~2007) Status post delivery (01/01/14) Status post delivery (04/03/11) Status post laminectomy (~07/22/16) Family History Father Hyperlipidemia Hypoglycemia Mother Diabetes mellitus Sister Spina bifida Grandfather Cancer History of heart disease Grandmother Diabetes mellitus Grandfather Cancer Grandmother Diabetes mellitus History of heart disease Hyperlipidemia Hypertension Mental health problem Stroke Social History household members: spouse and children Smoking Status: Former smoker alcohol intake: never substance use type: marijuana Smoking Status: Former smoker tobacco type: cigarettes alcohol intake frequency: holidays/special occasions only Substance Use Type: marijuana Exam Initial Vital Signs Initial Vital Signs: Vital Signs Temperature 97.5 F L 03/12/23 09:31 Pulse Rate 86 03/12/23 09:31 Respiratory Rate 14 03/12/23 09:31 Blood Pressure 244/134 H 03/12/23 09:31 Pulse Oximetry 99 03/12/23 09:31 Oxygen Delivery Method Room Air 03/12/23 09:31 Const: Awake, alert, no acute distress, nontoxic appearing, obese Eyes: PERRL, EOMI, conjunctiva normal ENT: Atraumatic, dentition normal, mucous membranes moist Cardiac: regular rate, regular rhythm RESP: unlabored, clear bilaterally, no wheezing GI: Atraumatic, soft, nontender, nondistended, no rebound, no guarding MSK back: Atraumatic, full range of motion, no midline tenderness, left-sided paraspinal lumbar tenderness to deep palpation Skin: Warm, Dry, intact, no rashes Neuro: AO x3, CN II-XII grossly intact, moves all extremities Psych: affect normal, mood normal, not suicidal, not homicidal Course Course Course Narrative: Well-appearing patient with lumbar back pain exacerbated after trunk or treating with kids. Noted to be incidentally very hypertensive in triage, however when taken to ER bed blood pressure decreased. No midline tenderness, no abdominal tenderness, neurovascularly intact. No indication for advanced imaging at this time. With administration of appropriate, nonnarcotic pain medications the patient's blood pressure returned to normal. Patient's pain was improved. She stated that her just picked up her blood pressure medication from the pharmacy and she will take them as prescribed. Robaxin and Medrol pack sent to pharmacy, which patient states normally improves her pain the most. ED return precautions discussed at bedside. Patient expressed understanding of the plan and is in agreement at this time. All questions answered at the time of discharge. Orders Ordered: ED Orders 03/12/23 10:25 UA Complete [Urinalysis and Microscopic] Stat Discontinued Medications Dexamethasone (Dexamethasone 10 Mg/Ml Vial) 10 mg IV NOW ONE Stop: 03/12/23 09:47 Last Admin: 03/12/23 10:13 Dose: 10 mg Documented By: EFRAÍN Acetaminophen (Ofirmev) 1,000 mg in 100 mls @ 400 mls/hr IV NOW ONE Stop: 03/12/23 10:00 Last Infusion: 03/12/23 10:37 Dose: Infused Documented By: Admin: 03/12/23 10:13 Dose: 400 mls/hr Documented By: EFRAÍN Ketorolac Tromethamine (Ketorolac 30 Mg/Ml Vial) 15 mg IV NOW ONE Stop: 03/12/23 09:47 Last Admin: 03/12/23 10:13 Dose: 15 mg Documented By: EFRAÍN Lidocaine (Lidocaine Patch 1 Each Adh..Patch) 1 each TOP NOW ONE Stop: 03/12/23 09:48 Last Admin: 03/12/23 10:12 Dose: 1 each Documented By: EFRAÍN Methocarbamol (Methocarbamol 500 Mg Tablet) 750 mg PO NOW ONE Stop: 03/12/23 09:47 Last Admin: 03/12/23 10:12 Dose: 750 mg Documented By: AMV Vital Signs Vital signs: Vital Signs - 8 hr 03/12/23 09:31 03/12/23 10:38 Temperature 97.5 F L Pulse Rate 86 Respiratory Rate 14 Blood Pressure 244/134 H 160/94 H Pulse Oximetry 99 Oxygen Delivery Method Room Air MDM - Back Pain/Injury Differential Diagnosis Differential diagnosis: Likely lumbar radiculopathy, sciatica and strain of lumbar region Lab Data Labs: Lab Results 03/12/23 Range/Units 10:25 Urine Color Yellow Urine Appearance Clear Urine pH 5.5 (4.5-8.0) Ur Specific Equality <=1.005 (1.000-1.035) Urine Protein Negative (Negative) Urine Glucose (UA) Negative (Negative) g/dL Urine Ketones Negative (NEGATIVE) Urine Occult Blood Negative (Negative) Urine Nitrate Negative (Negative) Urine Bilirubin Negative (NEGATIVE) Urine Urobilinogen 0.2 (0.2) E.U./dL Ur Leukocyte Esterase Negative (NEGATIVE) Urine RBC None seen (0-5/HPF) Urine WBC None seen (0-5/HPF) Ur Squamous Epith Cells 1-5 /hpf (0-5/HPF) Urine Bacteria None seen (None) Ur Culture Indicated? Cult not indicated Discharge Plan Departure Patient Disposition: Home Clinical Impression: Acute lumbar back pain, Hypertension Instructions: DI for Back Spasm, DI for Back Strain or Sprain Prescriptions: New methocarbamol 500 mg tablet 500 mg PO QID Qty: 30 0RF methylprednisolone [Medrol (Vishal)] 4 mg tablets,dose pack See Rx Instructions .ROUTE .COMPLEX Qty: 21 0RF Rx Instructions: orally per package directions No Action sulfamethoxazole-trimethoprim [Bactrim DS] 800-160 mg tablet 2 tab PO BID 7 Days Qty: 28 0RF (DME) handicap placard See Rx Instructions .Route .MEDSUPPLY Qty: 1 0RF Rx Instructions: Patient fulfills criteria for temporary placard losartan-hydrochlorothiazide 100-25 mg tablet 1 tab PO DAILY Qty: 90 1RF metoprolol succinate 100 mg tablet extended release 24 hr 100 mg PO DAILY Qty: 90 3RF ondansetron 4 mg tablet,disintegrating 4 mg PO Q8H PRN (Reason: nausea and vomiting) Qty: 30 1RF sumatriptan succinate [Imitrex] 50 mg tablet See Rx Instructions PO .COMPLEX Qty: 10 3RF Rx Instructions: take 1 tab at onset of headache; if no relief may repeat 1 tab after at least 2 hrs; max = 4 tabs/24 hr PO felodipine 2.5 mg tablet extended release 24 hr 2.5 mg PO DAILY Qty: 90 0RF Rx Instructions: has not started yet 03/12/23 topiramate 25 mg tablet 75 mg PO BID Qty: 180 2RF Referrals: Ronnie Hull ARNP [Primary Care Provider] - Stand Alone Forms: Patient Portal/API
[2023-03-12] MEDS: LIDOCAINE PATCH 1 EACH ADH..PATCH TOP (10:12)
[2023-03-12] MEDS: methocarbamoL 500 MG TABLET 750 MG PO (10:12)
[2023-03-12] MEDS: ACETAMINOPHEN IV 1,000 MG/100 ML VIAL 400 MG IV (10:13)
[2023-03-12] MEDS: KETOROLAC 30 MG/ML VIAL 15 MG IV (10:13)
[2023-03-12] MEDS: DEXAMETHASONE 10 MG/ML VIAL IV (10:13)
[2023-03-12 10:30] LABS: Appearance Urine UA CLEAR; Bilirubin Urine UA NEGATIVE (NEGATIVE); Color Urine UA YELLOW; Glucose Urine UA NEGATIVE (Negative); Ketones Urine UA NEGATIVE (NEGATIVE); Leukocyte Esterase Urine UA NEGATIVE (NEGATIVE); Nitrite Urine UA NEGATIVE (Negative); Occult Blood Urine UA NEGATIVE (Negative); Protein Urine UA NEGATIVE (Negative); Specific Gravity Urine UA <=1.005 (1.000-1.035); Urobilinogen Urine UA 0.2 E.U./dL (0.2); pH Urine UA 5.5 (4.5-8.0)
[2023-03-12 10:32] LABS: Bacteria Urine None Seen; Culture Indicated Urine Cult Not Indicated; RBC Urine None Seen (0-5/HPF); Squamous Epithelial Cell Urine 1-5 /HPF (0-5/HPF); WBC Urine None Seen (0-5/HPF)
[2023-03-12 10:38] VITALS: BP 160/94
== END 2023-03-12 11:09 | disposition home or self-care (01) ==
PROVIDERS: Emergency Provider Emergency Medicine; PCP Registered Nurse Diabetes Educator
DX: M54.50 Low back pain, unspecified (principal); I10 Essential (primary) hypertension
CPT/HCPCS: 81001; 96365; 96375; 99284; J0131; J1100; J1885

== ENCOUNTER → 2023-04-15 10:52 | Outpatient (CLI) | payer OTHER, MEDICAID, SELFPAY ==
[2021-09-02 17:15] VITALS: BMI 55.4
--- NOTE | 2023-04-15 10:53 | DI.RAD.S_ITS ---
PROCEDURE: XR FOOT LT MIN 3V INDICATIONS: eval L foot pain s/p trauma TECHNIQUE: 3 views of the foot were acquired. COMPARISON: [facility], , FOOT 3V LEFT, 03/05/2013, 10:38. FINDINGS: Bones: No fractures or dislocations. No suspicious bony lesions. Soft tissues: No tibiotalar joint effusion. Achilles tendon appears normal. IMPRESSION: No acute bony abnormality. Dictated by: Felipe Diggs M.D. on 04/15/2023 at 16:23 Approved by: Felipe Diggs M.D. on 04/15/2023 at 16:34
== END ==
PROVIDERS: PCP Registered Nurse Diabetes Educator; Referring Provider Registered Nurse Diabetes Educator; Visit Provider Registered Nurse Diabetes Educator
DX: M79.672 Pain in left foot (principal)
CPT/HCPCS: 73630

== ENCOUNTER → 2023-09-06 09:19 | Outpatient (CLI) | payer OTHER, MEDICAID, SELFPAY ==
[2021-09-02 17:15] VITALS: BMI 55.4
--- NOTE | 2023-09-06 | DI.MRI.S_ITS ---
PROCEDURE: MR LUMBAR SPINE WO CON INDICATIONS: strain of muscle, fascia, and tendon of lower back TECHNIQUE: Noncontrast sagittal T1 spin echo and T2 fast echo, sagittal STIR, and T2 fast spin echo through the lumbar spine. In cases with scoliosis, additional coronal T2 fast spin echo may be performed. COMPARISON: [facility], MR, MR LUMBAR SPINE WO CON, 12/01/2019, 8:16. FINDINGS: Image quality: Excellent. Alignment and Curvature: There is trace retrolisthesis of L2 on L3, L3 on L4, L4 on L5. Bone Marrow: Marrow is of normal overall signal. No acute vertebral body compression fractures. Spinal Cord: Conus medullaris terminates at the L1 level. Visualized cord demonstrates normal signal and size. Paraspinous Soft Tissues: No paravertebral masses. Discs: Multilevel moderate disc desiccation most severe from L2-3 through L5-S1. T12-L1: Mild disc bulge with superimposed posterior central protrusion moderate spinal stenosis. No foraminal narrowing. Facet and ligamentum flavum hypertrophy. No interval change. L1-L2: No disc bulge, spinal stenosis or foraminal narrowing. Facet and ligamentum flavum hypertrophy. No interval change. L2-L3: Mild disc bulge with prominent superimposed broad posterior central protrusion. Severe spinal stenosis with canal compression minimally progressive. Epidural lipomatosis. No foraminal narrowing. Facet and ligamentum flavum hypertrophy. L3-L4: Mild disc bulge with superimposed posterior central protrusion. Severe spinal stenosis. Mild bilateral foraminal narrowing with facet and ligamentum flavum hypertrophy. Epidural lipomatosis is present. Stable compared to prior exam. L4-L5: Right hemilaminectomy. Disc bulge with [id number] spinal stenosis similar versus minimally improved. Moderate right greater than left narrowing within the subarticular recess bilaterally. [id number] bilateral foraminal narrowing, right greater than left with facet and ligamentum flavum hypertrophy. No interval change. L5-S1: Mild disc bulge with mild spinal stenosis. Moderate narrowing through the subarticular recess. Mild right foraminal narrowing, slightly progressive. Facet hypertrophy. IMPRESSION: Multilevel degenerative changes with small areas of interval progression as above. Multilevel spinal stenosis most severe at L2-3 secondary to superimposed disc protrusion. Multilevel foraminal narrowing most severe at L4-5 secondary to facet/ligamentum flavum arthropathy. Dictated by: Teena Rivera M.D. on 09/06/2023 at 16:17 Approved by: Teena Rivera M.D. on 09/06/2023 at 16:25
== END ==
PROVIDERS: PCP Registered Nurse Diabetes Educator; Referring Provider Physical Medicine & Rehabilitation; Visit Provider Physical Medicine & Rehabilitation
DX: S39.012A Strain of muscle, fascia and tendon of lower back, initial encounter (principal); M47.816 Spondylosis without myelopathy or radiculopathy, lumbar region; M47.817 Spondylosis without myelopathy or radiculopathy, lumbosacral region; M48.061 Spinal stenosis, lumbar region without neurogenic claudication; M48.07 Spinal stenosis, lumbosacral region; M51.26 Other intervertebral disc displacement, lumbar region; M51.36 Other intervertebral disc degeneration, lumbar region; M51.37 Other intervertebral disc degeneration, lumbosacral region; X58.XXXA Exposure to other specified factors, initial encounter
CPT/HCPCS: 72148

== ENCOUNTER 2023-10-14 20:28 | Emergency (ER) | payer OTHER, MEDICAID, SELFPAY ==
[2021-09-02 17:15] VITALS: BMI 55.4
[2023-10-14] VITALS (7 sets, daily range): BP systolic 213–252; BP diastolic 107–129; PULSE 89–113; RESP 16; TEMP 36.9; O2SAT 92–99; BMI 54.9
--- NOTE | 2023-10-14 22:26 | ED_ITS ---
HPI - Head Injury General Chief complaint: Head Injury Stated complaint: GLF head injury, no thinners Time Seen by Provider: 10/14/23 22:18 Source: patient Mode of arrival: Ambulatory History of Present Illness HPI Narrative: Patient is a 38-year-old female who is here for evaluation of a ground level fall where she states she hit both the right side of her head in the back of the left side of her head on car door. She has not on anticoagulation. She does not specifically remember the event. She thinks she was got her feet tangled up underneath her. She has not had any vomiting. She has having a headache. No vision changes. No abdominal pain. Related Data Home Medications Medication Instructions Recorded Confirmed ibuprofen 200 mg tablet 800 mg PO BID PRN 09/03/23 10/02/23 gabapentin 300 mg capsule 300 mg PO BEDTIME 10/02/23 10/02/23 Previous Rx's Medication Instructions Recorded handicap placard #1 ea 10/17/22 metoprolol succinate 100 mg 100 mg PO DAILY #90 tabs 01/29/23 tablet,extended release 24 hr methocarbamol 500 mg tablet 500 mg PO QID #30 tabs 03/12/23 Disabled Parking Placard #1 ea 10/02/23 chlorthalidone 25 mg tablet 25 mg PO DAILY #60 tabs 10/02/23 losartan 100 mg tablet 100 mg PO DAILY #90 tabs 10/02/23 Allergies Allergy/AdvReac Type Severity Reaction Status Date / Time EDD Inhibitors AdvReac Mild PERSISTANT Verified 10/14/23 20:33 [EDD INHIBITORS] COUGH oxycodone [OXYCODONE] AdvReac Mild NAUSEA, Verified 10/14/23 20:33 DIZZYNESS Review of Systems Review of Systems Narrative: See HPI Patient History Medical History Migraine without aura and without status migrainosus, not intractable Bilateral carpal tunnel syndrome Leukocytosis Dysfunctional uterine bleeding Facial skin lesion Resistant hypertension Metabolic syndrome Impaired fasting blood sugar Body mass index (BMI) greater than 50 Dyslipidemia Hyperglycemia Vitiligo Psoriasis Sleep apnea Depression Anxiety Painful menstrual periods Irregular menstrual cycle Heavy menstrual period Spinal stenosis Morbid obesity (04/20/14) Essential hypertension (02/23/14) Surgical History Anesthesia History of tonsillectomy (~2007) Status post delivery (01/01/14) Status post delivery (04/03/11) Status post laminectomy (~07/22/16) Family History Father Hyperlipidemia Hypoglycemia Mother Diabetes mellitus Sister Spina bifida Grandfather Cancer History of heart disease Grandmother Diabetes mellitus Grandfather Cancer Grandmother Diabetes mellitus History of heart disease Hyperlipidemia Hypertension Mental health problem Stroke Social History household members: spouse and children Smoking Status: Former smoker alcohol intake: never substance use type: marijuana Smoking Status: Former smoker tobacco type: cigarettes alcohol intake frequency: holidays/special occasions only Substance Use Type: marijuana Exam Initial Vital Signs Initial Vital Signs: Vital Signs Temperature 98.4 F 10/14/23 20:33 Pulse Rate 113 H 10/14/23 20:33 Respiratory Rate 16 10/14/23 20:33 Blood Pressure 252/119 H 10/14/23 20:33 Pulse Oximetry 97 10/14/23 20:33 Oxygen Delivery Method Room Air 10/14/23 20:33 HENMT Head: contusion (Right temporal region, left-sided posterior auricular/occipital region) Ears: TM's normal bilaterally Eyes Periorbital: periorbital findings normal Skin Other: Contusion over lower aspect of the right eye in the posterior aspect of the left occipital region Neuro General: patient alert and patient awake Extrem General: normal to inspection and capillary refill normal Scores [place] CT Head Rule Age <16 years old: No Patient on blood thinners: No Seizure after injury: No Exclusion: Patient NOT Excluded, Proceed to next steps GCS < 15 at 2 hr post trauma: No Suspected open or depressed skull fracture: Yes Any sign of basilar skull fracture (hemotympanum, raccoon eyes, Figueroa's sign, CSF claudine-/rhinorrhea): No Two or more episodes of vomiting: No Age greater or equal to 65 years: No Retrograde amnesia to the event greater or equal to 30 min: No Dangerous Mechanism (pedestrian vs. mv, occupant ejected from mv, fall from >3 ft or > 5 stairs): No Recommendation: Consider CT. The [place] Head CT Rule cannot rule out need for Imaging. GCS [place] coma scale eye opening: Spontaneous Sundeep coma scale verbal response: Orientated Sundeep coma scale motor response: Obey commands Sundeep coma scale total score: 15 Nexus Score for C-Spine Focal Neurologic deficit present: No Midline spinal tenderness present: No Altered level of conciousness present: No Intoxication present: No Distracting Injury Present: No Nexus Criteria for C-spine: 0 Course Orders Ordered: ED Orders 10/14/23 22:27 CT head/brain wo con Stat Vital Signs Vital signs: Vital Signs - 8 hr 10/14/23 20:33 10/14/23 22:03 10/14/23 22:04 Temperature 98.4 F Pulse Rate 113 H Respiratory Rate 16 Blood Pressure 252/119 H 225/129 H Pulse Oximetry 97 98 Oxygen Delivery Method Room Air 10/14/23 22:04 10/14/23 22:37 10/14/23 23:00 Temperature Pulse Rate 96 H 99 H 96 H Respiratory Rate Blood Pressure Pulse Oximetry 97 99 98 Oxygen Delivery Method 10/14/23 23:30 10/14/23 23:53 10/14/23 23:53 Temperature Pulse Rate 89 95 H Respiratory Rate Blood Pressure 213/107 H Pulse Oximetry 92 98 Oxygen Delivery Method 10/15/23 00:00 10/15/23 00:00 10/15/23 00:09 Temperature Pulse Rate 100 H Respiratory Rate 18 Blood Pressure 230/104 H 210/101 H Pulse Oximetry 99 100 Oxygen Delivery Method Room Air MDM - Head Injury Imaging Data CT scan - head: Radiologist's Impression: PROCEDURE: CT HEAD/BRAIN WO CON INDICATIONS: Right periorbital and left occipital contusion after falls TECHNIQUE: Noncontrast 4.5 mm thick angled axial sections acquired from the foramen magnum to the vertex, with coronal and sagittal reformats. For radiation dose reduction, the following was used: automated exposure control, adjustment of mA and/or kV according to patient size. COMPARISON: [facility], CT, CT HEAD/BRAIN WO CON, 09/02/2021, 21:24. FINDINGS: Image quality: Diagnostic. CSF spaces: Basal cisterns are patent. No extra-axial fluid collections. Ventricles are normal in size and shape. Brain: No midline shift. No intracranial masses or hemorrhage. Gomez-white matter interface is normal. Skull and face: Mild right periorbital and left suboccipital edema. Calvarium and visualized facial bones are intact, without suspicious lesions. Sinuses: Visualized sinuses and mastoids are clear. IMPRESSION: Mild scalp edema. No skull fracture. No acute intracranial abnormality MDM Narrative Medical decision making narrative: Patient does have a contusion to the lateral aspect of the right eye and also over the postauricular/mastoid/occipital region of the right scalp with some bruising of the area. She was having headache. With a contusion over this area there was some concern about basilar skull fracture. Subsequent head CT is unremarkable. Discussed the findings with the patient. Will discharge patient home with return precautions. She expressed understanding and agreement with plan. Discharge Plan Departure Patient Disposition: Home Clinical Impression: Contusion of scalp Instructions: Contusion Activity Restrictions/Additional Instructions: Continue to take all of your medications as directed. You can use ice over the areas of the swelling on your scalp. You have no restrictions on activities. Return to the emergency department for new or worsening symptoms. Prescriptions: No Action (DME) handicap placard See Rx Instructions .Route .MEDSUPPLY Qty: 1 0RF Rx Instructions: Patient fulfills criteria for temporary placard metoprolol succinate 100 mg tablet extended release 24 hr 100 mg PO DAILY Qty: 90 3RF ibuprofen 200 mg tablet 800 mg PO BID PRN gabapentin 300 mg capsule 300 mg PO BEDTIME losartan 100 mg tablet 100 mg PO DAILY Qty: 90 1RF chlorthalidone 25 mg tablet 25 mg PO DAILY Qty: 60 1RF Rx Instructions: Take one tablet daily for blood pressure; if still elevated after 4-5 days; take 2 (DME) Disabled Parking Placard See Rx Instructions .Route .MEDSUPPLY Qty: 1 0RF Rx Instructions: Patient meets qualifications for Disabled Parking Placard methocarbamol 500 mg tablet 500 mg PO QID Qty: 30 0RF Referrals: Ronnie Hull ARNP [Primary Care Provider] - Stand Alone Forms: Patient Portal/API
[2023-10-15] VITALS: BP 230/104; O2SAT 99
[2023-10-15 00:09] VITALS: BP 210/101; PULSE 100; RESP 18; O2SAT 100
== END 2023-10-15 00:11 | disposition home or self-care (01) ==
PROVIDERS: Emergency Provider Emergency Medicine; PCP Registered Nurse Diabetes Educator
DX: S00.03XA Contusion of scalp, initial encounter (principal); W22.8XXA Striking against or struck by other objects, initial encounter
CPT/HCPCS: 70450; 99283; 99284

== ENCOUNTER → 2023-10-15 12:13 | Outpatient (CLI) | payer OTHER, MEDICAID, SELFPAY ==
[2021-09-02 17:15] VITALS: BMI 55.4
[2023-10-15 13:51] LABS: BUN Creatinine Ratio 19.7 (6-22); Blood Urea Nitrogen 23 mg/dL (7-17); Calcium 8.5 mg/dL (8.4-10.2); Carbon Dioxide 29 mmol/L (22-32); Chloride 103 mmol/L (98-107); Estimated Glomerular Filt Rate > 60 mL/min (>60); Glucose 96 mg/dL (70-100); HEMOLYSIS < 15 (0-50); Potassium 3.6 mmol/L (3.4-5.1); Sodium 138 mmol/L (137-145)
== END ==
PROVIDERS: PCP Registered Nurse Diabetes Educator; Referring Provider Physician Assistant; Visit Provider Physician Assistant
DX: I10 Essential (primary) hypertension (principal); R73.01 Impaired fasting glucose; R94.4 Abnormal results of kidney function studies; D72.829 Elevated white blood cell count, unspecified
CPT/HCPCS: 36415; 80048

== ENCOUNTER → 2024-01-01 07:11 | Outpatient (CLI) | payer OTHER, MEDICAID, SELFPAY ==
[2021-09-02 17:15] VITALS: BMI 55.4
[2024-01-01 08:48] LABS: Add Manual Diff / Slide Review NO; Basophils Absolute Auto 100 /uL (0-100); Basophils Percent Auto 0.5 % (0-2); Eosinophils Absolute Auto 400 /uL (0-450); Eosinophils Percent Auto 2.9 % (2-4); Hemoglobin 12.6 g/dL (12.0-16.0); Lymphocytes Absolute Auto 2600 /uL (1100-4500); Lymphocytes Percent Auto 20.5 % (25-40); Mean Corpuscular Hemoglobin 24.5 PG (26-34); Mean Corpuscular Volume 74.1 fL (80-100); Monocytes Absolute Auto 500 /uL (0-900); Monocytes Percent Auto 3.8 % (3-14); Neutrophils Absolute Auto 9200 /uL (1500-7000); Neutrophils Percent Auto 72.3 % (50-75); Platelet Count 352 X10^3/uL (150-400); Red Blood Cell Count 5.13 X10^6/uL (4.0-5.2); Red Cell Distribution Width 18.1 % (11.6-14.8); White Blood Cell Count 12.7 X10^3/uL (4.5-11.0)
[2024-01-01 10:32] LABS: Creatinine Urine Random 70.11 mg/dL
[2024-01-01 22:25] LABS: Hemoglobin A1C% w Est Avg Glu 5.3 % (4.0-6.0)
[2024-01-14 14:36] LABS: Cotinine <10.0 ng/mL (.); Nicotine <10.0 ng/mL (.)
== END ==
PROVIDERS: PCP Registered Nurse Diabetes Educator; Referring Provider Registered Nurse Diabetes Educator; Visit Provider Registered Nurse Diabetes Educator
DX: Z01.818 Encounter for other preprocedural examination (principal); I10 Essential (primary) hypertension; R73.01 Impaired fasting glucose; R94.4 Abnormal results of kidney function studies; D72.829 Elevated white blood cell count, unspecified
CPT/HCPCS: 36415; 80323; 82043; 82570; 83036; 85025

== ENCOUNTER 2024-04-05 10:49 | Emergency (ER) | payer OTHER, MEDICAID, SELFPAY ==
[2021-09-02 17:15] VITALS: BMI 55.4
[2024-04-05] VITALS (14 sets, daily range): BP systolic 146–227; BP diastolic 68–111; PULSE 71–93; RESP 13–27; TEMP 36.9; O2SAT 99–100; BMI 55.7
--- NOTE | 2024-04-05 11:04 | ED.GENADULT ---
HPI - General Adult General Chief complaint: Urogenital-Female Stated complaint: had spine sx has cath and doesnt feel right Time Seen by Provider: 04/05/24 11:04 History of Present Illness HPI narrative: 38-year-old woman with recent lumbar neurosurgical intervention at [facility] still has some minor paresthesias and is unable to void, has a Encarnacion catheter in place. Comes in today feeling that there is increasing irritation in her perineal area. She feels like the sensation is as it has been, certainly not getting worse. She has not describing fevers, cough, chills. She has no overt abdominal pain. There was no pain around her spine incision sites. Encarnacion catheter is draining appropriately Related Data Home Medications Medication Instructions Recorded Confirmed ibuprofen 200 mg tablet 800 mg PO BID PRN 09/03/23 03/04/24 gabapentin 300 mg capsule 300 mg PO BEDTIME 10/02/23 03/04/24 hydrochlorothiazide 25 mg tablet 25 mg PO DAILY 02/19/24 03/04/24 Previous Rx's Medication Instructions Recorded Disabled Parking Placard #1 ea 10/02/23 amlodipine 5 mg tablet 5 mg PO DAILY #90 tabs 02/19/24 hydroxyzine HCl 25 mg tablet 25 mg PO QID PRN anxiety #30 tabs 02/19/24 losartan 100 mg tablet 100 mg PO DAILY #90 tabs 02/19/24 econazole 1 % topical cream 1 applic topical BID #30 grams 03/04/24 escitalopram oxalate 10 mg tablet 10 mg PO DAILY #90 tabs 03/04/24 (Lexapro) metoprolol succinate 200 mg 200 mg PO DAILY #90 tabs 03/04/24 tablet,extended release 24 hr ketoconazole 2 % topical cream 1 applic topical BID #30 grams 03/05/24 Allergies Allergy/AdvReac Type Severity Reaction Status Date / Time EDD Inhibitors AdvReac Mild PERSISTANT Verified 03/04/24 13:29 [EDD INHIBITORS] COUGH oxycodone [OXYCODONE] AdvReac Mild NAUSEA, Verified 03/04/24 13:29 DIZZYNESS Review of Systems Review of Systems Narrative: Pertinent positive and negative findings as per HPI Patient History Medical History COVID-19 virus infection Migraine without aura and without status migrainosus, not intractable Bilateral carpal tunnel syndrome Leukocytosis Dysfunctional uterine bleeding Facial skin lesion Resistant hypertension Metabolic syndrome Impaired fasting blood sugar Body mass index (BMI) greater than 50 Dyslipidemia Hyperglycemia Vitiligo Psoriasis Sleep apnea Depression Anxiety Painful menstrual periods Irregular menstrual cycle Heavy menstrual period Spinal stenosis Morbid obesity (04/20/14) Essential hypertension (02/23/14) Surgical History Anesthesia History of tonsillectomy (~2007) Status post delivery (01/01/14) Status post delivery (04/03/11) Status post laminectomy (~07/22/16) Family History Father Hyperlipidemia Hypoglycemia Mother Diabetes mellitus Sister Spina bifida Grandfather Cancer History of heart disease Grandmother Diabetes mellitus Grandfather Cancer Grandmother Diabetes mellitus History of heart disease Hyperlipidemia Hypertension Mental health problem Stroke Social History household members: spouse and children Smoking Status: Former smoker alcohol intake: never substance use type: marijuana Smoking Status: Former smoker tobacco type: cigarettes alcohol intake frequency: holidays/special occasions only Substance Use Type: marijuana Exam Initial Vital Signs Initial Vital Signs: Vital Signs Pulse Rate 81 04/05/24 10:59 Blood Pressure 227/111 H 04/05/24 10:59 Pulse Oximetry 99 04/05/24 10:59 General: Alert appropriate in no acute distress, BMI of 56 Respiratory: Able to speak in full sentences, no obvious respiratory distress Abdomen: No acute tenderness to palpation no flank pain Spine: Sutures still in place, surgical site appears to be healing nicely there is no redness, drainage, odor Skin: No obvious rashes, warm and dry : Patient has a moderate amount of irritation in her outer vulva and around her labia. No obvious discharge and this does not look like yeast Neurologic: Grossly intact no obvious asymmetries or abnormalities, unchanged decreased sensation to the perineum Psych: appropriate insight and affect, cooperative Course Orders Ordered: ED Orders 04/05/24 11:49 UA dip and micro [Urinalysis and Microscopic] Stat Vital Signs Vital signs: Vital Signs - 8 hr 04/05/24 10:59 04/05/24 10:59 04/05/24 11:00 Temperature Pulse Rate 81 81 Respiratory Rate Blood Pressure 227/111 H Pulse Oximetry 99 100 Oxygen Delivery Method 04/05/24 11:04 04/05/24 11:04 04/05/24 11:13 Temperature 98.5 F Pulse Rate 80 93 H Respiratory Rate 18 Blood Pressure 220/107 H 227/111 H Pulse Oximetry 99 99 Oxygen Delivery Method Room Air 04/05/24 11:24 04/05/24 11:24 04/05/24 11:30 Temperature Pulse Rate 74 71 Respiratory Rate 21 14 Blood Pressure 159/86 H Pulse Oximetry Oxygen Delivery Method 04/05/24 11:30 04/05/24 11:45 04/05/24 11:45 Temperature Pulse Rate 74 Respiratory Rate 27 H Blood Pressure 154/74 H 153/79 H Pulse Oximetry Oxygen Delivery Method 04/05/24 12:00 04/05/24 12:00 Temperature Pulse Rate 77 Respiratory Rate 26 H Blood Pressure 155/88 H Pulse Oximetry Oxygen Delivery Method Medical Decision Making Lab Data Labs: Lab Results 04/05/24 Range/Units 11:49 Urine Color Yellow Urine Appearance Clear Urine pH 7.5 (4.5-8.0) Ur Specific [place] 1.015 (1.000-1.035) Urine Protein Negative (Negative) Urine Glucose (UA) Negative (Negative) g/dL Urine Ketones Negative (NEGATIVE) Urine Occult Blood Trace-intact (Negative) Urine Nitrate Negative (Negative) Urine Bilirubin Negative (NEGATIVE) Urine Urobilinogen 0.2 (0.2) E.U./dL Ur Leukocyte Esterase Trace H (NEGATIVE) Urine RBC 1-5/hpf (0-5/HPF) Urine WBC 1-5/hpf (0-5/HPF) Ur Squamous Epith Cells 0-1 /hpf (0-5/HPF) Urine Bacteria None seen (None) Ur Culture Indicated? Cult not indicated Vol Urine Centrifuged 10ml (spun) MDM Narrative Medical decision making narrative: 38-year-old woman with a BMI a of 56 with recent lumbar spine surgery, concerned that there is increasing irritation around her Encarnacion catheter site. On exam it appears that the perineal area is somewhat moist with some minor irritation around the catheter site itself. Encarnacion catheter is changed with thorough cleaning and drying of the perineal area and symptoms seemed to have resolved. Urinalysis with the urine through the new catheter does not look like an infection. There is no suggestion that she is having complications with her recent surgical site. Currently she has not yet been able to get back into the shower her has been helping with cleaning but they have been doing sponge bath best. We will recommend a Holly care bottle to see if this helps with better washing and cleaning of the perineal area. She has follow up scheduled as an outpatient. There was no indication for blood work, additional imaging or hospitalization, She is safe for discharge Discharge Plan Departure Patient Disposition: Home Clinical Impression: Encarnacion catheter problem Qualifiers: Encounter type: initial encounter Qualified Code(s): T83.9XXA - Unspecified complication of genitourinary prosthetic device, implant and graft, initial encounter Activity Restrictions/Additional Instructions: Thank you for coming in today, I am sorry that you are having this irritation but I am glad that you came in for us to evaluate Your surgical site looks like it is healing beautifully. Your perineum and vulva (all the girl parts around your catheter) are little bit moist and irritated. I suspect that a bit more aggressive cleaning and drying we will help significantly in preventing the irritation feeling. With the extra moisture I suspect the catheter itself was also a bit more irritating. We did change the catheter, there was no evidence of a urinary tract infection. I have given you 1 of the perineal cleaning bottles that we use in labor and delivery so you can rinse all of the more difficult to reach places a bit more thoroughly and do be a bit more aggressive in drying thoroughly as well If you find that you are getting worse or develop any new symptoms, please feel free to return to the emergency department for further evaluation. Prescriptions: No Action ketoconazole 2 % cream 1 applic topical BID Qty: 30 2RF Rx Instructions: for rash on lower abdomen ibuprofen 200 mg tablet 800 mg PO BID PRN gabapentin 300 mg capsule 300 mg PO BEDTIME (DME) Disabled Parking Placard See Rx Instructions .Route .MEDSUPPLY Qty: 1 0RF Rx Instructions: Patient meets qualifications for Disabled Parking Placard hydrochlorothiazide 25 mg tablet 25 mg PO DAILY hydroxyzine HCl 25 mg tablet 25 mg PO QID PRN (Reason: anxiety) Qty: 30 3RF amlodipine 5 mg tablet 5 mg PO DAILY Qty: 90 1RF losartan 100 mg tablet 100 mg PO DAILY Qty: 90 1RF metoprolol succinate 200 mg tablet extended release 24 hr 200 mg PO DAILY Qty: 90 1RF escitalopram oxalate [Lexapro] 10 mg tablet 10 mg PO DAILY Qty: 90 1RF econazole 1 % cream 1 applic topical BID Qty: 30 2RF Rx Instructions: for lower abdomen rash Referrals: Ronnie Hull ARNP [Primary Care Provider] - Stand Alone Forms: Patient Portal/API/Survey
[2024-04-05 12:04] LABS: Appearance Urine UA CLEAR; Bilirubin Urine UA NEGATIVE (NEGATIVE); Color Urine UA YELLOW; Glucose Urine UA NEGATIVE (Negative); Ketones Urine UA NEGATIVE (NEGATIVE); Leukocyte Esterase Urine UA TRACE (NEGATIVE); Nitrite Urine UA NEGATIVE (Negative); Occult Blood Urine UA TRACE-INTACT (Negative); Protein Urine UA NEGATIVE (Negative); Specific Gravity Urine UA 1.015 (1.000-1.035); Urobilinogen Urine UA 0.2 E.U./dL (0.2)
[2024-04-05 12:06] LABS: pH Urine UA 7.5 (4.5-8.0)
[2024-04-05 12:14] LABS: Bacteria Urine None Seen; Culture Indicated Urine Cult Not Indicated; RBC Urine 1-5/HPF (0-5/HPF); Squamous Epithelial Cell Urine 0-1 /HPF (0-5/HPF); Urine Volume 10mL (spun); WBC Urine 1-5/HPF (0-5/HPF)
== END 2024-04-05 13:47 | disposition home or self-care (01) ==
PROVIDERS: Emergency Provider Emergency Medicine; PCP Registered Nurse Diabetes Educator
DX: T83.9XXA Unspecified complication of genitourinary prosthetic device, implant and graft, initial encounter (principal); R10.2 Pelvic and perineal pain
CPT/HCPCS: 51798; 81001; 99283

== ENCOUNTER 2024-04-13 18:35 | Emergency (ER) | payer OTHER, MEDICAID, SELFPAY ==
[2024-04-08 09:14] VITALS: BMI 55.4
[2024-04-13] VITALS (10 sets, daily range): BP systolic 177–241; BP diastolic 93–121; PULSE 90–104; RESP 18; TEMP 35.9; O2SAT 94–99; BMI 54.9
--- NOTE | 2024-04-13 19:37 | ED_ITS ---
HPI - Female Genitourinary General Chief complaint: Urogenital-Female Stated complaint: problems with catheter s/p surgery Time Seen by Provider: 04/13/24 19:22 Source: patient Mode of arrival: Wheelchair History of Present Illness HPI Narrative: 38-year-old female with history of hypertension presents for pain around her catheter site. Patient had lumbar fusion performed at [facility] early 03/2024 with subsequent postoperative urinary retention. Patient has qiu catheter in place. She states that she has a leg bag, but she was not given instructions on how to change the tubing and has been walking around with her large bag in a pursed. This evening after getting out to run errands she was attempting to get back into her car when she felt a pulling sensation and sharp pain by where the Qiu catheter was placed. She continued to experience pain and discomfort and leakage of urine around the catheter. She has scheduled follow up with Urology tomorrow morning, but she was concerned about the catheter not draining correc tly as well as the irritation around the catheter site. Related Data Home Medications Medication Instructions Recorded Confirmed ibuprofen 200 mg tablet 800 mg PO BID PRN 09/03/23 04/07/24 gabapentin 300 mg capsule 300 mg PO BEDTIME 10/02/23 04/07/24 hydrochlorothiazide 25 mg tablet 25 mg PO DAILY 02/19/24 04/07/24 Previous Rx's Medication Instructions Recorded Disabled Parking Placard #1 ea 10/02/23 amlodipine 5 mg tablet 5 mg PO DAILY #90 tabs 02/19/24 hydroxyzine HCl 25 mg tablet 25 mg PO QID PRN anxiety #30 tabs 02/19/24 losartan 100 mg tablet 100 mg PO DAILY #90 tabs 02/19/24 econazole 1 % topical cream 1 applic topical BID #30 grams 03/04/24 escitalopram oxalate 10 mg tablet 10 mg PO DAILY #90 tabs 03/04/24 (Lexapro) metoprolol succinate 200 mg 200 mg PO DAILY #90 tabs 03/04/24 tablet,extended release 24 hr ketoconazole 2 % topical cream 1 applic topical BID #30 grams 03/05/24 cephalexin 500 mg capsule 500 mg PO TID #21 caps 04/07/24 hydrocodone 5 mg-acetaminophen 325 1 tab PO Q6H PRN pain #28 tabs 04/07/24 mg tablet Allergies Allergy/AdvReac Type Severity Reaction Status Date / Time EDD Inhibitors AdvReac Mild PERSISTANT Verified 04/07/24 12:06 [EDD INHIBITORS] COUGH oxycodone [OXYCODONE] AdvReac Mild NAUSEA, Verified 04/07/24 12:06 DIZZYNESS Patient History Medical History COVID-19 virus infection Migraine without aura and without status migrainosus, not intractable Bilateral carpal tunnel syndrome Leukocytosis Dysfunctional uterine bleeding Facial skin lesion Resistant hypertension Metabolic syndrome Impaired fasting blood sugar Body mass index (BMI) greater than 50 Dyslipidemia Hyperglycemia Vitiligo Psoriasis Sleep apnea Depression Anxiety Painful menstrual periods Irregular menstrual cycle Heavy menstrual period Spinal stenosis Morbid obesity (04/20/14) Essential hypertension (02/23/14) Surgical History Anesthesia History of tonsillectomy (~2007) Status post delivery (01/01/14) Status post delivery (04/03/11) Status post laminectomy (~07/22/16) Family History Father Hyperlipidemia Hypoglycemia Mother Diabetes mellitus Sister Spina bifida Grandfather Cancer History of heart disease Grandmother Diabetes mellitus Grandfather Cancer Grandmother Diabetes mellitus History of heart disease Hyperlipidemia Hypertension Mental health problem Stroke tobacco type: cigarettes alcohol intake frequency: holidays/special occasions only Substance Use Type: marijuana Exam Initial Vital Signs Initial Vital Signs: Vital Signs Temperature 96.7 F L 04/13/24 18:48 Pulse Rate 104 H 04/13/24 18:48 Respiratory Rate 18 04/13/24 18:48 Blood Pressure 241/121 H 04/13/24 18:48 Pulse Oximetry 99 04/13/24 18:48 Oxygen Delivery Method Room Air 04/13/24 18:48 Const: Awake, alert, no acute distress, nontoxic appearing GI: Soft, nontender, nondistended, no rebound, no guarding : assistant banquet manager present, dark yellow urine in qiu bag, otherwise normal Skin: Warm, Dry, intact, no rashes Neuro: AO x3, CN II-XII grossly intact, moves all extremities Course Orders Ordered: ED Orders 04/13/24 21:47 UA Complete [Urinalysis and Microscopic] Stat Vital Signs Vital signs: Vital Signs - 8 hr 04/13/24 18:48 04/13/24 19:24 04/13/24 19:25 Temperature 96.7 F L Pulse Rate 104 H 103 H Respiratory Rate 18 Blood Pressure 241/121 H Pulse Oximetry 99 99 96 Oxygen Delivery Method Room Air 04/13/24 19:25 04/13/24 19:30 04/13/24 20:00 Temperature Pulse Rate 97 H 98 H Respiratory Rate 18 Blood Pressure 189/96 H Pulse Oximetry 96 98 Oxygen Delivery Method 04/13/24 20:30 04/13/24 21:00 04/13/24 21:30 Temperature Pulse Rate 93 H 90 92 H Respiratory Rate Blood Pressure Pulse Oximetry 94 97 94 Oxygen Delivery Method 04/13/24 22:00 04/13/24 22:04 04/13/24 22:04 Temperature Pulse Rate 96 H 97 H Respiratory Rate Blood Pressure 177/93 H Pulse Oximetry 99 99 Oxygen Delivery Method MDM - Female Genitourinary Differential Diagnosis Differential diagnosis: Likely urinary tract infection and other (qiu catheter blockage, qiu catheter malfunction) Lab Data Labs: Lab Results 04/13/24 Range/Units 21:47 Urine Color Yellow Urine Appearance Sl cloudy Urine pH 6.0 (4.5-8.0) Ur Specific [place] >=1.030 H (1.000-1.035) Urine Protein 2+ H (Negative) Urine Glucose (UA) Negative (Negative) g/dL Urine Ketones Negative (NEGATIVE) Urine Occult Blood 3+ H (Negative) Urine Nitrate Negative (Negative) Urine Bilirubin Negative (NEGATIVE) Urine Urobilinogen 0.2 (0.2) E.U./dL Ur Leukocyte Esterase Negative (NEGATIVE) Urine RBC 30-100/hpf H (0-5/HPF) Urine WBC 1-5/hpf (0-5/HPF) Ur Squamous Epith Cells 0-1 /hpf (0-5/HPF) Calcium Oxalate Crystal Occasional H Urine Bacteria Moderate (10-30) H (None) Ur Culture Indicated? Cult not indicated Vol Urine Centrifuged 10ml (spun) MDM Narrative Medical decision making narrative: Patient complaining of pain and irritation around her Qiu catheter insertion site. She likely disrupted her catheter while getting into her vehicle earlier today since she was still using her long tubing. Catheter replaced with appropriate drainage. Patient reports concerned that she may have a urinary tract infection. A urinalysis was sent which showed some bacteria without secondary signs of infection. Some blood present, however this is expected given the exchange of catheter tubing as well as having the previous catheter pulled on. Patient has scheduled urology follow up tomorrow. Patient given instructions by nursing staff on how to use leg bag. Of note, patient did arrive quite hypertensive, however blood pressure decreased while in the emergency department without interventions. The patient has known longstanding high blood pressure and she was followed by primary care for this issue. Discharge Plan Departure Patient Disposition: Home Clinical Impression: Dislodged Qiu catheter Instructions: How to Care for Your Qiu Catheter -- Female Activity Restrictions/Additional Instructions: Continue to take the antibiotic you were given previously. You did have some bacteria in your urine, but no signs of infection. There was a small amount of blood, which can be seen when Qiu catheters are irritated and then exchanged. See urology tomorrow as scheduled. Prescriptions: No Action ketoconazole 2 % cream 1 applic topical BID Qty: 30 2RF Rx Instructions: for rash on lower abdomen cephalexin 500 mg capsule 500 mg PO TID Qty: 21 0RF hydrocodone-acetaminophen 5-325 mg tablet 1 tab PO Q6H PRN (Reason: pain) Qty: 28 0RF Rx Instructions: Take one tablet every 6 hours as needed for pain post spinal surgery ibuprofen 200 mg tablet 800 mg PO BID PRN gabapentin 300 mg capsule 300 mg PO BEDTIME (DME) Disabled Parking Placard See Rx Instructions .Route .MEDSUPPLY Qty: 1 0RF Rx Instructions: Patient meets qualifications for Disabled Parking Placard hydrochlorothiazide 25 mg tablet 25 mg PO DAILY hydroxyzine HCl 25 mg tablet 25 mg PO QID PRN (Reason: anxiety) Qty: 30 3RF amlodipine 5 mg tablet 5 mg PO DAILY Qty: 90 1RF losartan 100 mg tablet 100 mg PO DAILY Qty: 90 1RF metoprolol succinate 200 mg tablet extended release 24 hr 200 mg PO DAILY Qty: 90 1RF escitalopram oxalate [Lexapro] 10 mg tablet 10 mg PO DAILY Qty: 90 1RF econazole 1 % cream 1 applic topical BID Qty: 30 2RF Rx Instructions: for lower abdomen rash Referrals: Ronnie Hull ARNP [Primary Care Provider] - Stand Alone Forms: Patient Portal/API/Survey
--- NOTE | 2024-04-13 19:51 | PC.NURSE ---
Addendum entered by Radha Birmingham R.N. 04/13/24 20:01: urethra instead of ureter Original Note: pt's qiu catheter removed with letty colored urine noted, new qiu inserted with no urine returned but able to palpate the meatus of ureter and note the cather in the correct place not in the vagina, inflated the balloon without any discomfort noted, discussed with pt regarding the catheter irritating the meatus and ways to prevent with understanding verbalized will monitor for urine output
--- NOTE | 2024-04-13 19:56 | PC.NURSE ---
pt states she has an appt with urology tomorrow to have catheter removed she had spinal surgery Nov 6 and has not been able to void she felt like her catheter was not draining tonight
[2024-04-13 21:52] LABS: Appearance Urine UA SL CLOUDY; Bilirubin Urine UA NEGATIVE (NEGATIVE); Color Urine UA YELLOW; Glucose Urine UA NEGATIVE (Negative); Ketones Urine UA NEGATIVE (NEGATIVE); Leukocyte Esterase Urine UA NEGATIVE (NEGATIVE); Nitrite Urine UA NEGATIVE (Negative); Occult Blood Urine UA 3+ (Negative); Protein Urine UA 2+ (Negative); Specific Gravity Urine UA >=1.030 (1.000-1.035); Urobilinogen Urine UA 0.2 E.U./dL (0.2)
[2024-04-13 21:59] LABS: Bacteria Urine Moderate (10-30); Calcium Oxalate Crystals Urine Occasional; Culture Indicated Urine Cult Not Indicated; RBC Urine 30-100/HPF (0-5/HPF); Squamous Epithelial Cell Urine 0-1 /HPF (0-5/HPF); Urine Volume 10mL (spun); WBC Urine 1-5/HPF (0-5/HPF)
== END 2024-04-13 22:27 | disposition home or self-care (01) ==
PROVIDERS: Emergency Provider Emergency Medicine; PCP Registered Nurse Diabetes Educator
DX: T83.028A Displacement of other urinary catheter, initial encounter (principal)
CPT/HCPCS: 51702; 81001; 99283

== ENCOUNTER → 2024-06-11 09:47 | Outpatient (CLI) | payer OTHER, SELFPAY ==
[2024-04-08 09:14] VITALS: BMI 55.4
== END ==
LOC: WC 09:59
PROVIDERS: PCP Registered Nurse Diabetes Educator; Visit Provider Surgery
DX: B35.9 Dermatophytosis, unspecified (principal); E66.01 Morbid (severe) obesity due to excess calories; Z68.43 Body mass index [BMI] 50.0-59.9, adult
CPT/HCPCS: 99203; 99213

== ENCOUNTER 2024-06-30 09:32 | Observation (INO) | payer OTHER, SELFPAY ==
[2024-04-08 09:14] VITALS: BMI 55.4
[2024-06-30] VITALS (148 sets, daily range): BP systolic 135–259; BP diastolic 74–143; PULSE 83–125; RESP 9–34; TEMP 37.4–37.9; O2SAT 87–98; BMI 54.9; BMI 55.2
--- NOTE | 2024-06-30 09:42 | DI.RAD.S_ITS ---
PROCEDURE: XR CHEST 1V INDICATIONS: cough TECHNIQUE: One view of the chest was acquired. COMPARISON: [facility], CR, XR CHEST 1V, 09/02/2021, 13:23. [facility], CR, XR CHEST 1V, 12/09/2020, 9:21. FINDINGS: Surgical changes and devices: None. Lungs and pleura: Lungs are clear. No pleural effusions or pneumothorax. Mediastinum: Mediastinal contours appear normal. Heart size is prominent. Bones and chest wall: No suspicious bony lesions. Overlying soft tissues appear unremarkable. IMPRESSION: No focal pulmonary consolidations. Dictated by: Jamil Moore M.D. on 06/30/2024 at 9:58 Approved by: Jamil Moore M.D. on 06/30/2024 at 9:59
--- NOTE | 2024-06-30 09:45 | EKG_ITS ---
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
[2024-06-30 10:09] LABS: Add Manual Diff / Slide Review NO; Basophils Absolute Auto 100 /uL (0-100); Basophils Percent Auto 0.6 % (0-2); Eosinophils Absolute Auto 100 /uL (0-450); Eosinophils Percent Auto 0.7 % (2-4); Hematocrit 36.7 % (36-46); Hemoglobin 12.1 g/dL (12.0-16.0); Lymphocytes Absolute Auto 500 /uL (1100-4500); Lymphocytes Percent Auto 4.9 % (25-40); Mean Corpuscular HGB Conc 32.9 % (30-36); Mean Corpuscular Hemoglobin 23.7 PG (26-34); Mean Corpuscular Volume 71.9 fL (80-100); Monocytes Absolute Auto 600 /uL (0-900); Monocytes Percent Auto 5.5 % (3-14); Neutrophils Absolute Auto 9800 /uL (1500-7000); Neutrophils Percent Auto 88.3 % (50-75); Platelet Count 287 X10^3/uL (150-400); Red Blood Cell Count 5.11 X10^6/uL (4.0-5.2); Red Cell Distribution Width 18.9 % (11.6-14.8); White Blood Cell Count 11.1 X10^3/uL (4.5-11.0)
[2024-06-30 10:19] LABS: Alanine Aminotransferase 45 IU/L (<35); Albumin 4.1 g/dL (3.5-5.0); Alkaline Phosphatase 91 U/L (38-126); Aspartate Aminotransferase 58 IU/L (14-36); BUN Creatinine Ratio 13.6 (6-22); Bilirubin Total 0.9 mg/dL (0.2-1.3); Blood Urea Nitrogen 17 mg/dL (7-17); Calcium 8.3 mg/dL (8.4-10.2); Carbon Dioxide 25 mmol/L (22-32); Chloride 99 mmol/L (98-107); Creatine Kinase 657 U/L (30-135); Estimated Glomerular Filt Rate 57 mL/min (>60); Globulin 4.2 g/dL (1.7-4.1); Glucose 137 mg/dL (70-100); HEMOLYSIS 46 (0-50); Lipase 46 U/L (23-300); Magnesium 1.8 mg/dL (1.6-2.3); Potassium 3.9 mmol/L (3.4-5.1); Sodium 132 mmol/L (137-145); Total Protein 8.3 g/dL (6.3-8.2)
[2024-06-30 10:31] LABS: NT-proBNP (BNP-Adult 18+) 2140 pg/mL (<125); Troponin I 0.045 ng/mL (0.01-0.034)
--- NOTE | 2024-06-30 10:37 | ED.CHESTPAIN ---
HPI - Chest Pain General Chief Complaint: Chest Pain Stated Complaint: Cold,Hot , head pain tired Time Seen by Provider: 06/30/24 10:33 Source: patient Mode of arrival: Wheelchair History of Present Illness HPI narrative: Patient is a 38-year-old female history of malignant hypertension bilateral lower extremity edema presenting today with headache and chest pain. She reports that her headache started last night it was worse headache of her life. She feels nauseous she has not vomited. She has also had some chest discomfort which she describes as heaviness nonradiating. No significant shortness of breath. She was found to be extremely hypertensive systolic 242/131. She denies any shortness of breath no known history of coronary artery disease Related Data Home Medications Medication Instructions Recorded Confirmed hydrochlorothiazide 25 mg tablet 25 mg PO DAILY 02/19/24 06/10/24 acetaminophen 325 mg capsule 325 mg PO ONCE PRN 04/16/24 06/10/24 (Tylenol) acetaminophen 500 mg tablet mg PO 04/29/24 06/10/24 escitalopram oxalate 5 mg tablet 5 mg PO DAILY 04/29/24 06/10/24 methocarbamol 750 mg tablet mg PO 04/29/24 06/10/24 Previous Rx's Medication Instructions Recorded Disabled Parking Placard #1 ea 10/02/23 losartan 100 mg tablet 100 mg PO DAILY #90 tabs 02/19/24 ketoconazole 2 % topical cream 1 applic topical BID #30 grams 03/05/24 amlodipine 10 mg tablet 10 mg PO DAILY #30 tabs 04/29/24 metoprolol succinate 200 mg 200 mg PO BID #180 tabs 05/02/24 tablet,extended release 24 hr semaglutide (weight loss) 0.25 0.25 mg (0.5 mL) SUBCUT QWEEK #2 mL 06/14/24 mg/0.5 mL subcutaneous pen injector (Wegovy) semaglutide (weight loss) 0.5 0.5 mg (0.5 mL) SUBCUT QWEEK #2 mL 06/14/24 mg/0.5 mL subcutaneous pen injector (Wegovy) spironolactone 25 mg tablet 25 mg PO DAILY #120 tabs 06/16/24 Allergies Allergy/AdvReac Type Severity Reaction Status Date / Time EDD Inhibitors AdvReac Mild PERSISTANT Verified 06/30/24 09:35 [EDD INHIBITORS] COUGH oxycodone [OXYCODONE] AdvReac Mild NAUSEA, Verified 06/30/24 09:35 DIZZYNESS Patient History Medical History COVID-19 virus infection Migraine without aura and without status migrainosus, not intractable Bilateral carpal tunnel syndrome Leukocytosis Dysfunctional uterine bleeding Facial skin lesion Resistant hypertension Metabolic syndrome Impaired fasting blood sugar Body mass index (BMI) greater than 50 Dyslipidemia Hyperglycemia Vitiligo Psoriasis Sleep apnea Depression Anxiety Painful menstrual periods Irregular menstrual cycle Heavy menstrual period Spinal stenosis Morbid obesity (04/20/14) Essential hypertension (02/23/14) Surgical History Anesthesia History of tonsillectomy (~2007) Status post delivery (01/01/14) Status post delivery (04/03/11) Status post laminectomy (~07/22/16) Family History Father Hyperlipidemia Hypoglycemia Mother Diabetes mellitus Sister Spina bifida Grandfather Cancer History of heart disease Grandmother Diabetes mellitus Grandfather Cancer Grandmother Diabetes mellitus History of heart disease Hyperlipidemia Hypertension Mental health problem Stroke Social History household members: spouse and children Smoking Status: Former smoker alcohol intake: never substance use type: marijuana Smoking Status: Former smoker tobacco type: cigarettes alcohol intake frequency: holidays/special occasions only Exam Initial Vital Signs Initial Vital Signs: Vital Signs Temperature 99.7 F H 06/30/24 09:35 Pulse Rate 117 H 06/30/24 09:35 Respiratory Rate 17 06/30/24 09:35 Blood Pressure 201/99 H 06/30/24 09:35 Pulse Oximetry 96 06/30/24 09:35 Oxygen Delivery Method Room Air 06/30/24 09:35 GENERAL: 38-year-old female appears to not feel BMI 54 s. HEENT: Head atraumatic,EOMI, pupils reactive, face symmetric, moist mucous membranes CARDIOVASCULAR: Regular rate and rhythm without murmurs, rubs or gallops. RESPIRATORY: Breath sounds equal bilaterally, no wheezes rales or rhonchi. ABDOMEN: Soft, nontender. Normoactive bowel sounds all 4 quadrants. No guarding or rebound. EXTREMITIES: Normal range of motion, no clubbing or edema. Neurovascularly intact NEUROLOGICAL: Alert and oriented x4.Normal gait and speech. Cranial nerves II through XII grossly intact. SKIN: Warm, dry, no laceration, no petechiae, no rashes or lesions. Scores GCS Sundeep coma scale eye opening: Spontaneous Sundeep coma scale verbal response: Orientated [place] coma scale motor response: Obey commands Sundeep coma scale total score: 15 Course Orders Ordered: ED Orders 06/30/24 09:42 XR chest 1V Stat EKG-12 Lead Stat 06/30/24 10:00 Complete Blood Count AUTO DIFF Stat Comprehensive Metabolic Panel Stat Lipase Stat Magnesium Stat NT-proBNP (BNP-Adult 18+) Stat PTT Partial Thromboplastin Zeus Stat Prothrombin Time INR Stat Troponin & CK Cardiac Panel Stat 06/30/24 10:51 CT angio head and neck Stat CT head/brain wo con Stat 06/30/24 10:52 EKG-12 Lead Stat 06/30/24 11:58 Trop I [Troponin I] Stat Acetaminophen (Acetaminophen 325 Mg Tablet) 650 mg PO Q6H PRN PRN Reason: Fever/Mild Pain (1-3) Amlodipine Besylate (Amlodipine 5 Mg Tablet) 10 mg PO DAILY BENITO Hydralazine HCl (Hydralazine 10 Mg Tablet) 10 mg PO Q8H BENITO Last Admin: 06/30/24 16:47 Dose: 10 mg Documented By: LOIS Hydrochlorothiazide (Hydrochlorothiazide 25 Mg Tablet) 25 mg PO DAILY [facility]EN[facility]O Nicardipine HCl 25 mg/ Sodium (Chloride) 250 mls @ 50 mls/hr IV TITRATE BENITO; Protocol Last Admin: 06/30/24 17:17 Dose: 7.5 mg/hr, 75 mls/hr Documented By: Titration: 06/30/24 17:17 Dose: Infused Documented By: Titration: 06/30/24 15:24 Dose: 5 mg/hr, 50 mls/hr Documented By: Titration: 06/30/24 15:24 Dose: 0 mg/hr, 0 mls/hr Documented By: Titration: 06/30/24 14:45 Dose: 5 mg/hr, 50 mls/hr Documented By: Titration: 06/30/24 14:21 Dose: 7.5 mg/hr, 75 mls/hr Documented By: Titration: 06/30/24 13:51 Dose: 10 mg/hr, 100 mls/hr Documented By: Titration: 06/30/24 13:33 Dose: 7.5 mg/hr, 75 mls/hr Documented By: Admin: 06/30/24 13:21 Dose: 5 mg/hr, 50 mls/hr Documented By: MARTINE Losartan Potassium (Losartan 50 Mg Tablet) 100 mg PO DAILY [facility] Metoprolol Succinate (Metoprolol Er 50 Mg Tablet) 200 mg PO BID [facility] Naloxone HCl (Naloxone 0.4 Mg/Ml Vial) 0.2 mg IV Q2MIN PRN PRN Reason: Opiate Reversal Nitroglycerin (Nitroglycerin 0.4 Mg Sl Tab) 0.4 mg SL [id number] PRN PRN Reason: Chest Pain Last Admin: 06/30/24 11:10 Dose: 0.4 mg Documented By: Admin: 06/30/24 10:52 Dose: 0.4 mg Documented By: MARTINE Sodium Chloride (Sodium Chloride 0.9% Flush) 10 ml IV PRN PRN PRN Reason: Flush Sodium Chloride (Sodium Chloride 0.9% Flush) 10 ml IV BID [facility] Spironolactone (Spironolactone 25 Mg Tablet) 25 mg PO DAILY [facility] Discontinued Medications Aspirin (Aspirin 81 Mg Chew Tab) 324 mg PO NOW ONE Stop: 06/30/24 09:43 Last Admin: 06/30/24 14:34 Dose: Not Given Documented By: MARTINE Acetaminophen (Ofirmev) 1,000 mg in 100 mls @ 400 mls/hr IV NOW ONE Stop: 06/30/24 14:35 Last Infusion: 06/30/24 14:49 Dose: Infused Documented By: Admin: 06/30/24 14:34 Dose: 400 mls/hr Documented By: MARTINE Labetalol HCl (Labetalol 20 Mg/4 Ml Syringe) 10 mg IV NOW ONE Stop: 06/30/24 11:27 Last Admin: 06/30/24 11:42 Dose: 10 mg Documented By: MARTINE Vital Signs Vital signs: Vital Signs - 8 hr 06/30/24 10:30 06/30/24 10:30 06/30/24 10:41 Pulse Rate 108 H 111 H Respiratory Rate 23 19 Blood Pressure 242/131 H Pulse Oximetry 93 96 06/30/24 10:41 06/30/24 10:52 06/30/24 10:57 Pulse Rate 113 H Respiratory Rate Blood Pressure 233/130 H 233/130 H 210/117 H Pulse Oximetry 06/30/24 10:57 06/30/24 10:59 06/30/24 10:59 Pulse Rate 119 H 117 H Respiratory Rate 19 26 H Blood Pressure 207/104 H Pulse Oximetry 94 94 06/30/24 11:00 06/30/24 11:00 06/30/24 11:06 Pulse Rate 118 H 110 H Respiratory Rate 28 H 25 H Blood Pressure 191/94 H Pulse Oximetry 93 94 06/30/24 11:06 06/30/24 11:10 06/30/24 11:10 Pulse Rate 110 H 109 H Respiratory Rate 20 Blood Pressure 214/91 H 191/94 H Pulse Oximetry 96 06/30/24 11:10 06/30/24 11:15 06/30/24 11:15 Pulse Rate 107 H Respiratory Rate 22 Blood Pressure 190/91 H 189/91 H Pulse Oximetry 93 06/30/24 11:20 06/30/24 11:20 06/30/24 11:25 Pulse Rate 103 H Respiratory Rate 21 Blood Pressure 191/96 H 218/111 H Pulse Oximetry 92 06/30/24 11:25 06/30/24 11:30 06/30/24 11:30 Pulse Rate 103 H 104 H Respiratory Rate 20 21 Blood Pressure 226/117 H Pulse Oximetry 93 94 06/30/24 11:35 06/30/24 11:35 06/30/24 11:36 Pulse Rate 104 H Respiratory Rate 22 Blood Pressure 221/123 H 214/116 H Pulse Oximetry 93 06/30/24 11:36 06/30/24 11:40 06/30/24 11:40 Pulse Rate 103 H 100 H Respiratory Rate 21 19 Blood Pressure 208/115 H Pulse Oximetry 93 94 06/30/24 11:42 06/30/24 11:45 06/30/24 11:45 Pulse Rate 100 H 100 H Respiratory Rate 14 Blood Pressure 208/115 H 212/113 H Pulse Oximetry 95 06/30/24 11:50 06/30/24 11:50 06/30/24 11:55 Pulse Rate 98 H 100 H Respiratory Rate 18 23 Blood Pressure 209/118 H Pulse Oximetry 93 94 06/30/24 11:55 06/30/24 12:00 06/30/24 12:00 Pulse Rate 100 H Respiratory Rate 20 Blood Pressure 213/111 H 213/110 H Pulse Oximetry 96 06/30/24 12:05 06/30/24 12:05 06/30/24 12:10 Pulse Rate 100 H Respiratory Rate 17 Blood Pressure 210/113 H 225/121 H Pulse Oximetry 95 06/30/24 12:10 06/30/24 12:15 06/30/24 12:15 Pulse Rate 101 H 100 H Respiratory Rate 23 22 Blood Pressure 215/119 H Pulse Oximetry 94 96 06/30/24 12:20 06/30/24 12:20 06/30/24 12:25 Pulse Rate 100 H 104 H Respiratory Rate 19 22 Blood Pressure 216/118 H Pulse Oximetry 95 95 06/30/24 12:25 06/30/24 12:30 06/30/24 12:30 Pulse Rate 104 H Respiratory Rate 18 Blood Pressure 217/117 H 210/96 H Pulse Oximetry 97 06/30/24 12:35 06/30/24 12:35 06/30/24 12:40 Pulse Rate 104 H Respiratory Rate 18 Blood Pressure 216/103 H 193/102 H Pulse Oximetry 97 06/30/24 12:40 06/30/24 12:45 06/30/24 12:45 Pulse Rate 107 H 104 H Respiratory Rate 17 25 H Blood Pressure 192/96 H Pulse Oximetry 97 94 06/30/24 12:50 06/30/24 12:50 06/30/24 12:55 Pulse Rate 104 H 104 H Respiratory Rate 16 19 Blood Pressure 189/96 H Pulse Oximetry 96 94 06/30/24 12:55 06/30/24 13:00 06/30/24 13:00 Pulse Rate 105 H Respiratory Rate 25 H Blood Pressure 196/115 H 205/116 H Pulse Oximetry 93 06/30/24 13:05 06/30/24 13:05 06/30/24 13:10 Pulse Rate 104 H 104 H Respiratory Rate 22 22 Blood Pressure 210/109 H Pulse Oximetry 93 93 06/30/24 13:10 06/30/24 13:15 06/30/24 13:15 Pulse Rate 105 H Respiratory Rate 23 Blood Pressure 210/115 H 188/113 H Pulse Oximetry 93 06/30/24 13:20 06/30/24 13:20 06/30/24 13:25 Pulse Rate 106 H 106 H Respiratory Rate 23 22 Blood Pressure 202/108 H Pulse Oximetry 94 93 06/30/24 13:25 06/30/24 13:28 06/30/24 13:28 Pulse Rate 107 H Respiratory Rate 21 Blood Pressure 204/104 H 209/113 H Pulse Oximetry 93 06/30/24 13:30 06/30/24 13:30 06/30/24 13:35 Pulse Rate 106 H Respiratory Rate 20 Blood Pressure 204/102 H 209/104 H Pulse Oximetry 93 06/30/24 13:35 06/30/24 13:40 06/30/24 13:40 Pulse Rate 108 H 107 H Respiratory Rate 23 Blood Pressure 205/104 H Pulse Oximetry 92 92 06/30/24 13:45 06/30/24 13:45 06/30/24 13:50 Pulse Rate 107 H 109 H Respiratory Rate 22 21 Blood Pressure 214/99 H Pulse Oximetry 93 93 06/30/24 13:51 06/30/24 13:51 06/30/24 13:55 Pulse Rate 109 H 109 H Respiratory Rate 33 H Blood Pressure 186/89 H Pulse Oximetry 92 91 06/30/24 13:55 06/30/24 13:57 06/30/24 14:00 Pulse Rate 110 H 111 H Respiratory Rate 34 H Blood Pressure 203/94 H 203/94 H Pulse Oximetry 94 06/30/24 14:00 06/30/24 14:05 06/30/24 14:05 Pulse Rate 111 H Respiratory Rate 25 H Blood Pressure 202/94 H 200/105 H Pulse Oximetry 91 06/30/24 14:10 06/30/24 14:10 06/30/24 14:15 Pulse Rate 111 H 125 H Respiratory Rate 28 H 28 H Blood Pressure 226/107 H Pulse Oximetry 92 93 06/30/24 14:18 06/30/24 14:18 06/30/24 14:20 Pulse Rate 115 H 114 H Respiratory Rate 26 H 24 Blood Pressure 181/100 H Pulse Oximetry 93 96 06/30/24 14:20 06/30/24 14:25 06/30/24 14:25 Pulse Rate 110 H Respiratory Rate 24 Blood Pressure 175/96 H 177/86 H Pulse Oximetry 93 MDM - Chest Pain Lab Data 06/30/24 10:00 06/30/24 10:00 Labs: Lab Results 06/30/24 06/30/24 Range/Units 10:00 11:58 WBC 11.1 H (4.5-11.0) X10^3/uL RBC 5.11 (4.0-5.2) X10^6/uL Hgb 12.1 (12.0-16.0) g/dL Hct 36.7 (36-46) % MCV 71.9 L (80-100) fL MCH 23.7 L (26-34) PG MCHC 32.9 (30-36) % RDW 18.9 H (11.6-14.8) % Plt Count 287 (150-400) X10^3/uL Neut % (Auto) 88.3 H (50-75) % Lymph % (Auto) 4.9 L (25-40) % [place] % (Auto) 5.5 (3-14) % Eos % (Auto) 0.7 L (2-4) % Baso % (Auto) 0.6 (0-2) % Neut # (Auto) 9800 H (8014-2721) /uL Lymph # (Auto) 500 L (5586-8040) /uL [place] # (Auto) 600 (0-900) /uL Eos # (Auto) 100 (0-450) /uL Baso # (Auto) 100 (0-100) /uL PT 13.9 H (9.4-12.5) SECONDS INR 1.2 (0.9-1.3) APTT 32 (25.1-36.5) SECONDS Sodium 132 L (137-145) mmol/L Potassium 3.9 (3.4-5.1) mmol/L Chloride 99 (98-107) mmol/L Carbon Dioxide 25 (22-32) mmol/L BUN 17 (7-17) mg/dL Creatinine 1.25 H (0.52-1.04) mg/dL Estimated GFR 57 L (>60) mL/min BUN/Creatinine Ratio 13.6 (6-22) Glucose 137 H (70-100) mg/dL Calcium 8.3 L (8.4-10.2) mg/dL Magnesium 1.8 (1.6-2.3) mg/dL Total Bilirubin 0.9 (0.2-1.3) mg/dL AST 58 H (14-36) IU/L ALT 45 H (<35) IU/L Alkaline Phosphatase 91 (38-126) U/L Total Creatine Kinase 657 H (30-135) U/L Troponin I 0.045 H 0.040 H (0.01-0.034) ng/mL NT-Pro-B Natriuret Pep 2140 H (<125) pg/mL Total Protein 8.3 H (6.3-8.2) g/dL Albumin 4.1 (3.5-5.0) g/dL Globulin 4.2 H (1.7-4.1) g/dL Albumin/Globulin Ratio 1.0 (1.0-2.8) Lipase 46 (23-300) U/L Imaging Data Chest x-ray: Radiologist's Impression: PROCEDURE: XR CHEST 1V INDICATIONS: cough TECHNIQUE: One view of the chest was acquired. COMPARISON: [facility], , XR CHEST 1V, 09/02/2021, 13:23. [facility], , XR CHEST 1V, 12/09/2020, 9:21. FINDINGS: Surgical changes and devices: None. Lungs and pleura: Lungs are clear. No pleural effusions or pneumothorax. Mediastinum: Mediastinal contours appear normal. Heart size is prominent. Bones and chest wall: No suspicious bony lesions. Overlying soft tissues appear unremarkable. IMPRESSION: No focal pulmonary consolidations. Dictated by: Jamil Moore M.D. on 06/30/2024 at 9:58 Approved by: Jamil Moore M.D. on 06/30/2024 at 9:5 ECG Data Attestation: I personally reviewed and interpreted this ECG as follows: Interpretation: Normal sinus rhythm rate 114 IA interval 168 QRS [address] depression V6 lead 1 aVL and V6 knee you from previous EKGs in 2021 EKG 2. Sinus rhythm persistent ST depressions without elevation MDM Narrative Medical decision making narrative: MDM CC: Headache chest pain Complicating co-morbidities: Malignant hypertension Medical records reviewed: Note from PCP he 10/02/2023 for malignant hypertension at that time had blood pressure 196/112, unclear if she had full workup for malignant hypertension Differential considered: Hypertensive emergency intracranial hemorrhage, acute coronary syndrome, meningitis Exam documented above, pertinent findings include: Patient 38-year-old female appears to not feel well. Breath sounds are equal neurovascularly intact Lab Test results independently reviewed as above. Pertinent findings: Troponin 0.045-->0.040 BNP 2140 Sodium 132 potassium 3.9 chloride 99 carbon dioxide 25 BUN 17 creatinine 1.25 previously 1.17 Bilirubin liver enzymes within normal limits Independently reviewed EKG as above New ST depression in lateral leads no ST elevation Imaging studies independently reviewed: CT Head no acute intracranial process CT angio no aneurysm or intracranial hemorrhage Chest x-ray no acute process Consultations: Dr. Bradford, cardiology, agrees with blood pressure control, agrees with the nicardipine drip, no need for transfer Dr. Daniels updated on symptoms test results agrees with nicardipine drip Treatments: Nitroglycerin, labetalol, nicardipine Re-evaluations: She was feeling somewhat better Discussion: 38-year-old female history of malignant hypertension presenting today with headache and chest pain. She was found to have significantly elevated blood pressure with systolic greater than 200. She was new EKGs changes with ST depression in the worst headache of her life. She has no focal deficits. Imaging does not show any aneurysms or intracranial hemorrhage. She was a GCS of 15 but appears to not feel well. She would low-grade temp here in the ED as well. Also concerning she was worsening ST depression in lateral leads, with chest pain with indeterminate troponin 0.045 and 0.040 She also has low-grade temp no significant neck pain she has no leukocytosis meningitis considered however respiratory panel is positive for COVID. I suspect malignant hypertension on top of a respiratory illness causing worsening headache and. Critical Care Time Critical Care Time Critical Care Time: Yes Total Critical Care Time: 31 Attestation: The high probability of a clinically significant, sudden or life threatening deterioration of the [cardiovascular] system(s) required my full and direct attention, intervention and personal management. The aggregate critical care time was 31 minutes. This time is in addition to time spent performing reported procedures but includes the following: [x] Data Review and interpretation [x] Patient assessment and monitoring of vital signs [x] Documentation [x] Medication orders and management Discharge Plan Departure Patient Disposition: Admitted as Observation Clinical Impression: Hypertensive emergency, COVID-19 Admit Date/Time: 06/30/24 14:25 Admit Provider: Gilberto Willson
--- NOTE | 2024-06-30 10:46 | PC.NURSE ---
BP 242/131 @ 1030, BP 233/130 @ 1040. Physician aware. No new orders. Physician in room now.
--- NOTE | 2024-06-30 10:51 | DI.CT.S_ITS ---
PROCEDURE: CT HEAD/BRAIN WO CON INDICATIONS: worst headache of life TECHNIQUE: Noncontrast 4.5 mm thick angled axial sections acquired from the foramen magnum to the vertex, with coronal and sagittal reformats. For radiation dose reduction, the following was used: automated exposure control, adjustment of mA and/or kV according to patient size. COMPARISON: [facility], CT, CT HEAD/BRAIN WO CON, 10/14/2023, 22:33. FINDINGS: Image quality: Diagnostic. CSF spaces: Basal cisterns are patent. No extra-axial fluid collections. Ventricles are normal in size and shape. Brain: No midline shift. No intracranial masses or hemorrhage. Gomez-white matter interface is normal. Skull and face: Calvarium and visualized facial bones are intact, without suspicious lesions. Sinuses: Visualized sinuses and mastoids are clear. IMPRESSION: No acute intracranial pathology. Dictated by: Jamil Moore M.D. on 06/30/2024 at 11:20 Approved by: Jamil Moore M.D. on 06/30/2024 at 11:21
--- NOTE | 2024-06-30 10:51 | DI.CT.S_ITS ---
PROCEDURE: CT ANGIO HEAD AND NECK INDICATIONS: worst headache TECHNIQUE: After the administration of intravenous contrast, 1 mm thick sections acquired from the aortic arch through the [place] of [place]. 3-dimensional utdqucz-tsapsrmrs-fpmneqfywk (MIP) and/or volume rendering reformats were acquired of the central intracranial vasculature and neck separately. For radiation dose reduction, the following was used: automated exposure control, adjustment of mA and/or kV according to patient size. COMPARISON: [facility], CT, CT HEAD/BRAIN WO CON, 06/30/2024, 10:56. FINDINGS: Image quality: Diagnostic. BRAIN: CSF spaces: Ventricles are normal in size and shape. Basal cisterns are patent. No extra-axial fluid collections. Brain: No significant abnormality of the brain can be seen. Skull and face: Calvarium and facial bones appear intact, without suspicious lesions. Orbits appear normal. Sinuses: Sinuses and mastoids are clear. HEAD CT ANGIOGRAPHY: Anterior circulation: Intracranial internal carotid arteries are normal in size and flow. The flow within the paired anterior cerebral arteries is normal and symmetric. The flow within the middle cerebral arteries is normal and symmetric. The anterior communicating artery is seen. No aneurysms are seen. Posterior circulation: Visualized portions of the vertebral arteries demonstrate normal caliber, and join to form a normal appearing basilar artery. Flow within the posterior cerebral arteries is normal and symmetric. No aneurysms are seen. NECK CT ANGIOGRAPHY: Carotid system: The great vessels demonstrate a bovine arch anatomy as they arise from the aortic arch. The origins of the common carotid arteries appear patent. The common carotid arteries demonstrate normal caliber and courses. The bifurcation regions are both widely patent. The internal carotid arteries demonstrate normal calibers and courses. Posterior circulation: The origins of the vertebral arteries both appear widely patent. The more superior extracranial portions of both vertebral arteries also demonstrate normal courses and calibers. They join to form a normal appearing basilar artery. Soft tissues: Visualized neck soft tissues demonstrate shotty bilateral cervical adenopathy. Additionally, there is a mildly prominent inferior left parotid region lymph node measuring 1.3 x 1.2 cm axial image 179 of series 7. . Bones: No suspicious bony lesions. Visualized cervical spine appears normally aligned. IMPRESSION: No significant intracranial arterial abnormality is seen. No significant abnormality is seen within the arteries of the neck. Shotty bilateral cervical adenopathy. Findings include a somewhat prominent left inferior parotid region lymph. Any quantitative measurements of stenosis were performed using NASCET criteria. Dictated by: Taco Osborne M.D. on 06/30/2024 at 11:34 Approved by: Taco Osborne M.D. on 06/30/2024 at 11:36
[2024-06-30] MEDS: NITROGLYCERIN 0.4 MG SL TAB SL ×2 (10:52→11:10)
--- NOTE | 2024-06-30 10:52 | EKG_ITS ---
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
[2024-06-30 10:53] LABS: INR 1.2 (0.9-1.3); Prothrombin Time 13.9 SECONDS (9.4-12.5)
[2024-06-30 10:56] LABS: PTT Partial Thromboplastin Tim 32 SECONDS (25.1-36.5)
[2024-06-30] MEDS: LABETALOL 20 MG/4 ML SYRINGE 10 MG IV (11:42)
[2024-06-30] MEDS: NICARDIPINE 25 MG in SODIUM CHLORIDE 0.9% 240 ML 50 MG IV (13:21)
[2024-06-30] MEDS: ACETAMINOPHEN IV 1,000 MG/100 ML VIAL 400 MG IV (14:34)
--- NOTE | 2024-06-30 15:16 | PM.HP.1 ---
History of Present Illness History of Present Illness Date Patient Seen: 06/30/24 Chief complaint: Cold,Hot , head pain ,tired Narrative: ED Course: Patient is a 38-year-old female history of malignant hypertension bilateral lower extremity edema presenting today with headache and chest pain. She reports that her headache started last night it was worse headache of her life. She feels nauseous she has not vomited. She has also had some chest discomfort which she describes as heaviness nonradiating. No significant shortness of breath. She was found to be extremely hypertensive systolic 242/131. She denies any shortness of breath no known history of coronary artery disease. S: She was had URI symptoms for several days with rhinorrhea and a cough. She has also had some myalgias and fatigue. She has been taking her blood pressure pills including this morning. Her blood pressure yesterday was close to 200. She was had headache, chest pain, and dyspnea. In the ER she failed labetalol and was started on a nicardipine drip. Her pressure is slowly improving. She notes that she likely has undiagnosed sleep apnea but can not get in for a study for several more months. She believes that this has something to do with her uncontrolled blood pressure as well. [facility] Medical History COVID-19 virus infection Migraine without aura and without status migrainosus, not intractable Bilateral carpal tunnel syndrome Leukocytosis Dysfunctional uterine bleeding Facial skin lesion Resistant hypertension Metabolic syndrome Impaired fasting blood sugar Body mass index (BMI) greater than 50 Dyslipidemia Hyperglycemia Vitiligo Psoriasis Sleep apnea Depression Anxiety Painful menstrual periods Irregular menstrual cycle Heavy menstrual period Spinal stenosis Morbid obesity (04/20/14) Essential hypertension (02/23/14) Surgical History Anesthesia History of tonsillectomy (~2007) Status post delivery (01/01/14) Status post delivery (04/03/11) Status post laminectomy (~07/22/16) Family History Father Hyperlipidemia Hypoglycemia Mother Diabetes mellitus Sister Spina bifida Grandfather Cancer History of heart disease Grandmother Diabetes mellitus Grandfather Cancer Grandmother Diabetes mellitus History of heart disease Hyperlipidemia Hypertension Mental health problem Stroke Social History household members: spouse and children Smoking Status: Former smoker alcohol intake: never substance use type: marijuana Meds Home Medications and Allergies Home Medications Medication Instructions Recorded Confirmed Type Disabled Parking Placard #1 ea 10/02/23 06/10/24 Rx hydrochlorothiazide 25 mg tablet 25 mg PO DAILY 02/19/24 06/10/24 History losartan 100 mg tablet 100 mg PO DAILY #90 tabs 02/19/24 06/10/24 Rx ketoconazole 2 % topical cream 1 applic topical BID #30 grams 03/05/24 06/10/24 Rx acetaminophen 325 mg capsule 325 mg PO ONCE PRN 04/16/24 06/10/24 History (Tylenol) acetaminophen 500 mg tablet mg PO 04/29/24 06/10/24 History amlodipine 10 mg tablet 10 mg PO DAILY #30 tabs 04/29/24 06/10/24 Rx escitalopram oxalate 5 mg tablet 5 mg PO DAILY 04/29/24 06/10/24 History methocarbamol 750 mg tablet mg PO 04/29/24 06/10/24 History metoprolol succinate 200 mg 200 mg PO BID #180 tabs 05/02/24 06/10/24 Rx tablet,extended release 24 hr semaglutide (weight loss) 0.25 0.25 mg (0.5 mL) SUBCUT QWEEK #2 mL 06/14/24 06/14/24 Rx mg/0.5 mL subcutaneous pen injector (Wegovy) semaglutide (weight loss) 0.5 0.5 mg (0.5 mL) SUBCUT QWEEK #2 mL 06/14/24 06/14/24 Rx mg/0.5 mL subcutaneous pen injector (Wegovy) spironolactone 25 mg tablet 25 mg PO DAILY #120 tabs 06/16/24 Rx Allergies Allergy/AdvReac Type Severity Reaction Status Date / Time EDD Inhibitors AdvReac Mild PERSISTANT Verified 06/30/24 09:35 [EDD INHIBITORS] COUGH oxycodone [OXYCODONE] AdvReac Mild NAUSEA, Verified 06/30/24 09:35 DIZZYNESS Review of Systems Review of Systems Narrative: All else reviewed and otherwise unremarkable except as noted in the history and physical. Exam Vital Signs (past 8 hours): - 06/30/24 09:35 06/30/24 09:39 06/30/24 10:00 Temperature 99.7 F H Pulse Rate 117 H 110 H Respiratory Rate 17 24 Blood Pressure 201/99 H Pulse Oximetry 96 98 96 Oxygen Delivery Method Room Air 06/30/24 10:12 06/30/24 10:12 06/30/24 10:30 Temperature Pulse Rate 111 H Respiratory Rate 18 Blood Pressure 209/111 H 242/131 H Pulse Oximetry 95 Oxygen Delivery Method 06/30/24 10:30 06/30/24 10:41 06/30/24 10:41 Temperature Pulse Rate 108 H 111 H Respiratory Rate 23 19 Blood Pressure 233/130 H Pulse Oximetry 93 96 Oxygen Delivery Method 06/30/24 10:52 06/30/24 10:57 06/30/24 10:57 Temperature Pulse Rate 113 H 119 H Respiratory Rate 19 Blood Pressure 233/130 H 210/117 H Pulse Oximetry 94 Oxygen Delivery Method 06/30/24 10:59 06/30/24 10:59 06/30/24 11:00 Temperature Pulse Rate 117 H Respiratory Rate 26 H Blood Pressure 207/104 H 191/94 H Pulse Oximetry 94 Oxygen Delivery Method 06/30/24 11:00 06/30/24 11:06 06/30/24 11:06 Temperature Pulse Rate 118 H 110 H Respiratory Rate 28 H 25 H Blood Pressure 214/91 H Pulse Oximetry 93 94 Oxygen Delivery Method 06/30/24 11:10 06/30/24 11:10 06/30/24 11:10 Temperature Pulse Rate 110 H 109 H Respiratory Rate 20 Blood Pressure 191/94 H 190/91 H Pulse Oximetry 96 Oxygen Delivery Method 06/30/24 11:15 06/30/24 11:15 06/30/24 11:20 Temperature Pulse Rate 107 H 103 H Respiratory Rate 22 21 Blood Pressure 189/91 H Pulse Oximetry 93 92 Oxygen Delivery Method 06/30/24 11:20 06/30/24 11:25 06/30/24 11:25 Temperature Pulse Rate 103 H Respiratory Rate 20 Blood Pressure 191/96 H 218/111 H Pulse Oximetry 93 Oxygen Delivery Method 06/30/24 11:30 06/30/24 11:30 06/30/24 11:35 Temperature Pulse Rate 104 H 104 H Respiratory Rate 21 22 Blood Pressure 226/117 H Pulse Oximetry 94 93 Oxygen Delivery Method 06/30/24 11:35 06/30/24 11:36 06/30/24 11:36 Temperature Pulse Rate 103 H Respiratory Rate 21 Blood Pressure 221/123 H 214/116 H Pulse Oximetry 93 Oxygen Delivery Method 06/30/24 11:40 06/30/24 11:40 06/30/24 11:42 Temperature Pulse Rate 100 H 100 H Respiratory Rate 19 Blood Pressure 208/115 H 208/115 H Pulse Oximetry 94 Oxygen Delivery Method 06/30/24 11:45 06/30/24 11:45 06/30/24 11:50 Temperature Pulse Rate 100 H 98 H Respiratory Rate 14 18 Blood Pressure 212/113 H Pulse Oximetry 95 93 Oxygen Delivery Method 06/30/24 11:50 06/30/24 11:55 06/30/24 11:55 Temperature Pulse Rate 100 H Respiratory Rate 23 Blood Pressure 209/118 H 213/111 H Pulse Oximetry 94 Oxygen Delivery Method 06/30/24 12:00 06/30/24 12:00 06/30/24 12:05 Temperature Pulse Rate 100 H 100 H Respiratory Rate 20 17 Blood Pressure 213/110 H Pulse Oximetry 96 95 Oxygen Delivery Method 06/30/24 12:05 06/30/24 12:10 06/30/24 12:10 Temperature Pulse Rate 101 H Respiratory Rate 23 Blood Pressure 210/113 H 225/121 H Pulse Oximetry 94 Oxygen Delivery Method 06/30/24 12:15 06/30/24 12:15 06/30/24 12:20 Temperature Pulse Rate 100 H 100 H Respiratory Rate 22 19 Blood Pressure 215/119 H Pulse Oximetry 96 95 Oxygen Delivery Method 06/30/24 12:20 06/30/24 12:25 06/30/24 12:25 Temperature Pulse Rate 104 H Respiratory Rate 22 Blood Pressure 216/118 H 217/117 H Pulse Oximetry 95 Oxygen Delivery Method 06/30/24 12:30 06/30/24 12:30 06/30/24 12:35 Temperature Pulse Rate 104 H 104 H Respiratory Rate 18 18 Blood Pressure 210/96 H Pulse Oximetry 97 97 Oxygen Delivery Method 06/30/24 12:35 06/30/24 12:40 06/30/24 12:40 Temperature Pulse Rate 107 H Respiratory Rate 17 Blood Pressure 216/103 H 193/102 H Pulse Oximetry 97 Oxygen Delivery Method 06/30/24 12:45 06/30/24 12:45 06/30/24 12:50 Temperature Pulse Rate 104 H Respiratory Rate 25 H Blood Pressure 192/96 H 189/96 H Pulse Oximetry 94 Oxygen Delivery Method 06/30/24 12:50 06/30/24 12:55 06/30/24 12:55 Temperature Pulse Rate 104 H 104 H Respiratory Rate 16 19 Blood Pressure 196/115 H Pulse Oximetry 96 94 Oxygen Delivery Method 06/30/24 13:00 06/30/24 13:00 06/30/24 13:05 Temperature Pulse Rate 105 H 104 H Respiratory Rate 25 H 22 Blood Pressure 205/116 H Pulse Oximetry 93 93 Oxygen Delivery Method 06/30/24 13:05 06/30/24 13:10 06/30/24 13:10 Temperature Pulse Rate 104 H Respiratory Rate 22 Blood Pressure 210/109 H 210/115 H Pulse Oximetry 93 Oxygen Delivery Method 06/30/24 13:15 06/30/24 13:15 06/30/24 13:20 Temperature Pulse Rate 105 H Respiratory Rate 23 Blood Pressure 188/113 H 202/108 H Pulse Oximetry 93 Oxygen Delivery Method 06/30/24 13:20 06/30/24 13:25 06/30/24 13:25 Temperature Pulse Rate 106 H 106 H Respiratory Rate 23 22 Blood Pressure 204/104 H Pulse Oximetry 94 93 Oxygen Delivery Method 06/30/24 13:28 06/30/24 13:28 06/30/24 13:30 Temperature Pulse Rate 107 H 106 H Respiratory Rate 21 20 Blood Pressure 209/113 H Pulse Oximetry 93 93 Oxygen Delivery Method 06/30/24 13:30 06/30/24 13:35 06/30/24 13:35 Temperature Pulse Rate 108 H Respiratory Rate Blood Pressure 204/102 H 209/104 H Pulse Oximetry 92 Oxygen Delivery Method 06/30/24 13:40 06/30/24 13:40 06/30/24 13:45 Temperature Pulse Rate 107 H 107 H Respiratory Rate 23 22 Blood Pressure 205/104 H Pulse Oximetry 92 93 Oxygen Delivery Method 06/30/24 13:45 06/30/24 13:50 06/30/24 13:51 Temperature Pulse Rate 109 H 109 H Respiratory Rate 21 Blood Pressure 214/99 H Pulse Oximetry 93 92 Oxygen Delivery Method 06/30/24 13:51 06/30/24 13:55 06/30/24 13:55 Temperature Pulse Rate 109 H Respiratory Rate 33 H Blood Pressure 186/89 H 203/94 H Pulse Oximetry 91 Oxygen Delivery Method 06/30/24 13:57 06/30/24 14:00 06/30/24 14:00 Temperature Pulse Rate 110 H 111 H Respiratory Rate 34 H Blood Pressure 203/94 H 202/94 H Pulse Oximetry 94 Oxygen Delivery Method 06/30/24 14:05 06/30/24 14:05 06/30/24 14:10 Temperature Pulse Rate 111 H 111 H Respiratory Rate 25 H 28 H Blood Pressure 200/105 H Pulse Oximetry 91 92 Oxygen Delivery Method 06/30/24 14:10 06/30/24 14:15 06/30/24 14:18 Temperature Pulse Rate 125 H 115 H Respiratory Rate 28 H 26 H Blood Pressure 226/107 H Pulse Oximetry 93 93 Oxygen Delivery Method 06/30/24 14:18 06/30/24 14:20 06/30/24 14:20 Temperature Pulse Rate 114 H Respiratory Rate 24 Blood Pressure 181/100 H 175/96 H Pulse Oximetry 96 Oxygen Delivery Method 06/30/24 14:25 06/30/24 14:25 06/30/24 14:30 Temperature Pulse Rate 110 H 112 H Respiratory Rate 24 23 Blood Pressure 177/86 H Pulse Oximetry 93 91 Oxygen Delivery Method 06/30/24 14:30 Temperature Pulse Rate Respiratory Rate Blood Pressure 187/92 H Pulse Oximetry Oxygen Delivery Method Oxygen Delivery Method Room Air Narrative Exam Narrative: NAD, alert and oriented, fluent speech, calm. Normocephalic skull, EOMI, anicteric sclera, symmetric pupils. Oropharynx unremarkable, no droop. Neck supple, midline trachea, no adenopathy. Lungs clear, normal rate and effort. Heart regular, no murmur gallop or rub. Abdomen is soft, non distended and non tender. Extremities are free of edema. Skin is free of rash or lesions. Joints are not swollen or deformed. Judgment appears to be normal. Objective ECG Impression: Intervals [place] Rate: 114 P: 70 ME: 168 QRS: -21 QRSD: 90 T: 91 QT: 360 QTc: 496 Interpretive Statements Sinus tachycardia Moderate voltage criteria for LVH, may be normal variant ( R in aVL , [place] product ) T wave abnormality, consider lateral ischemia Imaging Multiple studies:: Radiologist's impression: Head and neck CTA: No significant intracranial arterial abnormality is seen. No significant abnormality is seen within the arteries of the neck. Shotty bilateral cervical adenopathy. Findings include a somewhat prominent left inferior parotid region lymph. Head CT: No acute intracranial pathology. Chest x-ray: No focal pulmonary consolidations. Labs 06/30/24 10:00 06/30/24 10:00 Labs: Laboratory Results - last 24 hr 06/30/24 06/30/24 10:00 11:58 WBC 11.1 H RBC 5.11 Hgb 12.1 Hct 36.7 MCV 71.9 L MCH 23.7 L MCHC 32.9 RDW 18.9 H Plt Count 287 Neut % (Auto) 88.3 H Lymph % (Auto) 4.9 L Evangeline % (Auto) 5.5 Eos % (Auto) 0.7 L Baso % (Auto) 0.6 Neut # (Auto) 9800 H Lymph # (Auto) 500 L [place]eline # (Auto) 600 Eos # (Auto) 100 Baso # (Auto) 100 PT 13.9 H INR 1.2 APTT 32 Sodium 132 L Potassium 3.9 Chloride 99 Carbon Dioxide 25 BUN 17 Creatinine 1.25 H Estimated GFR 57 L BUN/Creatinine Ratio 13.6 Glucose 137 H Calcium 8.3 L Magnesium 1.8 Total Bilirubin 0.9 AST 58 H ALT 45 H Alkaline Phosphatase 91 Total Creatine Kinase 657 H Troponin I 0.045 H 0.040 H NT-Pro-B Natriuret Pep 2140 H Total Protein 8.3 H Albumin 4.1 Globulin 4.2 H Albumin/Globulin Ratio 1.0 Lipase 46 Assessment & Plan Assessment & Plan narrative: 1. Hypertensive urgency, present on admission and active. 2. HLD, stable. 3. Morbid obesity, stable. 4. Spinal stenosis, stable. 5. URI symptoms, present on admission and active. Plan: -nicardipine drip, we will start oral agents begin with her original and see if we can wean the drip over the next 12 hours. -telemetry. -serial troponins -droplet precautions, respiratory swab for PCR. -she took her medications today, we will reload her oral medications in the morning and add extra dose of amlodipine tonight. Anticipate 1 midnight of hospital care, supports observation status. Full resuscitation POLLO is July 01. Time-Based Coding :: 35 min spent with patient and on the chart (including review of chart, obtaining history, exam, reviewing outside data, placing orders, documenting exam and treatment plan, and counseling patient) on 06/30. Quality MIPS - Admit I confirm the patient?s Advance Care Plan is present, Code status is documented, Surrogate decision maker is in patient?s record [If Yes, STOP here]: Yes MIPS - Meds 'Current medications' to include all prescriptions, [id number] products, herbals, cannabis/cannabidiol products, and vitamin/mineral/dietary (nutritional) supplements. I have utilized all available resources to obtain, update, or review the patient?s current medications. [If Yes, STOP here]: Yes
--- NOTE | 2024-06-30 15:25 | PC.NURSE ---
Nicardipine running at time of transfer to ICU @ 5mg/hr 50mls/hr. Systolic goal 180 per ED physician.
[2024-06-30] MEDS: HYDRALAZINE 10 MG TABLET PO ×2 (16:47→23:08)
[2024-06-30] MEDS: NICARDIPINE 25 MG in SODIUM CHLORIDE 0.9% 240 ML 75 MG IV ×2 (17:17→20:54)
[2024-06-30 17:50] LABS: Adenovirus Not Detected (Not Detect); B. parapertussis Not Detected (Not Detecte); Bordetella pertussis Not Detected (Not Detect); Chlamydophila pneumoniae Not Detected (Not Detect); Coronavirus 229E Not Detected (Not Detect); Coronavirus HKU1 Not Detected (Not Detect); Coronavirus NL 63 Not Detected (Not Detect); Coronavirus OC43 Not Detected (Not Detect); Human Metapneumovirus Not Detected (Not Detect); Human Rhinovirus/Enterovirus Detected (Not Detect); Influenza A H3 Detected (Not Detect); Influenza B Not Detected (Not Detect); Mycoplasma pneumoniae Not Detected (Not Detect); Parainfluenza Virus 1 Not Detected (Not Detect); Parainfluenza Virus 2 Not Detected (Not Detect); Parainfluenza Virus 3 Not Detected (Not Detect); Parainfluenza Virus 4 Not Detected (Not Detect); Respiratory Syncytial Virus Not Detected (Not Detect); SARS- CoV-2 Not Detected (Not Detecte)
[2024-06-30 18:16] LABS: MRSA (Nasal) PCR NOT DETECTED (Not Detect)
[2024-06-30 18:17] LABS: Troponin I 0.044 ng/mL (0.01-0.034)
[2024-06-30] MEDS: ACETAMINOPHEN 325 MG TABLET 650 MG PO (18:48)
[2024-06-30] MEDS: METOPROLOL ER 50 MG TABLET 200 MG PO (20:46)
[2024-06-30] MEDS: SODIUM CHLORIDE 0.9% FLUSH 10 ML IV (20:47)
[2024-06-30] MEDS: IBUPROFEN 400 MG TABLET PO (21:44)
[2024-07-01] VITALS (52 sets, daily range): BP systolic 126–222; BP diastolic 59–112; PULSE 73–89; RESP 9–38; TEMP 36.7–37.5; O2SAT 86–96
[2024-07-01 00:19] LABS: Troponin I 0.047 ng/mL (0.01-0.034)
[2024-07-01] MEDS: NICARDIPINE 25 MG in SODIUM CHLORIDE 0.9% 240 ML IV (02:32)
[2024-07-01] MEDS: ACETAMINOPHEN 325 MG TABLET 650 MG PO ×2 (03:40→11:09)
[2024-07-01 04:48] LABS: Add Manual Diff / Slide Review NO; Basophils Absolute Auto 0 /uL (0-100); Basophils Percent Auto 0.4 % (0-2); Eosinophils Absolute Auto 0 /uL (0-450); Eosinophils Percent Auto 0.3 % (2-4); Hematocrit 37.3 % (36-46); Hemoglobin 12.1 g/dL (12.0-16.0); Lymphocytes Absolute Auto 600 /uL (1100-4500); Lymphocytes Percent Auto 8.5 % (25-40); Mean Corpuscular HGB Conc 32.3 % (30-36); Mean Corpuscular Hemoglobin 23.4 PG (26-34); Mean Corpuscular Volume 72.4 fL (80-100); Monocytes Absolute Auto 600 /uL (0-900); Monocytes Percent Auto 8.5 % (3-14); Neutrophils Absolute Auto 6100 /uL (1500-7000); Neutrophils Percent Auto 82.3 % (50-75); Platelet Count 257 X10^3/uL (150-400); Red Blood Cell Count 5.15 X10^6/uL (4.0-5.2); Red Cell Distribution Width 19.1 % (11.6-14.8); White Blood Cell Count 7.4 X10^3/uL (4.5-11.0)
[2024-07-01 04:59] LABS: BUN Creatinine Ratio 12.2 (6-22); Blood Urea Nitrogen 17 mg/dL (7-17); Calcium 8.1 mg/dL (8.4-10.2); Carbon Dioxide 27 mmol/L (22-32); Chloride 102 mmol/L (98-107); Estimated Glomerular Filt Rate 50 mL/min (>60); Glucose 111 mg/dL (70-100); HEMOLYSIS < 15 (0-50); Potassium 3.6 mmol/L (3.4-5.1); Sodium 137 mmol/L (137-145)
--- NOTE | 2024-07-01 06:29 | PC.NURSE ---
technology applications engineer note pt tired, rested well overnight, using call coleman appropriately, c/o STRANGE, tylenol and ibuprofen with mod effect, nicardipine gtt to keep SBP 150-180, meds and labs as ordered, care continued.
--- NOTE | 2024-07-01 08:39 | PC.NURSE ---
Order received to discontinue nicardipene drip, no new order for BP parameter, new orders for scheduled medications received.
[2024-07-01] MEDS: HYDRALAZINE 10 MG TABLET PO (08:53)
[2024-07-01] MEDS: METOPROLOL ER 50 MG TABLET 200 MG PO (09:12)
[2024-07-01] MEDS: hydroCHLOROthiazide 25 MG TABLET PO (09:12)
[2024-07-01] MEDS: NIFEdipine 30 MG TAB ER 60 MG PO (09:12)
[2024-07-01] MEDS: LOSARTAN 50 MG TABLET 100 MG PO (09:12)
[2024-07-01] MEDS: SPIRONOLACTONE 25 MG TABLET PO (09:12)
[2024-07-01] MEDS: SODIUM CHLORIDE 0.9% FLUSH 10 ML IV (09:13)
[2024-07-01 09:14] LABS: Troponin I 0.029 ng/mL (0.01-0.034)
[2024-07-01] MEDS: KETOROLAC 10 MG TABLET PO (09:40)
--- NOTE | 2024-07-01 12:22 | CM.DANOTE ---
Initial DCP Assessment Note Pt is a 38 yo female, resident of [place], arrives with headache and chest pain. Multiple co-morbs including hypertension, HLD, morbid obesity, spinal stenosis, depression/anxiety. PCP: Ronnie Hull Payer: Chan WEBB Reviewed chart, pt discussed in multidisciplinary rounds this morning. Patient has chronic hypertension, Dr Jacinto reviewing historical data, patient may be ready for discharge today. nicardipene drip discontinued. Patient lives in [place] w/sp and children. No barriers identified at this time to patient's safe discharge home w/family to assist; close outpatient f/u recommended. CM team will plan to follow clinical course closely in case any DC needs or concerns arise. NOREEN Riggs Discharge Planning/Care Management Discharge Assessment Start: 07/01/24 12:18 Freq: Status: Active Protocol: Document 07/01/24 12:19 JUNIOR (Rec: 07/01/24 12:22 JUNIOR [id number]) Discharge Planning Assessment Assigned Patternmaker Bench NOREEN Gore DPOA/Assigned Designee Name Osman Castaneda, [phone]. Advance Directives? No History Provided By Patient,Medical Record Prior Living Arrangements House Household Members spouse,children Type of transporation used prior to Drives own vehicle admit Independent with ADL's Yes Is patient alert and oriented? Yes Needs Assistance With Home Chores / Shopping Barriers to Discharge No Discharge Plan Home Transportation Arrangement Family Referrals Initiated None needed
--- NOTE | 2024-07-01 15:58 | PM.DS.1 ---
History of Present Illness History of Present Illness Date Patient Seen: 06/30/24 Chief complaint: Cold,Hot , head pain ,tired Narrative: Per admitting provider, ED Course: Patient is a 38-year-old female history of malignant hypertension bilateral lower extremity edema presenting today with headache and chest pain. She reports that her headache started last night it was worse headache of her life. She feels nauseous she has not vomited. She has also had some chest discomfort which she describes as heaviness nonradiating. No significant shortness of breath. She was found to be extremely hypertensive systolic 242/131. She denies any shortness of breath no known history of coronary artery disease. S: She was had URI symptoms for several days with rhinorrhea and a cough. She has also had some myalgias and fatigue. She has been taking her blood pressure pills including this morning. Her blood pressure yesterday was close to 200. She was had headache, chest pain, and dyspnea. In the ER she failed labetalol and was started on a nicardipine drip. Her pressure is slowly improving. She notes that she likely has undiagnosed sleep apnea but can not get in for a study for several more months. She believes that this has something to do with her uncontrolled blood pressure as well. Discharge Providers Provider Date of admission: 06/30/24 14:25 Discharge Date: 07/01/24 Primary care physician: LOWELL Sharma Discharge provider: Alpesh Jacinto DO Summary Hospital Course Discharge Diagnosis: 1. Hypertensive urgency, present on admission and active. 2. HLD, stable. 3. Morbid obesity, stable. 4. Spinal stenosis, stable. 5. Influenza a and rhinovirus infections present on admission and active. Hospital Course: 38 year old female with PMH of uncontrolle HTN, HLD, obesity, and spinal stenosis who presented with a headache, nasal congestion. Her BP was markedly elevated. She did not improve with labetalol and the ER provider started her on nicardipine infusion. Respiratory panel was positive for flu and rhino virus. The patient had symptomatic improvement in her headache, though initially her blood pressures remained quite high. Given likely hypertensive urgency, and that her headache was due to her viral infections, the morning after admission nicardipine infusion was shut off. Her home amlodipine was discontinued in favor of nifedipine which markedly lowered her blood pressure. Nifedipine was chosen based on prior recommendations from cardiology note from a few years ago where the patient was seen for uncontrolled hypertension. She was discharged home with a new prescription for 60 mg of nifedipine, recommend primary care follow-up for ongoing management her blood pressure. Given symptomatic improvement, patient was not given Tamiflu. Time Spent with Patient Time spent: Greater than 30 minutes Exam Vital Signs (past 8 hours): - 07/01/24 08:00 07/01/24 08:00 07/01/24 08:30 Temperature Pulse Rate 83 Respiratory Rate 19 Blood Pressure 186/101 H 191/105 H Pulse Oximetry 92 07/01/24 08:30 07/01/24 08:53 07/01/24 09:00 Temperature Pulse Rate 82 86 83 Respiratory Rate 18 22 Blood Pressure 191/105 H Pulse Oximetry 93 92 07/01/24 09:00 07/01/24 09:12 07/01/24 09:12 Temperature Pulse Rate 89 89 Respiratory Rate Blood Pressure 187/100 H 187/100 H 187/100 H Pulse Oximetry 07/01/24 09:23 07/01/24 09:30 07/01/24 10:00 Temperature Pulse Rate 76 85 Respiratory Rate 22 Blood Pressure 197/112 H 197/112 H Pulse Oximetry 91 07/01/24 10:00 07/01/24 10:12 07/01/24 10:30 Temperature Pulse Rate 79 77 79 Respiratory Rate 23 17 Blood Pressure 197/112 H Pulse Oximetry 92 95 07/01/24 10:53 07/01/24 10:53 07/01/24 11:00 Temperature Pulse Rate 80 80 Respiratory Rate 27 H 29 H Blood Pressure 198/97 H Pulse Oximetry 92 93 07/01/24 11:01 07/01/24 11:01 07/01/24 11:30 Temperature Pulse Rate 78 79 Respiratory Rate 25 H 28 H Blood Pressure 222/105 H Pulse Oximetry 93 94 07/01/24 12:00 07/01/24 12:01 07/01/24 12:01 Temperature Pulse Rate 75 75 Respiratory Rate 26 H 30 H Blood Pressure 155/77 H Pulse Oximetry 91 91 07/01/24 12:30 07/01/24 13:00 07/01/24 13:00 Temperature Pulse Rate 73 74 Respiratory Rate 10 L 9 L Blood Pressure 173/89 H Pulse Oximetry 93 95 07/01/24 13:30 07/01/24 14:00 07/01/24 14:01 Temperature Pulse Rate 75 75 Respiratory Rate 21 23 Blood Pressure 126/59 L Pulse Oximetry 94 92 07/01/24 14:01 07/01/24 14:30 07/01/24 15:00 Temperature 98.0 F Pulse Rate 74 74 Respiratory Rate 21 26 H Blood Pressure Pulse Oximetry 93 92 07/01/24 15:00 07/01/24 15:30 07/01/24 15:31 Temperature Pulse Rate 82 77 77 Respiratory Rate 38 H 23 26 H Blood Pressure Pulse Oximetry 90 L 94 92 07/01/24 15:31 Temperature Pulse Rate Respiratory Rate Blood Pressure 153/82 H Pulse Oximetry Oxygen Delivery Method Nasal Cannula Oxygen Flow Rate 2 Narrative Exam Narrative: NAD, alert and oriented, fluent speech, calm. Normocephalic skull, EOMI, anicteric sclera, symmetric pupils. Oropharynx unremarkable, no droop. Neck supple, midline trachea, no adenopathy. Lungs clear, normal rate and effort. Heart regular, no murmur gallop or rub. Abdomen is soft, non distended and non tender. Extremities are free of edema. Skin is free of rash or lesions. Joints are not swollen or deformed. Judgment appears to be normal. Objective Labs 07/01/24 04:00 07/01/24 04:00 Labs: Laboratory Results - last 24 hr 06/30/24 06/30/24 06/30/24 16:08 17:48 23:40 WBC RBC Hgb Hct MCV MCH MCHC RDW Plt Count Neut % (Auto) Lymph % (Auto) [place] % (Auto) Eos % (Auto) Baso % (Auto) Neut # (Auto) Lymph # (Auto) [place] # (Auto) Eos # (Auto) Baso # (Auto) Sodium Potassium Chloride Carbon Dioxide BUN Creatinine Estimated GFR BUN/Creatinine Ratio Glucose Calcium Troponin I 0.044 H 0.047 H Nasal Screen MRSA (PCR) Not detected Chlamy pneumoniae PCR Not detected Adenovirus (PCR) Not detected B. pertussis DNA (PCR) Not detected B.parapertussis DNA PCR Not detected Coronavirus OC43 (PCR) Not detected Coronavirus HKU1 (PCR) Not detected Coronavirus 229E (PCR) Not detected SARS-CoV-2 (PCR) Not detected Coronavirus NL63 (PCR) Not detected Human Metapneumovir PCR Not detected Influenza A (H3) PCR Detected H Influenza Type B (PCR) Not detected M. pneumoniae (PCR) Not detected Parainfluenza 1 (PCR) Not detected Parainfluenza 2 (PCR) Not detected Parainfluenza 3 (PCR) Not detected Parainfluenza 4 (PCR) Not detected RSV (PCR) Not detected Entero/Rhino (PCR) Detected H 07/01/24 04:00 WBC 7.4 RBC 5.15 Hgb 12.1 Hct 37.3 MCV 72.4 L MCH 23.4 L MCHC 32.3 RDW 19.1 H Plt Count 257 Neut % (Auto) 82.3 H Lymph % (Auto) 8.5 L [place] % (Auto) 8.5 Eos % (Auto) 0.3 L Baso % (Auto) 0.4 Neut # (Auto) 6100 Lymph # (Auto) 600 L [place] # (Auto) 600 Eos # (Auto) 0 Baso # (Auto) 0 Sodium 137 Potassium 3.6 Chloride 102 Carbon Dioxide 27 BUN 17 Creatinine 1.39 H Estimated GFR 50 L BUN/Creatinine Ratio 12.2 Glucose 111 H Calcium 8.1 L Troponin I 0.029 Nasal Screen MRSA (PCR) Chlamy pneumoniae PCR Adenovirus (PCR) B. pertussis DNA (PCR) B.parapertussis DNA PCR Coronavirus OC43 (PCR) Coronavirus HKU1 (PCR) Coronavirus 229E (PCR) SARS-CoV-2 (PCR) Coronavirus NL63 (PCR) Human Metapneumovir PCR Influenza A (H3) PCR Influenza Type B (PCR) M. pneumoniae (PCR) Parainfluenza 1 (PCR) Parainfluenza 2 (PCR) Parainfluenza 3 (PCR) Parainfluenza 4 (PCR) RSV (PCR) Entero/Rhino (PCR) [facility] Medical History COVID-19 virus infection Migraine without aura and without status migrainosus, not intractable Bilateral carpal tunnel syndrome Leukocytosis Dysfunctional uterine bleeding Facial skin lesion Resistant hypertension Metabolic syndrome Impaired fasting blood sugar Body mass index (BMI) greater than 50 Dyslipidemia Hyperglycemia Vitiligo Psoriasis Sleep apnea Depression Anxiety Painful menstrual periods Irregular menstrual cycle Heavy menstrual period Spinal stenosis Morbid obesity (04/20/14) Essential hypertension (10/14/14) Surgical History Anesthesia History of tonsillectomy (~2007) Status post delivery (01/01/14) Status post delivery (04/03/11) Status post laminectomy (~07/22/16) Family History Father Hyperlipidemia Hypoglycemia Mother Diabetes mellitus Sister Spina bifida Grandfather Cancer History of heart disease Grandmother Diabetes mellitus Grandfather Cancer Grandmother Diabetes mellitus History of heart disease Hyperlipidemia Hypertension Mental health problem Stroke Social History household members: spouse and children Smoking Status: Former smoker alcohol intake: never substance use type: marijuana Discharge Plan Discharge Plan Patient Disposition: Home Provider Discharge Comment: You were admitted to the hospital with elevated BP and headache, also found to have flu and a common cold virus. Changed amlodipine to nifedipine, will keep at 60 mg daily but you have room to take it twice a day if your BP is still high. Please try to follow up with PCP by next week. Discharge orders & Medications Prescriptions: New nifedipine 60 mg tablet extended release 60 mg PO DAILY 30 Days Qty: 30 0RF ketorolac 10 mg tablet 10 mg PO Q8H PRN (Reason: pain) 7 Days Qty: 20 0RF Rx Instructions: maximum total duration of 5 days from all oral, intranasal, or parenteral formulations Continued ketoconazole 2 % cream 1 applic topical BID Qty: 30 2RF Rx Instructions: for rash on lower abdomen spironolactone 25 mg tablet 25 mg PO DAILY Qty: 120 2RF Patient Comments: (new prescription, patient has not started yet Rx Instructions: Week 2: 1 tab twice daily. Week 3: 2 tabs in the morning and 1 tab in the evening. Week 4: 2 tabs twice daily. PLEASE GET LAB AFTER 1 MONTH. (DME) Disabled Parking Placard See Rx Instructions .Route .MEDSUPPLY Qty: 1 0RF Rx Instructions: Patient meets qualifications for Disabled Parking Placard hydrochlorothiazide 25 mg tablet 25 mg PO DAILY losartan 100 mg tablet 100 mg PO DAILY Qty: 90 1RF metoprolol succinate 200 mg tablet extended release 24 hr 200 mg PO BID Qty: 180 1RF Wegovy 0.25 mg/0.5 mL pen injector 0.25 mg SUBCUT QWEEK Qty: 2 0RF Hold Instructions: Insurance hasn't approved yet Patient Comments: patient states newly prescribed and is waiting for insurance approval Rx Instructions: administer weeks 1 through 4 of therapy acetaminophen [Tylenol] 325 mg capsule 325 mg PO ONCE PRN (Reason: Pain (Scale Score 1-3)) Discontinued amlodipine 10 mg tablet 10 mg PO DAILY Qty: 30 3RF No Action acetaminophen 500 mg capsule 1,000 mg PO Q6H PRN methocarbamol 500 mg tablet 500 mg PO TID PRN Follow up/Referrals: Ronnie Hull ARNP [Primary Care Provider] - Diet/Activity/Treatments Diet: Diet as Tolerated, Regular and Low-sodium Activity: As tolerated Visit Report/Discharge Packet Stand Alone Forms: Patient Portal/API, Stroke Signs & Symptoms Discharge Data Primary Care Provider: Ronnie Hull Attending Provider: Gilberto Willson Admit Date/Time: 06/30/24 14:25
--- NOTE | 2024-07-01 19:28 | PC.NURSE ---
Pt BP increased during morning despite cardene infusion, Dr Jacinto notified. See new orders. Pt BP gradually improved throughout shift. Pt up in room with SBA. Headache improved with PRN medications. Discharge order received, instructions reviewed with pt. IVs removed per order. Pt gathered all personal belongings.
--- NOTE | 2024-07-01 23:18 | PC.NURSE ---
patient escorted down to private vehicle via WC per patient request. All belongings where gathered by patient and in bag. Patient left in stable condition and was able to ambulate self to vehicle and get in with no assistance. D/c paperwork was reviewed by day nurse Faheem Cohen.
== END 2024-07-01 20:00 | disposition home or self-care (01) ==
LOC: ED 10:33 → AC 14:47 → ICU 15:29 → AC 07-01 11:59 → ICU 07-01 11:59
PROVIDERS: Internal Medicine; Admitting Provider Internal Medicine; Emergency Provider Emergency Medicine; PCP Registered Nurse Diabetes Educator; Referring Provider Emergency Medicine; Visit Provider Hospitalist
DX: I16.0 Hypertensive urgency (principal); E78.5 Hyperlipidemia, unspecified; E66.01 Morbid (severe) obesity due to excess calories; Z68.43 Body mass index [BMI] 50.0-59.9, adult; M48.00 Spinal stenosis, site unspecified; Z87.891 Personal history of nicotine dependence; Z11.52 Encounter for screening for COVID-19; R60.0 Localized edema; J34.89 Other specified disorders of nose and nasal sinuses
CPT/HCPCS: 36415; 70450; 70496; 70498; 71045; 80048; 80053; 82550; 83690; 83735; 83880; 84484; 85025; 85610; 85730; 87633; 87797; 93005; 96365; 96366; 96375; 99284; 99291; G0378; J0131; Q9967

== ENCOUNTER 2024-07-06 10:24 | Emergency (ER) | payer OTHER, SELFPAY ==
[2024-07-03 14:03] VITALS: BMI 55.2
[2024-07-06 10:58] VITALS: BP 175/81; PULSE 100; RESP 16; TEMP 36.1; O2SAT 97; BMI 54.9
--- NOTE | 2024-07-06 11:02 | DI.US.S_ITS ---
PROCEDURE: US PERIPH VENOUS UP EXTREM LT INDICATIONS: swelling post IV removal TECHNIQUE: Real-time imaging, as well as color and pulse Doppler interrogation, was performed of the upper extremity deep veins from the inferior neck to the antecubital fossa. COMPARISON: None. FINDINGS: Overall scan quality is limited by soft tissue edema. The internal jugular vein, visualized portions of the subclavian vein, axillary, and brachial veins are free of intraluminal thrombus. Where physically possible, the veins are normally compressible. Color and pulse Doppler demonstrate normal intraluminal flow, with expected phasicity and pulsatility. At the area of clinical concern, there is a thrombosed distal cephalic vein within the forearm. IMPRESSION: No findings of upper extremity deep venous thrombosis can be seen. There is a small amount of superficial thrombosis seen within the cephalic vein of the distal forearm. Dictated by: Sudheer Mendez M.D. on 07/06/2024 at 11:03 Approved by: Sudheer Mendez M.D. on 07/06/2024 at 11:04
--- NOTE | 2024-07-06 12:52 | ED.UPPEXIN ---
HPI - Extremity Injury (Upper) <David Cruz PA-C - Last Filed: 07/06/24 14:40> General Chief Complaint: Extremity Injury, Upper Stated Complaint: Lumb L arm after IV, PE rule out Time Seen by Provider: 07/06/24 12:09 History of Present Illness HPI narrative: 38-year-old female presents to the ED with 2 days of left forearm swelling, pain. Patient was admitted here for uncontrolled hypertension and discharged on 07/01. Patient noticed redness and swelling to the left forearm at the site of the IV. Patient denies fever, chills, chest pain, shortness of breath, lightheadedness, dizziness, syncope. No numbness, tingling, weakness. Related Data Home Medications Medication Instructions Recorded Confirmed hydrochlorothiazide 25 mg tablet 25 mg PO DAILY 02/19/24 07/03/24 acetaminophen 325 mg capsule 325 mg PO ONCE PRN Pain (Scale 04/16/24 07/03/24 (Tylenol) Score 1-3) acetaminophen 500 mg capsule 1,000 mg PO Q6H PRN 07/03/24 07/03/24 methocarbamol 500 mg tablet 500 mg PO TID PRN 07/03/24 07/03/24 Previous Rx's Medication Instructions Recorded Disabled Parking Placard #1 ea 10/02/23 losartan 100 mg tablet 100 mg PO DAILY #90 tabs 02/19/24 ketoconazole 2 % topical cream 1 applic topical BID #30 grams 03/05/24 metoprolol succinate 200 mg 200 mg PO BID #180 tabs 05/02/24 tablet,extended release 24 hr semaglutide (weight loss) 0.25 0.25 mg (0.5 mL) SUBCUT QWEEK #2 mL 06/14/24 mg/0.5 mL subcutaneous pen injector (Arthur) spironolactone 25 mg tablet 25 mg PO DAILY #120 tabs 06/16/24 ketorolac 10 mg tablet 10 mg PO Q8H PRN pain 7 days #20 07/01/24 tabs nifedipine 60 mg tablet,extended 60 mg PO DAILY 30 days #30 tabs 07/01/24 release cephalexin 500 mg capsule 500 mg PO QID 5 days #20 caps 07/06/24 Allergies Allergy/AdvReac Type Severity Reaction Status Date / Time EDD Inhibitors AdvReac Mild PERSISTANT Verified 07/06/24 09:39 [EDD INHIBITORS] COUGH oxycodone [OXYCODONE] AdvReac Mild NAUSEA, Verified 07/06/24 09:39 DIZZYNESS Review of Systems <David Cruz PA-C - Last Filed: 07/06/24 14:40> Constitutional Constitutional: Denies chills, Denies fatigue, Denies fever(s), Denies frequent falls, Denies lethargy and Denies weakness Eyes Eyes: Denies change in vision, Denies eye discharge, Denies irritation and Denies loss of vision ENT Ears, Nose, Mouth, and Throat: Denies change in voice, Denies dizziness, Denies neck pain, Denies sore throat and Denies throat swelling Cardiovascular Cardiovascular: Denies chest pain, Denies irregular heart rhythm, Denies lightheadedness, Denies palpitations, Denies dyspnea, Denies dyspnea on exertion and Denies orthopnea Respiratory Respiratory: Denies cough, Denies dyspnea, Denies dyspnea on exertion and Denies wheezing Gastrointestinal Gastrointestinal: Denies abdominal pain, Denies change in bowel habits, Denies diarrhea, Denies nausea and Denies vomiting Musculoskeletal Musculoskeletal: Denies neck pain and Denies numbness Integumentary/Breasts Skin/Breast: Denies pruritus, Denies erythema, Denies rash and Denies wounds Comments: Left forearm swelling, pain Neurologic Neurologic: Denies behavioral changes, Denies confusion, Denies dizziness, Denies frequent falls, Denies loss of vision, Denies numbness and Denies weakness Psychiatric Psychiatric: Denies anxiety, Denies behavioral changes, Denies confusion, Denies depression, Denies homicidal ideation and Denies suicidal ideation Endocrine Endocrine: Denies fatigue, Denies flushing and Denies palpitations Hematologic/Lymphatic Hematologic/Lymphatic: Denies easy bruising Allergic/Immunologic Allergic/Immunologic: Denies urticaria, Denies throat swelling and Denies wheezing Patient History <David Cruz PA-C - Last Filed: 07/06/24 14:40> Medical History COVID-19 virus infection Migraine without aura and without status migrainosus, not intractable Bilateral carpal tunnel syndrome Leukocytosis Dysfunctional uterine bleeding Facial skin lesion Resistant hypertension Metabolic syndrome Impaired fasting blood sugar Body mass index (BMI) greater than 50 Dyslipidemia Hyperglycemia Vitiligo Psoriasis Sleep apnea Depression Anxiety Painful menstrual periods Irregular menstrual cycle Heavy menstrual period Spinal stenosis Morbid obesity (04/20/14) Essential hypertension (02/23/14) Surgical History Anesthesia History of tonsillectomy (~2007) Status post delivery (01/01/14) Status post delivery (04/03/11) Status post laminectomy (~07/22/16) Family History Father Hyperlipidemia Hypoglycemia Mother Diabetes mellitus Sister Spina bifida Grandfather Cancer History of heart disease Grandmother Diabetes mellitus Grandfather Cancer Grandmother Diabetes mellitus History of heart disease Hyperlipidemia Hypertension Mental health problem Stroke Social History household members: spouse and children Smoking Status: Former smoker alcohol intake: never substance use type: marijuana Smoking Status: Former smoker tobacco type: cigarettes alcohol intake frequency: holidays/special occasions only Exam <David Cruz PA-C - Last Filed: 07/06/24 14:40> Narrative Exam Narrative: Const General:?cooperative, healthy appearing and comfortable [facility] Head:?normal to inspection Ears:?hearing grossly normal bilaterally Nose:?external nose normal Face and sinus:?normal facial exam and sinuses nontender Mouth:?oral mucosae normal Throat:?posterior oropharynx normal Eyes General:?appearance normal, both eyes and all related structures Neck Neck:?normal visual inspection and no lymphadenopathy noted Resp Effort & Inspection:?normal respiratory effort Auscultation:?clear to auscultation bilaterally Cardio Rate:?regular rate Rhythm:?regular rhythm Integumentary There is erythema, swelling, warmth to the left forearm, where IV was placed during hospital stay. There is full range of motion. Strength and sensation is intact. Patient is neurovascularly intact. Neuro General:?patient alert, patient awake and patient oriented x3 Initial Vital Signs Initial Vital Signs: Vital Signs Temperature 96.9 F L 07/06/24 10:58 Pulse Rate 100 H 07/06/24 10:58 Respiratory Rate 16 07/06/24 10:58 Blood Pressure 175/81 H 07/06/24 10:58 Pulse Oximetry 97 07/06/24 10:58 Oxygen Delivery Method Room Air 07/06/24 10:58 <Deb Dubois DO - Last Filed: 07/07/24 19:09> Initial Vital Signs Initial Vital Signs: Vital Signs Temperature 96.9 F L 07/06/24 10:58 Pulse Rate 100 H 07/06/24 10:58 Respiratory Rate 16 07/06/24 10:58 Blood Pressure 175/81 H 07/06/24 10:58 Pulse Oximetry 97 07/06/24 10:58 Oxygen Delivery Method Room Air 07/06/24 10:58 Course <David Cruz PA-C - Last Filed: 07/06/24 14:40> Orders Ordered: ED Orders 07/06/24 11:02 US periph venous up extrem lt Stat Vital Signs Vital signs: Vital Signs - 8 hr 07/06/24 10:58 07/06/24 13:00 Temperature 96.9 F L 97.8 F Pulse Rate 100 H 96 H Respiratory Rate 16 18 Blood Pressure 175/81 H 160/75 H Pulse Oximetry 97 98 Oxygen Delivery Method Room Air Room Air <Deb Dubois DO - Last Filed: 07/07/24 19:09> Orders Ordered: ED Orders 07/06/24 11:02 US periph venous up extrem lt Stat Vital Signs Vital signs: Vital Signs - 8 hr 07/06/24 10:58 07/06/24 13:00 Temperature 96.9 F L 97.8 F Pulse Rate 100 H 96 H Respiratory Rate 16 18 Blood Pressure 175/81 H 160/75 H Pulse Oximetry 97 98 Oxygen Delivery Method Room Air Room Air MDM - Extremity Injury (Upper) <ERIC Pate Last Filed: 07/06/24 14:40> MDM Narrative Medical decision making narrative: 38-year-old female presents to the ED with 2 days of left forearm swelling, pain. Ultrasound was obtained to rule out DVT versus retained foreign body versus other. Ultrasound shows a small amount of superficial thrombosis within the cephalic vein of the distal forearm. No findings of upper extremity DVT. Discussed findings with patient. Given erythema, warmth, prescribed antibiotics. Recommend ibuprofen/Aleve. Recommend follow-up with PCP. It is reassuring that patient also has a PCP appointment in 2 days. ED return precautions discussed with patient. Patient verbalized understanding. Medical records reviewed: Yes Discharge Plan Departure Patient Disposition: Home Clinical Impression: Superficial thrombophlebitis Qualifiers: Superficial thrombophlebitis-Involved body area: upper extremity Laterality: left Qualified Code(s): I80.8 - Phlebitis and thrombophlebitis of other sites Instructions: DI for Superficial Thrombophlebitis Activity Restrictions/Additional Instructions: You were evaluated in the ED today for left forearm swelling and pain. The ultrasound shows that you have a small superficial thrombosis which explains your symptoms. You are being prescribed an antibiotic. You may also take ibuprofen to reduce the swelling and inflammation. Please follow-up with your PCP as you have scheduled in the next 2 days. Return to the ED if you have worsening symptoms, chest pain, shortness of breath. Prescriptions: New cephalexin 500 mg capsule 500 mg PO QID 5 Days Qty: 20 0RF No Action ketoconazole 2 % cream 1 applic topical BID Qty: 30 2RF Rx Instructions: for rash on lower abdomen spironolactone 25 mg tablet 25 mg PO DAILY Qty: 120 2RF Patient Comments: (new prescription, patient has not started yet Rx Instructions: Week 2: 1 tab twice daily. Week 3: 2 tabs in the morning and 1 tab in the evening. Week 4: 2 tabs twice daily. PLEASE GET LAB AFTER 1 MONTH. acetaminophen 500 mg capsule 1,000 mg PO Q6H PRN methocarbamol 500 mg tablet 500 mg PO TID PRN (DME) Disabled Parking Placard See Rx Instructions .Route .MEDSUPPLY Qty: 1 0RF Rx Instructions: Patient meets qualifications for Disabled Parking Placard hydrochlorothiazide 25 mg tablet 25 mg PO DAILY losartan 100 mg tablet 100 mg PO DAILY Qty: 90 1RF metoprolol succinate 200 mg tablet extended release 24 hr 200 mg PO BID Qty: 180 1RF Wegovy 0.25 mg/0.5 mL pen injector 0.25 mg SUBCUT QWEEK Qty: 2 0RF Hold Instructions: Insurance hasn't approved yet Patient Comments: patient states newly prescribed and is waiting for insurance approval Rx Instructions: administer weeks 1 through 4 of therapy nifedipine 60 mg tablet extended release 60 mg PO DAILY 30 Days Qty: 30 0RF ketorolac 10 mg tablet 10 mg PO Q8H PRN (Reason: pain) 7 Days Qty: 20 0RF Rx Instructions: maximum total duration of 5 days from all oral, intranasal, or parenteral formulations acetaminophen [Tylenol] 325 mg capsule 325 mg PO ONCE PRN (Reason: Pain (Scale Score 1-3)) Referrals: Ronnie Hull ARNP [Primary Care Provider] - Stand Alone Forms: Patient Portal/API/Survey ED Sign-out <Deb Dubois DO - Last Filed: 07/07/24 19:09> Cosign ED Attending [place] Attestation: I was immediately available in the department for consultation.
[2024-07-06 13:00] VITALS: BP 160/75; PULSE 96; RESP 18; TEMP 36.6; O2SAT 98
== END 2024-07-06 13:40 | disposition home or self-care (01) ==
PROVIDERS: Emergency Provider Student in an Organized Health Care Education/Training Program; PCP Registered Nurse Diabetes Educator
DX: I80.8 Phlebitis and thrombophlebitis of other sites (principal)
CPT/HCPCS: 93971; 99281; 99283

== ENCOUNTER → 2024-07-20 11:21 | Outpatient (CLI) | payer OTHER, SELFPAY ==
[2024-07-03 14:03] VITALS: BMI 55.2
--- NOTE | 2024-07-20 11:24 | DI.RAD.S_ITS ---
PROCEDURE: XR LUMBAR SPINE MIN 4V INDICATIONS: BACK PAIN TECHNIQUE: Three views of the lumbar spine were acquired, including bilateral oblique views.>> COMPARISON: [facility], CR, XR LUMBAR SPINE 2-3V, 07/04/2018, 11:20. FINDINGS: Lumbar spine curvature and alignment: Normal. Bones: There are no osseous abnormalities. Disc spaces: L2-3 anterior/posterior fusion provided by interbody graft , pedicle screws and short inter body struts appreciated. Mild L4-5 and moderate L5-S1 degenerative disc and facet disease noted. Soft tissues: No soft tissue swelling, calcification or mass. IMPRESSION: Degeneration. L2-3 anterior/posterior fusion anatomic alignment. No complication Dictated by: Raul Amaya M.D. on 07/21/2024 at 9:26 Approved by: Raul Amaya M.D. on 07/21/2024 at 9:28
== END ==
PROVIDERS: PCP Registered Nurse Diabetes Educator; Referring Provider Physician Assistant; Visit Provider Physician Assistant
DX: M51.369 Other intervertebral disc degeneration, lumbar region without mention of lumbar back pain or lower extremity pain (principal); M51.379 Other intervertebral disc degeneration, lumbosacral region without mention of lumbar back pain or lower extremity pain; M47.816 Spondylosis without myelopathy or radiculopathy, lumbar region; M47.817 Spondylosis without myelopathy or radiculopathy, lumbosacral region; Z98.1 Arthrodesis status
CPT/HCPCS: 72110

== ENCOUNTER → 2024-09-01 09:13 | Outpatient (CLI) | payer OTHER, SELFPAY ==
[2024-08-28 11:33] VITALS: BMI 55.2
[2024-09-01 10:19] LABS: Hematocrit 40.8 % (36-46); Hemoglobin 13.3 g/dL (12.0-16.0); Mean Corpuscular HGB Conc 32.6 % (30-36); Mean Corpuscular Hemoglobin 24.3 PG (26-34); Mean Corpuscular Volume 74.5 fL (80-100); Platelet Count 317 X10^3/uL (150-400); Red Blood Cell Count 5.48 X10^6/uL (4.0-5.2); Red Cell Distribution Width 18.7 % (11.6-14.8); White Blood Cell Count 12.3 X10^3/uL (4.5-11.0)
[2024-09-01 10:38] LABS: Alanine Aminotransferase 46 IU/L (<35); Albumin Globulin Ratio 1.1 (1.0-2.8); Alkaline Phosphatase 113 U/L (38-126); Aspartate Aminotransferase 48 IU/L (14-36); BUN Creatinine Ratio 13.2 (6-22); Bilirubin Total 0.5 mg/dL (0.2-1.3); Blood Urea Nitrogen 17 mg/dL (7-17); Calcium 8.7 mg/dL (8.4-10.2); Carbon Dioxide 29 mmol/L (22-32); Chloride 105 mmol/L (98-107); Cholesterol 201 mg/dL (140-199); Estimated Glomerular Filt Rate 55 mL/min (>60); Globulin 3.7 g/dL (1.7-4.1); Glucose 121 mg/dL (70-100); HDL Cholesterol 43 mg/dL (40-60); HEMOLYSIS < 15 (0-50); LDL Cholesterol Calculated 135 mg/dL (<100); Potassium 4.1 mmol/L (3.4-5.1); Sodium 141 mmol/L (137-145); Total Protein 7.7 g/dL (6.3-8.2); Triglycerides 117 mg/dL (35-150)
[2024-09-01 10:46] LABS: NT-proBNP (BNP-Adult 18+) 1370 pg/mL (<125)
[2024-09-01 11:00] LABS: TSH w/ Reflex to FT4 2.44 uIU/mL (0.47-4.68)
[2024-09-01 12:21] LABS: Microalbumin Urine Random 24.5 mg/dL (0-1.6)
== END ==
PROVIDERS: Family Provider Registered Nurse Diabetes Educator; PCP Registered Nurse Diabetes Educator; Referring Provider Registered Nurse Diabetes Educator; Visit Provider Registered Nurse Diabetes Educator
DX: I12.9 Hypertensive chronic kidney disease with stage 1 through stage 4 chronic kidney disease, or unspecified chronic kidney disease (principal); N18.31 Chronic kidney disease, stage 3a; E78.5 Hyperlipidemia, unspecified; E88.810 Metabolic syndrome; E88.818 Other insulin resistance
CPT/HCPCS: 36415; 80053; 80061; 82043; 82570; 83036; 83880; 84443; 85027

== ENCOUNTER → 2024-09-14 13:39 | Outpatient (CLI) | payer OTHER, SELFPAY ==
[2024-08-28 11:33] VITALS: BMI 55.2
--- NOTE | 2024-09-14 13:40 | DI.ECHO.S_ITS ---
[facility] : : [address] : : [place] : : [id number] : : Phone: [phone] Echocardiogram Report + + :Name: SANG ALVAREZ Study Date: 09/14/2024 Height: 64 in : :[facility] ReadingLocation: Weight: 320 lb: : Gender: Female BSA: 2.4 m2 : :: 1985 Age: 38 yrs : :Reason For Study: HYPERTENSION : :Ordering Physician: BLAYNE, : :LAMINE Performed By: Jong Castro : :Referring: LAMINE CISNEROS : + + Interpretation Summary The study quality was technically difficult. Left ventricular wall thickness is mildly increased. The ejection fraction is estimated to be 50-55%. Diastolic function could not be accurately assessed due to unobtainable data. The left atrium is mildly dilated. The right ventricle is not well visualized. Pulmonary artery pressures cannot be estimated because of the lack of a measurable TR jet velocity but the IVC suggests a CVP of around 3 mmHg. The ascending aorta is mildly enlarged. Compared to the prior study dated 09/03/2021, the left ventricle appears less dynamic. Procedure: A two-dimensional transthoracic echocardiogram with color flow and Doppler was performed. A contrast injection of Definity was performed to improve assessment of LV function. The study quality was technically difficult. Comparison is made with the echocardiogram of 09/03/2021. The patient was in normal sinus rhythm during the exam. Left Ventricle: The left ventricle is mildly dilated. Left ventricular wall thickness is mildly increased. There is no ventricular septal defect visualized. The ejection fraction is estimated to be 50-55%. Diastolic function could not be accurately assessed due to unobtainable data. Right Ventricle: The right ventricle is not well visualized. Atria: The left atrium is mildly dilated. Right atrium not well visualized. The interatrial septum is not well visualized. Mitral Valve: The mitral valve is not well visualized. There is no mitral regurgitation noted. Aortic Valve: The aortic valve is not well visualized. There is no aortic valve stenosis. No aortic regurgitation is present. Tricuspid Valve: The tricuspid valve is not well visualized. No tricuspid regurgitation. Pulmonary artery pressures cannot be estimated because of the lack of a measurable TR jet velocity but the IVC suggests a CVP of around 3 mmHg. Pulmonic Valve: The pulmonic valve is not well visualized. There is no pulmonic valvular regurgitation. Great Vessels: The aortic root is normal size. The ascending aorta is mildly enlarged. The pulmonary artery is normal size. The IVC is of normal diameter and collapses greater than 50% with a sniff. This suggests a low right atrial pressure of 3 mm Hg. Pericardium/ Pleura There is no pericardial effusion. MMode/2D Measurements & Calculations LVIDd: 6.5 cm LVOT diam: 2.0 cm LVIDs: 4.5 cm Ao root diam: 3.3 cm FS: 30.6 % asc Aorta Diam: 3.7 cm IVSd: 1.1 cm Ao Arch Diam (Prox Trans): 2.5 cm LVPWd: 1.1 cm LV dominguez. diameter/BSA (cm/m^2): 2.7 LV sys. diameter/BSA (cm/m^2): 1.9 LA A2 area: 26.0 cm2 IVC diam: 1.3 cm LA A4 area: 20.8 cm2 LA length (vol): 5.3 cm LA vol: 86.3 ml LA vol index: 36.1 ml/m2 TAPSE: 2.8 cm Doppler Measurements & Calculations Ao V2 max: 150.2 cm/sec LVOT Max Vito: 99.9 cm/sec Ao V2 mean: 122.0 cm/sec LV V1 max P.0 mmHg Ao max P.0 mmHg LV V1 VTI: 17.9 cm Ao mean P.2 mmHg WILLIAM(I,D): 2.1 cm2 Ao V2 VTI: 27.9 cm WILLIAM(V,D): 2.1 cm2 sev ratio: 0.64 WILLIAM indexed to BSA (cm^2/m^2): 0.86 MV E max vito: 133.2 cm/sec PA V2 max: 110.5 cm/sec MV A max vito: 1.8 cm/sec PA V2 mean: 78.1 cm/sec MV E/A: 72.0 PA mean P.7 mmHg Med Peak E' Vito: 12.7 cm/sec PA pr(Accel): 34.5 mmHg E/E' med: 10.4 Lat Peak E' Vito: 13.6 cm/sec E/E' lat: 9.8 E/e' average: 10.1 MV dec time: 0.11 sec SV([facility]): 57.5 ml Reading Physician:08:03 AM
== END ==
LOC: ECHO 13:40
PROVIDERS: Family Provider Registered Nurse Diabetes Educator; PCP Registered Nurse Diabetes Educator; Referring Provider Registered Nurse Diabetes Educator; Visit Provider Registered Nurse Diabetes Educator
DX: I77.89 Other specified disorders of arteries and arterioles (principal); I10 Essential (primary) hypertension; R79.89 Other specified abnormal findings of blood chemistry
CPT/HCPCS: C8929; Q9957

== ENCOUNTER 2024-10-15 11:30 | Outpatient (RCR) | payer OTHER, SELFPAY ==
[2024-08-28 11:33] VITALS: BMI 55.2
--- NOTE | 2024-09-16 14:30 | PT.OIE ---
Current Diagnoses Spinal stenosis, site unspecified (09/24/24) Intervertebral disc disorders with radiculopathy, lumbar region (09/24/24) Other intervertebral disc degeneration, thoracolumbar region (09/24/24) Strain of muscle, fascia and tendon of lower back, initial encounter (09/24/24) Arthrodesis status (09/24/24) Other specified postprocedural states (09/24/24) Past Medical History (Last Updated 07/12/24 @ 08:22 by LOWELL Sharma) Anxiety Bilateral carpal tunnel syndrome Body mass index (BMI) greater than 50 CKD stage 3a, GFR 45-59 ml/min COVID-19 virus infection Depression Dysfunctional uterine bleeding Dyslipidemia Essential hypertension (02/23/14) Facial skin lesion Heavy menstrual period Hyperglycemia Impaired fasting blood sugar Irregular menstrual cycle Leukocytosis Metabolic syndrome Migraine without aura and without status migrainosus, not intractable Morbid obesity (04/20/14) JOANNE (obstructive sleep apnea) Painful menstrual periods Psoriasis Resistant hypertension Sleep apnea Spinal stenosis Vitiligo Past Surgical History (Last Reviewed 07/12/24 @ 08:07 by LOWELL Sharma) Anesthesia History of tonsillectomy (~2007) Status post delivery (04/03/11) Status post delivery (01/01/14) Status post laminectomy (~07/22/16) Visit Care Team Role Provider Type Stephanie Gomez MD Referring Provider Non-Staff Specialty: General Surgery Address: [address] [place] [address], [id number] Email: LOWELL Sharma Family Provider Advanced Skiing Teacher Primary Care Provider Specialty: Medical Address: [address] [place] [address], [id number] Email: [email or web address] Pratima Willson DC Attending Provider Non-Staff Specialty: Chiropractic Address: [address] [place] [address], [id number] Email: Physical Therapy Initial Evaluation PT-OP-A Visit Information Start: 08/28/24 13:31 Freq: Status: Active Protocol: Document 09/24/24 14:29 KW (Rec: 09/16/24 17:12 KW Laptop) Out-Patient Physical Therapy Visit Information Visit Information Visit Type Initial Evaluation Visit Start Time 10:45 Visit Stop Time 11:30 Visit Number 1 Number of PATTERNMAKER SAMPLE Visits 0 PT-OP-B Current Condition Start: 08/28/24 13:31 Freq: Status: Active Protocol: Document 09/24/24 14:29 KW (Rec: 09/16/24 17:12 KW Laptop) Current Condition History of Current Condition Onset Date Mar 2024 History of Current Condition post op Lami Fusion L3/4 2023 , Dr. Alpesh Galeano at [facility] , [place]. 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 Galeano for further w/u. Prior lami with him back in 2017. PMHx significant for obesity, hysterectomy 2021, C section x 2 2010 2013. HO falls. 2 children ages 10 and 13. Currently being worked up for sleep apnea. Treatment Goals Patient/Caregiver Goals hike with kids, back to work complete all personal hygiene. PT-OP-C Subjective Start: 08/28/24 13:31 Freq: Status: Active Protocol: Document 09/24/24 14:29 KW (Rec: 09/16/24 17:12 KW Laptop) OP-PT Subjective Patient Comments Patient Comments tearful talking about not being able to complete her own personal hygiene. Patient Questionnaires Oswestry Low Back Index Oswestry Impairment 60 to 79% Impaired (Score 60- 79) OP-PT Pain Assessment Pain Assessment Grid Paper Pain Assessment Grid Completed Yes Location Bilateral Pain Location Details Lumbar Intensity 8 Description Aching,Acute,Burning,Chronic, Cramping,Dull Frequency Frequent Pain Aggravating Factors Position,Changing Position,ADL 's,Activity,Exercise,Standing, Walking,Bending Pain Alleviating Factors Cold,Heat,Medication,Position, Sitting,Exercise PT-OP-E Functional Tests Start: 08/28/24 13:31 Freq: Status: Active Protocol: Document 09/24/24 14:29 KW (Rec: 09/16/24 17:12 KW Laptop) Functional Tests 30 Second Sit to Stand Test Score 4 PT-OP-G Mobility & Gait Start: 08/28/24 13:31 Freq: Status: Active Protocol: Document 09/24/24 14:29 KW (Rec: 09/16/24 17:12 KW Laptop) OP Mobility Evaluation Bed Mobility Rolling cues for breathing Supine to and from Sit cues for breathing OP Gait Assessment Gait Deviations General Gait Pattern Antalgic,Decreased Feet Clearance,Wide Based Gait PT-OP-J Posture/Palpation/Skin Start: 08/28/24 13:31 Freq: Status: Active Protocol: Document 09/24/24 14:29 KW (Rec: 09/16/24 17:12 KW Laptop) Posture Evaluation Position Sitting Evaluation View Lateral Head/C-Spine Posture Forward Head T-Spine Posture Increased Kyphosis Thorax Posture Barrel Chested L-Spine Posture Increased Lordosis PT-OP-K Range of Motion Start: 08/28/24 13:31 Freq: Status: Active Protocol: Document 09/24/24 14:29 KW (Rec: 09/16/24 17:12 KW Laptop) Lumbar Spine Range of Motion Lumbar Spine Active Testing Position Sitting Flexion 45 Extension 10 Rotation Left 20 Rotation Right 25 Lateral Flexion Left 10 Lateral Flexion Right 12 ROM Limitations Soft Tissue Tightness,Bony Restriction,Pain PT-OP-L Special Tests Start: 08/28/24 13:31 Freq: Status: Active Protocol: Document 09/24/24 14:29 KW (Rec: 09/16/24 17:12 KW Laptop) Special Tests Lumbar Spine Special Tests Slump Test Results (-) PT-OP-M Strength Start: 08/28/24 13:31 Freq: Status: Active Protocol: Document 09/24/24 14:29 KW (Rec: 09/16/24 17:12 KW Laptop) Trunk Strength Trunk Manual Muscle Testing Core Stabilization very poor, no TA felt Comments very good with breathing techniques Ankle/Foot Strength Ankle and Foot Manual Muscle Testing Left Dorsiflexion (L4) 4- Good- Plantarflexion (S1) 4- Good- Inversion 4- Good- Eversion (S1) 4- Good- Right Dorsiflexion (L4) 3+ Fair+ Plantarflexion (S1) 3+ Fair+ Inversion 4- Good- Eversion (S1) 4- Good- PT-OP-Q Treatments Start: 08/28/24 13:31 Freq: Status: Active Protocol: Document 09/24/24 14:29 KW (Rec: 09/16/24 17:12 KW Laptop) Therapeutic Exercises Supine Exercises LE nerve glides Supine Exercise Name one at a time Side bilateral Equipment Used gait belt behind knee Reps/Minutes x 10 ankle pumps Comments breathing supine mini bridge on ball Supine Exercise Name supine mini bridge on ball Side bilateral Equipment Used red physioball Reps/Minutes 10 Comments coordinate with exhale adductor ball squeeze Supine Exercise Name adductor ball squeeze with coordinated breathing Side bilateral Equipment Used small blue ball Reps/Minutes 10 Comments cues for nice long exhale on sqeeze supine ball Supine Exercise Name supine hamstring curls, LTR Side bilateral Equipment Used red physioball Reps/Minutes 10 each Comments cues for breathing Neuro Re-Education Treatment Balance Activities corner balance Details tool inspector corner for safety Surface flat Reps/Duration 30 sec each Comments narrow ANGÉLICA, tandem stance with head turns PT-OP-T Assessment and Plan Start: 08/28/24 13:31 Freq: Status: Active Protocol: Document 09/24/24 14:29 KW (Rec: 09/16/24 17:12 KW Laptop) Physical Therapy Assessment Rehab Potential Rehabilitation Potential Excellent Evaluation Complexity Number of Personal Factors/Comorbidities 1-2 Number of Body Systems Impaired 1-2 Clinical Presentation at Evaluation Stable Other Concerns Fall Risk yes Barriers to Rehabilitation co-morbidities, multiple surgeries Goals Three Impairment painful gait Short Term Goal (STG) patient is able to ambulate 1 square block with kids, no pain with appropriate device, trekking pole STG Duration 6 weeks Two Impairment pain Short Term Goal (STG) spine pain improves 50% with PT ther-ex, CORE stability STG Duration 6 weeks One Impairment lack of HEP Short Term Goal (STG) patient demonstrates indep with HEP STG Duration 6 weeks Assessment Summary Assessment pleasant cooperative 38 yo female s/p spinal fusion, coming to PT for CORE stabilization, fitness, endurance. She will benefit from skilled PT to address pain, ROM, strength, gait, balance, mobility in order to meet goals and return to active lifestyle with family and children she has a good baseline understanding of breath work which is helpful. Physical Therapy Plan Frequency and Duration Frequency of Treatment 2x/Week Duration of treatment (weeks) 12 Plan of Care Start Date 09/16/24 Plan of Care End Date 12/17/24 Therapeutic Interventions Therapeutic Interventions Balance Training,Gait Training ,Home Exercise Program,Manual Therapy,Neuromuscular Re- education,Patient/Caregiver Education,Soft Tissue Mobilization,Taping, Therapeutic Activities, Therapeutic Exercises Modalities Cold Pack/Ice Massage,Electric Stimulation,Hot Packs, Ultrasound Next Visit Focus/Plan Next Note Type Treatment Note Next Visit Plan Nu step balance // bars adjust trekking poles CORE stabilization
--- NOTE | 2024-09-16 14:31 | PT.OPPOC ---
Physical, Occupational & Speech Therapy At [facility] Current Diagnoses Spinal stenosis, site unspecified (09/24/24) Intervertebral disc disorders with radiculopathy, lumbar region (09/24/24) Other intervertebral disc degeneration, thoracolumbar region (09/24/24) Strain of muscle, fascia and tendon of lower back, initial encounter (09/24/24) Arthrodesis status (09/24/24) Other specified postprocedural states (09/24/24) Visit Care Team Role Provider Type Stephanie Gomez MD Referring Provider Non-Staff Specialty: General Surgery Address: [address] [place] [address], [address] Email: LOWELL Sharma Family Provider Advanced Soup Person Primary Care Provider Specialty: Medical Address: [address] [place] [address], [address] Email: [email or web address] Pratima Willson DC Attending Provider Non-Staff Specialty: Chiropractic Address: [address] [place] [address], [id number] Email: Plan Of Care PT-OP-B Current Condition Start: 08/28/24 13:31 Freq: Status: Active Protocol: Document 09/24/24 14:29 KW (Rec: 09/16/24 17:12 KW Laptop) Current Condition History of Current Condition Onset Date Mar 2024 History of Current Condition post op Lami Fusion L3/4 2023 , Dr. Alpesh Galeano at [facility]. 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 Galeano for further w/u. Prior lami with him back in 2017. PMHx significant for obesity, hysterectomy 2021, C section x 2 2010 2013. HO falls. 2 children ages 10 and 13. Currently being worked up for sleep apnea. Treatment Goals Patient/Caregiver Goals hike with kids, back to work complete all personal hygiene. PT-OP-T Assessment and Plan Start: 08/28/24 13:31 Freq: Status: Active Protocol: Document 09/24/24 14:29 KW (Rec: 09/16/24 17:12 KW Laptop) Physical Therapy Assessment Rehab Potential Rehabilitation Potential Excellent Evaluation Complexity Number of Personal Factors/Comorbidities 1-2 Number of Body Systems Impaired 1-2 Clinical Presentation at Evaluation Stable Other Concerns Fall Risk yes Barriers to Rehabilitation co-morbidities, multiple surgeries Goals Three Impairment painful gait Short Term Goal (STG) patient is able to ambulate 1 square block with kids, no pain with appropriate device, trekking pole STG Duration 6 weeks Two Impairment pain Short Term Goal (STG) spine pain improves 50% with PT ther-ex, CORE stability STG Duration 6 weeks One Impairment lack of HEP Short Term Goal (STG) patient demonstrates indep with HEP STG Duration 6 weeks Assessment Summary Assessment pleasant cooperative 38 yo female s/p spinal fusion, coming to PT for CORE stabilization, fitness, endurance. She will benefit from skilled PT to address pain, ROM, strength, gait, balance, mobility in order to meet goals and return to active lifestyle with family and children she has a good baseline understanding of breath work which is helpful. Physical Therapy Plan Frequency and Duration Frequency of Treatment 2x/Week Duration of treatment (weeks) 12 Plan of Care Start Date 09/16/24 Plan of Care End Date 12/17/24 Therapeutic Interventions Therapeutic Interventions Balance Training,Gait Training ,Home Exercise Program,Manual Therapy,Neuromuscular Re- education,Patient/Caregiver Education,Soft Tissue Mobilization,Taping, Therapeutic Activities, Therapeutic Exercises Modalities Cold Pack/Ice Massage,Electric Stimulation,Hot Packs, Ultrasound Next Visit Focus/Plan Next Note Type Treatment Note Next Visit Plan Nu step balance // bars adjust trekking poles CORE stabilization Plan of Care Dates Plan of Care Start Date 09/16/24 Plan of Care End Date 12/17/24 Electronically Signed by: Donita Eduardo, PT 09/24/24 7905 If you are in agreement with this Plan of Care, please return a signed and dated copy. I have reviewed this Plan of Care and certify that the skilled therapy services above are required to meet the patient?s needs. Physician Signature Date Printed Name and Credentials Clinical Instructor Signature Printed Name and Credentials
--- NOTE | 2024-09-16 17:13 | PT.OTN ---
Current Diagnoses Spinal stenosis, site unspecified (09/16/24) Intervertebral disc disorders with radiculopathy, lumbar region (09/16/24) Other intervertebral disc degeneration, thoracolumbar region (09/16/24) Strain of muscle, fascia and tendon of lower back, initial encounter (09/16/24) Arthrodesis status (09/16/24) Other specified postprocedural states (09/16/24) Physical Therapy Treatment Note PT-OP-A Visit Information Start: 08/28/24 13:31 Freq: Status: Active Protocol: Document 09/16/24 10:53 KW (Rec: 09/16/24 17:12 KW Laptop) Out-Patient Physical Therapy Visit Information Visit Information Visit Type Initial Evaluation Visit Start Time 10:45 Visit Stop Time 11:30 Visit Number 1 Number of SELF PAY COLLECTOR Visits 0 PT-OP-B Current Condition Start: 08/28/24 13:31 Freq: Status: Active Protocol: Document 09/16/24 10:53 KW (Rec: 09/16/24 17:12 KW Laptop) Current Condition History of Current Condition Onset Date Mar 2024 History of Current Condition post op Lami Fusion L3/4 2023 , Dr. Alpesh Galeano at [facility]. 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 Galeano for further w/u. Prior lami with him back in 2017. PMHx significant for obesity, hysterectomy 2021, C section x 2 2010 2013. HO falls. 2 children ages 10 and 13. Currently being worked up for sleep apnea. Treatment Goals Patient/Caregiver Goals hike with kids, back to work complete all personal hygiene. PT-OP-C Subjective Start: 08/28/24 13:31 Freq: Status: Active Protocol: Document 09/16/24 10:53 KW (Rec: 09/16/24 17:12 KW Laptop) OP-PT Subjective Patient Comments Patient Comments tearful talking about not being able to complete her own personal hygiene. Patient Questionnaires Oswestry Low Back Index Oswestry Impairment 60 to 79% Impaired (Score 60- 79) OP-PT Pain Assessment Pain Assessment Grid Paper Pain Assessment Grid Completed Yes Location Bilateral Pain Location Details Lumbar Intensity 8 Description Aching,Acute,Burning,Chronic, Cramping,Dull Frequency Frequent Pain Aggravating Factors Position,Changing Position,ADL 's,Activity,Exercise,Standing, Walking,Bending Pain Alleviating Factors Cold,Heat,Medication,Position, Sitting,Exercise PT-OP-E Functional Tests Start: 08/28/24 13:31 Freq: Status: Active Protocol: Document 09/16/24 10:53 KW (Rec: 09/16/24 17:12 KW Laptop) Functional Tests 30 Second Sit to Stand Test Score 4 PT-OP-G Mobility & Gait Start: 08/28/24 13:31 Freq: Status: Active Protocol: Document 09/16/24 10:53 KW (Rec: 09/16/24 17:12 KW Laptop) OP Mobility Evaluation Bed Mobility Rolling cues for breathing Supine to and from Sit cues for breathing OP Gait Assessment Gait Deviations General Gait Pattern Antalgic,Decreased Feet Clearance,Wide Based Gait PT-OP-J Posture/Palpation/Skin Start: 08/28/24 13:31 Freq: Status: Active Protocol: Document 09/16/24 10:53 KW (Rec: 09/16/24 17:12 KW Laptop) Posture Evaluation Position Sitting Evaluation View Lateral Head/C-Spine Posture Forward Head T-Spine Posture Increased Kyphosis Thorax Posture Barrel Chested L-Spine Posture Increased Lordosis PT-OP-K Range of Motion Start: 08/28/24 13:31 Freq: Status: Active Protocol: Document 09/16/24 10:53 KW (Rec: 09/16/24 17:12 KW Laptop) Lumbar Spine Range of Motion Lumbar Spine Active Testing Position Sitting Flexion 45 Extension 10 Rotation Left 20 Rotation Right 25 Lateral Flexion Left 10 Lateral Flexion Right 12 ROM Limitations Soft Tissue Tightness,Bony Restriction,Pain PT-OP-L Special Tests Start: 08/28/24 13:31 Freq: Status: Active Protocol: Document 09/16/24 10:53 KW (Rec: 09/16/24 17:12 KW Laptop) Special Tests Lumbar Spine Special Tests Slump Test Results (-) PT-OP-M Strength Start: 08/28/24 13:31 Freq: Status: Active Protocol: Document 09/16/24 10:53 KW (Rec: 09/16/24 17:12 KW Laptop) Trunk Strength Trunk Manual Muscle Testing Core Stabilization very poor, no TA felt Comments very good with breathing techniques Ankle/Foot Strength Ankle and Foot Manual Muscle Testing Left Dorsiflexion (L4) 4- Good- Plantarflexion (S1) 4- Good- Inversion 4- Good- Eversion (S1) 4- Good- Right Dorsiflexion (L4) 3+ Fair+ Plantarflexion (S1) 3+ Fair+ Inversion 4- Good- Eversion (S1) 4- Good- PT-OP-Q Treatments Start: 08/28/24 13:31 Freq: Status: Active Protocol: Document 09/16/24 10:53 KW (Rec: 09/16/24 17:12 KW Laptop) Therapeutic Exercises Supine Exercises LE nerve glides Supine Exercise Name one at a time Side bilateral Equipment Used gait belt behind knee Reps/Minutes x 10 ankle pumps Comments breathing supine mini bridge on ball Supine Exercise Name supine mini bridge on ball Side bilateral Equipment Used red physioball Reps/Minutes 10 Comments coordinate with exhale adductor ball squeeze Supine Exercise Name adductor ball squeeze with coordinated breathing Side bilateral Equipment Used small blue ball Reps/Minutes 10 Comments cues for nice long exhale on sqeeze supine ball Supine Exercise Name supine hamstring curls, LTR Side bilateral Equipment Used red physioball Reps/Minutes 10 each Comments cues for breathing Neuro Re-Education Treatment Balance Activities corner balance Details glass 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 operator corner for safety Surface flat Reps/Duration 30 sec each Comments narrow ANGÉLICA, tandem stance with head turns PT-OP-T Assessment and Plan Start: 08/28/24 13:31 Freq: Status: Active Protocol: Document 09/16/24 10:53 KW (Rec: 09/16/24 17:12 KW Laptop) Physical Therapy Assessment Rehab Potential Rehabilitation Potential Excellent Evaluation Complexity Number of Personal Factors/Comorbidities 1-2 Number of Body Systems Impaired 1-2 Clinical Presentation at Evaluation Stable Other Concerns Fall Risk yes Barriers to Rehabilitation co-morbidities, multiple surgeries Physical Therapy Plan Frequency and Duration Frequency of Treatment 2x/Week Duration of treatment (weeks) 12 Plan of Care Start Date 09/16/24 Plan of Care End Date 12/17/24 Therapeutic Interventions Therapeutic Interventions Balance Training,Gait Training ,Home Exercise Program,Manual Therapy,Neuromuscular Re- education,Patient/Caregiver Education,Soft Tissue Mobilization,Taping, Therapeutic Activities, Therapeutic Exercises Modalities Cold Pack/Ice Massage,Electric Stimulation,Hot Packs, Ultrasound Next Visit Focus/Plan Next Note Type Treatment Note Next Visit Plan Nu step balance // bars adjust trekking poles CORE stabilization
--- NOTE | 2024-09-18 10:32 | PT.OTN ---
Current Diagnoses Spinal stenosis, site unspecified (09/18/24) Intervertebral disc disorders with radiculopathy, lumbar region (09/18/24) Other intervertebral disc degeneration, thoracolumbar region (09/18/24) Strain of muscle, fascia and tendon of lower back, initial encounter (09/18/24) Arthrodesis status (09/18/24) Other specified postprocedural states (09/18/24) Physical Therapy Treatment Note PT-OP-A Visit Information Start: 08/28/24 13:31 Freq: Status: Active Protocol: Document 09/18/24 10:00 KW (Rec: 09/18/24 10:32 KW Laptop) Out-Patient Physical Therapy Visit Information Visit Information Visit Type Treatment Note Visit Start Time 09:45 Visit Stop Time 10:30 Visit Number 2 PT-OP-B Current Condition Start: 08/28/24 13:31 Freq: Status: Active Protocol: Document 09/16/24 10:53 KW (Rec: 09/16/24 17:12 KW Laptop) Current Condition History of Current Condition Onset Date Mar 2024 History of Current Condition post op Lami Fusion L3/4 2023 , Dr. Alpesh Galeano at [facility]. 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 Galeano for further w/u. Prior lami with him back in 2017. PMHx significant for obesity, hysterectomy 2021, C section x 2 2010 2013. HO falls. 2 children ages 10 and 13. Currently being worked up for sleep apnea. Treatment Goals Patient/Caregiver Goals hike with kids, back to work complete all personal hygiene. PT-OP-C Subjective Start: 08/28/24 13:31 Freq: Status: Active Protocol: Document 09/18/24 10:00 KW (Rec: 09/18/24 10:32 KW Laptop) OP-PT Subjective Patient Comments Patient Comments felt tight after 1st visit, but ok now. Slept well last night PT-OP-E Functional Tests Start: 08/28/24 13:31 Freq: Status: Active Protocol: Document 09/16/24 10:53 KW (Rec: 09/16/24 17:12 KW Laptop) Functional Tests 30 Second Sit to Stand Test Score 4 PT-OP-G Mobility & Gait Start: 08/28/24 13:31 Freq: Status: Active Protocol: Document 09/16/24 10:53 KW (Rec: 09/16/24 17:12 KW Laptop) OP Mobility Evaluation Bed Mobility Rolling cues for breathing Supine to and from Sit cues for breathing OP Gait Assessment Gait Deviations General Gait Pattern Antalgic,Decreased Feet Clearance,Wide Based Gait PT-OP-J Posture/Palpation/Skin Start: 08/28/24 13:31 Freq: Status: Active Protocol: Document 09/16/24 10:53 KW (Rec: 09/16/24 17:12 KW Laptop) Posture Evaluation Position Sitting Evaluation View Lateral Head/C-Spine Posture Forward Head T-Spine Posture Increased Kyphosis Thorax Posture Barrel Chested L-Spine Posture Increased Lordosis PT-OP-K Range of Motion Start: 08/28/24 13:31 Freq: Status: Active Protocol: Document 09/16/24 10:53 KW (Rec: 09/16/24 17:12 KW Laptop) Lumbar Spine Range of Motion Lumbar Spine Active Testing Position Sitting Flexion 45 Extension 10 Rotation Left 20 Rotation Right 25 Lateral Flexion Left 10 Lateral Flexion Right 12 ROM Limitations Soft Tissue Tightness,Bony Restriction,Pain PT-OP-L Special Tests Start: 08/28/24 13:31 Freq: Status: Active Protocol: Document 09/16/24 10:53 KW (Rec: 09/16/24 17:12 KW Laptop) Special Tests Lumbar Spine Special Tests Slump Test Results (-) PT-OP-M Strength Start: 08/28/24 13:31 Freq: Status: Active Protocol: Document 09/16/24 10:53 KW (Rec: 09/16/24 17:12 KW Laptop) Trunk Strength Trunk Manual Muscle Testing Core Stabilization very poor, no TA felt Comments very good with breathing techniques Ankle/Foot Strength Ankle and Foot Manual Muscle Testing Left Dorsiflexion (L4) 4- Good- Plantarflexion (S1) 4- Good- Inversion 4- Good- Eversion (S1) 4- Good- Right Dorsiflexion (L4) 3+ Fair+ Plantarflexion (S1) 3+ Fair+ Inversion 4- Good- Eversion (S1) 4- Good- PT-OP-Q Treatments Start: 08/28/24 13:31 Freq: Status: Active Protocol: Document 09/18/24 10:00 KW (Rec: 05/09/25 10:32 KW Laptop) Cardio Equipment Recumbent Stepper (Sci-Fit) Duration (Minutes) 8 Resistance 2 Therapeutic Exercises Supine Exercises heel slides Supine Exercise Name heel slides Side bilateral Reps/Minutes 10 each side Comments good breath control B LE single leg abd with band Side bilateral Equipment Used level one band Reps/Minutes 10 each side Comments hooklying, one side stable, other leg pulls LE nerve glides Supine Exercise Name one at a time Side bilateral Equipment Used gait belt behind knee Reps/Minutes x 10 ankle pumps Comments breathing supine mini bridge on ball Supine Exercise Name supine mini bridge on ball Side bilateral Equipment Used red physioball Reps/Minutes 10 Comments coordinate with exhale adductor ball squeeze Supine Exercise Name adductor ball squeeze with coordinated breathing Side bilateral Equipment Used small blue ball Reps/Minutes 10 Comments cues for nice long exhale on sqeeze supine ball Supine Exercise Name supine hamstring curls, LTR Side bilateral Equipment Used red physioball Reps/Minutes 10 each Comments cues for breathing Standing Exercises B UE band pulls Side bilateral Equipment Used blue T-band Reps/Minutes 10 each Comments both bent elbow, straight arm pulls, athletic stance, pull with exhale gastroc stretch with ANISA Side bilateral Reps/Minutes 1 min each Neuro Re-Education Treatment Balance Activities corner balance 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 excellent breath control with all ther- ex. Physical Therapy Plan Frequency and Duration Frequency of Treatment 2x/Week Duration of treatment (weeks) 12 Plan of Care Start Date 09/16/24 Plan of Care End Date 12/17/24 Therapeutic Interventions Therapeutic Interventions Balance Training,Gait Training ,Home Exercise Program,Manual Therapy,Neuromuscular Re- education,Patient/Caregiver Education,Soft Tissue Mobilization,Taping, Therapeutic Activities, Therapeutic Exercises Modalities Cold Pack/Ice Massage,Electric Stimulation,Hot Packs, Ultrasound Next Visit Focus/Plan Next Note Type Treatment Note Next Visit Plan assess tolerance to new ther- ex. Consider trying shuttle PT to get auth for more visits (8 approved, 6 remaining after today)
--- NOTE | 2024-09-22 09:19 | PT-OP ANOTE ---
Pt cancelled appt due to intestine issues and headache, unable to attend today.
--- NOTE | 2024-09-24 10:30 | PT.OTN ---
Current Diagnoses Spinal stenosis, site unspecified (09/24/24) Intervertebral disc disorders with radiculopathy, lumbar region (09/24/24) Other intervertebral disc degeneration, thoracolumbar region (09/24/24) Strain of muscle, fascia and tendon of lower back, initial encounter (09/24/24) Arthrodesis status (09/24/24) Other specified postprocedural states (09/24/24) Physical Therapy Treatment Note PT-OP-A Visit Information Start: 08/28/24 13:31 Freq: Status: Active Protocol: Document 09/24/24 09:52 SP (Rec: 09/24/24 10:40 SP [id number]) Out-Patient Physical Therapy Visit Information Visit Information Visit Type Treatment Note Visit Start Time 09:52 Visit Stop Time 10:30 Visit Number 3 Number of PLUG GROWER Visits 1 Precautions Precautions *Neuropathy in B feet: feels completely numb. PT-OP-B Current Condition Start: 08/28/24 13:31 Freq: Status: Active Protocol: Document 09/16/24 10:53 KW (Rec: 09/16/24 17:12 KW Laptop) Current Condition History of Current Condition Onset Date Mar 2024 History of Current Condition post op Lami Fusion L3/4 2023 , Dr. Alpesh Galeano at [facility] , [place]. 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 Galeano for further w/u. Prior lami with him back in 2017. PMHx significant for obesity, hysterectomy 2021, C section x 2 2010 2013. HO falls. 2 children ages 10 and 13. Currently being worked up for sleep apnea. Treatment Goals Patient/Caregiver Goals hike with kids, back to work complete all personal hygiene. PT-OP-C Subjective Start: 08/28/24 13:31 Freq: Status: Active Protocol: Document 09/24/24 09:52 SP (Rec: 09/24/24 10:40 SP [id number]) OP-PT Subjective Patient Comments Patient Comments Pt reports did ok after last tx. She reports has Migraines about 1x /mo and also causes other symptoms as nausea/ intestinal issues. Doing better today. She attempted a hike with with B trek poles only 150 ft before had to stop and come back to car due to pain and weakness, no place to sit down. PT-OP-E Functional Tests Start: 08/28/24 13:31 Freq: Status: Active Protocol: Document 09/16/24 10:53 KW (Rec: 09/16/24 17:12 KW Laptop) Functional Tests 30 Second Sit to Stand Test Score 4 PT-OP-G Mobility & Gait Start: 08/28/24 13:31 Freq: Status: Active Protocol: Document 09/16/24 10:53 KW (Rec: 09/16/24 17:12 KW Laptop) OP Mobility Evaluation Bed Mobility Rolling cues for breathing Supine to and from Sit cues for breathing OP Gait Assessment Gait Deviations General Gait Pattern Antalgic,Decreased Feet Clearance,Wide Based Gait PT-OP-J Posture/Palpation/Skin Start: 08/28/24 13:31 Freq: Status: Active Protocol: Document 09/16/24 10:53 KW (Rec: 09/16/24 17:12 KW Laptop) Posture Evaluation Position Sitting Evaluation View Lateral Head/C-Spine Posture Forward Head T-Spine Posture Increased Kyphosis Thorax Posture Barrel Chested L-Spine Posture Increased Lordosis PT-OP-K Range of Motion Start: 08/28/24 13:31 Freq: Status: Active Protocol: Document 09/16/24 10:53 KW (Rec: 09/16/24 17:12 KW Laptop) Lumbar Spine Range of Motion Lumbar Spine Active Testing Position Sitting Flexion 45 Extension 10 Rotation Left 20 Rotation Right 25 Lateral Flexion Left 10 Lateral Flexion Right 12 ROM Limitations Soft Tissue Tightness,Bony Restriction,Pain PT-OP-L Special Tests Start: 08/28/24 13:31 Freq: Status: Active Protocol: Document 09/16/24 10:53 KW (Rec: 09/16/24 17:12 KW Laptop) Special Tests Lumbar Spine Special Tests Slump Test Results (-) PT-OP-M Strength Start: 08/28/24 13:31 Freq: Status: Active Protocol: Document 09/16/24 10:53 KW (Rec: 09/16/24 17:12 KW Laptop) Trunk Strength Trunk Manual Muscle Testing Core Stabilization very poor, no TA felt Comments very good with breathing techniques Ankle/Foot Strength Ankle and Foot Manual Muscle Testing Left Dorsiflexion (L4) 4- Good- Plantarflexion (S1) 4- Good- Inversion 4- Good- Eversion (S1) 4- Good- Right Dorsiflexion (L4) 3+ Fair+ Plantarflexion (S1) 3+ Fair+ Inversion 4- Good- Eversion (S1) 4- Good- PT-OP-Q Treatments Start: 08/28/24 13:31 Freq: Status: Active Protocol: Document 09/24/24 09:52 SP (Rec: 09/24/24 10:40 SP [id number]) Cardio Equipment Recumbent Stepper (Sci-Fit) Duration (Minutes) 8 Resistance 2 Seat Position 9 Other BUEs/BLEs approx 35 RPM Therapeutic Exercises Supine Exercises heel slides Supine Exercise Name TA heel slides Side bilateral Reps/Minutes 10 each side Comments Cued for lower ribcage toward table, good breath control B LE single leg abd with band Supine Exercise Name KFO reviewed Side bilateral Resistance level one band Light blue Equipment Used hooklying, one side stable, other leg pulls Reps/Minutes 10 each side Comments Cued lower ribcage toward table improved stable pelvis, exhale abduction LE nerve glides Supine Exercise Name one at a time- reviewed Side bilateral Equipment Used flat sheet behind knee Reps/Minutes x 10 ankle pumps Comments breathing supine mini bridge on ball Supine Exercise Name Hooklying: mini bridge on ball - reviewed Side bilateral Equipment Used red physioball Reps/Minutes 15 Comments coordinate with exhale supine ball Supine Exercise Name Hooklying: hamstring curls, LTR Side bilateral Equipment Used red physioball Reps/Minutes 15 each Comments cues for breathing Standing Exercises Antirotation Press outs Standing Exercise Name Paloff press- added to HEP Side bilateral Resistance Tb Lv 1 light blue- anchored out to side Equipment Used *press out front navel- weaker on L Reps/Minutes 10 reps each side Comments Cued athletic soft knee unlocked vs split stance TA stance, exhale w/pull B UE band pulls Standing Exercise Name Elbow bent & Straight Side bilateral Resistance Lvl 1 light blue T-band Reps/Minutes 10 each Comments Cued athletic soft knee unlocked vs split stance TA stance, exhale w/pull PT-OP-T Assessment and Plan Start: 08/28/24 13:31 Freq: Status: Active Protocol: Document 09/24/24 09:52 SP (Rec: 09/24/24 10:40 SP [id number]) Physical Therapy Assessment Assessment Summary Assessment Pt good response to ther ex, continued cues for PPT, with TA and allowance breath exhale during effort, good slow pacing reps, improved decreased pelvic wobble during resisted KFO, and core felt LTR with ball also has home. Initiated paloff press for TA and hip strengthening progression, reports weaker on L, needs engage core more maintain press out navel. Physical Therapy Plan Frequency and Duration Frequency of Treatment 2x/Week Duration of treatment (weeks) 12 Plan of Care Start Date 09/16/24 Plan of Care End Date 12/17/24 Therapeutic Interventions Therapeutic Interventions Balance Training,Gait Training ,Home Exercise Program,Manual Therapy,Neuromuscular Re- education,Patient/Caregiver Education,Soft Tissue Mobilization,Taping, Therapeutic Activities, Therapeutic Exercises Modalities Cold Pack/Ice Massage,Electric Stimulation,Hot Packs, Ultrasound Next Visit Focus/Plan Next Note Type Treatment Note Next Visit Plan Recheck HEP added paloff press . NExt: Consider trying shuttle PT to get auth for more visits (8 approved, 6 remaining after today)
--- NOTE | 2024-09-29 12:16 | PT.OTN ---
Current Diagnoses Spinal stenosis, site unspecified (09/29/24) Intervertebral disc disorders with radiculopathy, lumbar region (09/29/24) Other intervertebral disc degeneration, thoracolumbar region (09/29/24) Strain of muscle, fascia and tendon of lower back, initial encounter (09/29/24) Arthrodesis status (09/29/24) Other specified postprocedural states (09/29/24) Physical Therapy Treatment Note PT-OP-A Visit Information Start: 08/28/24 13:31 Freq: Status: Active Protocol: Document 09/29/24 11:36 PG (Rec: 09/29/24 12:25 PG Laptop) Out-Patient Physical Therapy Visit Information Visit Information Visit Type Treatment Note Visit Note Jinny OLVERA led tx with permission of pt and direct supervision from Emerita MARTINEZ. Visit Start Time 11:36 Visit Stop Time 12:16 Visit Number 4 Number of MUSIC LIBRARY ASSISTANT Visits 2 Precautions Precautions *Neuropathy in B feet: feels completely numb. PT-OP-B Current Condition Start: 08/28/24 13:31 Freq: Status: Active Protocol: Document 09/16/24 14:29 KW (Rec: 09/16/24 17:12 KW Laptop) Current Condition History of Current Condition Onset Date Mar 2024 History of Current Condition post op Lami Fusion L3/4 2023 , Dr. Alpesh Galeano at [facility] , [place]. 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 Galeano for further w/u. Prior lami with him back in 2017. PMHx significant for obesity, hysterectomy 2021, C section x 2 2010 2013. HO falls. 2 children ages 10 and 13. Currently being worked up for sleep apnea. Treatment Goals Patient/Caregiver Goals hike with kids, back to work complete all personal hygiene. PT-OP-C Subjective Start: 08/28/24 13:31 Freq: Status: Active Protocol: Document 09/29/24 11:36 PG (Rec: 09/29/24 12:25 PG Laptop) OP-PT Subjective Patient Comments Patient Comments Pt is doing well, came in with a SPC, has been experiencing random twinging nerve pain today. Tried to complete previously added HEP: pallof press at home but would get LBP, thinks she may have been performing them incorrectly. PT-OP-E Functional Tests Start: 08/28/24 13:31 Freq: Status: Active Protocol: Document 09/16/24 14:29 KW (Rec: 09/16/24 17:12 KW Laptop) Functional Tests 30 Second Sit to Stand Test Score 4 PT-OP-G Mobility & Gait Start: 08/28/24 13:31 Freq: Status: Active Protocol: Document 09/16/24 14:29 KW (Rec: 09/16/24 17:12 KW Laptop) OP Mobility Evaluation Bed Mobility Rolling cues for breathing Supine to and from Sit cues for breathing OP Gait Assessment Gait Deviations General Gait Pattern Antalgic,Decreased Feet Clearance,Wide Based Gait PT-OP-J Posture/Palpation/Skin Start: 08/28/24 13:31 Freq: Status: Active Protocol: Document 09/16/24 14:29 KW (Rec: 09/16/24 17:12 KW Laptop) Posture Evaluation Position Sitting Evaluation View Lateral Head/C-Spine Posture Forward Head T-Spine Posture Increased Kyphosis Thorax Posture Barrel Chested L-Spine Posture Increased Lordosis PT-OP-K Range of Motion Start: 08/28/24 13:31 Freq: Status: Active Protocol: Document 09/16/24 14:29 KW (Rec: 09/16/24 17:12 KW Laptop) Lumbar Spine Range of Motion Lumbar Spine Active Testing Position Sitting Flexion 45 Extension 10 Rotation Left 20 Rotation Right 25 Lateral Flexion Left 10 Lateral Flexion Right 12 ROM Limitations Soft Tissue Tightness,Bony Restriction,Pain PT-OP-L Special Tests Start: 08/28/24 13:31 Freq: Status: Active Protocol: Document 09/16/24 14:29 KW (Rec: 09/16/24 17:12 KW Laptop) Special Tests Lumbar Spine Special Tests Slump Test Results (-) PT-OP-M Strength Start: 08/28/24 13:31 Freq: Status: Active Protocol: Document 09/16/24 14:29 KW (Rec: 09/16/24 17:12 KW Laptop) Trunk Strength Trunk Manual Muscle Testing Core Stabilization very poor, no TA felt Comments very good with breathing techniques Ankle/Foot Strength Ankle and Foot Manual Muscle Testing Left Dorsiflexion (L4) 4- Good- Plantarflexion (S1) 4- Good- Inversion 4- Good- Eversion (S1) 4- Good- Right Dorsiflexion (L4) 3+ Fair+ Plantarflexion (S1) 3+ Fair+ Inversion 4- Good- Eversion (S1) 4- Good- PT-OP-Q Treatments Start: 08/28/24 13:31 Freq: Status: Active Protocol: Document 09/29/24 11:36 PG (Rec: 09/29/24 12:25 PG Laptop) Therapeutic Exercises Supine Exercises Marches Supine Exercise Name Added to HEP, HO provided: Marches with TA brace Side bilateral Reps/Minutes x20 Comments cued for low ribcage twrd table, good breathing, heel slides Supine Exercise Name Reviewed TA heel slides Side bilateral Reps/Minutes 10 each side Comments Cued for lower ribcage toward table, good breath control B LE single leg abd with band Supine Exercise Name Reviewed KFO Side bilateral Resistance level one band Light blue Equipment Used hooklying, one side stable, other leg pulls Reps/Minutes 10 each side Comments Cued lower ribcage toward table, exhale abduction Sitting Exercises exercise ball Sitting Exercise Name 1. Pelvic tilt 2. Marches 3. 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 Cued for core engagement and squeezing shoulder blades together PT-OP-T Assessment and Plan Start: 08/28/24 13:31 Freq: Status: Active Protocol: Document 09/29/24 11:36 PG (Rec: 09/29/24 12:25 PG Laptop) Physical Therapy Assessment Goals Three Impairment painful gait Short Term Goal (STG) patient is able to ambulate 1 square block with kids, no pain with appropriate device, trekking pole STG Duration 6 weeks Two Impairment pain Short Term Goal (STG) spine pain improves 50% with PT ther-ex, CORE stability STG Duration 6 weeks One Impairment lack of HEP Short Term Goal (STG) patient demonstrates indep with HEP STG Duration 6 weeks Assessment Summary Assessment Pt had a good response with Pallof press after review during tx with cues to not rotate trunk but stay stationed and press arms away from navel. Added seated exercise ball HEP to work on pelvic control and progress core strengthening, used green exercise ball that is same size as the one pt has at home . Physical Therapy Plan Frequency and Duration Frequency of Treatment 2x/Week Duration of treatment (weeks) 12 Plan of Care Start Date 09/16/24 Plan of Care End Date 12/17/24 Therapeutic Interventions Therapeutic Interventions Balance Training,Gait Training ,Home Exercise Program,Manual Therapy,Neuromuscular Re- education,Patient/Caregiver Education,Soft Tissue Mobilization,Taping, Therapeutic Activities, Therapeutic Exercises Modalities Cold Pack/Ice Massage,Electric Stimulation,Hot Packs, Ultrasound Next Visit Focus/Plan Next Note Type Treatment Note Next Visit Plan Recheck HEP added supine marches and seated ball exercises. Next: Consider trying shuttle balance and leg press, and dynamic walking PT to get auth for more visits (8 approved, 5 remaining after today)
--- NOTE | 2024-10-07 11:49 | PT-OP ANOTE ---
patient No Show. Phoned, no answer. Left ms to call back and re-schedule. Also reminded her of the 2 x LC/NS policy
--- NOTE | 2024-10-09 11:33 | PT-OP ANOTE ---
patient late cancelled. Daughter fell and hit her head, had to take her to the hospital. I phoned to talk with María and she was checking her daughter out of the ER when I called. She has two more PT visits next week.
--- NOTE | 2024-10-13 12:15 | PT.OTN ---
Current Diagnoses Spinal stenosis, site unspecified (10/13/24) Intervertebral disc disorders with radiculopathy, lumbar region (10/13/24) Other intervertebral disc degeneration, thoracolumbar region (10/13/24) Strain of muscle, fascia and tendon of lower back, initial encounter (10/13/24) Arthrodesis status (10/13/24) Other specified postprocedural states (10/13/24) Physical Therapy Treatment Note PT-OP-A Visit Information Start: 08/28/24 13:31 Freq: Status: Active Protocol: Document 10/13/24 11:35 SP (Rec: 10/13/24 12:33 SP [id number]) Out-Patient Physical Therapy Visit Information Visit Information Visit Type Treatment Note Visit Note L & I: (1st set 12/22 approved visits this encounter of PT) Visit Start Time 11:35 Visit Stop Time 12:15 Visit Number / approved visits 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 PT-OP-B Current Condition Start: 08/28/24 13:31 Freq: Status: Active Protocol: Document 09/16/24 14:29 KW (Rec: 09/16/24 17:12 KW Laptop) Current Condition History of Current Condition Onset Date Mar 2024 History of Current post op Lami Fusion L3/4 2023, Dr. Alpesh Galeano Condition at [facility]. 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 Galeano for further w/u. Prior lami with him back in 2017. PMHx significant for obesity, hysterectomy 2021, C section x 2 2010 2013. HO falls. 2 children ages 10 and 13. Currently being worked up for sleep apnea. Treatment Goals Patient/Caregiver hike with kids, back to work Goals complete all personal hygiene. PT-OP-C Subjective Start: 08/28/24 13:31 Freq: Status: Active Protocol: Document 10/13/24 11:35 SP (Rec: 10/13/24 12:33 SP [id number]) OP-PT Subjective Patient Comments Patient Comments Pt reports missed last appt due to had a fall last Tues foot, caught carpet and fell onto her knees. She couldn't make her last appt due to Daughter had a hard fall causing a concussion and needed to go to ER. Pt states is compliant with HEP and feels like doing better overall, not as much nerve pain. PT-OP-E Functional Tests Start: 08/28/24 13:31 Freq: Status: Active Protocol: Document 09/16/24 14:29 KW (Rec: 09/16/24 17:12 KW Laptop) Functional Tests 30 Second Sit to Stand Test Score 4 PT-OP-G Mobility & Gait Start: 08/28/24 13:31 Freq: Status: Active Protocol: Document 09/16/24 14:29 KW (Rec: 09/16/24 17:12 KW Laptop) OP Mobility Evaluation Bed Mobility Rolling cues for breathing Supine to and from cues for breathing Sit OP Gait Assessment Gait Deviations General Gait Pattern Antalgic,Decreased Feet Clearance,Wide Based Gait PT-OP-J Posture/Palpation/Skin Start: 08/28/24 13:31 Freq: Status: Active Protocol: Document 09/16/24 14:29 KW (Rec: 09/16/24 17:12 KW Laptop) Posture Evaluation Position Sitting Evaluation View Lateral Head/C-Spine Posture Forward Head T-Spine Posture Increased Kyphosis Thorax Posture Barrel Chested L-Spine Posture Increased Lordosis PT-OP-K Range of Motion Start: 08/28/24 13:31 Freq: Status: Active Protocol: Document 09/16/24 14:29 KW (Rec: 09/16/24 17:12 KW Laptop) Lumbar Spine Range of Motion Lumbar Spine Active Testing Position Sitting Flexion 45 Extension 10 Rotation Left 20 Rotation Right 25 Lateral Flexion Left 10 Lateral Flexion 12 Right ROM Limitations Soft Tissue Tightness,Bony Restriction,Pain PT-OP-L Special Tests Start: 08/28/24 13:31 Freq: Status: Active Protocol: Document 09/16/24 14:29 KW (Rec: 09/16/24 17:12 KW Laptop) Special Tests Lumbar Spine Special Tests Slump Test Results (-) PT-OP-M Strength Start: 08/28/24 13:31 Freq: Status: Active Protocol: Document 09/16/24 14:29 KW (Rec: 09/16/24 17:12 KW Laptop) Trunk Strength Trunk Manual Muscle Testing Core Stabilization very poor, no TA felt Comments very good with breathing techniques Ankle/Foot Strength Ankle and Foot Manual Muscle Testing Left Dorsiflexion (L4) 4- Good- Plantarflexion (S1) 4- Good- Inversion 4- Good- Eversion (S1) 4- Good- Right Dorsiflexion (L4) 3+ Fair+ Plantarflexion (S1) 3+ Fair+ Inversion 4- Good- Eversion (S1) 4- Good- PT-OP-Q Treatments Start: 08/28/24 13:31 Freq: Status: Active Protocol: Document 10/13/24 11:35 SP (Rec: 10/13/24 12:33 SP [id number]) Gym Equipment Shuttle Recovery Bilateral Squat Details cued not to lock knees Resistance 50 # (2 navy bands) Reps/Time 15 reps Shuttle Balance Red Clips Details WBOS (4-8), NBOW (4s), Stride Stance (4s) Comments Wt shift with BUE support, stationary bal, Head turns CG 5%A Therapeutic Exercises Supine Exercises Marches Supine Exercise Name Reviewed: Marches with TA brace Side bilateral Reps/Minutes x20 alternating Comments cued for low ribcage twrd table, exhale with LE lift, inhale lower. B LE single leg abd with band Supine Exercise Name Reviewed KFO Side bilateral Resistance TB #1> #3 afogn[place] green today Equipment Used hooklying, one side stable, other leg pulls Reps/Minutes 10 each side Comments Improved level pelvis and breath supine ball Supine Exercise Name Hooklying: hamstring curls, LTR Side bilateral Equipment Used red physioball Reps/Minutes 15 each Comments cues for breathing Neuro Re-Education Treatment Balance Activities Dynamic stepping Details Fwd (HTs) 50 ft, Bwd 20 ft 2 laps, Tandem (finger glide wall) 20 ft 1 lap Surface tile hallway Equipment Discussed can add at home (declined HO) Comments cues for elongated posture, core fac, increase ANGÉLICA as needed for midline stability Decreased pacing with head turns. PT-OP-T Assessment and Plan Start: 08/28/24 13:31 Freq: Status: Active Protocol: Document 10/13/24 11:35 SP (Rec: 10/13/24 12:33 SP [id number]) Physical Therapy Assessment Goals Three Impairment painful gait Short Term Goal (STG patient is able to ambulate 1 square block with kids, ) no pain with appropriate device, trekking pole STG Duration 6 weeks Two Impairment pain Short Term Goal (STG spine pain improves 50% with PT ther-ex, CORE stability ) STG Duration 6 weeks One Impairment lack of HEP Short Term Goal (STG patient demonstrates indep with HEP ) STG Duration 6 weeks Assessment Summary Assessment Pt improved core engagement during ther ex review, occasional cues for breath exhale, good challenge during TA July, no pain reported. Initiated BLE strengthening on shuttle recovery today with cues for con/eccentric control. Progressed balance activities on uneven surface shuttle balance and dynamic stepping today with cuing for core engagement and postural awareness, improved decrease lateral wt shift and more even trisha stance time with laps. Physical Therapy Plan Frequency and Duration Frequency of 2x/Week Treatment Duration of 12 treatment (weeks) Plan of Care Start 09/16/24 Date Plan of Care End 12/17/24 Date Therapeutic Interventions Therapeutic Balance Training,Gait Training,Home Exercise Program, Interventions Manual Therapy,Neuromuscular Re-education,Patient/ Caregiver Education,Soft Tissue Mobilization,Taping, Therapeutic Activities,Therapeutic Exercises Modalities Cold Pack/Ice Massage,Electric Stimulation,Hot Packs, Ultrasound Next Visit Focus/Plan Next Note Type Treatment Note Next Visit Plan PT to get auth for more visits 6/5 appt (fill out form in PT box)- 2 more appts still approved need to schedule next visit. Recheck HEP: paloff press, dynamic stepping/walking ( declined HO). Next: add resisted side stepping, continue dynamic gait , balance and progress uneven surface when tolerated.
--- NOTE | 2024-10-15 12:57 | PT.OTN ---
Current Diagnoses Spinal stenosis, site unspecified (10/15/24) Intervertebral disc disorders with radiculopathy, lumbar region (10/15/24) Other intervertebral disc degeneration, thoracolumbar region (10/15/24) Strain of muscle, fascia and tendon of lower back, initial encounter (10/15/24) Arthrodesis status (10/15/24) Other specified postprocedural states (10/15/24) Physical Therapy Treatment Note PT-OP-A Visit Information Start: 08/28/24 13:31 Freq: Status: Active Protocol: Document 10/15/24 12:43 KW (Rec: 10/15/24 12:57 KW Laptop) Out-Patient Physical Therapy Visit Information Visit Information Visit Type Progress Note Visit Note L & I: (1st set 01/22 approved visits this encounter of PT) Visit Start Time 11:30 Visit Stop Time 12:15 Visit Number 10/18 PT-OP-B Current Condition Start: 08/28/24 13:31 Freq: Status: Active Protocol: Document 10/15/24 12:43 KW (Rec: 10/15/24 12:57 KW Laptop) Current Condition History of Current Condition Onset Date Mar 2024 History of Current post op Lami Fusion L3/4 2023, Dr. Alpesh Galeano Condition at [facility] [place] [place]. 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 Galeano for further w/u. Prior lami with him back in 2017. PMHx significant for obesity, hysterectomy 2021, C section x 2 2010 2013. HO falls. 2 children ages 10 and 13. Currently being worked up for sleep apnea. PT-OP-C Subjective Start: 08/28/24 13:31 Freq: Status: Active Protocol: Document 10/15/24 12:43 KW (Rec: 10/15/24 12:57 KW Laptop) OP-PT Subjective Patient Comments Patient Comments Pt reports fatigue at end of day, never knows when legs will give out. pt is waiting to get in for sleep study , to see a cabin worker for HTN Patient Questionnaires Oswestry Low Back Index Oswestry Score 62, no change Oswestry Impairment 60 to 79% Impaired (Score 60-79) OP-PT Pain Assessment Pain Assessment Grid Paper Pain Yes Assessment Grid Completed Location Bilateral Pain Location Lumbar Details Intensity 8 Description Aching,Acute,Burning,Chronic,Cramping,Dull Frequency Frequent Pain Aggravating Position,Changing Position,ADL's,Activity,Exercise, Factors Standing,Walking,Bending Pain Alleviating Cold,Heat,Medication,Position,Sitting,Exercise Factors PT-OP-E Functional Tests Start: 08/28/24 13:31 Freq: Status: Active Protocol: Document 09/16/24 14:29 KW (Rec: 09/16/24 17:12 KW Laptop) Functional Tests 30 Second Sit to Stand Test Score 4 PT-OP-G Mobility & Gait Start: 08/28/24 13:31 Freq: Status: Active Protocol: Document 09/16/24 14:29 KW (Rec: 09/16/24 17:12 KW Laptop) OP Mobility Evaluation Bed Mobility Rolling cues for breathing Supine to and from cues for breathing Sit OP Gait Assessment Gait Deviations General Gait Pattern Antalgic,Decreased Feet Clearance,Wide Based Gait PT-OP-J Posture/Palpation/Skin Start: 08/28/24 13:31 Freq: Status: Active Protocol: Document 09/16/24 14:29 KW (Rec: 09/16/24 17:12 KW Laptop) Posture Evaluation Position Sitting Evaluation View Lateral Head/C-Spine Posture Forward Head T-Spine Posture Increased Kyphosis Thorax Posture Barrel Chested L-Spine Posture Increased Lordosis PT-OP-K Range of Motion Start: 08/28/24 13:31 Freq: Status: Active Protocol: Document 09/16/24 14:29 KW (Rec: 09/16/24 17:12 KW Laptop) Lumbar Spine Range of Motion Lumbar Spine Active Testing Position Sitting Flexion 45 Extension 10 Rotation Left 20 Rotation Right 25 Lateral Flexion Left 10 Lateral Flexion 12 Right ROM Limitations Soft Tissue Tightness,Bony Restriction,Pain PT-OP-L Special Tests Start: 08/28/24 13:31 Freq: Status: Active Protocol: Document 09/16/24 14:29 KW (Rec: 09/16/24 17:12 KW Laptop) Special Tests Lumbar Spine Special Tests Slump Test Results (-) PT-OP-M Strength Start: 08/28/24 13:31 Freq: Status: Active Protocol: Document 10/15/24 12:43 KW (Rec: 10/15/24 12:57 KW Laptop) Trunk Strength Trunk Manual Muscle Testing Testing Position Supine Core Stabilization very poor, no TA felt Comments very good with breathing techniques Ankle/Foot Strength Ankle and Foot Manual Muscle Testing Left Dorsiflexion (L4) 4- Good- Plantarflexion (S1) 4- Good- Inversion 4- Good- Eversion (S1) 4- Good- Right Dorsiflexion (L4) 4- Good- Plantarflexion (S1) 4- Good- Inversion 4- Good- Eversion (S1) 4- Good- PT-OP-Q Treatments Start: 08/28/24 13:31 Freq: Status: Active Protocol: Document 10/15/24 12:43 KW (Rec: 10/15/24 12:57 KW Laptop) Cardio Equipment Recumbent Stepper (Sci-Fit) Duration (Minutes) 8 Resistance 2 Seat Position 9 Other BUEs/BLEs approx 35 RPM Self-Care/Home Management Treatment Education Patient Education Body Mechanics,Fall Risk,Home Exercise Program,Joint Protection,Pain Management,Posture,Safety Other Education HTN education. s/p bike: 214/138, L UE 219/116, wrist 191/116, R arm 180/110, manual R UE Activities Self-Care/Home ed: re HTN. Pt reports she is on 4 different meds, has Management a prn med that is in her car, dropped her off. Activities Spouse phoned to come with meds. Pt without any other Sx. NO chest pain, No arm pain, no facial droop. ambulating. NO sweating. pt states she has been to ED multiple times without any Rx except for prn HTN meds which she has at home and can take up to 200mg. has a wrist BP cuff and will monitor all day PT-OP-T Assessment and Plan Start: 08/28/24 13:31 Freq: Status: Active Protocol: Document 10/15/24 12:43 KW (Rec: 10/15/24 12:57 KW Laptop) Physical Therapy Assessment Rehab Potential Rehabilitation Excellent Potential Evaluation Complexity Number of Personal 1-2 Factors/ Comorbidities Number of Body 1-2 Systems Impaired Clinical Stable Presentation at Evaluation Other Concerns Fall Risk yes Barriers to co-morbidities, multiple surgeries Rehabilitation Goals Three Impairment painful gait Short Term Goal (STG patient is able to ambulate 1 square block with kids, ) no pain with appropriate device, trekking pole, 50% met STG Duration 6 weeks Two Impairment pain Short Term Goal (STG spine pain improves 50% with PT ther-ex, CORE stability ) - no progress at this time STG Duration 6 weeks One Impairment lack of HEP Short Term Goal (STG patient demonstrates indep with HEP - MET ) STG Duration 6 weeks Assessment Summary Assessment limited PT Rx today as focus on HTN management. encouraged her to start a journal for am and pm BP as quite elevated today. 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 She will go to ED if any Sx, patient will reach out to MD as well. PT to phone MD as well. Physical Therapy Plan Frequency and Duration Frequency of 2x/Week Treatment Duration of 12 treatment (weeks) Plan of Care Start 09/16/24 Date Plan of Care End 12/17/24 Date Therapeutic Interventions Therapeutic Balance Training,Gait Training,Home Exercise Program, Interventions Manual Therapy,Neuromuscular Re-education,Patient/ Caregiver Education,Soft Tissue Mobilization,Taping, Therapeutic Activities,Therapeutic Exercises Modalities Cold Pack/Ice Massage,Electric Stimulation,Hot Packs, Ultrasound Other Therapeutic BP management Interventions Next Visit Focus/Plan Next Note Type Treatment Note Next Visit Plan check on Auth, all paperwork submitted for LnI patient wants to focus on balance Recheck HEP: paloff press, dynamic stepping/walking ( declined HO). Next: add resisted side stepping, continue dynamic gait , balance and progress uneven surface when tolerated.
--- NOTE | 2024-10-15 14:25 | PT-OP ANOTE ---
phoned patient at home, she had 100mg of her BP meds, still can take another 100mg prn. BP is now down to 170/90. She is sending a message to her PCP team letting them know. Phone call left with office, Ronnie Hull.
--- NOTE | 2024-10-21 11:59 | PT-OP ANOTE ---
patient No show. Phoned and left message that future PT visits will be cancelled for now due to attendance policy. Will need to get new Referral.
--- NOTE | 2024-10-21 12:00 | PT.OPDS ---
Current Diagnoses Spinal stenosis, site unspecified (10/15/24) Intervertebral disc disorders with radiculopathy, lumbar region (10/15/24) Other intervertebral disc degeneration, thoracolumbar region (10/15/24) Strain of muscle, fascia and tendon of lower back, initial encounter (10/15/24) Arthrodesis status (10/15/24) Other specified postprocedural states (10/15/24) Visit Care Team Role Provider Type Stephanie Gomez MD Referring Provider Non-Staff Specialty: General Surgery Address: [address] [place] [address], [id number] Email: LOWELL Sharma Family Provider Advanced Floor Sweeper Primary Care Provider Specialty: Medical Address: [address] [place] [address], [facility] Email: [email or web address] Pratima Willson [place] Attending Provider Non-Staff Specialty: Chiropractic Address: [address] [place] [address], [id number] Email: Visit Number Visit Number 10/18 Discharge Summary PT-OP-B Current Condition Start: 08/28/24 13:31 Freq: Status: Active Protocol: Document 10/15/24 12:43 KW (Rec: 10/15/24 12:57 KW Laptop) Current Condition History of Current Condition Onset Date Mar 2024 History of Current post op Lami Fusion L3/4 2023, Dr. Alpesh Galeano Condition at [facility]. 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 Galeano for further w/u. Prior lami with him back in 2017. PMHx significant for obesity, hysterectomy 2021, C section x 2 2010 2013. HO falls. 2 children ages 10 and 13. Currently being worked up for sleep apnea. PT-OP-C Subjective Start: 08/28/24 13:31 Freq: Status: Active Protocol: Document 10/15/24 12:43 KW (Rec: 10/15/24 12:57 KW Laptop) OP-PT Subjective Patient Comments Patient Comments Pt reports fatigue at end of day, never knows when legs will give out. 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 Patient Questionnaires Oswestry Low Back Index Oswestry Score 62, no change Oswestry Impairment 60 to 79% Impaired (Score 60-79) OP-PT Pain Assessment Pain Assessment Grid Paper Pain Yes Assessment Grid Completed Location Bilateral Pain Location Lumbar Details Intensity 8 Description Aching,Acute,Burning,Chronic,Cramping,Dull Frequency Frequent Pain Aggravating Position,Changing Position,ADL's,Activity,Exercise, Factors Standing,Walking,Bending Pain Alleviating Cold,Heat,Medication,Position,Sitting,Exercise Factors PT-OP-E Functional Tests Start: 08/28/24 13:31 Freq: Status: Active Protocol: Document 09/16/24 14:29 KW (Rec: 09/16/24 17:12 KW Laptop) Functional Tests 30 Second Sit to Stand Test Score 4 PT-OP-G Mobility & Gait Start: 08/28/24 13:31 Freq: Status: Active Protocol: Document 09/16/24 14:29 KW (Rec: 09/16/24 17:12 KW Laptop) OP Mobility Evaluation Bed Mobility Rolling cues for breathing Supine to and from cues for breathing Sit OP Gait Assessment Gait Deviations General Gait Pattern Antalgic,Decreased Feet Clearance,Wide Based Gait PT-OP-J Posture/Palpation/Skin Start: 08/28/24 13:31 Freq: Status: Active Protocol: Document 09/16/24 14:29 KW (Rec: 09/16/24 17:12 KW Laptop) Posture Evaluation Position Sitting Evaluation View Lateral Head/C-Spine Posture Forward Head T-Spine Posture Increased Kyphosis Thorax Posture Barrel Chested L-Spine Posture Increased Lordosis PT-OP-K Range of Motion Start: 08/28/24 13:31 Freq: Status: Active Protocol: Document 09/16/24 14:29 KW (Rec: 09/16/24 17:12 KW Laptop) Lumbar Spine Range of Motion Lumbar Spine Active Testing Position Sitting Flexion 45 Extension 10 Rotation Left 20 Rotation Right 25 Lateral Flexion Left 10 Lateral Flexion 12 Right ROM Limitations Soft Tissue Tightness,Bony Restriction,Pain PT-OP-L Special Tests Start: 08/28/24 13:31 Freq: Status: Active Protocol: Document 09/16/24 14:29 KW (Rec: 09/16/24 17:12 KW Laptop) Special Tests Lumbar Spine Special Tests Slump Test Results (-) PT-OP-M Strength Start: 08/28/24 13:31 Freq: Status: Active Protocol: Document 10/15/24 12:43 KW (Rec: 10/15/24 12:57 KW Laptop) Trunk Strength Trunk Manual Muscle Testing Testing Position Supine Core Stabilization very poor, no TA felt Comments very good with breathing techniques Ankle/Foot Strength Ankle and Foot Manual Muscle Testing Left Dorsiflexion (L4) 4- Good- Plantarflexion (S1) 4- Good- Inversion 4- Good- Eversion (S1) 4- Good- Right Dorsiflexion (L4) 4- Good- Plantarflexion (S1) 4- Good- Inversion 4- Good- Eversion (S1) 4- Good- PT-OP-T Assessment and Plan Start: 08/28/24 13:31 Freq: Status: Active Protocol: Document 10/15/24 12:43 KW (Rec: 10/15/24 12:57 KW Laptop) Physical Therapy Assessment Rehab Potential Rehabilitation Excellent Potential Evaluation Complexity Number of Personal 1-2 Factors/ Comorbidities Number of Body 1-2 Systems Impaired Clinical Stable Presentation at Evaluation Other Concerns Fall Risk yes Barriers to co-morbidities, multiple surgeries Rehabilitation Goals Three Impairment painful gait Short Term Goal (STG patient is able to ambulate 1 square block with kids, ) no pain with appropriate device, trekking pole, 50% met STG Duration 6 weeks Two Impairment pain Short Term Goal (STG spine pain improves 50% with PT ther-ex, CORE stability ) - no progress at this time STG Duration 6 weeks One Impairment lack of HEP Short Term Goal (STG patient demonstrates indep with HEP - MET ) STG Duration 6 weeks Assessment Summary Assessment limited PT Rx today as focus on HTN management. encouraged her to start a journal for am and pm BP as quite elevated today. 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 She will go to ED if any Sx, patient will reach out to MD as well. PT to phone MD as well. Physical Therapy Plan Frequency and Duration Frequency of 2x/Week Treatment Duration of 12 treatment (weeks) Plan of Care Start 09/16/24 Plan of Care End 12/17/24 Date Therapeutic Interventions Therapeutic Balance Training,Gait Training,Home Exercise Program, Interventions Manual Therapy,Neuromuscular Re-education,Patient/ Caregiver Education,Soft Tissue Mobilization,Taping, Therapeutic Activities,Therapeutic Exercises Modalities Cold Pack/Ice Massage,Electric Stimulation,Hot Packs, Ultrasound Other Therapeutic BP management Interventions Next Visit Focus/Plan Next Note Type Treatment Note Next Visit Plan check on Auth, all paperwork submitted for LnI patient wants to focus on balance Recheck HEP: paloff press, dynamic stepping/walking ( declined HO). Next: add resisted side stepping, continue dynamic gait , balance and progress uneven surface when tolerated. Discharge PT at this time due to attendance policy of 2 x No Show. Patient will need a new referral from to return. Of note, she returned to Her PCP at my urging to f/u regarding jed blood pressure, which she did do on 09/14/2024. She will f/u with Cardiology and Pulmonology for sleep study. Message left for patient re: syed PT.
== END 2024-10-23 12:45 | disposition home or self-care (01) ==
LOC: PHYS 11:30
PROVIDERS: Family Provider Registered Nurse Diabetes Educator; PCP Registered Nurse Diabetes Educator; Referring Provider Orthopaedic Surgery Orthopaedic Surgery of the Spine; Visit Provider Chiropractor
DX: M48.00 Spinal stenosis, site unspecified (principal); M51.35 Other intervertebral disc degeneration, thoracolumbar region; S39.012A Strain of muscle, fascia and tendon of lower back, initial encounter; M51.16 Intervertebral disc disorders with radiculopathy, lumbar region; Z98.1 Arthrodesis status; Z98.890 Other specified postprocedural states
CPT/HCPCS: 97110; 97112; 97162; 97535